=== PATIENT | male | born 1970 | race American Indian/Alaskan Native ===

== ENCOUNTER 2016-12-03 03:43 | Inpatient (IN) | payer MEDICAID ==
[2016-12-03] MEDS ORDERED: NACL 0.9% 1000 ML 2,000 ML ONE ×2 (03:52)
[2016-12-03] MEDS ORDERED: TYLENOL PR ONE ×4 (03:52→09:01)
[2016-12-03] MEDS ORDERED: NACL 0.9% 1000 ML 1,000 ML IV ONE ×2 (04:10→06:37)
[2016-12-03 04:54] LABS: Basophils % (Auto) 0.3 % (0.0-1.8); Hematocrit 39.4 % (35.5-45.6); Hemoglobin 12.2 gm/dl (11.8-15.2); Mean Corpuscular HGB Conc 31 % (32-34); Mean Corpuscular Hemoglobin 30 pg (28-32); Mean Corpuscular Volume 97 fl (84-94); Platelet Count 127 K/mm3 (140-440); Red Blood Count 4.06 M/mm3 (3.65-5.03); Red Cell Distribution Width 19.2 % (13.2-15.2); White Blood Count 10.9 K/mm3 (4.5-11.0)
[2016-12-03 05:04] LABS: INR 1.13 (0.87-1.13)
[2016-12-03 05:13] LABS: Alanine Aminotransferase 31 units/L (7-56); Albumin 2.1 g/dL (3.9-5); Albumin/Globulin Ratio 0.3 %; Alkaline Phosphatase 79 units/L (35-129); Bilirubin,Total 0.4 mg/dL (0.1-1.2); Blood Urea Nitrogen 37 mg/dL (9-20); Calcium 7.9 mg/dL (8.4-10.2); Carbon Dioxide 25 mmol/L (22-30); Glucose 152 mg/dL (75-100); Total Protein 8.2 g/dL (6.3-8.2)
[2016-12-03 05:14] LABS: Chloride 116.5 mmol/L (98-107); Potassium 3.9 mmol/L (3.6-5.0); Sodium 153 mmol/L (137-145)
[2016-12-03 05:21] LABS: Anion Gap 15 mmol/L
[2016-12-03] MEDS ORDERED: TORADOL IV ONE (05:39)
[2016-12-03 05:45] LABS: ISTAT Base Excess 2; ISTAT HCO3 25.6; ISTAT PCO2 34.3 (35-45); ISTAT PH 7.481 (7.35-7.45); ISTAT PO2 145 (80-105); ISTAT SO2 99; ISTAT TCO2 27
[2016-12-03] MEDS ORDERED: ASPIRIN PR ONE (06:31)
--- NOTE | 2016-12-03 06:31 | Emergency Department Report ---
HPI - General Chief Complaint: Fever Time Seen by Provider: 12/03/16 06:13 - HPI HPI: The patient is a 46-year-old male who presents [facility] with a history of tracheostomy placement, suprapubic catheter placement, recurrent UTIs, CVA, diabetes, decubitus ulcers, who presents for evaluation of fever. Per nursing staff the patient was found to be febrile with a high-grade temperature for the past one day, and with moderate to severe sputum drainage. The patient has also experienced decreased urine output, constant, severe for the past one day. ED Past Medical Hx - Past Medical History Hx Hypertension: Yes Hx CVA: Yes Hx Congestive Heart Failure: Yes Hx Diabetes: Yes Hx Deep Vein Thrombosis: (Unk) Hx Renal Disease: Yes Hx Seizures: Yes Hx Asthma: No Hx COPD: No Hx Dementia: Yes Additional medical history: Resp failure, dysphagia, uti, scrotal cellulitis - Surgical History Hx Pacemaker: No Hx Internal Defibrillator: No Additional Surgical History: G-tube, - Social History Smoking Status: Unknown if ever smoked - Medications Home Medications: Home Medications Medication Instructions Recorded Confirmed Last Taken Type amLODIPine [Norvasc] 5 mg FEEDTUBE QDAY tablet 08/14/16 12/03/16 08/17/16 Rx Acetaminophen [Tylenol] 650 mg FEEDTUBE Q4H PRN 12/03/16 12/03/16 Unknown History Ascorbic Acid [Vitamin C] 500 mg PO DAILY 12/03/16 12/03/16 Unknown History Famotidine [Pepcid] 20 mg FEEDTUBE BID 12/03/16 12/03/16 Unknown History Glycopyrrolate [Robinul] 1 mg FEEDTUBE TID PRN 12/03/16 12/03/16 Unknown History Insulin Regular, Human [HumuLIN R] See Protocol IV QWEEK 12/03/16 12/03/16 Unknown History Ipratropium/Albuterol Sulfate 1 ampul IH Q6HR 12/03/16 12/03/16 Unknown History [Duoneb 0.5 mg-3 mg/3 ml Soln] Morphine Sulfate [Morphine Sulfate 30 mg PO Q12HR PRN 12/03/16 12/03/16 Unknown History ER] Multivit with Min #53/FA/K/Q10 1 each PO DAILY 12/03/16 12/03/16 Unknown History [Dekas Plus Softgel] Protein Supplement [Promod] 30 ml FEEDTUBE TID 12/03/16 12/03/16 Unknown History Scopolamine [Transderm-Scop] 1.5 mg TD Q3D 12/03/16 12/03/16 Unknown History ED Review of Systems ROS: Stated complaint: AMS/TACHYCARDIA Other details as noted in HPI Comment: Unobtainable due to pts medical conditions (nonverbal) Physical Exam - Physical Exam Vital Signs: Vital Signs 12/03/16 12/03/16 12/03/16 04:03 04:04 04:27 Temperature 104.3 F H Pulse Rate 145 H 144 H Respiratory 27 H 38 H Rate Blood Pressure 102/63 O2 Sat by Pulse 91 91 Oximetry O2 Sat by Pulse Oximetry [ Assessment] 12/03/16 12/03/16 12/03/16 04:31 04:44 05:01 Temperature Pulse Rate 140 H 147 H Respiratory 45 H 38 H Rate Blood Pressure 102/63 113/69 O2 Sat by Pulse 94 94 Oximetry O2 Sat by Pulse 96 Oximetry [ Assessment] 12/03/16 05:08 Temperature Pulse Rate 144 H Respiratory Rate Blood Pressure O2 Sat by Pulse 99 Oximetry O2 Sat by Pulse Oximetry [ Assessment] Physical Exam: General: well-nourished, well-developed, no acute distress Head: Normocephalic, atraumatic Eyes: normal sclera ENT: Mucous membranes are pale and dry, tracheostomy present Neck: No neck stiffness, no cervical adenopathy Respiratory: Breath sounds equal bilaterally, no wheezing, rales, or rhonchi Cardio: S1 and S2 present, no murmurs, rubs, gallops, capillary refill is delayed Abdomen: Normoactive bowel sounds, soft abdomen, no rigidity, no guarding or rebound tenderness : suprapubic catheter present, foul-smelling urine present to diaper Musc: No pitting edema Skin: multiple decubitus ulcers with surrounding erythema and warmth present to the sacrum, and extremities Neuro: no facial drooping, normal speech Psych: Normal affect ED Course Vital Signs 12/03/16 12/03/16 12/03/16 04:03 04:04 04:27 Temperature 104.3 F H Pulse Rate 145 H 144 H Respiratory 27 H 38 H Rate Blood Pressure 102/63 O2 Sat by Pulse 91 91 Oximetry O2 Sat by Pulse Oximetry [ Assessment] 12/03/16 12/03/16 12/03/16 04:31 04:44 05:01 Temperature Pulse Rate 140 H 147 H Respiratory 45 H 38 H Rate Blood Pressure 102/63 113/69 O2 Sat by Pulse 94 94 Oximetry O2 Sat by Pulse 96 Oximetry [ Assessment] 12/03/16 05:08 Temperature Pulse Rate 144 H Respiratory Rate Blood Pressure O2 Sat by Pulse 99 Oximetry O2 Sat by Pulse Oximetry [ Assessment] ED Medical Decision Making - Lab Data Result diagrams: 12/03/16 04:32 12/03/16 04:32 - Medical Decision Making The patient was seen and examined by myself. The patient is placed on a color television console monitor and continuous pulse ox. On initial evaluation, the patient was found to be in no distress. Evaluation orders were placed. The patient was found to be febrile and he was given rectal Tylenol. The patient is given 1 L normal saline fluid bolus for treatment of dehydration. Exam findings are concerning for urinary tract infection versus decubitus ulcer cellulitis. The patient is administered Zosyn. Lab was also grossly unrevealing. Chest x-ray is negative for obvious pneumonia. The on-call hospitalist service was contacted. They agreed to admit the patient for further treatment and close monitoring. The ED admit order was placed. The patient was admitted in guarded condition. Critical care attestation.: If time is entered above; I have spent that time in minutes in the direct care of this critically ill patient, excluding procedure time. ED Disposition Clinical Impression: Dehydration, Lactic acidosis, Decubitus ulcer, stage 1 with infection Fever Qualifiers: Fever type: unspecified Qualified Code(s): R50.9 - Fever, unspecified Sepsis Qualifiers: Sepsis type: sepsis due to unspecified organism Qualified Code(s): A41.9 - Sepsis, unspecified organism Disposition: OP ADMITTED IP TO THIS HOSP Is pt being admited?: Yes Does the pt Need Aspirin: Yes Condition: Serious Referrals: PRIMARY CARE, [Primary Care Provider] - 3-5 Days Time of Disposition: 06:30
[2016-12-03] MEDS ORDERED: ZOSYN/NS 3.375GM/50ML 50 ML IV SCH (07:00)
--- NOTE | 2016-12-03 07:29 | XRay Report ---
AP chest History: Sepsis Findings: Compared to 08/18/16. Limited exam due to the patient's right arm overlying the lower chest. The patient was reported to be in a contracted position. Heart size and pulmonary vascularity are within normal limits. Subtle right lung airspace opacities have resolved since the previous exam. The lungs are grossly clear. No consolidation, pleural effusion or pneumothorax is appreciated. Tracheostomy remains in good position. Impression: Limited but grossly negative AP chest.
--- NOTE | 2016-12-03 09:09 | History and Physical Report ---
History of Present Illness Date of examination: 12/03/16 Date of admission: 12/03/2016 Chief complaint: Fever History of present illness: Patient is 46 -year-old with history of dementia, seizure disorder, stroke, hypertension. He is a [facility] at a [facility]. He was sent in because of fever. Patient is aphasic and cannot provide any history. In emergency departments he had a temperature of 104. BMP showed hypernatremia. He was diagnosed with sepsis. He was hypotensive and hypoxic. Was put on ventilator, multiple IV fluid bolus. He will be admitted to intensive care unit. Past History Past Medical History: hypertension, seizures, stroke, other (dementia) Past Surgical History: Other (PEG, tracheostomy) Social history: smoking (no smoking), alcohol abuse (no alcohol), full code, other (since [facility] facility, no smoking or alcohol) Family history: no significant family history Medications and Allergies Allergies Allergy/AdvReac Type Severity Reaction Status Date / Time vancomycin Allergy Unknown Verified 12/03/16 04:25 Home Medications Medication Instructions Recorded Confirmed Last Taken Type amLODIPine [Norvasc] 5 mg FEEDTUBE QDAY tablet 08/14/16 12/03/16 08/17/16 Rx Acetaminophen [Tylenol] 650 mg FEEDTUBE Q4H PRN 12/03/16 12/03/16 Unknown History Ascorbic Acid [Vitamin C] 500 mg PO DAILY 12/03/16 12/03/16 Unknown History Famotidine [Pepcid] 20 mg FEEDTUBE BID 12/03/16 12/03/16 Unknown History Glycopyrrolate [Robinul] 1 mg FEEDTUBE TID PRN 12/03/16 12/03/16 Unknown History Insulin Regular, Human [HumuLIN R] See Protocol IV QWEEK 12/03/16 12/03/16 Unknown History Ipratropium/Albuterol Sulfate 1 ampul IH Q6HR 12/03/16 12/03/16 Unknown History [Duoneb 0.5 mg-3 mg/3 ml Soln] Morphine Sulfate [Morphine Sulfate 30 mg PO Q12HR PRN 12/03/16 12/03/16 Unknown History ER] Multivit with Min #53/FA/K/Q10 1 each PO DAILY 12/03/16 12/03/16 Unknown History [Dekas Plus Softgel] Protein Supplement [Promod] 30 ml FEEDTUBE TID 12/03/16 12/03/16 Unknown History Scopolamine [Transderm-Scop] 1.5 mg TD Q3D 12/03/16 12/03/16 Unknown History Active Meds: Active Medications Piperacillin Sod/Tazobactam Sod (Zosyn/Ns 3.375gm/50ml) 50 mls @ 100 mls/hr IV Q6HR PAM Last Admin: 12/03/16 09:00 Dose: 100 mls/hr Review of Systems ROS unobtainable: due to endotracheal tube Exam - Constitutional Vitals: Temp Pulse Resp BP Pulse Ox 102.8 F H 118 H 19 95/66 100 12/03/16 08:55 12/03/16 08:30 12/03/16 08:30 12/03/16 08:30 12/03/16 08:30 General appearance: Present: no acute distress - EENT Eyes: Present: PERRL ENT: other (tracheostomy connected to ventilator) - Respiratory Respiratory effort: normal Respiratory: bilateral: CTA, negative: diminished, rales, rhonchi, wheezing - Cardiovascular Rhythm: regular Heart Sounds: Present: S1 & S2 (S1 and S2 regular,tachcardia, no murmurs rubs or gallops) - Extremities Extremities: abnormal (contracted, leg ulcer) - Abdominal General gastrointestinal: Present: soft, non-tender, non-distended, normal bowel sounds, other (PEG tube, subprapubic catheter) - Neurologic Neurologic: other (Lethargic, on ventilator,aphasic) Results - Labs CBC & Chem 7: 12/03/16 04:32 12/03/16 04:32 Labs: Abnormal lab results 12/03/16 12/03/16 12/03/16 Range/Units 04:32 04:32 04:32 MCV 97 H (84-94) fl MCHC 31 L (32-34) % RDW 19.2 H (13.2-15.2) % Plt Count 127 L (140-440) K/mm3 Lymph % (Auto) 12.2 L (13.4-35.0) % [place] % (Auto) 7.6 H (0.0-7.3) % Seg Neutrophils % 79.9 H (40.0-70.0) % Seg Neutrophils # 8.7 H (1.8-7.7) K/mm3 POC ABG pH (7.35-7.45) POC ABG pCO2 (35-45) POC ABG pO2 (80-105) Sodium 153 H (137-145) mmol/L Chloride 116.5 H (98-107) mmol/L BUN 37 H (9-20) mg/dL Glucose 152 H (75-100) mg/dL Lactic Acid 2.3 H* (0.7-2.0) mmol/L Calcium 7.9 L (8.4-10.2) mg/dL Albumin 2.1 L (3.9-5) g/dL 12/03/16 Range/Units 05:37 MCV (84-94) fl MCHC (32-34) % RDW (13.2-15.2) % Plt Count (140-440) K/mm3 Lymph % (Auto) (13.4-35.0) % [place] % (Auto) (0.0-7.3) % Seg Neutrophils % (40.0-70.0) % Seg Neutrophils # (1.8-7.7) K/mm3 POC ABG pH 7.481 H (7.35-7.45) POC ABG pCO2 34.3 L (35-45) POC ABG pO2 145 H (80-105) Sodium (137-145) mmol/L Chloride (98-107) mmol/L BUN (9-20) mg/dL Glucose (75-100) mg/dL Lactic Acid (0.7-2.0) mmol/L Calcium (8.4-10.2) mg/dL Albumin (3.9-5) g/dL Assessment and Plan Sepsis. Admit to intensive care unit using sepsis protocol with 3 antibiotics. Zosyn, Levaquin and Zyvox(he is allergic to vancomycin). Urine and blood cultures ordered. Consulted ID physician. Acute respiratory failure with hypoxia. He had a tracheostomy and this has been connected to ventilator. Consult Dr. Duggan, Pulmonology/Skills Instructor to help with management. Hypotension due to sepsis. BP low normal in the 90s. We'll continue to give bolus normal saline and if BP remains low, may start Levophed to keep MAP greater than 65. total 4 Liters bolus ordered. Dehydration. iv fluid bolus. Total 4 liters ordered Patient has suprapubic catheter. No urine in bag. will consult Urology. Fever due to sepsis likely due to UTI. Hypernatremia. Iv fluids History of seizure disorder. Details unclear. Give Keppra twice a day DVT prophylaxis with SCDs only. No anticoagulation because of thrombocytopenia Full CODE STATUS
[2016-12-03] MEDS ORDERED: ZOFRAN IV PRN (09:15)
[2016-12-03] MEDS ORDERED: PANCREAZE DR 10,500 UNIT FEEDTUBE PRN ×2 (09:15→16:47)
[2016-12-03] MEDS ORDERED: SODIUM BICARBONATE FEEDTUBE PRN ×2 (09:15→16:47)
[2016-12-03] MEDS ORDERED: DULCOLAX PR PRN (09:15)
[2016-12-03] MEDS ORDERED: SIMPLE SYRUP FEEDTUBE PRN ×4 (09:15→16:47)
[2016-12-03] MEDS ORDERED: ALUM-MAG HYDROX-SIMETH 200-200-20MG/5ML PO PRN (09:15)
[2016-12-03] MEDS ORDERED: MILK OF MAGNESIA PO PRN (09:15)
[2016-12-03] MEDS ORDERED: TYLENOL FEEDTUBE PRN (09:25)
[2016-12-03] MEDS ORDERED: ROBINUL FEEDTUBE PRN (09:25)
[2016-12-03] MEDS ORDERED: NACL 0.9% 1000 ML 2,000 ML IV ONE (09:36)
--- NOTE | 2016-12-03 09:57 | Admit Criteria Form ---
Admission Criteria Documentation: SEVERE SEPSIS Clinical Indications for Admission to Inpatient Care (Place 'X' for any and all applicable criteria): Hospital admission is needed for appropriate care of the patient because of ANY ONE of the following: [X]I. Hemodynamic instability indicated by ANY ONE of the following(1)(2)(3)( 4)(5): [X]a. Vital sign abnormality not readily corrected by appropriate treatment within 12 to 24 hours indicated by ANY ONE of the following: [X]i) Tachycardia that persists despite appropriate treatment []ii) Hypotension that persists despite appropriate treatment []iii) Orthostatic vital sign changes that persist despite appropriate treatment [X]b. Vital sign abnormality that is severe indicated by ANY ONE of the following: [X]i. Inadequate perfusion indicated by ANY ONE of the following: [X]1) Lactic acidosis (greater than 2 mmol/L) []2) New abnormal capillary refill (greater than 3 seconds) []3) Reduced urine output []4) New altered mental status []5) Myocardial Ischemia []ii. Mean arterial pressure [A] less than 60 mm Hg []iii. Mean arterial pressure[A] less than 70 mm Hg after 30 minutes of appropriate treatment (eg, fluid resuscitation) []iv. Sustained heart rate greater than 120 beats per minute in adult []v. IV inotropic or vasopressor medication required to maintain adequate blood pressure or perfusion [X]II. Systemic or infectious condition causing severe symptoms or findings not responsive to emergency or observation care treatment (as appropriate) indicated by ANY ONE of the following: []a. Cardiac arrhythmias of immediate concern(1)(2)(3) []b. Severe endocrine disorder (eg, thyrotoxicosis, adrenal insufficiency)(4)(5) []c. Seizures (eg, new or recurrent)(6) []d. New-onset end organ failure or dysfunction as indicated by ANY ONE of the following: []i. Acute unexplained hypoxemia (eg, not from lung infection or chronic disease)(7)(8)(9) []ii. Acute renal failure as indicated by new onset of ANY ONE of the following(10)(11)(12)(13)(14): []1) 3-fold rise in serum creatinine from baseline []2) Serum creatinine greater than 4 mg/dL (354 micromoles/L) with acute rise greater than 0.5 mg/dL (44.2 micromoles/L) []3) Reduction of more than 75% in estimated glomerular filtration rate from baseline. []4) Estimated glomerular filtration rate less than 35 mL/min/1.73m2 ( 0.59 mL/sec/1.73m2) in child younger than 18 years. []5) Cessation of urine output indicated by ALL of the following: []A. Adequate volume status []B. Inadequate urine output as indicated by ANY ONE of the following: []a. Urine output less than 0.3 mL/kg/hr for 24 hours []b. Anuria (urine output less than 0.1 mL/kg/hr) for 12 hours []iii. Acute mental status changes(15) []iv. Acute hepatic failure (eg, plasma bilirubin greater than 4 mg/ dL (68 micromoles/L), new INR greater than 2.0)(16)(17) []e. Unmanageable nausea and vomiting(18) []f. New-onset or uncontrolled central diabetes insipidus(19)(20) []g. Clinically significant dehydration(18)(21) []h. Hypoglycemia(22) [X]i. Acidosis (pH less than 7.35) or alkalosis (pH greater than 7.45)( 22)(23) []j. Toxic drug level that indicates need for specific monitoring or treatment(24)(25) []k. Severe electrolyte abnormalities indicated by ALL of the following( 1)(2)(3): []i. Electrolytes and associated findings are not as expected for patient baseline or acceptable treatment effects. []ii. Severe abnormalities indicated by ANY ONE of the following: []1) Sodium less than 130 mEq/L (mmol/L) (new) []2) Sodium less than 135 mEq/L (mmol/L) with ANY ONE of the following: []A. Uncorrectable (to near normal or chronic baseline) after trial of outpatient and emergency treatment []B. Altered mental status []C. Seizures []D. Severe medical etiology requiring inpatient management (eg , heart failure, hypovolemia) []3) Sodium greater than 155 mEq/L (mmol/L) []4) Sodium greater than 150 mEq/L (mmol/L) with ANY ONE of the following: []A. Uncorrectable (to near normal or chronic baseline) with outpatient and emergency treatment []B. Altered mental status []C. Seizures []D. Severe medical etiology (eg, hypovolemia, diabetes insipidus) []5) Potassium less than 2.5 mEq/L (mmol/L) despite outpatient and emergency treatment []6) Potassium less than 3 mEq/L (mmol/L) with ANY ONE of the following : []A. Weakness []B. Cardiac abnormality (eg, arrhythmia, conduction disturbance ) []C. Cardiac ischemia []D. Ileus []E. Ongoing medical cause requiring inpatient management (eg, acute renal wasting or SIADH) []F. Other severe symptoms []7) Potassium greater than 6.5 mEq/L (mmol/L) []8) Potassium greater than 5 mEq/L (mmol/L) with ANY ONE of the following: []A. Uncorrectable (to near normal or chronic baseline) with outpatient and emergency treatment []B. Severe ECG findings[A] []C. Acute worsening of renal failure (creatinine greater than 2.5 mg/dL (221 micromoles/L) or significant elevation for age and size) []D. Severe weakness []E. Severe medical etiology (eg, hemolysis, infection, drug overdose) []9) Calcium less than 7 mg/dL (1.75 mmol/L) despite outpatient and emergency treatment(5) []10) Calcium less than 8 mg/dL (2 mmol/L) with significant symptoms or findings (eg, altered mental status, muscle spasms, seizures, breathing difficulty, cardiac abnormality (eg, arrhythmia or conduction disturbance))(5) []11) Calcium greater than 14 mg/dL (3.5 mmol/L)(5) []12) Calcium greater than 12 mg/dL (3 mmol/L) with ANY ONE of the following(5): []A. Uncorrectable (to near normal or chronic baseline) with outpatient and emergency treatment []B. Significant dehydration or hypovolemia as indicated by ALL of the following(3)(6)(7): []a. Not resolved with initial treatments []b. Clinically significant dehydration as indicated by ANY ONE of the following: [](1) Vomiting refractory to outpatient treatment (ie, precluding oral rehydration) [](2) Inability to drink [](3) Hypernatremia or other electrolyte abnormality unable to be corrected with outpatient and emergency treatment [](4) Failure to remain hydrated with outpatient therapy [](5) Reduced urine output [](6) Hypotension [](7) Serious cause for dehydration requiring acute hospitalization ( eg, bowel obstruction, increased intracranial pressure, infectious cause) [](8) Child with ANY ONE of the following(8): [](i) Severe abdominal tenderness [](ii) Adequate care not available at home [](iii) Severe dehydration (greater than 9% loss of body weight) []C. Significant symptoms or findings (eg, altered mental status , cardiac abnormality (eg, arrhythmia, conduction disturbance), malignant etiology requiring inpatient treatment) []13) Phosphorus less than 1 mg/dL (0.32 mmol/L) []14) Phosphorus less than 1.5 mg/dL (0.48 mmol/L) with ANY ONE of the following: []A. Patient unresponsive to outpatient and emergency treatment []B. Significant symptoms or findings (eg, weakness, altered mental status, breathing difficulty, seizures, rhabdomyolysis) []15) Phosphorus greater than 10 mg/dL (3.2 mmol/L) []16) Phosphorus greater than 4.5 mg/dL (1.45 mmol/L) (new) with ANY ONE of the following: []A. Severe medical etiology (eg, crush injury, acute renal failure) []B. Associated hypocalcemia with significant findings (eg, neurologic symptoms, altered mental status, muscle spasms, seizures, breathing difficulty, cardiac abnormality (eg, arrhythmia, conduction disturbance)) []16) Magnesium less than 1 mg/dL (0.41 mmol/L) []17) Magnesium less than 1.5 mg/dL (0.62 mmol/L) with ANY ONE of the following: []A. Patient unresponsive to outpatient and emergency treatment []B. Associated hypocalcemia with significant findings (eg, altered mental status, muscle spasms, seizures, breathing difficulty, cardiac abnormality (eg, arrhythmia, conduction disturbance)) []C. Associated hypokalemia (potassium less than 3 mEq/L (mmol/L )) with risk of arrhythmia []18) Magnesium greater than 4 mEq/L (2 mmol/L) []19) Magnesium greater than 2.5 mEq/L (1.25 mmol/L) with significant symptoms or findings (eg, weakness, altered mental status, cardiac abnormality (eg, arrhythmia, conduction disturbance), breathing difficulty, severe medical etiology (eg, renal failure, hypovolemia)) []20) Uric acid greater than 20 mg/dL (1190 micromoles/L)(9) []21) Uric acid greater than 8 mg/dL (476 micromoles/L) with significant symptoms or findings of tumor lysis syndrome (eg, creatinine greater than 1.5 times upper limit of normal, cardiac abnormality (eg , arrhythmia, conduction disturbance), seizure)(9) [X]III. High fever or other high-risk infection situation as indicated by ANY ONE of the following(26)(27)(28): [X]a. Outpatient and observation care antimicrobial treatment unavailable, not effective, or not appropriate []b. Documented bacteremia []c. Temperature greater than 104.9 degrees F (40.5 degrees C) (oral) []d. Temperature greater than 103.1 degrees F (39.5 degrees C) (oral) or less than 96.8 degrees F (36 degrees C) (rectal) that does not respond to emergency treatment and observation care []IV. High-risk febrile neutropenia[A] as indicated by ANY ONE of the following(29)(30)(31)(32): []a. Profound neutropenia[B] anticipated to extend for more than 7 days []b. Hemodynamic instability []c. Hypoxemia []d. Tachypnea []e. Altered mental status []f. New-onset abdominal pain []g. New-onset vomiting or diarrhea []h. Oral or gastrointestinal mucositis that interferes with swallowing or causes severe diarrhea []i. Focal infection (eg, cellulitis, pneumonia, central line or catheter infection, perirectal abscess) []j. Renal insufficiency (eg, GFR of less than 30 mL/min/1.73m2 (0.5 mL/sec /1.73m2)). []k. Severe liver dysfunction (transaminase levels greater than 5 times normal) []l. Platelet count less than 50,000/mm3 (50 x109/L)(33) []m. Leukemia or lymphoma induction therapy []n. Leukemia not in complete remission or with evidence of disease progression []o. Bone marrow transplant patient []p. Alemtuzumab being used for therapy []q. [employer] Supportive Care in Cancer (MASCC) Risk Index score of less than 21[C](33)(35). []V. Isolation required (eg, tuberculosis that requires isolation, Ebola infection)[D](36)(37)(38)(39)(40) []. Gangrene that requires treatment beyond emergency or observation level care(41)(42) []VII. Antitoxin administration and ongoing observation required (eg, tetanus, botulism)(43)(44) []. Suspected infection with rapid progression or severe symptoms as indicated by ANY ONE of the following(45): []a. Streptococcal or staphylococcal toxic shock(46) []b. Diphtheria(47) []c. Hantavirus(48) []d. Severe acute respiratory syndrome(8)(49) []e. Anthrax(50) []f. Ebola[D](36)(37)(38) []g. Necrotizing soft tissue infection(41)(42) []h. Plague(50) []i. Other suspected infection that requires care beyond emergency or observation level care []VII. Severe adverse drug or systemic toxin reaction as indicated by ANY ONE of the following(24): []a. Serotonin syndrome(51)(52) []b. Neuroleptic malignant syndrome(51)(52) []c. Cholinergic syndrome with severe symptoms (eg, bronchorrhea, weakness , mental status changes, seizures)(53) []d. Anticholinergic syndrome []e. Sympathetic syndrome with severe symptoms (eg, seizures, mental status changes, cardiac dysrhythmias) []f. Other severe adverse drug or systemic toxin reaction that remains after emergency or observation level care (as appropriate) []VIII. Allergic reaction with severe symptoms (not responsive to emergency or observation care treatment as appropriate), including ANY ONE of the following(54): []a. Airway edema (pharyngeal, epiglottic, or laryngeal edema) []b. Stridor []c. Respiratory failure []d. Bronchospasm []e. Hypotension []IX. Environmental emergency (not responsive to emergency or observation care treatment as appropriate) as indicated by ANY ONE of the following(55)(56): []a. Hyperthermia []b. Heat stroke []c. Heat exhaustion []d. Hypothermia (temperature less than 95 degrees F (35 degrees C) rectal) (57) []e. Electrocution(58) []X. Complications of transplanted organ (ie, not covered elsewhere)[E] indicated by ANY ONE of the following(59): []a. Acute graft rejection (or graft vs. host disease)[F] requiring inpatient management (eg, intravenous immunosuppression)(60)(61)(62)( 63) []b. Acute failure of transplanted organ necessitating inpatient care (eg, cannot be managed in other setting) []c. Infection requiring inpatient management (eg, Hemodynamic instability, need for intravenous antimicrobial treatment)(64)(65) []d. Other complication of transplanted organ requiring inpatient management []XI. Systemic or Infectious Condition condition, symptom, or finding for which emergency and observation care have failed or are not considered appropriate. See General Criteria: Observation Care, General Admission Criteria or Pediatric General Admission Criteria guideline as appropriate. (Contents from SEVERE SEPSIS and SYSTEMIC OR INFECTIOUS CONDITION clinical indications for admission to inpatient care have been integrated in this form) The original [facility] content created by [facility] has been revised. The portions of the content which have been revised are identified through the use of italic text or in bold and [facility] has neither reviewed nor approved the modified material. All other unmodified content is copyright [facility]. Please see references footnoted in the original [facility] edition 2016 Admission Criteria Met: Yes
[2016-12-03] MEDS ORDERED: LEVAQUIN 750MG/150ML 150 ML IV SCH (10:00)
[2016-12-03 10:40] LABS: Magnesium 2.4 mg/dL (1.7-2.3); Phosphorous 3.2 mg/dL (2.5-4.5)
--- NOTE | 2016-12-03 12:40 | Consultation ---
History of Present Illness Consult date: 12/03/16 Requesting physician: ARABELLA EVERETT Reason for consult: other (Acute Respiratory Failure; Sepsis) History of present illness: PULMONARY/CCM CONSULT (Full dictation # [id number]) Please see dictated notes for full details Medications and Allergies Allergies Allergy/AdvReac Type Severity Reaction Status Date / Time vancomycin Allergy Unknown Verified 12/03/16 04:25 Home Medications Medication Instructions Recorded Confirmed Last Taken Type amLODIPine [Norvasc] 5 mg FEEDTUBE QDAY tablet 08/14/16 12/03/16 08/17/16 Rx Acetaminophen [Tylenol] 650 mg FEEDTUBE Q4H PRN 12/03/16 12/03/16 Unknown History Ascorbic Acid [Vitamin C] 500 mg PO DAILY 12/03/16 12/03/16 Unknown History Famotidine [Pepcid] 20 mg FEEDTUBE BID 12/03/16 12/03/16 Unknown History Glycopyrrolate [Robinul] 1 mg FEEDTUBE TID PRN 12/03/16 12/03/16 Unknown History Insulin Regular, Human [HumuLIN R] See Protocol IV QWEEK 12/03/16 12/03/16 Unknown History Ipratropium/Albuterol Sulfate 1 ampul IH Q6HR 12/03/16 12/03/16 Unknown History [Duoneb 0.5 mg-3 mg/3 ml Soln] Morphine Sulfate [Morphine Sulfate 30 mg PO Q12HR PRN 12/03/16 12/03/16 Unknown History ER] Multivit with Min #53/FA/K/Q10 1 each PO DAILY 12/03/16 12/03/16 Unknown History [Dekas Plus Softgel] Protein Supplement [Promod] 30 ml FEEDTUBE TID 12/03/16 12/03/16 Unknown History Scopolamine [Transderm-Scop] 1.5 mg TD Q3D 12/03/16 12/03/16 Unknown History Active Meds: Active Medications Acetaminophen (Tylenol) 650 mg FEEDTUBE Q4H PRN PRN Reason: Pain Al Hydrox/Mg Hydrox/Simethicone (Alum-Mag Hydrox-Simeth [id number]/5ml) 30 ml PO Q4H PRN PRN Reason: Indigestion Albuterol/Ipratropium (Duoneb 0.5 Mg-3 Mg/3 Ml Soln) 1 ampul IH Q6HR PAM Lipase/Protease/Amylase (Pancreaze Dr 10,500 Unit) 1 each FEEDTUBE PRN PRN PRN Reason: For Clogged Feeding Tube Ascorbic Acid (Vitamin C) 500 mg FEEDTUBE QDAY PAM Bisacodyl (Dulcolax) 10 mg [place] QDAY PRN PRN Reason: constipation unrelieved by MOM Glycopyrrolate (Robinul) 1 mg FEEDTUBE TID PRN PRN Reason: excess secretions Levofloxacin/Dextrose (Levaquin 750mg/150ml) 150 mls @ 100 mls/hr IV Q24HR PAM PRN Reason: Protocol Last Admin: 12/03/16 10:12 Dose: 100 mls/hr Linezolid (Zyvox 600mg/300ml) 300 mls @ 300 mls/hr IV Q12HR [facility] PRN Reason: Protocol Piperacillin Sod/Tazobactam Sod (Zosyn/Ns 4.5gm/100ml) 100 mls @ 100 mls/30 min IV Q6HR PAM PRN Reason: Protocol Magnesium Hydroxide (Milk Of Magnesia) 30 ml PO Q4H PRN PRN Reason: Constipation Morphine Sulfate (Morphine) 30 mg PO Q12H PRN PRN Reason: Pain Multivitamins (Centrum Liq) 5 ml PO QDAY [facility] Ondansetron HCl (Zofran) 4 mg IV Q6H PRN PRN Reason: nausea or vomiting Scopolamine (Transderm-Scop) 1 each TD Q3D [facility] Simple Syrup (Simple Syrup) 15 ml FEEDTUBE PRN PRN PRN Reason: Hypoglycemia Simple Syrup (Simple Syrup) 30 ml FEEDTUBE PRN PRN PRN Reason: Hypoglycemia Sodium Bicarbonate (Sodium Bicarbonate) 325 mg FEEDTUBE PRN PRN PRN Reason: For Clogged Feeding Tube Physical Examination Vital signs: Vital Signs Resp Pulse Ox 27 H 91 12/03/16 04:03 12/03/16 04:03 Results - Laboratory Findings CBC and BMP: 12/03/16 04:32 12/03/16 04:32 ABG POC ABG pH 7.481 (7.35-7.45) H 12/03/16 05:37 POC ABG pCO2 34.3 (35-45) L 12/03/16 05:37 POC ABG pO2 145 (80-105) H 12/03/16 05:37 POC ABG HCO3 25.6 12/03/16 05:37 POC ABG Total CO2 27 12/03/16 05:37 POC ABG O2 Sat 99 12/03/16 05:37 PT/INR, D-dimer PT 14.4 Sec. (12.2-14.9) 12/03/16 04:32 INR 1.13 (0.87-1.13) 12/03/16 04:32
[2016-12-03] MEDS ORDERED: WATER FOR IRRIG STERILE ONE (13:51)
--- NOTE | 2016-12-03 13:57 | Consultation ---
History of Present Illness - Reason for Consult Consult date: 12/03/16 septic shock - History of Present Illness Mr Olivares is a 46-year-old AA male halfway resident with multiple medical problems to include chronic respiratory failure with indwelling tracheostomy, recurrent complicated UTIs with indwelling suprapubic Guevara, hx of CVA with multiple contractures, DM, CKD, HTN, dementia, and seizure disorder. He is admitted to on 12/03 with fever, and relative hypotension. The patient is unable to supply any history. He has been seen multiple times in the past by my group with complicated UTIs and bacteremia ( last seen 08/2016 ). The patient is noted now with a temperature of 104.3 and blood pressure 94/60. CBC includes white count 10,900 with 80% segs. H&H is 12.2 and 39.4 respectively. Platelet counts 127,000. BUN/creatinine is 37 and 1.0. Lactate levels 1.9. Chest x-ray is clear. Influenza a and B antigen is negative. Blood cultures are pending. The patient has been started on linezolid, Zosyn and Levaquin. His chart notes a vancomycin allergy (? Reaction) Past History Past Medical History: hypertension, seizures, stroke, other (dementia) Past Surgical History: Other (PEG, tracheostomy) Social history: smoking (no smoking), alcohol abuse (no alcohol), full code, other (since halfway facility, no smoking or alcohol) Family history: no significant family history Medications and Allergies Allergies Allergy/AdvReac Type Severity Reaction Status Date / Time vancomycin Allergy Unknown Verified 12/03/16 04:25 Home Medications Medication Instructions Recorded Confirmed Last Taken Type amLODIPine [Norvasc] 5 mg FEEDTUBE QDAY tablet 08/14/16 12/03/16 08/17/16 Rx Acetaminophen [Tylenol] 650 mg FEEDTUBE Q4H PRN 12/03/16 12/03/16 Unknown History Ascorbic Acid [Vitamin C] 500 mg PO DAILY 12/03/16 12/03/16 Unknown History Famotidine [Pepcid] 20 mg FEEDTUBE BID 12/03/16 12/03/16 Unknown History Glycopyrrolate [Robinul] 1 mg FEEDTUBE TID PRN 12/03/16 12/03/16 Unknown History Insulin Regular, Human [HumuLIN R] See Protocol IV QWEEK 12/03/16 12/03/16 Unknown History Ipratropium/Albuterol Sulfate 1 ampul IH Q6HR 12/03/16 12/03/16 Unknown History [Duoneb 0.5 mg-3 mg/3 ml Soln] Morphine Sulfate [Morphine Sulfate 30 mg PO Q12HR PRN 12/03/16 12/03/16 Unknown History ER] Multivit with Min #53/FA/K/Q10 1 each PO DAILY 12/03/16 12/03/16 Unknown History [Dekas Plus Softgel] Protein Supplement [Promod] 30 ml FEEDTUBE TID 12/03/16 12/03/16 Unknown History Scopolamine [Transderm-Scop] 1.5 mg TD Q3D 12/03/16 12/03/16 Unknown History Active Meds: Active Medications Acetaminophen (Tylenol) 650 mg FEEDTUBE Q4H PRN PRN Reason: Pain Al Hydrox/Mg Hydrox/Simethicone (Alum-Mag Hydrox-Simeth [phone]/5ml) 30 ml PO Q4H PRN PRN Reason: Indigestion Albuterol/Ipratropium (Duoneb 0.5 Mg-3 Mg/3 Ml Soln) 1 ampul IH Q6HR PAM Lipase/Protease/Amylase (Pancrejmain Dr 10,500 Unit) 1 each FEEDTUBE PRN PRN PRN Reason: For Clogged Feeding Tube Ascorbic Acid (Vitamin C) 500 mg FEEDTUBE QDAY PAM Bisacodyl (Dulcolax) 10 mg UT QDAY PRN PRN Reason: constipation unrelieved by MOM Famotidine (Pepcid) 20 mg PO BID PAM Glycopyrrolate (Robinul) 1 mg FEEDTUBE TID PRN PRN Reason: excess secretions Levofloxacin/Dextrose (Levaquin 750mg/150ml) 150 mls @ 100 mls/hr IV Q24HR PAM PRN Reason: Protocol Last Admin: 12/03/16 10:12 Dose: 100 mls/hr Linezolid (Zyvox 600mg/300ml) 300 mls @ 300 mls/hr IV Q12HR PAM PRN Reason: Protocol Piperacillin Sod/Tazobactam Sod (Zosyn/Ns 4.5gm/100ml) 100 mls @ 100 mls/30 min IV Q6HR PAM PRN Reason: Protocol Lactated Ringer's (Lactated Ringers) 1,000 mls @ 100 mls/hr IV DIRECT PAM Levetiracetam 500 mg/ Dextrose 105 mls @ 400 mls/hr IV Q12H PAM Magnesium Hydroxide (Milk Of Magnesia) 30 ml PO Q4H PRN PRN Reason: Constipation Morphine Sulfate (Morphine) 30 mg PO Q12H PRN PRN Reason: Pain Multivitamins (Centrum Liq) 5 ml PO QDAY PAM Ondansetron HCl (Zofran) 4 mg IV Q6H PRN PRN Reason: nausea or vomiting Scopolamine (Transderm-Scop) 1 each TD Q3D PAM Simple Syrup (Simple Syrup) 15 ml FEEDTUBE PRN PRN PRN Reason: Hypoglycemia Simple Syrup (Simple Syrup) 30 ml FEEDTUBE PRN PRN PRN Reason: Hypoglycemia Sodium Bicarbonate (Sodium Bicarbonate) 325 mg FEEDTUBE PRN PRN PRN Reason: For Clogged Feeding Tube Review of Systems ROS unobtainable: due to mental status Physical Examination - Physical Exam Narrative exam: Chronically ill-appearing. Multiple contractures. HEENT: Pupils are equal reactive to light and accommodation. Conjunctiva clear. Oropharynx is not well seen. Mucous membranes appear moist. Trach site without redness. NECK: Supple. No enlargement of the thyroid gland. No significant cervical lymphadenopathy. No jugular venous distention at 30. LUNGS: Rhonchi bilaterally. HEART: Tachycardic. S1 and S2 are normal. There are no murmurs, gallops, clicks or rubs heard. ABDOMEN: Soft and nontender. Liver and spleen are not palpably enlarged or tender. No palpable masses. PEG site clean. Bowel sounds positive. Suprapubic catheter site without redness. EXTREMITIES: No rash, peripheral lymphadenopathy, clubbing or edema. Superficial skin ulceration over left leg. Back not seen. SKIN: No other rash NEUROLOGIC: Multiple contractures. Eyes open. Does not follow commands. - Constitutional Vitals: Vital Signs Temp Pulse Resp BP Pulse Ox 102 F H 106 H 18 91/60 100 12/03/16 10:40 12/03/16 11:30 12/03/16 11:00 12/03/16 11:00 12/03/16 11:30 Temperature -Last 24 Hours Temperature 102 F Results - Labs CBC & Chem 7: 12/03/16 04:32 12/03/16 04:32 Assessment and Plan Assessment: Mr Olivares is a 46-year-old AA male halfway resident with multiple medical problems to include chronic respiratory failure with indwelling tracheostomy, recurrent complicated UTIs with indwelling suprapubic Guevara, hx of CVA with multiple contractures, DM, CKD, HTN, dementia, and seizure disorder. He is admitted to on 12/03 with fever, and relative hypotension. Antibiotics: Levaquin 750 mg IV daily (12/03 -> Zosyn 4.5 g IV every 6 hours ( 12/03- > Linezolid 600 mg IV every 12 hours ( 12/03 - > Conclusions: 1. R/O septic shock -? Secondary to cough. UTI -? Secondary to skin site wound -? Aspiration -? Other occult source - R/O adrenal insufficiency 2. Recurrent UTI - Indwelling suprapubic catheter - Recent history - 08/2016 with Escherichia coli and pseudomonas aeruginosa ( Zosyn sensitive) 3. Chronic/ acute respiratory failure 4. Thrombocytopenia - R/O secondary to sepsis 5. Hx CVA - Multiple contractures 6. Electrolyte disorder - hypernatremia, hyperchloremia -R/O dehydration 7. Vancomycin allergy 8. Multiple medical problems -DM, CKD, seizure disorder, dementia, NH resident with frequent hospitalizations Recommendations: - Await culture data - Continue present therapy to include Zosyn and linezolid. Suspect though that patient's primary pathogen would involve gram-negative rods and we will be able to stop linezolid once further culture data is known - Levaquin is stopped. - Will give empiric Diflucan pending further culture findings - Consider empiric suprapubic catheter change - Follow lactate level. - Cortisol level ordered. Suggest IV hydrocortisone 100 mg IV every 8 hours if not already started - Continue local skin care. - Prognosis is guarded. Thank you for this consult. We will follow the patient closely with you.
[2016-12-03] MEDS ORDERED: HEPARIN SUB-Q SCH (14:00)
[2016-12-03] MEDS ORDERED: NON-FORMULARY (Protein Supplement [Promod] 30 ML) FEEDTUBE SCH (14:00)
--- NOTE | 2016-12-03 14:07 | Progress Note ---
Assessment and Plan urine clear spt changed pt critical condition supportive care Subjective Date of service: 12/03/16 Principal diagnosis: leaking around suprapubic site Objective - Constitutional Vitals: Vital Signs - 12hr 12/03/16 12/03/16 12/03/16 09:30 09:59 10:00 Temperature Pulse Rate 108 H 105 H 106 H Respiratory 18 18 19 Rate Blood Pressure 96/59 88/58 93/63 O2 Sat by Pulse Oximetry 12/03/16 12/03/16 12/03/16 10:01 10:15 10:30 Temperature Pulse Rate 105 H 107 H 109 H Respiratory 18 19 18 Rate Blood Pressure 93/63 97/65 98/65 O2 Sat by Pulse 100 Oximetry 12/03/16 12/03/16 12/03/16 10:35 10:40 11:00 Temperature 102 F H Pulse Rate 108 H 104 H Respiratory 18 18 Rate Blood Pressure 98/65 91/60 O2 Sat by Pulse 100 100 Oximetry 12/03/16 12/03/16 11:30 13:55 Temperature Pulse Rate 106 H 88 Respiratory Rate Blood Pressure 92/59 O2 Sat by Pulse 100 100 Oximetry General appearance: Present: severe distress - Respiratory Respiratory effort: labored Extremities: no ischemia - Labs CBC & Chem 7: 12/03/16 04:32 12/03/16 04:32
[2016-12-03] MEDS: ZOSYN/NS 4.5GM/100ML 100 ML IV SCH (14:44)
[2016-12-03] MEDS: LACTATED RINGERS 1,000 ML IV SCH (14:52)
[2016-12-03] MEDS: VITAMIN C FEEDTUBE SCH (14:56)
[2016-12-03] MEDS ORDERED: WATER FOR IRRIG STERILE IR ONE (15:00)
[2016-12-03] MEDS: KEPPRA 500 MG in D5W 100 ML IV SCH (15:45)
--- NOTE | 2016-12-03 16:06 | XRay Report ---
PORTABLE CHEST: INDICATION: Left arm PICC placement. COMPARISON: 4:42 AM earlier today. FINDINGS: Portable, frontal chest radiograph, 2:35 PM, 12/03/2016 again limited due to patient rotation to the right, though demonstrates a new left upper extremity PICC tip along the distal SVC, approximately 2.5 cm above the cavoatrial junction. Stable cardiomediastinal silhouette, tracheostomy tube, fairly clear lungs, EKG leads and few bony degenerative changes. CONCLUSION: Interval uncomplicated left upper extremity PICC placement, as described. Thank you for the opportunity to participate in this patient's care.
[2016-12-03] MEDS: DIFLUCAN 100 ML IV SCH (16:08)
[2016-12-03] MEDS: ZYVOX 600 MG/300 ML IV SCH ×2 (16:08→21:41)
[2016-12-03] MEDS: PEPCID PO SCH ×2 (16:30→21:41)
[2016-12-03] MEDS: DUONEB 0.5 MG-3 MG/3 ML SOLN IH SCH ×3 (16:55→19:00)
[2016-12-03 21:11] LABS: Anion Gap 13 mmol/L; BUN/Creatinine Ratio 43.33; Blood Urea Nitrogen 39 mg/dL (9-20); Calcium 7.7 mg/dL (8.4-10.2); Carbon Dioxide 24 mmol/L (22-30); Chloride 117.9 mmol/L (98-107); Glucose 93 mg/dL (75-100); Potassium 4.3 mmol/L (3.6-5.0); Sodium 151 mmol/L (137-145)
[2016-12-04] MEDS: ZOSYN/NS 4.5GM/100ML 100 ML IV SCH ×4 (01:00→18:05)
[2016-12-04] MEDS: KEPPRA 500 MG in D5W 100 ML IV SCH ×2 (02:30→15:00)
[2016-12-04] MEDS: DUONEB 0.5 MG-3 MG/3 ML SOLN IH SCH ×4 (02:30→21:32)
[2016-12-04] MEDS: LACTATED RINGERS 1,000 ML IV SCH (02:45)
--- NOTE | 2016-12-04 04:18 | Consultation ---
CONSULTING PHYSICIAN: Wilman Lara MD. REASON FOR CONSULTATION: Acute respiratory failure, severe sepsis. CHIEF COMPLAINT AND HISTORY OF PRESENT ILLNESS: The patient is a 46-year-old -Iranian male with past medical history significant for diagnosis of a prior cerebrovascular accident and encephalopathy, as a result of that [facility] resident, chronic respiratory failure with a tracheostomy in place, came into the Emergency Room after being [facility] the [facility] to be febrile with a high grade temperature that was not reported the exact amount, increasing tracheal secretions. He also was experiencing decreased urine output over the preceding 1-2 days. He was brought into the Emergency Room. In the Emergency Room, he was evaluated amongst other things, required mechanical ventilatory support, and has required volume resuscitation for hypotension. We are asked to assist with his management. When I stopped by to see him, he was on mechanical ventilator on the assist control mode, tidal volumes 450, PEEP of 5, rate of 18 and 35% FiO2. Oxygen sats were around 98%. He was unable to give me a history. I do not have any history of vomiting or overt aspiration. The patient was requiring more IV fluids secondary to a systolic blood pressure of about 80 mmHg, however, with a MAP of 66 at that time. This really is as much of the history of presentation as I have. PAST MEDICAL HISTORY: Hypertension, cerebrovascular accident, congestive heart failure, diabetes, history of chronic kidney disease, history of seizures, history of dementia, history of dysphagia, and prior history of scrotal cellulitis. PAST SURGICAL HISTORY: Status post tracheostomy, status post percutaneous endoscopic gastrostomy tube placement. MEDICATIONS: He was on at the time I stopped by to see him, according to the medication administration record included the following: Tylenol 650 mg via feeding tube q. 4 hours p.r.n. pain. DuoNeb treatments nebulized q. 6 hours. Vitamin C 500 mg p.o. daily. All p.o. meds via the feeding tube. P.r.n. Dulcolax, Pepcid 20 mg p.o. b.i.d., Robinul 1 mg p.o. t.i.d., Levaquin 750 mg IV daily, Zyvox 600 mg IV q. 12 hours. Morphine 30 mg p.o. q. 12 hours p.r.n. pain, Centrum multivitamin 5 mL p.o. daily, p.r.n. Zofran 4 mg IV q. 6 hours p.r.n., Zosyn 4.5 grams IV q. 6 hours, Scopolamine patch to skin q. 72 hours, and p.r.n. sodium bicarbonate for clogged feeding tube. ALLERGIES: Vancomycin, nature of this allergy is unknown. DIET: Thin gentleman, acute weight loss or gain history is unknown. FAMILY AND SOCIAL HISTORY: skilled nursing resident. No current alcohol, tobacco, or illicit drug use or abuse. Remote history is unknown. REVIEW OF SYSTEMS: Unobtainable secondary to the patient's medical and mental condition. Since he has been here, no gross hematochezia or melena, no gross hematuria, no hematemesis, no bloody tracheal secretions, no witnessed seizures. PHYSICAL EXAMINATION: VITAL SIGNS: At presentation in the Emergency Room, he had a temperature of 104.3 degrees Fahrenheit, pulse of 145, respiratory rate of 38, blood pressure 102/63, oxygen sats were 91%, inspired oxygen concentration was not recorded. HEENT: Pupils are equal, round, about 2 mm. Extraocular muscle movements could not be assessed. Tracheostomy tube is in place in the midline of the neck. No significant bleeding around the stoma. Grossly, no palpable lymph nodes in the supraclavicular or submandibular lymph node chains. LUNGS: Auscultation of both lung hatfield reveal bilateral rales, no wheezing. HEART: Heart sounds 1 and 2 are heard, regular rate and rhythm at the time of my evaluation. ABDOMEN: Soft, bowel sounds positive, flat, does not appear tender. EXTREMITIES: Without overt digital clubbing, cyanosis, or edema. NEUROLOGIC: He has contractures to both upper and lower extremities. He is encephalopathic really. LABORATORY DATA: From my review, white cell count 10,900, hemoglobin 12.2, hematocrit 39.4, platelets 127. INR 1.13. Arterial blood gas showed a pH of 7.48, pCO2 of 34, pO2 of 145, on 50% FiO2. It is unclear what settings those were done. Serum sodium 153, potassium 3.9, chloride 117, bicarbonate 25, BUN 37, creatinine 1.0, glucose 152. Lactic acid was within normal limits. Phosphorus and mag essentially within normal limits. Liver function tests essentially within normal limits except for an albumin of 2.1. Radiographic studies have been reviewed. Blood cultures are all pending as well as urine cultures. The radiograph I have reviewed, I have also reviewed the radiologist's interpretation and grossly negative I do agree. No overt focal infiltrates or consolidation. Tracheostomy tube is in good place. I cannot evaluate the left lower lobe region well secondary to the patient's hand which is in place there, and contracted, no gross pneumothorax, no gross bony fracture. ASSESSMENT AND PLAN: We have a middle-aged gentleman in with sepsis, severe sepsis really, requiring significant volume resuscitation, has not really responded to it. From a respiratory standpoint, we will keep him on mechanical ventilatory support; however, I will start weaning him on the pressure support mode as soon as now. His breathing is relatively nonlabored. Hopefully, we can quickly get him off the ventilator. Bronchodilators will be continued as scheduled. Aspiration precautions and other ventilator bundles will be instituted and routine trach care by the respiratory therapist will also be instituted. From a cardiovascular standpoint, the numbers do suggest an element of intravascular volume depletion and I should say his oxygenation is rather decent. We will continue possible volume resuscitation. In light of the electrolytes, I will change to lactated Ringer's and continue to trend his electrolytes as well as the lactic acid level. I will titrate the vasopressors if started to keep mean arterial pressures greater than or equal to around 60-65 mmHg. No evidence of an acute coronary syndrome otherwise. From a GI and nutritional standpoint, enteral nutrition will be the feeding modality of choice. Aspiration precautions will be maintained. He is appropriately on GI prophylaxis. From a renal standpoint, no major electrolyte abnormalities at this point except for the hypernatremia and hyperkalemia, again we will be changing the IV fluids, for now we will focus on isotonic fluids and switch after blood pressure stabilizes to a hypotonic solution. I will increase free water flushes in the meantime for the hypernatremia. Inputs and outputs will be monitored. Electrolytes will be corrected as necessary. From a PORTFOLIO ADMINISTRATOR standpoint, the exam based on the history is grossly nonfocal, no acute indication for neuro imaging by which I mean no new focal deficits. We will follow him clinically. From a general and hospital healthcare maintenance standpoint, he is on GI prophylaxis. He will be placed on DVT prophylaxis. Flu and pneumonia vaccination will be per protocol. Now from an infectious disease standpoint, he is on broad spectrum antibiotic therapy, Levaquin, Zyvox. It is unclear, I am not really impressed by the leukocytosis. I will get a CRP level, but also the lactic acid level is not that impressive. I suspect we can deescalate his antibiotic therapy. I will get Infectious Disease physicians involved in particular in light of the Zyvox therapy. He has been pancultured and anti-infectives will ultimately be deescalated based on results of clinical and microbiologic data. From a general and hospital healthcare maintenance standpoint, as mentioned above, he is going to be on GI and DVT prophylaxis. Thank you very much for the consult Dr. Lara. We will follow along and make further recommendations as picture progresses/becomes clearer. At this point, I have spent about 35-40 minutes of critical care time without overlap, excluding any procedural time that may be necessary. He is critically ill on life-sustaining interventions including mechanical ventilatory support at risk for further deterioration including . JOB# [id number] RUSSELL/PATRICIA
[2016-12-04 05:56] LABS: ISTAT Base Excess -3; ISTAT HCO3 21.8; ISTAT PCO2 36.1 (35-45); ISTAT PO2 105 (80-105); ISTAT SO2 98; ISTAT TCO2 23
[2016-12-04 06:21] LABS: Basophils % (Auto) 0.1 % (0.0-1.8); Mean Corpuscular HGB Conc 31 % (32-34); Mean Corpuscular Hemoglobin 30 pg (28-32); Mean Corpuscular Volume 96 fl (84-94); Red Blood Count 2.99 M/mm3 (3.65-5.03); Red Cell Distribution Width 18.3 % (13.2-15.2); White Blood Count 9.6 K/mm3 (4.5-11.0)
[2016-12-04 06:24] LABS: Hematocrit 28.6 % (35.5-45.6); Hemoglobin 8.9 gm/dl (11.8-15.2); Platelet Count 97 K/mm3 (140-440)
[2016-12-04 06:40] LABS: Alanine Aminotransferase 21 units/L (7-56); Albumin 1.9 g/dL (3.9-5); Albumin/Globulin Ratio 0.4 %; Alkaline Phosphatase 65 units/L (35-129); Anion Gap 15 mmol/L; BUN/Creatinine Ratio 51.42; Bilirubin,Total 0.3 mg/dL (0.1-1.2); Blood Urea Nitrogen 36 mg/dL (9-20); Calcium 8.1 mg/dL (8.4-10.2); Carbon Dioxide 22 mmol/L (22-30); Chloride 115.8 mmol/L (98-107); Glucose 118 mg/dL (75-100); Potassium 4.1 mmol/L (3.6-5.0); Sodium 149 mmol/L (137-145); Total Protein 7.1 g/dL (6.3-8.2)
--- NOTE | 2016-12-04 09:20 | Progress Note ---
Assessment and Plan Assessment: Mr Olivares is a 46-year-old AA male [facility] resident with multiple medical problems to include chronic respiratory failure with indwelling tracheostomy, recurrent complicated UTIs with indwelling suprapubic Guevara, hx of CVA with multiple contractures, DM, CKD, HTN, dementia, and seizure disorder. He is admitted to on 12/03 with fever, and relative hypotension. Antibiotics: Diflucan 200 mg IV daily ( 12/03- > Zosyn 4.5 g IV every 6 hours ( 12/03- > Linezolid 600 mg IV every 12 hours ( 12/03 - > s/p: Levaquin 750 mg IV daily ( 12/03) Conclusions: 1. R/O septic shock -? Secondary to UTI -? Secondary to skin site wound -? Aspiration -? Other occult source - R/O adrenal insufficiency 2. Recurrent UTI - Indwelling suprapubic catheter - Recent history - 08/2016 with Escherichia coli and pseudomonas aeruginosa ( Zosyn sensitive) UTI 3. Chronic/ acute respiratory failure 4. Thrombocytopenia - R/O secondary to sepsis; R/O drug side effect ( Zosyn, linezolid) 5. Hx CVA - Multiple contractures 6. Electrolyte disorder - hypernatremia, hyperchloremia -R/O dehydration 7. Vancomycin allergy 8. Multiple medical problems -DM, CKD, seizure disorder, dementia, NH resident with frequent hospitalizations Recommendations: - Await culture data - Continue present therapy to include Zosyn and linezolid. Suspect though that patient's primary pathogen would involve gram-negative rods and we will be able to stop linezolid once further culture data is known - Will continue empiric Diflucan pending further culture findings - Follow lactate level. - Cortisol level ordered. Continue IV hydrocortisone 100 mg IV every 8 hours. - Continue local skin care. - Prognosis is guarded. Subjective Date of service: 12/04/16 Principal diagnosis: leaking around suprapubic site Interval history: No events overnight. Now with low-grade fever. Suprapubic catheter changed . Objective - Exam Narrative Exam: Chronically ill-appearing. Multiple contractures. No distress. HEENT: Pupils are equal reactive to light and accommodation. Conjunctiva clear. Oropharynx is not well seen. Mucous membranes appear moist. Trach site without redness. NECK: Supple. No enlargement of the thyroid gland. No significant cervical lymphadenopathy. No jugular venous distention at 30. LUNGS: Rhonchi bilaterally. HEART: Tachycardic. S1 and S2 are normal. There are no murmurs, gallops, clicks or rubs heard. ABDOMEN: Soft and nontender. Liver and spleen are not palpably enlarged or tender. No palpable masses. PEG site clean. Bowel sounds positive. Suprapubic catheter site without redness. EXTREMITIES: No rash, peripheral lymphadenopathy, clubbing or edema. Superficial skin ulceration over left leg. Back not seen. SKIN: No other rash NEUROLOGIC: Multiple contractures. Awakes easily. Does not follow commands. - Constitutional Vitals: Vital Signs Temp Pulse Resp BP Pulse Ox 98.5 F 60 18 133/92 100 12/04/16 07:52 12/04/16 08:47 12/04/16 08:45 12/04/16 08:47 12/04/16 08:53 Temperature -Last 24 Hours Temperature 98.5 F Temperature 100.6 F Temperature 100.3 F Temperature 99.7 F Temperature 99 F Temperature 102 F - Labs CBC & Chem 7: 12/04/16 05:55 12/04/16 05:55 Labs: Abnormal lab results 12/03/16 12/04/16 12/04/16 Range/Units 19:48 00:09 05:55 RBC 2.99 L (3.65-5.03) M/mm3 Hgb 8.9 L D (11.8-15.2) gm/dl Hct 28.6 L D (35.5-45.6) % MCV 96 H (84-94) fl MCHC 31 L (32-34) % RDW 18.3 H (13.2-15.2) % Plt Count 97 L (140-440) K/mm3 Lymph % (Auto) 8.5 L (13.4-35.0) % Lymph # 0.8 L (1.2-5.4) K/mm3 Seg Neutrophils % 89.7 H (40.0-70.0) % Seg Neutrophils # 8.6 H (1.8-7.7) K/mm3 Sodium 151 H (137-145) mmol/L Chloride 117.9 H (98-107) mmol/L BUN 39 H (9-20) mg/dL Creatinine (0.8-1.5) mg/dL Glucose (75-100) mg/dL POC Glucose 110 H (70-105) Calcium 7.7 L (8.4-10.2) mg/dL Albumin (3.9-5) g/dL 12/04/16 12/04/16 Range/Units 05:55 06:00 RBC (3.65-5.03) M/mm3 Hgb (11.8-15.2) gm/dl Hct (35.5-45.6) % MCV (84-94) fl MCHC (32-34) % RDW (13.2-15.2) % Plt Count (140-440) K/mm3 Lymph % (Auto) (13.4-35.0) % Lymph # (1.2-5.4) K/mm3 Seg Neutrophils % (40.0-70.0) % Seg Neutrophils # (1.8-7.7) K/mm3 Sodium 149 H (137-145) mmol/L Chloride 115.8 H (98-107) mmol/L BUN 36 H (9-20) mg/dL Creatinine 0.7 L (0.8-1.5) mg/dL Glucose 118 H (75-100) mg/dL POC Glucose 118 H (70-105) Calcium 8.1 L (8.4-10.2) mg/dL Albumin 1.9 L (3.9-5) g/dL
[2016-12-04 09:48] LABS: Bilirubin,Urine Negative (Negative); Ketones,Urine Negative (Negative)
[2016-12-04 09:51] LABS: Leukocyte Esterase,Urine Moderate (Negative)
[2016-12-04 09:53] LABS: Nitrite,Urine Negative (Negative)
[2016-12-04 09:54] LABS: PH,Urine 6.5 (5.0-7.0); Urobilinogen,Urine 0.2 mg/dL (<2.0)
[2016-12-04 10:04] LABS: Blood,Urine Trace (Negative)
[2016-12-04 10:05] LABS: Bacteria,Urine 1+ /HPF (Negative)
[2016-12-04] MEDS: Centrum Liq PO SCH (10:36)
[2016-12-04] MEDS: PEPCID PO SCH ×2 (10:37→22:34)
[2016-12-04] MEDS: ZYVOX 600 MG/300 ML IV SCH ×2 (10:41→22:33)
[2016-12-04] MEDS: DIFLUCAN 100 ML IV SCH (10:41)
--- NOTE | 2016-12-04 12:35 | Progress Note ---
Assessment and Plan - Patient Problems (1) Sepsis Current Visit: Yes Status: Acute Qualifiers: Sepsis type: sepsis due to unspecified organism Qualified Code(s): A41.9 - Sepsis, unspecified organism Plan to address problem: - suspect aspiration pneumonia - continue empiric AB's per ID recs - gentle rehydration re: IVVD and azotemia - improving clinically (2) CVA, old, aphasia Current Visit: No Status: Chronic Plan to address problem: - a little more responsive today - follow clinically (3) Acute respiratory failure requiring reintubation Current Visit: Yes Status: Acute Plan to address problem: - continue bronchodilators and pulmonary toilet - continue routine trach care per RT - PSV trials as tolerated - continue aspiration precautions / VAP bundles - improving (4) Malfunction of Guevara catheter Current Visit: Yes Status: Acute Plan to address problem: - seen by urology and suprapubic catheter swapped out (5) Discharge planning issues Current Visit: Yes Status: Acute Plan to address problem: - will see how he progresses but may need LTAC evaluation down the road - if does well may transfer back to [place] ..remains critically ill on life sustaining interventions including MVS and at high risk for further deterioration including ....33' CCT Subjective Date of service: 12/04/16 Principal diagnosis: Acute Hypoxemic Resp Failure Interval history: seen and examined at bedside; 24hour events reviewed; nursing and respiratory care staff consulted; no adverse overnight events reported to me; remains on MVS; AMS is persistent but at baseline reportedly responds appropriately; no emesis or overt aspiration Objective Vital Signs - 12hr 12/04/16 12/04/16 12/04/16 01:00 01:31 02:00 Temperature Pulse Rate 73 75 72 Pulse Rate [ From Monitor] Pulse Rate [ 61 Throughout] Respiratory 18 19 18 Rate Respiratory 17 Rate [ Throughout] Blood Pressure 116/84 116/84 120/84 O2 Sat by Pulse 99 Oximetry O2 Sat by Pulse Oximetry [ Assessment] 12/04/16 12/04/16 12/04/16 02:31 02:45 03:00 Temperature Pulse Rate 69 71 Pulse Rate [ From Monitor] Pulse Rate [ 65 Throughout] Respiratory 18 18 Rate Respiratory 19 Rate [ Throughout] Blood Pressure 116/84 128/91 O2 Sat by Pulse 100 100 Oximetry O2 Sat by Pulse Oximetry [ Assessment] 12/04/16 12/04/16 12/04/16 03:31 04:00 04:10 Temperature 100.6 F H Pulse Rate 68 68 Pulse Rate [ From Monitor] Pulse Rate [ Throughout] Respiratory 17 18 Rate Respiratory Rate [ Throughout] Blood Pressure 128/91 125/90 O2 Sat by Pulse 99 99 Oximetry O2 Sat by Pulse Oximetry [ Assessment] 12/04/16 12/04/16 12/04/16 04:31 05:00 05:31 Temperature Pulse Rate 62 72 70 Pulse Rate [ From Monitor] Pulse Rate [ Throughout] Respiratory 18 17 18 Rate Respiratory Rate [ Throughout] Blood Pressure 125/90 116/84 116/84 O2 Sat by Pulse 100 99 100 Oximetry O2 Sat by Pulse Oximetry [ Assessment] 12/04/16 12/04/16 12/04/16 06:00 06:31 07:52 Temperature 98.5 F Pulse Rate 68 60 Pulse Rate [ From Monitor] Pulse Rate [ Throughout] Respiratory 18 18 Rate Respiratory Rate [ Throughout] Blood Pressure 127/94 127/94 O2 Sat by Pulse 100 99 Oximetry O2 Sat by Pulse Oximetry [ Assessment] 12/04/16 12/04/16 12/04/16 08:00 08:45 08:47 Temperature Pulse Rate 60 Pulse Rate [ 69 From Monitor] Pulse Rate [ 64 Throughout] Respiratory Rate Respiratory 18 Rate [ Throughout] Blood Pressure 133/92 O2 Sat by Pulse 100 Oximetry O2 Sat by Pulse Oximetry [ Assessment] 12/04/16 12/04/16 12/04/16 08:53 09:00 11:43 Temperature Pulse Rate Pulse Rate [ From Monitor] Pulse Rate [ 76 Throughout] Respiratory Rate Respiratory 18 Rate [ Throughout] Blood Pressure 148/105 O2 Sat by Pulse 100 Oximetry O2 Sat by Pulse 100 Oximetry [ Assessment] 12/04/16 12:00 Temperature 98.3 F Pulse Rate Pulse Rate [ From Monitor] Pulse Rate [ Throughout] Respiratory Rate Respiratory Rate [ Throughout] Blood Pressure O2 Sat by Pulse Oximetry O2 Sat by Pulse Oximetry [ Assessment] Constitutional: no acute distress Eyes: non-icteric ENT: oropharynx moist Neck: supple, no lymphadenopathy Effort: mildly labored Ascultation: Bilateral: rhonchi Cardiovascular: regular rate and rhythm Gastrointestinal: normoactive bowel sounds, soft, non-tender, non-distended Integumentary: normal Extremities: no cyanosis, no edema, pulses normal, other (contractures) Neurologic: unable to assess Psychiatric: other (unable to assess) CBC and BMP: 12/05/16 06:15 12/05/16 06:15 ABG, PT/INR, D-dimer: ABG POC ABG pH 7.390 (7.35-7.45) 12/04/16 04:44 POC ABG pCO2 36.1 (35-45) 12/04/16 04:44 POC ABG pO2 105 (80-105) 12/04/16 04:44 POC ABG HCO3 21.8 12/04/16 04:44 POC ABG Total CO2 23 12/04/16 04:44 POC ABG O2 Sat 98 12/04/16 04:44 PT/INR, D-dimer PT 14.4 Sec. (12.2-14.9) 12/03/16 04:32 INR 1.13 (0.87-1.13) 12/03/16 04:32 Abnormal lab findings: Abnormal Labs 12/03/16 12/04/16 12/04/16 19:48 00:09 05:55 RBC 2.99 L Hgb 8.9 L D Hct 28.6 L D MCV 96 H MCHC 31 L RDW 18.3 H Plt Count 97 L Lymph % (Auto) 8.5 L Lymph # 0.8 L Seg Neutrophils % 89.7 H Seg Neutrophils # 8.6 H Sodium 151 H Chloride 117.9 H BUN 39 H Creatinine Glucose POC Glucose 110 H Calcium 7.7 L Albumin 12/04/16 12/04/16 12/04/16 05:55 06:00 11:36 RBC Hgb Hct MCV MCHC RDW Plt Count Lymph % (Auto) Lymph # Seg Neutrophils % Seg Neutrophils # Sodium 149 H Chloride 115.8 H BUN 36 H Creatinine 0.7 L Glucose 118 H POC Glucose 118 H 130 H Calcium 8.1 L Albumin 1.9 L Chest x-ray: image reviewed
[2016-12-04] MEDS: VITAMIN C FEEDTUBE SCH (14:29)
--- NOTE | 2016-12-04 16:41 | Progress Note ---
Assessment and Plan Assessment and plan: Sepsis likely due to urinary tract infection. * Continue to monitor at intensive care unit using sepsis protocol with 3 antibiotics. * Zosyn, diflucan and Zyvox(he is allergic to vancomycin). * Follow Urine and blood cultures, * ID physician on board. Acute on chronic respiratory failure with hypoxia. * He had a tracheostomy on place and this has been connected to ventilator. * Dr. Duggan, Pulmonology/Applications Support Engineer following to help with management. Hypotension due to sepsis. * BP low normal in the 90s. * cont IV fluid, will add levophed as needed Dehydration. * s/p aggresive ID fluid hydration Neurogenic bladder with suprapubic catheter. * new bag has been placed by urology Hypernatremia. * likley due to dehydration, continue Iv fluids Recurrent UTI with Indwelling suprapubic catheter * Recent history - 08/2016 with Escherichia coli and pseudomonas aeruginosa ( Zosyn sensitive) UTI * cont broad spectrum antibiotics for now History of seizure disorder. Give Keppra IV twice a day DVT prophylaxis with SCDs only. No anticoagulation because of thrombocytopenia Full CODE STATUS Microbiology 12/03/16 04:32 Peripheral/Venous Blood Culture - Preliminary 12/03/16 04:32 Peripheral/Venous Blood Culture - Preliminary NO GROWTH AFTER 48 HOURS 12/03/16 04:25 Tracheal Aspirate Sputum Culture - Preliminary 12/03/16 09:20 Nasopharyngeal Swab Influenza Types A,B Antigen (RAI) - Final The high probability of a clinically significant, sudden or life threatening deterioration of the system(s) required my full and direct attention, intervention and personal management. The aggregate critical care time was [31] minutes. This time is in addition to time spent performing reported procedures but includes the following: [x] Data Review and interpretation [x] Patient assessment and monitoring of vital signs [x] Documentation [x] Medication orders and management History Interval history: Patient is 46 -year-old with history of dementia, seizure disorder, stroke, hypertension who is a resident at a intermediate facility was sent in to our ER because of fever. Patient seen and examined today. Medical records and medication list reviewed. No acute event overnight noted by the RN. Hospitalist Physical - Physical exam Narrative exam: GENERAL: -[place] male lying on bed appeared to be in no discomfort in unresponsive to any verbal command. HEENT: Normocephalic. Atraumatic. No conjunctival congestion or icterus. Patient has moist mucous membranes. NECK: Supple. Trachea midline. CHEST/LUNGS: Clear to auscultated bilaterally, breathing nonlabored. No wheezes crackles or rhonchi. HEART/CARDIOVASCULAR: Regular in rate and rhythm. S1 and S2 positive. ABDOMEN: Abdomen is soft, nontender. Patient has normal bowel sounds. PEG tube on place SKIN: There is no rash. Warm and dry. NEURO: Does not Follow command. Contracted extremities, paraplegic MUSCULOSKELETAL: No joint effusion or tenderness. EXTRIMITY: No edema, no cyanosis or clubbing. PSYCH: Unable to assess. - Constitutional Vitals: Temp Pulse Resp BP Pulse Ox 98.0 F 69 22 148/105 100 12/04/16 16:00 12/04/16 15:15 12/04/16 15:15 12/04/16 11:43 12/04/16 15:24 General appearance: Present: severe distress Results - Labs CBC & Chem 7: 12/05/16 06:15 12/05/16 06:15 Labs: Laboratory Last Values WBC 9.6 K/mm3 (4.5-11.0) 12/04/16 05:55 RBC 2.99 M/mm3 (3.65-5.03) L 12/04/16 05:55 Hgb 8.9 gm/dl (11.8-15.2) L D 12/04/16 05:55 Hct 28.6 % (35.5-45.6) L D 12/04/16 05:55 MCV 96 fl (84-94) H 12/04/16 05:55 MCH 30 pg (28-32) 12/04/16 05:55 MCHC 31 % (32-34) L 12/04/16 05:55 RDW 18.3 % (13.2-15.2) H 12/04/16 05:55 Plt Count 97 K/mm3 (140-440) L 12/04/16 05:55 Lymph % (Auto) 8.5 % (13.4-35.0) L 12/04/16 05:55 [place] % (Auto) 1.7 % (0.0-7.3) 12/04/16 05:55 Eos % (Auto) 0.0 % (0.0-4.3) 12/04/16 05:55 Baso % (Auto) 0.1 % (0.0-1.8) 12/04/16 05:55 Lymph # 0.8 K/mm3 (1.2-5.4) L 12/04/16 05:55 [place] # 0.2 K/mm3 (0.0-0.8) 12/04/16 05:55 Eos # 0.0 K/mm3 (0.0-0.4) 12/04/16 05:55 Baso # 0.0 K/mm3 (0.0-0.1) 12/04/16 05:55 Seg Neutrophils % 89.7 % (40.0-70.0) H 12/04/16 05:55 Seg Neutrophils # 8.6 K/mm3 (1.8-7.7) H 12/04/16 05:55 PT 14.4 Sec. (12.2-14.9) 12/03/16 04:32 INR 1.13 (0.87-1.13) 12/03/16 04:32 POC ABG pH 7.390 (7.35-7.45) 12/04/16 04:44 POC ABG pCO2 36.1 (35-45) 12/04/16 04:44 POC ABG pO2 105 (80-105) 12/04/16 04:44 POC ABG HCO3 21.8 12/04/16 04:44 POC ABG Total CO2 23 12/04/16 04:44 POC ABG O2 Sat 98 12/04/16 04:44 POC ABG Base Excess -3 12/04/16 04:44 VBG pH 7.405 (7.320-7.420) 12/03/16 04:32 FiO2 30 % 12/04/16 04:44 Sodium 149 mmol/L (137-145) H 12/04/16 05:55 Potassium 4.1 mmol/L (3.6-5.0) 12/04/16 05:55 Chloride 115.8 mmol/L (98-107) H 12/04/16 05:55 Carbon Dioxide 22 mmol/L (22-30) 12/04/16 05:55 Anion Gap 15 mmol/L 12/04/16 05:55 BUN 36 mg/dL (9-20) H 12/04/16 05:55 Creatinine 0.7 mg/dL (0.8-1.5) L 12/04/16 05:55 Estimated GFR > 60 ml/min 12/04/16 05:55 BUN/Creatinine Ratio 51.42 % 12/04/16 05:55 Glucose 118 mg/dL (75-100) H 12/04/16 05:55 POC Glucose 130 (70-105) H 12/04/16 11:36 Lactic Acid 1.9 mmol/L (0.7-2.0) 12/04/16 05:55 Calcium 8.1 mg/dL (8.4-10.2) L 12/04/16 05:55 Phosphorus 3.2 mg/dL (2.5-4.5) 12/03/16 04:32 Magnesium 2.4 mg/dL (1.7-2.3) H 12/03/16 04:32 Total Bilirubin 0.3 mg/dL (0.1-1.2) 12/04/16 05:55 AST 18 units/L (5-40) 12/04/16 05:55 ALT 21 units/L (7-56) 12/04/16 05:55 Alkaline Phosphatase 65 units/L (35-129) 12/04/16 05:55 C-Reactive Protein 17.50 mg/dL (0.00-1.30) H 12/03/16 04:32 Total Protein 7.1 g/dL (6.3-8.2) 12/04/16 05:55 Albumin 1.9 g/dL (3.9-5) L 12/04/16 05:55 Albumin/Globulin Ratio 0.4 % 12/04/16 05:55 Urine Color Straw (Yellow) 12/04/16 08:15 Urine Turbidity Clear (Clear) 12/04/16 08:15 Urine pH 6.5 (5.0-7.0) 12/04/16 08:15 Ur Specific [place] 1.015 (1.003-1.030) 12/04/16 08:15 Urine Protein 30 mg/dl mg/dL (Negative) 12/04/16 08:15 Urine Glucose (UA) Negative mg/dL (Negative) 12/04/16 08:15 Urine Ketones Negative mg/dL (Negative) 12/04/16 08:15 Urine Blood Trace (Negative) 12/04/16 08:15 Urine Nitrite Negative (Negative) 12/04/16 08:15 Urine Bilirubin Negative (Negative) 12/04/16 08:15 Urine Urobilinogen 0.2 mg/dL (<2.0) 12/04/16 08:15 Ur Leukocyte Esterase Moderate (Negative) 12/04/16 08:15 Urine WBC (Auto) 5.0 /HPF (0.0-6.0) 12/04/16 08:15 Urine RBC (Auto) 4.0 /HPF (0.0-6.0) 12/04/16 08:15 Urine Bacteria (Auto) 1+ /HPF (Negative) 12/04/16 08:15
[2016-12-05] MEDS: ZOSYN/NS 4.5GM/100ML 100 ML IV SCH ×2 (00:02→05:24)
[2016-12-05] MEDS: DUONEB 0.5 MG-3 MG/3 ML SOLN IH SCH ×4 (02:52→21:19)
[2016-12-05] MEDS: KEPPRA 500 MG in D5W 100 ML IV SCH ×2 (03:25→15:27)
[2016-12-05] MEDS: MORPHINE PO PRN ×2 (05:29→17:20)
[2016-12-05 06:43] LABS: Basophils % (Auto) 0.1 % (0.0-1.8); Hematocrit 29.6 % (35.5-45.6); Hemoglobin 9.4 gm/dl (11.8-15.2); Mean Corpuscular HGB Conc 32 % (32-34); Mean Corpuscular Hemoglobin 30 pg (28-32); Red Cell Distribution Width 17.4 % (13.2-15.2); White Blood Count 9.8 K/mm3 (4.5-11.0)
[2016-12-05 06:45] LABS: Platelet Count 97 K/mm3 (140-440)
[2016-12-05 06:46] LABS: Mean Corpuscular Volume 94 fl (84-94)
[2016-12-05 07:00] LABS: Anion Gap 16 mmol/L; Blood Urea Nitrogen 24 mg/dL (9-20); Calcium 7.7 mg/dL (8.4-10.2); Carbon Dioxide 25 mmol/L (22-30); Chloride 109.3 mmol/L (98-107); Glucose 114 mg/dL (75-100); Sodium 147 mmol/L (137-145)
[2016-12-05 07:03] LABS: Potassium 2.8 mmol/L (3.6-5.0)
[2016-12-05] MEDS ORDERED: POTASSIUM CHLORIDE FEEDTUBE ONE (08:00)
[2016-12-05] MEDS: KCL 20MEQ/100ML 100 ML IV SCH ×2 (09:14→11:00)
[2016-12-05] MEDS: LACTATED RINGERS 1,000 ML IV SCH (09:15)
--- NOTE | 2016-12-05 09:15 | Progress Note ---
Assessment and Plan Assessment and plan: Sepsis likely due to urinary tract infection. * Continue to monitor at intensive care unit using sepsis protocol with 3 antibiotics. * Zosyn, diflucan and Zyvox(he is allergic to vancomycin). * Follow Urine and blood cultures, * ID physician on board. Acute on chronic respiratory failure with hypoxia. * He had a tracheostomy on place and this has been connected to ventilator. * Dr. Duggan, Pulmonology/Funeral Service Practitioner/Embalmer following to help with management. Severe hypokalemia * Continue to monitor and replace accordingly Hypotension due to sepsis. * BP low normal in the 90s. * cont IV fluid, will add levophed as needed Dehydration. * s/p aggresive ID fluid hydration Neurogenic bladder with suprapubic catheter. * new bag has been placed by urology Hypernatremia. * likley due to dehydration, continue Iv fluids Recurrent UTI with Indwelling suprapubic catheter * Recent history - 08/2016 with Escherichia coli and pseudomonas aeruginosa ( Zosyn sensitive) UTI * cont broad spectrum antibiotics for now History of seizure disorder. Give Keppra IV twice a day DVT prophylaxis with SCDs only. No anticoagulation because of thrombocytopenia Full CODE STATUS Microbiology 12/03/16 04:32 Peripheral/Venous Blood Culture - Preliminary 12/03/16 04:32 Peripheral/Venous Blood Culture - Preliminary NO GROWTH AFTER 48 HOURS 12/03/16 04:25 Tracheal Aspirate Sputum Culture - Preliminary 12/03/16 09:20 Nasopharyngeal Swab Influenza Types A,B Antigen (RAI) - Final The high probability of a clinically significant, sudden or life threatening deterioration of the system(s) required my full and direct attention, intervention and personal management. The aggregate critical care time was [31] minutes. This time is in addition to time spent performing reported procedures but includes the following: [x] Data Review and interpretation [x] Patient assessment and monitoring of vital signs [x] Documentation [x] Medication orders and management History Interval history: Patient is 46 -year-old with history of dementia, seizure disorder, stroke, hypertension who is a resident at [facility] was sent in to our ER because of fever. Patient seen and examined today. Medical records and medication list reviewed. No acute event overnight noted by the RN. Serum potassium 2.8 today. Hospitalist Physical - Physical exam Narrative exam: GENERAL: -[place] male lying on bed appeared to be in no discomfort in unresponsive to any verbal command. HEENT: Normocephalic. Atraumatic. No conjunctival congestion or icterus. Patient has moist mucous membranes. NECK: Supple. Trachea midline. CHEST/LUNGS: Clear to auscultated bilaterally, breathing nonlabored. No wheezes crackles or rhonchi. HEART/CARDIOVASCULAR: Regular in rate and rhythm. S1 and S2 positive. ABDOMEN: Abdomen is soft, nontender. Patient has normal bowel sounds. PEG tube on place SKIN: There is no rash. Warm and dry. NEURO: Does not Follow command. Contracted extremities, paraplegic MUSCULOSKELETAL: No joint effusion or tenderness. EXTRIMITY: No edema, no cyanosis or clubbing. PSYCH: Unable to assess. - Constitutional Vitals: Temp Pulse Resp BP Pulse Ox 97.4 F L 49 L 27 H 143/94 100 12/05/16 08:00 12/05/16 09:00 12/05/16 09:00 12/05/16 09:00 12/05/16 09:00 General appearance: Present: severe distress Results - Labs CBC & Chem 7: 12/05/16 06:15 12/05/16 06:15 Labs: Laboratory Last Values WBC 9.8 K/mm3 (4.5-11.0) 12/05/16 06:15 RBC 3.20 M/mm3 (3.65-5.03) L 12/05/16 06:15 Hgb 9.4 gm/dl (11.8-15.2) L 12/05/16 06:15 Hct 29.6 % (35.5-45.6) L 12/05/16 06:15 MCV 94 fl (84-94) 12/05/16 06:15 MCH 30 pg (28-32) 12/05/16 06:15 MCHC 32 % (32-34) 12/05/16 06:15 RDW 17.4 % (13.2-15.2) H 12/05/16 06:15 Plt Count 97 K/mm3 (140-440) L 12/05/16 06:15 Lymph % (Auto) 7.8 % (13.4-35.0) L 12/05/16 06:15 [place] % (Auto) 3.1 % (0.0-7.3) 12/05/16 06:15 Eos % (Auto) 0.0 % (0.0-4.3) 12/05/16 06:15 Baso % (Auto) 0.1 % (0.0-1.8) 12/05/16 06:15 Lymph # 0.8 K/mm3 (1.2-5.4) L 12/05/16 06:15 [place] # 0.3 K/mm3 (0.0-0.8) 12/05/16 06:15 Eos # 0.0 K/mm3 (0.0-0.4) 12/05/16 06:15 Baso # 0.0 K/mm3 (0.0-0.1) 12/05/16 06:15 Seg Neutrophils % 89.0 % (40.0-70.0) H 12/05/16 06:15 Seg Neutrophils # 8.7 K/mm3 (1.8-7.7) H 12/05/16 06:15 PT 14.4 Sec. (12.2-14.9) 12/03/16 04:32 INR 1.13 (0.87-1.13) 12/03/16 04:32 POC ABG pH 7.390 (7.35-7.45) 12/04/16 04:44 POC ABG pCO2 36.1 (35-45) 12/04/16 04:44 POC ABG pO2 105 (80-105) 12/04/16 04:44 POC ABG HCO3 21.8 12/04/16 04:44 POC ABG Total CO2 23 12/04/16 04:44 POC ABG O2 Sat 98 12/04/16 04:44 POC ABG Base Excess -3 12/04/16 04:44 VBG pH 7.405 (7.320-7.420) 12/03/16 04:32 FiO2 30 % 12/04/16 04:44 Sodium 147 mmol/L (137-145) H 12/05/16 06:15 Potassium 2.8 mmol/L (3.6-5.0) L* D 12/05/16 06:15 Chloride 109.3 mmol/L (98-107) H 12/05/16 06:15 Carbon Dioxide 25 mmol/L (22-30) 12/05/16 06:15 Anion Gap 16 mmol/L 12/05/16 06:15 BUN 24 mg/dL (9-20) H 12/05/16 06:15 Creatinine 0.5 mg/dL (0.8-1.5) L 12/05/16 06:15 Estimated GFR > 60 ml/min 12/05/16 06:15 BUN/Creatinine Ratio 48.00 % 12/05/16 06:15 Glucose 114 mg/dL (75-100) H 12/05/16 06:15 POC Glucose 112 (70-105) H 12/05/16 06:06 Lactic Acid 1.9 mmol/L (0.7-2.0) 12/04/16 05:55 Calcium 7.7 mg/dL (8.4-10.2) L 12/05/16 06:15 Phosphorus 3.2 mg/dL (2.5-4.5) 12/03/16 04:32 Magnesium 2.4 mg/dL (1.7-2.3) H 12/03/16 04:32 Total Bilirubin 0.3 mg/dL (0.1-1.2) 12/04/16 05:55 AST 18 units/L (5-40) 12/04/16 05:55 ALT 21 units/L (7-56) 12/04/16 05:55 Alkaline Phosphatase 65 units/L (35-129) 12/04/16 05:55 C-Reactive Protein 17.50 mg/dL (0.00-1.30) H 12/03/16 04:32 Total Protein 7.1 g/dL (6.3-8.2) 12/04/16 05:55 Albumin 1.9 g/dL (3.9-5) L 12/04/16 05:55 Albumin/Globulin Ratio 0.4 % 12/04/16 05:55 Urine Color Straw (Yellow) 12/04/16 08:15 Urine Turbidity Clear (Clear) 12/04/16 08:15 Urine pH 6.5 (5.0-7.0) 12/04/16 08:15 Ur Specific [place] 1.015 (1.003-1.030) 12/04/16 08:15 Urine Protein 30 mg/dl mg/dL (Negative) 12/04/16 08:15 Urine Glucose (UA) Negative mg/dL (Negative) 12/04/16 08:15 Urine Ketones Negative mg/dL (Negative) 12/04/16 08:15 Urine Blood Trace (Negative) 12/04/16 08:15 Urine Nitrite Negative (Negative) 12/04/16 08:15 Urine Bilirubin Negative (Negative) 12/04/16 08:15 Urine Urobilinogen 0.2 mg/dL (<2.0) 12/04/16 08:15 Ur Leukocyte Esterase Moderate (Negative) 12/04/16 08:15 Urine WBC (Auto) 5.0 /HPF (0.0-6.0) 12/04/16 08:15 Urine RBC (Auto) 4.0 /HPF (0.0-6.0) 12/04/16 08:15 Urine Bacteria (Auto) 1+ /HPF (Negative) 12/04/16 08:15
[2016-12-05 09:52] LABS: ISTAT Base Excess 4; ISTAT HCO3 27.6; ISTAT PCO2 37.9 (35-45); ISTAT PO2 130 (80-105); ISTAT SO2 99; ISTAT TCO2 29
--- NOTE | 2016-12-05 10:03 | Progress Note ---
Assessment and Plan Current antibiotics: Fluconazole 200 mg IV q24h 12/03 --> Zosyn 4.5 g IV q6h 12/03 --> Linezolid 600 mg IV q12h 12/03 --> Previous antibiotics: Levaquin 750 mg q24h (12/03) ASSESSMENT: Shemar Olivares is a 46-year-old male [facility] resident with multiple medical problems including chronic respiratory failure with chronic tracheostomy, recurrent complicated UTIs with indwelling suprapubic Guevara, hx of CVA with multiple contractures, DM, CKD, HTN, dementia, and seizure disorder who was admitted to [facility] on 12/03 with fever and relative hypotension. Current antibiotics: Fluconazole 200 mg IV q24h 12/03 --> Zosyn 4.5 g IV q6h 12/03 --> Linezolid 600 mg IV q12h 12/03 --> Previous antibiotics: Levaquin 750 mg q24h (12/03) Problem list: 1. Fever -Etiology uncelar -Blood cultures NGTD -Urinalysis not suggestive of urinary tract infection -CXR without significant infiltrates -Rule out noninfectious etiology(ies) ? seizure, etc. -He has had similar previous admissions in the past 2. Recurrent UTI - Indwelling suprapubic catheter - Recent history with Escherichia coli and pseudomonas aeruginosa ( Zosyn sensitive) UTI -Admitting urinalysis without significant pyuria 3. Respiratory failure -Acute on chronic -Chronic tracheostomy 4. Thrombocytopenia -R/O secondary to sepsis -R/O drug side effect (Zosyn, linezolid) -Somewhat lower today 5. Status post CVA - Multiple contractures 6. Electrolyte disorder -Hypernatremia, hyperchloremia -Secondary to dehydration -Resolved 7. Vancomycin allergy 8. Type 2 DM 9. Seizure disorder 10. Dementia PLAN: 1. With cultures negative and no signs of urinary tract infection or pneumonia Will stop antibiotics at this point and follow 2. Reculture as clinically indicated 3. Cortisol level pending. Continue IV hydrocortisone 100 mg IV every 8 hours for now. 4. Continue local skin care. 5. Continued supportive measures Ricardo Lehman MD [facility] Office: [phone] Subjective Date of service: 12/05/16 Principal diagnosis: Acute Hypoxemic Resp Failure Interval history: No overnight events reported by the nursing staff. Patient is alert and responds to verbal stimuli. Objective - Exam Narrative Exam: Off of pressors GENERAL: Well-developed, chronically ill-appearing male who is alert and will shake his head appropriately to questions. He is in no distress. HEENT: Pupils are equal reactive to light and accommodation. Conjunctiva clear. Oropharynx normal with no visible thrush. Mucous membranes appear moist. Marked by temporalis muscle wasting NECK: Supple. No enlargement of the thyroid gland. No significant cervical lymphadenopathy. No jugular venous distention at 30. Trach site without redness. LUNGS: I lateral scattered rhonchi. HEART: RR, tachycardic. S1 and S2 are normal. There are no gallops, clicks or rubs heard. II/ GERMÁN heard best over the LLSB. No diastolic murmur heard ABDOMEN: Soft and nontender. Liver and spleen are not palpably enlarged or tender. No palpable masses. Gastostomy tube site clean. Bowel sounds positive. Suprapubic catheter site without redness. EXTREMITIES: No rash, peripheral lymphadenopathy, clubbing or edema. Superficial skin ulceration over left leg without signs of infection. Multiple contractures SKIN: No rash NEUROLOGIC: Contracted. Alert and looks to voice and will follow some commands. - Constitutional Vitals: Vital Signs Temp Pulse Resp BP Pulse Ox 97.4 F L 49 L 27 H 143/94 100 12/05/16 08:00 12/05/16 09:00 12/05/16 09:00 12/05/16 09:00 12/05/16 09:00 Temperature -Last 24 Hours Temperature 97.4 F Temperature 97.3 F Temperature 97.1 F Temperature 97.9 F Temperature 98.0 F Temperature 98.3 F - Labs CBC & Chem 7: 12/05/16 06:15 12/05/16 06:15 Labs: Abnormal lab results Laboratory Tests 12/04/16 08:15 Urine WBC (Auto) 5.0 Urine RBC (Auto) 4.0 Microbiology 12/03/16 04:32 Peripheral/Venous Blood Culture - Preliminary 12/03/16 04:32 Peripheral/Venous Blood Culture - Preliminary NO GROWTH AFTER 48 HOURS 12/03/16 04:25 Tracheal Aspirate Sputum Culture - pending Gram stain: > 25 WBC/lpf, few gram-positive cocci in pairs and chains, moderate gram-negative rods, moderate gram-positive rods 12/03/16 09:20 Nasopharyngeal Swab Influenza Types A,B Antigen (RAI) - Negative Imagin/11: CXR: No acute infiltrates
[2016-12-05] MEDS: Centrum Liq PO SCH ×2 (11:00→12:42)
[2016-12-05] MEDS ORDERED: MAGNESIUM SULFATE 4GM/100ML 100 ML IV ONE (12:00)
[2016-12-05] MEDS: VITAMIN C FEEDTUBE SCH (12:41)
[2016-12-05] MEDS: PEPCID PO SCH ×2 (12:44→21:33)
--- NOTE | 2016-12-05 15:26 | Progress Note ---
Assessment and Plan - Patient Problems (1) Sepsis Current Visit: Yes Status: Acute Qualifiers: Sepsis type: sepsis due to unspecified organism Qualified Code(s): A41.9 - Sepsis, unspecified organism (2) CVA, old, aphasia Current Visit: No Status: Chronic (3) Acute respiratory failure requiring reintubation Current Visit: Yes Status: Acute (4) Malfunction of Guevara catheter Current Visit: Yes Status: Acute (5) Discharge planning issues Current Visit: Yes Status: Acute Subjective Date of service: 12/05/16 Principal diagnosis: Acute Hypoxemic Resp Failure Interval history: seen and examined at bedside; 24hour events reviewed; nursing and respiratory care staff consulted; no adverse overnight events reported to me; Objective Vital Signs - 12hr 12/05/16 12/05/16 12/05/16 03:30 04:00 04:04 Temperature 97.3 F L Pulse Rate 56 L 64 Pulse Rate [ From Monitor] Pulse Rate [ Throughout] Respiratory 16 17 Rate Respiratory Rate [ Throughout] Blood Pressure 125/89 124/94 O2 Sat by Pulse 100 100 Oximetry O2 Sat by Pulse Oximetry [ Assessment] 12/05/16 12/05/16 12/05/16 04:30 05:00 05:16 Temperature Pulse Rate 57 L 44 L 56 L Pulse Rate [ From Monitor] Pulse Rate [ Throughout] Respiratory 18 18 21 Rate Respiratory Rate [ Throughout] Blood Pressure 132/86 137/89 137/89 O2 Sat by Pulse 100 100 100 Oximetry O2 Sat by Pulse Oximetry [ Assessment] 12/05/16 12/05/16 12/05/16 05:30 05:51 05:59 Temperature Pulse Rate 47 L 49 L 46 L Pulse Rate [ From Monitor] Pulse Rate [ Throughout] Respiratory 23 22 15 Rate Respiratory Rate [ Throughout] Blood Pressure 144/95 144/95 143/97 O2 Sat by Pulse 100 100 100 Oximetry O2 Sat by Pulse Oximetry [ Assessment] 12/05/16 12/05/16 12/05/16 06:00 06:01 06:30 Temperature Pulse Rate 46 L 48 L 51 L Pulse Rate [ From Monitor] Pulse Rate [ Throughout] Respiratory 11 L 14 26 H Rate Respiratory Rate [ Throughout] Blood Pressure 143/97 143/97 140/94 O2 Sat by Pulse 100 100 100 Oximetry O2 Sat by Pulse Oximetry [ Assessment] 12/05/16 12/05/16 12/05/16 07:00 07:30 08:00 Temperature 97.4 F L Pulse Rate 49 L 62 56 L Pulse Rate [ 58 L From Monitor] Pulse Rate [ Throughout] Respiratory 25 H 30 H 29 H Rate Respiratory Rate [ Throughout] Blood Pressure 145/96 137/97 134/92 O2 Sat by Pulse 100 99 100 Oximetry O2 Sat by Pulse Oximetry [ Assessment] 12/05/16 12/05/16 12/05/16 08:30 08:45 08:52 Temperature Pulse Rate 44 L 50 L 53 L Pulse Rate [ From Monitor] Pulse Rate [ Throughout] Respiratory 24 31 H 33 H Rate Respiratory Rate [ Throughout] Blood Pressure 128/87 128/87 128/87 O2 Sat by Pulse 100 100 100 Oximetry O2 Sat by Pulse 100 Oximetry [ Assessment] 12/05/16 12/05/16 12/05/16 08:57 09:00 09:01 Temperature Pulse Rate 51 L 49 L 47 L Pulse Rate [ From Monitor] Pulse Rate [ 51 L Throughout] Respiratory 28 H 27 H 27 H Rate Respiratory 31 H Rate [ Throughout] Blood Pressure 128/87 143/94 143/94 O2 Sat by Pulse 100 100 100 Oximetry O2 Sat by Pulse Oximetry [ Assessment] 12/05/16 12/05/16 12/05/16 09:30 10:00 10:30 Temperature Pulse Rate 58 L 76 50 L Pulse Rate [ From Monitor] Pulse Rate [ Throughout] Respiratory 28 H 30 H 28 H Rate Respiratory Rate [ Throughout] Blood Pressure 133/92 132/96 129/89 O2 Sat by Pulse 100 100 100 Oximetry O2 Sat by Pulse Oximetry [ Assessment] 12/05/16 12/05/16 12/05/16 10:37 10:39 11:00 Temperature Pulse Rate 56 L 65 64 Pulse Rate [ From Monitor] Pulse Rate [ Throughout] Respiratory 27 H 25 H 27 H Rate Respiratory Rate [ Throughout] Blood Pressure 129/89 129/89 134/97 O2 Sat by Pulse 100 100 100 Oximetry O2 Sat by Pulse Oximetry [ Assessment] 12/05/16 12/05/16 12/05/16 11:30 11:59 12:00 Temperature Pulse Rate 73 52 L 52 L Pulse Rate [ From Monitor] Pulse Rate [ Throughout] Respiratory 28 H 27 H 27 H Rate Respiratory Rate [ Throughout] Blood Pressure 137/99 137/99 131/91 O2 Sat by Pulse 100 100 100 Oximetry O2 Sat by Pulse Oximetry [ Assessment] 12/05/16 12/05/16 12/05/16 12:14 12:28 12:30 Temperature Pulse Rate 53 L 52 L 53 L Pulse Rate [ From Monitor] Pulse Rate [ Throughout] Respiratory 27 H 22 24 Rate Respiratory Rate [ Throughout] Blood Pressure 131/91 131/91 139/94 O2 Sat by Pulse 100 100 100 Oximetry O2 Sat by Pulse Oximetry [ Assessment] 12/05/16 12/05/16 12/05/16 12:31 12:34 13:00 Temperature Pulse Rate 51 L 49 L 54 L Pulse Rate [ From Monitor] Pulse Rate [ Throughout] Respiratory 22 22 30 H Rate Respiratory Rate [ Throughout] Blood Pressure 139/94 139/94 149/99 O2 Sat by Pulse 100 100 100 Oximetry O2 Sat by Pulse Oximetry [ Assessment] 12/05/16 12/05/16 12/05/16 13:30 14:00 14:19 Temperature Pulse Rate 63 77 Pulse Rate [ From Monitor] Pulse Rate [ 50 L Throughout] Respiratory 35 H 17 Rate Respiratory 31 H Rate [ Throughout] Blood Pressure 139/94 124/87 O2 Sat by Pulse 100 100 Oximetry O2 Sat by Pulse Oximetry [ Assessment] 12/05/16 12/05/16 14:30 14:34 Temperature Pulse Rate 81 Pulse Rate [ From Monitor] Pulse Rate [ 59 L Throughout] Respiratory 26 H Rate Respiratory 26 H Rate [ Throughout] Blood Pressure 139/85 O2 Sat by Pulse 100 Oximetry O2 Sat by Pulse Oximetry [ Assessment] Constitutional: no acute distress Eyes: non-icteric ENT: oropharynx moist Neck: supple, no lymphadenopathy Effort: mildly labored Ascultation: Bilateral: rhonchi Cardiovascular: regular rate and rhythm Gastrointestinal: normoactive bowel sounds, soft, non-tender, non-distended Integumentary: normal Extremities: no cyanosis, no edema, pulses normal, other (contractures) Neurologic: unable to assess Psychiatric: other (unable to assess) CBC and BMP: 12/05/16 06:15 12/05/16 06:15 ABG, PT/INR, D-dimer: ABG POC ABG pH 7.470 (7.35-7.45) H 12/05/16 09:40 POC ABG pCO2 37.9 (35-45) 12/05/16 09:40 POC ABG pO2 130 (80-105) H 12/05/16 09:40 POC ABG HCO3 27.6 12/05/16 09:40 POC ABG Total CO2 29 12/05/16 09:40 POC ABG O2 Sat 99 12/05/16 09:40 PT/INR, D-dimer PT 14.4 Sec. (12.2-14.9) 12/03/16 04:32 INR 1.13 (0.87-1.13) 12/03/16 04:32 Abnormal lab findings: Abnormal Labs 12/03/16 12/04/16 12/04/16 19:48 00:09 05:55 RBC 2.99 L Hgb 8.9 L D Hct 28.6 L D MCV 96 H MCHC 31 L RDW 18.3 H Plt Count 97 L Lymph % (Auto) 8.5 L Lymph # 0.8 L Seg Neutrophils % 89.7 H Seg Neutrophils # 8.6 H POC ABG pH POC ABG pO2 Sodium 151 H Potassium Chloride 117.9 H BUN 39 H Creatinine Glucose POC Glucose 110 H Calcium 7.7 L Magnesium Albumin 12/04/16 12/04/16 12/04/16 05:55 06:00 11:36 RBC Hgb Hct MCV MCHC RDW Plt Count Lymph % (Auto) Lymph # Seg Neutrophils % Seg Neutrophils # POC ABG pH POC ABG pO2 Sodium 149 H Potassium Chloride 115.8 H BUN 36 H Creatinine 0.7 L Glucose 118 H POC Glucose 118 H 130 H Calcium 8.1 L Magnesium Albumin 1.9 L 12/04/16 12/05/16 12/05/16 17:48 00:06 06:06 RBC Hgb Hct MCV MCHC RDW Plt Count Lymph % (Auto) Lymph # Seg Neutrophils % Seg Neutrophils # POC ABG pH POC ABG pO2 Sodium Potassium Chloride BUN Creatinine Glucose POC Glucose 110 H 143 H 112 H Calcium Magnesium Albumin 12/05/16 12/05/16 12/05/16 06:15 06:15 08:53 RBC 3.20 L Hgb 9.4 L Hct 29.6 L MCV MCHC RDW 17.4 H Plt Count 97 L Lymph % (Auto) 7.8 L Lymph # 0.8 L Seg Neutrophils % 89.0 H Seg Neutrophils # 8.7 H POC ABG pH POC ABG pO2 Sodium 147 H Potassium 2.8 L* D Chloride 109.3 H BUN 24 H Creatinine 0.5 L Glucose 114 H POC Glucose Calcium 7.7 L Magnesium 1.6 L Albumin 12/05/16 09:40 RBC Hgb Hct MCV MCHC RDW Plt Count Lymph % (Auto) Lymph # Seg Neutrophils % Seg Neutrophils # POC ABG pH 7.470 H POC ABG pO2 130 H Sodium Potassium Chloride BUN Creatinine Glucose POC Glucose Calcium Magnesium Albumin
[2016-12-05] MEDS: ROBINUL FEEDTUBE SCH ×2 (15:33→20:20)
[2016-12-05] MEDS: ZYVOX 600 MG/300 ML IV SCH (18:40)
[2016-12-05] MEDS: KEPPRA PO SCH (21:34)
[2016-12-06] MEDS: DUONEB 0.5 MG-3 MG/3 ML SOLN IH SCH ×4 (01:58→20:58)
[2016-12-06 05:30] LABS: ISTAT Base Excess 9; ISTAT HCO3 32.3; ISTAT PCO2 44.4 (35-45); ISTAT PO2 175 (80-105); ISTAT SO2 100; ISTAT TCO2 34
[2016-12-06 08:11] LABS: Alanine Aminotransferase 24 units/L (7-56); Albumin 2.1 g/dL (3.9-5); Albumin/Globulin Ratio 0.4 %; Alkaline Phosphatase 81 units/L (35-129); Anion Gap 12 mmol/L; Bilirubin,Total 0.3 mg/dL (0.1-1.2); Blood Urea Nitrogen 24 mg/dL (9-20); Calcium 7.8 mg/dL (8.4-10.2); Carbon Dioxide 31 mmol/L (22-30); Chloride 104.3 mmol/L (98-107); Glucose 120 mg/dL (75-100); Sodium 144 mmol/L (137-145); Total Protein 6.9 g/dL (6.3-8.2)
[2016-12-06] MEDS: TRANSDERM-SCOP TD SCH ×2 (10:02→10:03)
[2016-12-06] MEDS: PEPCID PO SCH ×2 (10:03→22:09)
[2016-12-06] MEDS: VITAMIN C FEEDTUBE SCH (10:03)
[2016-12-06] MEDS: ROBINUL FEEDTUBE SCH ×3 (10:03→20:00)
[2016-12-06] MEDS: Centrum Liq PO SCH (10:03)
[2016-12-06] MEDS: KEPPRA PO SCH ×2 (10:03→22:09)
[2016-12-06] MEDS: KCL 10MEQ/100ML 100 ML IV SCH ×3 (10:09→12:41)
--- NOTE | 2016-12-06 11:48 | Progress Note ---
Assessment and Plan Shemar Olivares is a 46-year-old , [place] with multiple medical problems including chronic respiratory failure with chronic tracheostomy, recurrent complicated UTIs with indwelling suprapubic Guevara, hx of CVA with multiple contractures, DM, CKD, HTN, dementia, and seizure disorder who was admitted to [facility] with fever and hypotension. Patient placed on mechanical ventilation and successfully weaned to T tube. Patient is presently on T tube with FIO2 28% and O2 satuaration 100%. Patient has multiple contractures, bedridden.No acute respiratory distress at this time. Patient can go to telemetry, closer to the nursing station from pulmonary point of view. I spent approximately 45 minutes in examing and review the chart,xrays, labs, talking to the nursing staff and work out plan of treatment. - Patient Problems (1) Acute respiratory failure requiring reintubation Current Visit: Yes Status: Acute Plan to address problem: Successfully weaned from the ventilator. Patient presently on T tube FIO2 28% and O2 satuaration 1oo%. Albuterol/atrovent aerosol treatments q 6 hours. SCDs. Continue famotadine. (2) Sepsis Current Visit: Yes Status: Acute Qualifiers: Sepsis type: sepsis due to unspecified organism Qualified Code(s): A41.9 - Sepsis, unspecified organism Plan to address problem: Management as per infectious diseases. (3) Decubitus ulcer, stage 1 with infection Current Visit: Yes Status: Acute Plan to address problem: Recommend to consult wound care. (4) Malfunction of Guevara catheter Current Visit: Yes Status: Acute Plan to address problem: Urology consulted. Subjective Date of service: 12/06/16 Principal diagnosis: Acute Hypoxemic Resp Failure Interval history: Shemar Olivares is a 46-year-old , [place] resident of jail with multiple medical problems including chronic respiratory failure with chronic tracheostomy, recurrent complicated UTIs with indwelling suprapubic Guevara, hx of CVA with multiple contractures, DM, CKD, HTN, dementia, and seizure disorder who was admitted to [facility] with fever and hypotension. Patient placed on mechanical ventilation and successfully weaned to T tube. Patient is presently on T tube with FIO2 28% and O2 satuaration 100%. Patient has multiple contractures, bedridden.No acute respiratory distress at this time. Objective Vital Signs - 12hr 12/06/16 12/06/16 12/06/16 00:00 00:05 00:30 Temperature Pulse Rate 44 L 44 L 41 L Pulse Rate [ From Monitor] Pulse Rate [ Throughout] Respiratory 20 19 20 Rate Respiratory Rate [ Throughout] Blood Pressure 137/94 137/94 141/88 O2 Sat by Pulse 100 100 100 Oximetry O2 Sat by Pulse Oximetry [ Assessment] 12/06/16 12/06/16 12/06/16 01:01 01:31 01:58 Temperature Pulse Rate 40 L 39 L Pulse Rate [ From Monitor] Pulse Rate [ 41 L Throughout] Respiratory 19 19 Rate Respiratory 14 Rate [ Throughout] Blood Pressure 122/79 120/85 O2 Sat by Pulse 100 100 Oximetry O2 Sat by Pulse Oximetry [ Assessment] 12/06/16 12/06/16 12/06/16 02:01 02:07 02:19 Temperature Pulse Rate 41 L Pulse Rate [ From Monitor] Pulse Rate [ 41 L Throughout] Respiratory 18 Rate Respiratory 15 Rate [ Throughout] Blood Pressure 136/85 O2 Sat by Pulse 100 Oximetry O2 Sat by Pulse 100 Oximetry [ Assessment] 12/06/16 12/06/16 12/06/16 02:30 03:00 03:19 Temperature Pulse Rate 55 L 47 L 49 L Pulse Rate [ From Monitor] Pulse Rate [ Throughout] Respiratory 21 19 17 Rate Respiratory Rate [ Throughout] Blood Pressure 126/85 123/80 123/80 O2 Sat by Pulse 100 100 100 Oximetry O2 Sat by Pulse Oximetry [ Assessment] 12/06/16 12/06/16 12/06/16 03:30 04:00 04:30 Temperature 97.8 F Pulse Rate 51 L 46 L 43 L Pulse Rate [ From Monitor] Pulse Rate [ Throughout] Respiratory 15 15 17 Rate Respiratory Rate [ Throughout] Blood Pressure 115/82 115/79 132/87 O2 Sat by Pulse 100 100 100 Oximetry O2 Sat by Pulse Oximetry [ Assessment] 12/06/16 12/06/16 12/06/16 05:01 05:30 05:57 Temperature Pulse Rate 89 44 L 80 Pulse Rate [ From Monitor] Pulse Rate [ Throughout] Respiratory 12 20 25 H Rate Respiratory Rate [ Throughout] Blood Pressure 132/87 128/85 128/85 O2 Sat by Pulse 100 100 100 Oximetry O2 Sat by Pulse Oximetry [ Assessment] 12/06/16 12/06/16 12/06/16 06:01 06:21 06:30 Temperature Pulse Rate 90 56 L 45 L Pulse Rate [ From Monitor] Pulse Rate [ Throughout] Respiratory 28 H 14 17 Rate Respiratory Rate [ Throughout] Blood Pressure 137/84 137/84 124/86 O2 Sat by Pulse 100 100 100 Oximetry O2 Sat by Pulse Oximetry [ Assessment] 12/06/16 12/06/16 12/06/16 06:43 07:00 07:11 Temperature Pulse Rate 43 L 60 41 L Pulse Rate [ From Monitor] Pulse Rate [ Throughout] Respiratory 18 24 21 Rate Respiratory Rate [ Throughout] Blood Pressure 124/86 131/90 131/90 O2 Sat by Pulse 100 100 100 Oximetry O2 Sat by Pulse Oximetry [ Assessment] 12/06/16 12/06/16 12/06/16 07:15 07:30 08:00 Temperature 97.5 F L Pulse Rate 41 L 46 L Pulse Rate [ 47 L From Monitor] Pulse Rate [ Throughout] Respiratory 17 19 Rate Respiratory Rate [ Throughout] Blood Pressure 130/86 133/88 O2 Sat by Pulse 100 100 Oximetry O2 Sat by Pulse Oximetry [ Assessment] 12/06/16 12/06/16 12/06/16 08:09 08:10 08:15 Temperature Pulse Rate 43 L Pulse Rate [ From Monitor] Pulse Rate [ 45 L Throughout] Respiratory 17 Rate Respiratory 19 Rate [ Throughout] Blood Pressure 133/88 O2 Sat by Pulse 100 Oximetry O2 Sat by Pulse 100 Oximetry [ Assessment] 12/06/16 12/06/16 12/06/16 08:30 08:31 09:00 Temperature Pulse Rate 57 L 51 L Pulse Rate [ From Monitor] Pulse Rate [ 49 L Throughout] Respiratory 23 21 Rate Respiratory 21 Rate [ Throughout] Blood Pressure 129/88 124/88 O2 Sat by Pulse 100 100 Oximetry O2 Sat by Pulse Oximetry [ Assessment] 12/06/16 12/06/16 12/06/16 09:27 09:30 10:00 Temperature Pulse Rate 43 L 45 L 45 L Pulse Rate [ From Monitor] Pulse Rate [ Throughout] Respiratory 18 20 16 Rate Respiratory Rate [ Throughout] Blood Pressure 124/88 121/82 133/86 O2 Sat by Pulse 100 100 100 Oximetry O2 Sat by Pulse Oximetry [ Assessment] 12/06/16 12/06/16 12/06/16 10:30 11:00 11:30 Temperature Pulse Rate 47 L 44 L 53 L Pulse Rate [ From Monitor] Pulse Rate [ Throughout] Respiratory 22 17 18 Rate Respiratory Rate [ Throughout] Blood Pressure 134/87 136/88 126/89 O2 Sat by Pulse 100 100 100 Oximetry O2 Sat by Pulse Oximetry [ Assessment] Constitutional: no acute distress Eyes: non-icteric ENT: oropharynx moist Neck: supple, no lymphadenopathy Effort: mildly labored Ascultation: Bilateral: rhonchi Cardiovascular: regular rate and rhythm Gastrointestinal: normoactive bowel sounds, soft, non-tender, non-distended Integumentary: normal Extremities: no cyanosis, no edema, pulses normal, other (contractures) Neurologic: unable to assess Psychiatric: other (unable to assess) CBC and BMP: 12/05/16 06:15 12/06/16 07:10 ABG, PT/INR, D-dimer: ABG POC ABG pH 7.470 (7.35-7.45) H 12/06/16 04:39 POC ABG pCO2 44.4 (35-45) 12/06/16 04:39 POC ABG pO2 175 (80-105) H 12/06/16 04:39 POC ABG HCO3 32.3 12/06/16 04:39 POC ABG Total CO2 34 12/06/16 04:39 POC ABG O2 Sat 100 12/06/16 04:39 PT/INR, D-dimer PT 14.4 Sec. (12.2-14.9) 12/03/16 04:32 INR 1.13 (0.87-1.13) 12/03/16 04:32 Abnormal lab findings: Abnormal Labs 12/03/16 12/04/16 12/04/16 19:48 00:09 05:55 RBC 2.99 L Hgb 8.9 L D Hct 28.6 L D MCV 96 H MCHC 31 L RDW 18.3 H Plt Count 97 L Lymph % (Auto) 8.5 L Lymph # 0.8 L Seg Neutrophils % 89.7 H Seg Neutrophils # 8.6 H POC ABG pH POC ABG pO2 Sodium 151 H Potassium Chloride 117.9 H Carbon Dioxide BUN 39 H Creatinine Glucose POC Glucose 110 H Calcium 7.7 L Magnesium Albumin 12/04/16 12/04/16 12/04/16 05:55 06:00 11:36 RBC Hgb Hct MCV MCHC RDW Plt Count Lymph % (Auto) Lymph # Seg Neutrophils % Seg Neutrophils # POC ABG pH POC ABG pO2 Sodium 149 H Potassium Chloride 115.8 H Carbon Dioxide BUN 36 H Creatinine 0.7 L Glucose 118 H POC Glucose 118 H 130 H Calcium 8.1 L Magnesium Albumin 1.9 L 12/04/16 12/05/16 12/05/16 17:48 00:06 06:06 RBC Hgb Hct MCV MCHC RDW Plt Count Lymph % (Auto) Lymph # Seg Neutrophils % Seg Neutrophils # POC ABG pH POC ABG pO2 Sodium Potassium Chloride Carbon Dioxide BUN Creatinine Glucose POC Glucose 110 H 143 H 112 H Calcium Magnesium Albumin 12/05/16 12/05/16 12/05/16 06:15 06:15 08:53 RBC 3.20 L Hgb 9.4 L Hct 29.6 L MCV MCHC RDW 17.4 H Plt Count 97 L Lymph % (Auto) 7.8 L Lymph # 0.8 L Seg Neutrophils % 89.0 H Seg Neutrophils # 8.7 H POC ABG pH POC ABG pO2 Sodium 147 H Potassium 2.8 L* D Chloride 109.3 H Carbon Dioxide BUN 24 H Creatinine 0.5 L Glucose 114 H POC Glucose Calcium 7.7 L Magnesium 1.6 L Albumin 12/05/16 12/05/16 12/05/16 09:40 12:40 17:19 RBC Hgb Hct MCV MCHC RDW Plt Count Lymph % (Auto) Lymph # Seg Neutrophils % Seg Neutrophils # POC ABG pH 7.470 H POC ABG pO2 130 H Sodium Potassium Chloride Carbon Dioxide BUN Creatinine Glucose POC Glucose 156 H 127 H Calcium Magnesium Albumin 12/05/16 12/06/16 12/06/16 23:58 04:39 05:53 RBC Hgb Hct MCV MCHC RDW Plt Count Lymph % (Auto) Lymph # Seg Neutrophils % Seg Neutrophils # POC ABG pH 7.470 H POC ABG pO2 175 H Sodium Potassium Chloride Carbon Dioxide BUN Creatinine Glucose POC Glucose 118 H 120 H Calcium Magnesium Albumin 12/06/16 07:10 RBC Hgb Hct MCV MCHC RDW Plt Count Lymph % (Auto) Lymph # Seg Neutrophils % Seg Neutrophils # POC ABG pH POC ABG pO2 Sodium Potassium 3.0 L Chloride Carbon Dioxide 31 H BUN 24 H Creatinine 0.4 L Glucose 120 H POC Glucose Calcium 7.8 L Magnesium Albumin 2.1 L Chest x-ray: report reviewed (Tracheostomy tube in place, rotated. Lungs are clear.), image reviewed
--- NOTE | 2016-12-06 13:37 | Progress Note ---
Assessment and Plan Current antibiotics: none Previous antibiotics: Levaquin 750 mg q24h (12/03) Fluconazole 200 mg IV q24h 12/03 -->12/05 Zosyn 4.5 g IV q6h 12/03 -->12/05 Linezolid 600 mg IV q12h 12/03 -->12/05 ASSESSMENT: Shemar Olivares is a 46-year-old [facility] [place] with multiple medical problems including chronic respiratory failure with chronic tracheostomy, recurrent complicated UTIs with indwelling suprapubic Guevara, hx of CVA with multiple contractures, DM, CKD, HTN, dementia, and seizure disorder who was admitted to [facility] on 12/03 with fever and relative hypotension. Problem list: 1. Fever -Etiology uncelar -Blood cultures NGTD -Urinalysis not suggestive of urinary tract infection -CXR without significant infiltrates -Rule out noninfectious etiology(ies) ? seizure, etc. -He has had similar previous admissions in the past -currently afebrile 2. Recurrent UTI - Indwelling suprapubic catheter - Recent history -08/2016 with Escherichia coli and pseudomonas aeruginosa ( Zosyn sensitive) UTI -Admitting urinalysis without significant pyuria 3. Respiratory failure -Acute on chronic -Chronic tracheostomy --patient previously had colonized organisms 4. Thrombocytopenia -R/O secondary to sepsis -R/O drug side effect (Zosyn, linezolid) -97 on 12/05 5. Status post CVA - Multiple contractures 6. Electrolyte disorder -Hypernatremia, hyperchloremia -Secondary to dehydration -Resolved 7. Vancomycin allergy PLAN: 1. monitor off antibiotics for now 2. if fever will obtain urine, blood cultures 3. continue current wound care Subjective Date of service: 12/06/16 Principal diagnosis: Acute Hypoxemic Resp Failure Interval history: Patient seen in bed, he is alert, looks around. Objective - Constitutional Vitals: Selected Entries 08/24/16 08/24/16 12/06/16 14:10 17:00 12:00 Temperature 98.4 F 97.9 F Pulse Rate Pulse Rate [ 108 H Anterior Bilateral Throughout] Pulse Rate [ 86 Left Radial] Respiratory 20 Rate Respiratory 20 Rate [Anterior Bilateral Throughout] O2 Sat by Pulse Oximetry Blood Pressure Blood Pressure 131/91 [Left Arm] Blood Pressure Mean Blood Pressure 104 Mean [Left Arm] 01/14/17 12:30 Temperature Pulse Rate 41 L Pulse Rate [ Anterior Bilateral Throughout] Pulse Rate [ Left Radial] Respiratory 17 Rate Respiratory Rate [Anterior Bilateral Throughout] O2 Sat by Pulse 100 Oximetry Blood Pressure 137/86 Blood Pressure [Left Arm] Blood Pressure 103 Mean Blood Pressure Mean [Left Arm] General appearance: Present: no acute distress, cachectic - EENT Eyes: EOM intact, no scleral icterus, no conjunctival injection ENT: poor dentition, other (tracheostomy, attached to a trach collar) - Neck Neck: rigidity, other (fixed to the right), no enlarged thyroid, no masses or JVD - Respiratory Respiratory: bilateral: rales (transmitted breath sounds) - Breasts Breasts: deferred - Cardiovascular Rhythm: regular Heart Sounds: Present: S1 & S2 Extremities: normal temperature, abnormal (contracted) - Gastrointestinal General gastrointestinal: Present: soft, other (peg tube in place) - Genitourinary Male genitourinary: deferred (supra-pubic catheter) - Labs CBC & Chem 7: 12/05/16 06:15 12/06/16 07:10 Labs: Microbiology 08/18/16 17:44 Urine,Guevara Port Urine Culture - Final Escherichia Coli Pseudomonas Aeruginosa 08/18/16 17:34 Peripheral/Venous Blood Culture - Final Escherichia Coli 12/03/16 09:20 Nasopharyngeal Swab Influenza Types A,B Antigen (RAI) - Final 08/18/16 17:34 Peripheral/Venous Blood Culture - Preliminary Escherichia Coli 12/04/16 08:15 Urine,Suprapubic Urine Culture - Preliminary 12/03/16 04:32 Peripheral/Venous Blood Culture - Preliminary NO GROWTH AFTER 72 HOURS Laboratory Tests 12/03/16 12/05/16 12/06/16 04:32 06:15 07:10 WBC 9.8 Plt Count 97 L INR 1.13 Creatinine 0.4 L Estimated GFR > 60 Glucose 120 H
[2016-12-06] MEDS: MORPHINE PO PRN (14:26)
[2016-12-07] MEDS: DUONEB 0.5 MG-3 MG/3 ML SOLN IH SCH ×4 (01:17→20:52)
[2016-12-07] MEDS: ROBINUL FEEDTUBE SCH ×3 (08:33→22:57)
[2016-12-07] MEDS: PEPCID PO SCH ×2 (09:03→22:57)
[2016-12-07] MEDS: Centrum Liq PO SCH (09:03)
[2016-12-07] MEDS: KEPPRA PO SCH ×2 (09:03→22:57)
--- NOTE | 2016-12-07 11:01 | Progress Note ---
Assessment and Plan Assessment and plan: Suspected Sepsis * off abx from today * Urine cx did not reveal any infectious source, cxr clear * ID physician on board. monitor off abx Acute on chronic respiratory failure with hypoxia. * He had a tracheostomy on place and this has been connected to ventilator. * Pulmonology/Senior Business Process Analyst following to help with management. Severe hypokalemia * Continue to monitor and replace accordingly * level improved today Hypotension * initially thought to be due to sepsis * BP improved with id fluid * likely due to dehydration Dehydration. * s/p aggresive ID fluid hydration Neurogenic bladder with suprapubic catheter. * new bag has been placed by urology Hypernatremia. * likley due to dehydration, continue Iv fluids h/o Recurrent UTI with Indwelling suprapubic catheter * Recent history - 08/2016 with Escherichia coli and pseudomonas aeruginosa ( Zosyn sensitive) UTI * monitor off antibiotics for now History of seizure disorder. Give Keppra IV twice a day History of CVA, start on aspirin, statin DVT prophylaxis with SCDs only. No anticoagulation because of thrombocytopenia Full CODE STATUS, transfer to tele today Microbiology 12/03/16 04:32 Peripheral/Venous Blood Culture - Preliminary NO GROWTH AFTER 4 DAYS 12/03/16 04:25 Tracheal Aspirate Sputum Culture - Preliminary Gram Negative Giancarlo 12/04/16 08:15 Urine,Suprapubic Urine Culture - Preliminary 12/03/16 04:32 Peripheral/Venous Blood Culture - Preliminary 12/03/16 09:20 Nasopharyngeal Swab Influenza Types A,B Antigen (RAI) - Final History Interval history: Patient is 46 -year-old with history of dementia, seizure disorder, stroke, hypertension who is a resident at a [facility] facility was sent in to our ER because of fever. Patient seen and examined today. Medical records and medication list reviewed. No acute event overnight noted by the RN. Serum potassium 3.0 today. Hospitalist Physical - Physical exam Narrative exam: GENERAL: -[place]onegasque male lying on bed appeared to be in no discomfort in unresponsive to any verbal command. HEENT: Normocephalic. Atraumatic. No conjunctival congestion or icterus. Patient has moist mucous membranes. NECK: Supple. Trachea midline. trach tube on place CHEST/LUNGS: Clear to auscultated bilaterally, breathing nonlabored. No wheezes crackles or rhonchi. HEART/CARDIOVASCULAR: Regular in rate and rhythm. S1 and S2 positive. ABDOMEN: Abdomen is soft, nontender. Patient has normal bowel sounds. PEG tube on place SKIN: There is no rash. Warm and dry. NEURO: Does not Follow command. Contracted extremities, paraplegic MUSCULOSKELETAL: No joint effusion or tenderness. EXTRIMITY: No edema, no cyanosis or clubbing. PSYCH: Unable to assess. - Constitutional Vitals: Temp Pulse Resp BP Pulse Ox 97.7 F 44 L 18 127/90 99 12/07/16 07:44 12/07/16 09:18 12/07/16 09:18 12/07/16 09:00 12/07/16 09:18 General appearance: Present: no acute distress, cachectic Results - Labs CBC & Chem 7: 12/05/16 06:15 12/06/16 07:10 Labs: Laboratory Last Values WBC 9.8 K/mm3 (4.5-11.0) 12/05/16 06:15 RBC 3.20 M/mm3 (3.65-5.03) L 12/05/16 06:15 Hgb 9.4 gm/dl (11.8-15.2) L 12/05/16 06:15 Hct 29.6 % (35.5-45.6) L 12/05/16 06:15 MCV 94 fl (84-94) 12/05/16 06:15 MCH 30 pg (28-32) 12/05/16 06:15 MCHC 32 % (32-34) 12/05/16 06:15 RDW 17.4 % (13.2-15.2) H 12/05/16 06:15 Plt Count 97 K/mm3 (140-440) L 12/05/16 06:15 Lymph % (Auto) 7.8 % (13.4-35.0) L 12/05/16 06:15 [place] % (Auto) 3.1 % (0.0-7.3) 12/05/16 06:15 Eos % (Auto) 0.0 % (0.0-4.3) 12/05/16 06:15 Baso % (Auto) 0.1 % (0.0-1.8) 12/05/16 06:15 Lymph # 0.8 K/mm3 (1.2-5.4) L 12/05/16 06:15 [place] # 0.3 K/mm3 (0.0-0.8) 12/05/16 06:15 Eos # 0.0 K/mm3 (0.0-0.4) 12/05/16 06:15 Baso # 0.0 K/mm3 (0.0-0.1) 12/05/16 06:15 Seg Neutrophils % 89.0 % (40.0-70.0) H 12/05/16 06:15 Seg Neutrophils # 8.7 K/mm3 (1.8-7.7) H 12/05/16 06:15 PT 14.4 Sec. (12.2-14.9) 12/03/16 04:32 INR 1.13 (0.87-1.13) 12/03/16 04:32 POC ABG pH 7.470 (7.35-7.45) H 12/06/16 04:39 POC ABG pCO2 44.4 (35-45) 12/06/16 04:39 POC ABG pO2 175 (80-105) H 12/06/16 04:39 POC ABG HCO3 32.3 12/06/16 04:39 POC ABG Total CO2 34 12/06/16 04:39 POC ABG O2 Sat 100 12/06/16 04:39 POC ABG Base Excess 9 12/06/16 04:39 VBG pH 7.405 (7.320-7.420) 12/03/16 04:32 FiO2 28 % 12/06/16 04:39 Sodium 144 mmol/L (137-145) 12/06/16 07:10 Potassium 3.0 mmol/L (3.6-5.0) L 12/06/16 07:10 Chloride 104.3 mmol/L (98-107) 12/06/16 07:10 Carbon Dioxide 31 mmol/L (22-30) H 12/06/16 07:10 Anion Gap 12 mmol/L 12/06/16 07:10 BUN 24 mg/dL (9-20) H 12/06/16 07:10 Creatinine 0.4 mg/dL (0.8-1.5) L 12/06/16 07:10 Estimated GFR > 60 ml/min 12/06/16 07:10 BUN/Creatinine Ratio 60.00 % 12/06/16 07:10 Glucose 120 mg/dL (75-100) H 12/06/16 07:10 POC Glucose 117 (70-105) H 12/06/16 22:20 Lactic Acid 1.9 mmol/L (0.7-2.0) 12/04/16 05:55 Calcium 7.8 mg/dL (8.4-10.2) L 12/06/16 07:10 Phosphorus 3.2 mg/dL (2.5-4.5) 12/03/16 04:32 Magnesium 2.1 mg/dL (1.7-2.3) 12/06/16 07:10 Total Bilirubin 0.3 mg/dL (0.1-1.2) 12/06/16 07:10 AST 18 units/L (5-40) 12/06/16 07:10 ALT 24 units/L (7-56) 12/06/16 07:10 Alkaline Phosphatase 81 units/L (35-129) 12/06/16 07:10 C-Reactive Protein 17.50 mg/dL (0.00-1.30) H 12/03/16 04:32 Total Protein 6.9 g/dL (6.3-8.2) 12/06/16 07:10 Albumin 2.1 g/dL (3.9-5) L 12/06/16 07:10 Albumin/Globulin Ratio 0.4 % 12/06/16 07:10 Urine Color Straw (Yellow) 12/04/16 08:15 Urine Turbidity Clear (Clear) 12/04/16 08:15 Urine pH 6.5 (5.0-7.0) 12/04/16 08:15 Ur Specific [place] 1.015 (1.003-1.030) 12/04/16 08:15 Urine Protein 30 mg/dl mg/dL (Negative) 12/04/16 08:15 Urine Glucose (UA) Negative mg/dL (Negative) 12/04/16 08:15 Urine Ketones Negative mg/dL (Negative) 12/04/16 08:15 Urine Blood Trace (Negative) 12/04/16 08:15 Urine Nitrite Negative (Negative) 12/04/16 08:15 Urine Bilirubin Negative (Negative) 12/04/16 08:15 Urine Urobilinogen 0.2 mg/dL (<2.0) 12/04/16 08:15 Ur Leukocyte Esterase Moderate (Negative) 12/04/16 08:15 Urine WBC (Auto) 5.0 /HPF (0.0-6.0) 12/04/16 08:15 Urine RBC (Auto) 4.0 /HPF (0.0-6.0) 12/04/16 08:15 Urine Bacteria (Auto) 1+ /HPF (Negative) 12/04/16 08:15
[2016-12-07 11:13] LABS: Hematocrit 29.2 % (35.5-45.6); Hemoglobin 9.6 gm/dl (11.8-15.2); Mean Corpuscular HGB Conc 33 % (32-34); Mean Corpuscular Hemoglobin 30 pg (28-32); Mean Corpuscular Volume 92 fl (84-94); Platelet Count 109 K/mm3 (140-440); Red Blood Count 3.19 M/mm3 (3.65-5.03); Red Cell Distribution Width 17.3 % (13.2-15.2); White Blood Count 8.3 K/mm3 (4.5-11.0)
[2016-12-07 11:33] LABS: Anion Gap 11 mmol/L; Blood Urea Nitrogen 24 mg/dL (9-20); Calcium 7.8 mg/dL (8.4-10.2); Carbon Dioxide 33 mmol/L (22-30); Chloride 102.1 mmol/L (98-107); Glucose 96 mg/dL (75-100); Potassium 3.5 mmol/L (3.6-5.0); Sodium 143 mmol/L (137-145)
--- NOTE | 2016-12-07 11:33 | Progress Note ---
Assessment and Plan Assessment and plan: Suspected Sepsis * off abx , did not spiked fever * Urine cx did not reveal any infectious source, cxr clear * ID physician on board. cont to monitor off abx Acute on chronic respiratory failure with hypoxia. * He had a tracheostomy on place and this has been connected to ventilator. * Pulmonology/Delivery Coordinator following to help with management. Severe hypokalemia * Continue to monitor and replace accordingly * BMP level pending Hypotension * initially thought to be due to sepsis * BP improved with id fluid * likely due to dehydration Dehydration. * s/p aggresive ID fluid hydration Neurogenic bladder with suprapubic catheter. * new bag has been placed by urology Hypernatremia. * likley due to dehydration, continue Iv fluids h/o Recurrent UTI with Indwelling suprapubic catheter * Recent history - 08/2016 with Escherichia coli and pseudomonas aeruginosa ( Zosyn sensitive) UTI * monitor off antibiotics for now History of seizure disorder. Give Keppra IV twice a day History of CVA, start on aspirin, statin DVT prophylaxis with SCDs only. No anticoagulation because of thrombocytopenia Full CODE STATUS, transfer to [facility] when bed available Disposition: To [facility] facility, if remains stable by tomorrow Microbiology 12/03/16 04:32 Peripheral/Venous Blood Culture - Preliminary NO GROWTH AFTER 4 DAYS 12/03/16 04:25 Tracheal Aspirate Sputum Culture - Preliminary Gram Negative Giancarlo 12/04/16 08:15 Urine,Suprapubic Urine Culture - Preliminary 12/03/16 04:32 Peripheral/Venous Blood Culture - Preliminary 12/03/16 09:20 Nasopharyngeal Swab Influenza Types A,B Antigen (RAI) - Final History Interval history: Patient is 46 -year-old with history of dementia, seizure disorder, stroke, hypertension who is a [facility] at a [facility] facility was sent in to our ER because of fever. Patient seen and examined today. Medical records and medication list reviewed. No acute event overnight noted by the RN. BMP pending. Hospitalist Physical - Physical exam Narrative exam: GENERAL: -[place] male lying on bed appeared to be in no discomfort in unresponsive to any verbal command. HEENT: Normocephalic. Atraumatic. No conjunctival congestion or icterus. Patient has moist mucous membranes. NECK: Supple. Trachea midline. trach tube on place CHEST/LUNGS: Clear to auscultated bilaterally, breathing nonlabored. No wheezes crackles or rhonchi. HEART/CARDIOVASCULAR: Regular in rate and rhythm. S1 and S2 positive. ABDOMEN: Abdomen is soft, nontender. Patient has normal bowel sounds. PEG tube on place SKIN: There is no rash. Warm and dry. NEURO: Does not Follow command. Contracted extremities, paraplegic MUSCULOSKELETAL: No joint effusion or tenderness. EXTRIMITY: No edema, no cyanosis or clubbing. PSYCH: Unable to assess. - Constitutional Vitals: Temp Pulse Resp BP Pulse Ox 97.7 F 44 L 18 127/90 99 12/07/16 07:44 12/07/16 09:18 12/07/16 09:18 12/07/16 09:00 12/07/16 09:18 General appearance: Present: no acute distress, cachectic Results - Labs CBC & Chem 7: 12/07/16 11:01 12/06/16 07:10 Labs: Laboratory Last Values WBC 8.3 K/mm3 (4.5-11.0) 12/07/16 11:01 RBC 3.19 M/mm3 (3.65-5.03) L 12/07/16 11:01 Hgb 9.6 gm/dl (11.8-15.2) L 12/07/16 11:01 Hct 29.2 % (35.5-45.6) L 12/07/16 11:01 MCV 92 fl (84-94) 12/07/16 11:01 MCH 30 pg (28-32) 12/07/16 11:01 MCHC 33 % (32-34) 12/07/16 11:01 RDW 17.3 % (13.2-15.2) H 12/07/16 11:01 Plt Count 109 K/mm3 (140-440) L 12/07/16 11:01 Lymph % (Auto) 7.8 % (13.4-35.0) L 12/05/16 06:15 [place] % (Auto) 3.1 % (0.0-7.3) 12/05/16 06:15 Eos % (Auto) 0.0 % (0.0-4.3) 12/05/16 06:15 Baso % (Auto) 0.1 % (0.0-1.8) 12/05/16 06:15 Lymph # 0.8 K/mm3 (1.2-5.4) L 12/05/16 06:15 [place] # 0.3 K/mm3 (0.0-0.8) 12/05/16 06:15 Eos # 0.0 K/mm3 (0.0-0.4) 12/05/16 06:15 Baso # 0.0 K/mm3 (0.0-0.1) 12/05/16 06:15 Seg Neutrophils % 89.0 % (40.0-70.0) H 12/05/16 06:15 Seg Neutrophils # 8.7 K/mm3 (1.8-7.7) H 12/05/16 06:15 PT 14.4 Sec. (12.2-14.9) 12/03/16 04:32 INR 1.13 (0.87-1.13) 12/03/16 04:32 POC ABG pH 7.470 (7.35-7.45) H 12/06/16 04:39 POC ABG pCO2 44.4 (35-45) 12/06/16 04:39 POC ABG pO2 175 (80-105) H 12/06/16 04:39 POC ABG HCO3 32.3 12/06/16 04:39 POC ABG Total CO2 34 12/06/16 04:39 POC ABG O2 Sat 100 12/06/16 04:39 POC ABG Base Excess 9 12/06/16 04:39 VBG pH 7.405 (7.320-7.420) 12/03/16 04:32 FiO2 28 % 12/06/16 04:39 Sodium 144 mmol/L (137-145) 12/06/16 07:10 Potassium 3.0 mmol/L (3.6-5.0) L 12/06/16 07:10 Chloride 104.3 mmol/L (98-107) 12/06/16 07:10 Carbon Dioxide 31 mmol/L (22-30) H 12/06/16 07:10 Anion Gap 12 mmol/L 12/06/16 07:10 BUN 24 mg/dL (9-20) H 12/06/16 07:10 Creatinine 0.4 mg/dL (0.8-1.5) L 12/06/16 07:10 Estimated GFR > 60 ml/min 12/06/16 07:10 BUN/Creatinine Ratio 60.00 % 12/06/16 07:10 Glucose 120 mg/dL (75-100) H 12/06/16 07:10 POC Glucose 117 (70-105) H 12/06/16 22:20 Lactic Acid 1.9 mmol/L (0.7-2.0) 12/04/16 05:55 Calcium 7.8 mg/dL (8.4-10.2) L 12/06/16 07:10 Phosphorus 3.2 mg/dL (2.5-4.5) 12/03/16 04:32 Magnesium 2.1 mg/dL (1.7-2.3) 12/06/16 07:10 Total Bilirubin 0.3 mg/dL (0.1-1.2) 12/06/16 07:10 AST 18 units/L (5-40) 12/06/16 07:10 ALT 24 units/L (7-56) 12/06/16 07:10 Alkaline Phosphatase 81 units/L (35-129) 12/06/16 07:10 C-Reactive Protein 17.50 mg/dL (0.00-1.30) H 12/03/16 04:32 Total Protein 6.9 g/dL (6.3-8.2) 12/06/16 07:10 Albumin 2.1 g/dL (3.9-5) L 12/06/16 07:10 Albumin/Globulin Ratio 0.4 % 12/06/16 07:10 Urine Color Straw (Yellow) 12/04/16 08:15 Urine Turbidity Clear (Clear) 12/04/16 08:15 Urine pH 6.5 (5.0-7.0) 12/04/16 08:15 Ur Specific [place] 1.015 (1.003-1.030) 12/04/16 08:15 Urine Protein 30 mg/dl mg/dL (Negative) 12/04/16 08:15 Urine Glucose (UA) Negative mg/dL (Negative) 12/04/16 08:15 Urine Ketones Negative mg/dL (Negative) 12/04/16 08:15 Urine Blood Trace (Negative) 12/04/16 08:15 Urine Nitrite Negative (Negative) 12/04/16 08:15 Urine Bilirubin Negative (Negative) 12/04/16 08:15 Urine Urobilinogen 0.2 mg/dL (<2.0) 12/04/16 08:15 Ur Leukocyte Esterase Moderate (Negative) 12/04/16 08:15 Urine WBC (Auto) 5.0 /HPF (0.0-6.0) 12/04/16 08:15 Urine RBC (Auto) 4.0 /HPF (0.0-6.0) 12/04/16 08:15 Urine Bacteria (Auto) 1+ /HPF (Negative) 12/04/16 08:15
[2016-12-07 12:24] LABS: Basophils % (Manual) 0 % (0.0-1.8); Blastocytes % (Manual) 0 %; Eosinophils % (Manual) 0 % (0.0-4.3)
[2016-12-07 12:25] LABS: Anisocytosis 1+; Large Platelets Few; Platelet Estimate Appears Decreased
[2016-12-07 12:26] LABS: Diff Status Complete; Poikilocytosis Few; Schistocytes Few
[2016-12-07] MEDS ORDERED: PROVENTIL IH PRN (13:44)
[2016-12-07] MEDS: BABY ASPIRIN PO SCH (15:05)
[2016-12-07] MEDS: VITAMIN C FEEDTUBE SCH (15:05)
--- NOTE | 2016-12-07 16:10 | Progress Note ---
Assessment and Plan Shemar Olivares is a 46-year-old , American[place] resident of long term with multiple medical problems including chronic respiratory failure with chronic tracheostomy, recurrent complicated UTIs with indwelling suprapubic Guevara, hx of CVA with multiple contractures, DM, CKD, HTN, dementia, and seizure disorder who was admitted to [facility] with fever and hypotension. Patient placed on mechanical ventilation and successfully weaned to T tube. Patient is presently on T tube with FIO2 28% and O2 satuaration 100%. Patient has multiple contractures, bedridden.No acute respiratory distress at this time. Patient can go to telemetry, closer to the nursing station from pulmonary point of view. I spent approximately 35 minutes in examing and review the chart, labs, talking to the nursing staff and respiratory therapist and work out plan of treatment. - Patient Problems (1) Acute respiratory failure requiring reintubation Current Visit: Yes Status: Acute Plan to address problem: Successfully weaned from the ventilator. Patient presently on T tube FIO2 28% and O2 satuaration 1oo%. Albuterol/atrovent aerosol treatments q 6 hours. SCDs. Continue famotadine. (2) Sepsis Current Visit: Yes Status: Acute Qualifiers: Sepsis type: sepsis due to unspecified organism Qualified Code(s): A41.9 - Sepsis, unspecified organism Plan to address problem: Management as per infectious diseases. (3) Decubitus ulcer, stage 1 with infection Current Visit: Yes Status: Acute Plan to address problem: Recommend to consult wound care. (4) Malfunction of Guevara catheter Current Visit: Yes Status: Acute Plan to address problem: Urology consulted. Subjective Date of service: 12/07/16 Principal diagnosis: Acute Hypoxemic Resp Failure Interval history: Shemar Olivares is a 46-year-old , Americanmale resident of long term with multiple medical problems including chronic respiratory failure with chronic tracheostomy, recurrent complicated UTIs with indwelling suprapubic Guevara, hx of CVA with multiple contractures, DM, CKD, HTN, dementia, and seizure disorder who was admitted to [facility] with fever and hypotension. Patient placed on mechanical ventilation and successfully weaned to T tube. Patient is presently on T tube with FIO2 28% and O2 satuaration 100%. Patient has multiple contractures, bedridden.No acute respiratory distress at this time. Objective Vital Signs - 12hr 12/07/16 12/07/16 12/07/16 04:23 04:30 04:59 Temperature Pulse Rate 44 L 44 L 40 L Pulse Rate [ From Monitor] Pulse Rate [ Throughout] Respiratory 16 18 14 Rate Respiratory Rate [ Generalized] Respiratory Rate [ Throughout] Blood Pressure 129/84 130/88 130/88 O2 Sat by Pulse 100 100 100 Oximetry O2 Sat by Pulse Oximetry [ Assessment] 12/07/16 12/07/16 12/07/16 05:00 05:30 05:43 Temperature Pulse Rate 63 44 L 42 L Pulse Rate [ From Monitor] Pulse Rate [ Throughout] Respiratory 17 17 17 Rate Respiratory Rate [ Generalized] Respiratory Rate [ Throughout] Blood Pressure 131/99 136/85 136/85 O2 Sat by Pulse 100 100 100 Oximetry O2 Sat by Pulse Oximetry [ Assessment] 12/07/16 12/07/16 12/07/16 05:49 06:00 06:05 Temperature Pulse Rate 47 L 47 L 42 L Pulse Rate [ From Monitor] Pulse Rate [ Throughout] Respiratory 16 16 13 Rate Respiratory Rate [ Generalized] Respiratory Rate [ Throughout] Blood Pressure 136/85 130/85 130/85 O2 Sat by Pulse 100 100 100 Oximetry O2 Sat by Pulse Oximetry [ Assessment] 12/07/16 12/07/16 12/07/16 06:30 07:00 07:21 Temperature Pulse Rate 54 L 57 L 42 L Pulse Rate [ From Monitor] Pulse Rate [ Throughout] Respiratory 16 15 15 Rate Respiratory Rate [ Generalized] Respiratory Rate [ Throughout] Blood Pressure 132/94 129/93 129/93 O2 Sat by Pulse 100 100 100 Oximetry O2 Sat by Pulse Oximetry [ Assessment] 12/07/16 12/07/16 12/07/16 07:30 07:44 08:00 Temperature 97.7 F Pulse Rate 54 L 47 L Pulse Rate [ From Monitor] Pulse Rate [ Throughout] Respiratory 16 20 Rate Respiratory Rate [ Generalized] Respiratory Rate [ Throughout] Blood Pressure 124/91 123/81 O2 Sat by Pulse 100 100 Oximetry O2 Sat by Pulse Oximetry [ Assessment] 12/07/16 12/07/16 12/07/16 08:17 08:30 08:35 Temperature Pulse Rate 52 L 55 L 43 L Pulse Rate [ From Monitor] Pulse Rate [ Throughout] Respiratory 20 20 16 Rate Respiratory Rate [ Generalized] Respiratory Rate [ Throughout] Blood Pressure 123/81 126/88 126/88 O2 Sat by Pulse 100 100 100 Oximetry O2 Sat by Pulse Oximetry [ Assessment] 12/07/16 12/07/16 12/07/16 08:59 09:00 09:01 Temperature Pulse Rate 44 L 54 L Pulse Rate [ From Monitor] Pulse Rate [ Throughout] Respiratory 19 22 Rate Respiratory Rate [ Generalized] Respiratory Rate [ Throughout] Blood Pressure 126/88 127/90 O2 Sat by Pulse 100 100 100 Oximetry O2 Sat by Pulse Oximetry [ Assessment] 12/07/16 12/07/16 12/07/16 09:03 09:15 09:16 Temperature Pulse Rate 52 L Pulse Rate [ From Monitor] Pulse Rate [ 55 L 60 Throughout] Respiratory 23 Rate Respiratory Rate [ Generalized] Respiratory 22 16 Rate [ Throughout] Blood Pressure 127/90 O2 Sat by Pulse 100 Oximetry O2 Sat by Pulse Oximetry [ Assessment] 12/07/16 12/07/16 12/07/16 09:17 09:18 09:30 Temperature Pulse Rate 55 L Pulse Rate [ 44 L From Monitor] Pulse Rate [ Throughout] Respiratory 18 23 Rate Respiratory Rate [ Generalized] Respiratory Rate [ Throughout] Blood Pressure 129/90 O2 Sat by Pulse 99 100 Oximetry O2 Sat by Pulse 100 Oximetry [ Assessment] 12/07/16 12/07/16 12/07/16 10:00 10:30 11:00 Temperature Pulse Rate 62 60 61 Pulse Rate [ From Monitor] Pulse Rate [ Throughout] Respiratory 19 17 25 H Rate Respiratory 20 Rate [ Generalized] Respiratory Rate [ Throughout] Blood Pressure 132/84 142/98 150/102 O2 Sat by Pulse 100 100 100 Oximetry O2 Sat by Pulse Oximetry [ Assessment] 12/07/16 12/07/16 12/07/16 11:30 12:00 12:30 Temperature 97.4 F L Pulse Rate 50 L 58 L 64 Pulse Rate [ From Monitor] Pulse Rate [ Throughout] Respiratory 21 22 23 Rate Respiratory Rate [ Generalized] Respiratory Rate [ Throughout] Blood Pressure 138/96 144/102 149/106 O2 Sat by Pulse 100 100 100 Oximetry O2 Sat by Pulse Oximetry [ Assessment] 12/07/16 12/07/16 12/07/16 13:00 13:09 13:30 Temperature Pulse Rate 59 L 45 L 57 L Pulse Rate [ From Monitor] Pulse Rate [ Throughout] Respiratory 24 21 20 Rate Respiratory Rate [ Generalized] Respiratory Rate [ Throughout] Blood Pressure 144/106 144/106 146/101 O2 Sat by Pulse 100 100 100 Oximetry O2 Sat by Pulse Oximetry [ Assessment] 12/07/16 12/07/16 12/07/16 13:37 13:43 13:46 Temperature Pulse Rate Pulse Rate [ From Monitor] Pulse Rate [ 61 62 Throughout] Respiratory Rate Respiratory Rate [ Generalized] Respiratory 21 22 Rate [ Throughout] Blood Pressure O2 Sat by Pulse 100 Oximetry O2 Sat by Pulse Oximetry [ Assessment] 12/07/16 12/07/16 14:00 14:30 Temperature Pulse Rate 58 L 60 Pulse Rate [ 50 L From Monitor] Pulse Rate [ Throughout] Respiratory 28 H 21 Rate Respiratory Rate [ Generalized] Respiratory Rate [ Throughout] Blood Pressure 147/102 144/102 O2 Sat by Pulse 100 100 Oximetry O2 Sat by Pulse Oximetry [ Assessment] Constitutional: no acute distress Eyes: non-icteric ENT: oropharynx moist Neck: supple, no lymphadenopathy Effort: mildly labored Ascultation: Bilateral: rhonchi Cardiovascular: regular rate and rhythm Gastrointestinal: normoactive bowel sounds, soft, non-tender, non-distended Integumentary: normal Extremities: no cyanosis, no edema, pulses normal, other (contractures) Neurologic: unable to assess Psychiatric: other (unable to assess) CBC and BMP: 12/07/16 11:01 12/07/16 11:01 ABG, PT/INR, D-dimer: ABG POC ABG pH 7.470 (7.35-7.45) H 12/06/16 04:39 POC ABG pCO2 44.4 (35-45) 12/06/16 04:39 POC ABG pO2 175 (80-105) H 12/06/16 04:39 POC ABG HCO3 32.3 12/06/16 04:39 POC ABG Total CO2 34 12/06/16 04:39 POC ABG O2 Sat 100 12/06/16 04:39 PT/INR, D-dimer PT 14.4 Sec. (12.2-14.9) 12/03/16 04:32 INR 1.13 (0.87-1.13) 12/03/16 04:32 Abnormal lab findings: Abnormal Labs 12/03/16 12/04/16 12/04/16 19:48 00:09 05:55 RBC 2.99 L Hgb 8.9 L D Hct 28.6 L D MCV 96 H MCHC 31 L RDW 18.3 H Plt Count 97 L Lymph % (Auto) 8.5 L Lymph # 0.8 L Seg Neutrophils % 89.7 H Seg Neuts % (Manual) Lymphocytes % (Manual) Seg Neutrophils # 8.6 H Lymphocytes # (Manual) POC ABG pH POC ABG pO2 Sodium 151 H Potassium Chloride 117.9 H Carbon Dioxide BUN 39 H Creatinine Glucose POC Glucose 110 H Calcium 7.7 L Magnesium Albumin 12/04/16 12/04/16 12/04/16 05:55 06:00 11:36 RBC Hgb Hct MCV MCHC RDW Plt Count Lymph % (Auto) Lymph # Seg Neutrophils % Seg Neuts % (Manual) Lymphocytes % (Manual) Seg Neutrophils # Lymphocytes # (Manual) POC ABG pH POC ABG pO2 Sodium 149 H Potassium Chloride 115.8 H Carbon Dioxide BUN 36 H Creatinine 0.7 L Glucose 118 H POC Glucose 118 H 130 H Calcium 8.1 L Magnesium Albumin 1.9 L 12/04/16 12/05/16 12/05/16 17:48 00:06 06:06 RBC Hgb Hct MCV MCHC RDW Plt Count Lymph % (Auto) Lymph # Seg Neutrophils % Seg Neuts % (Manual) Lymphocytes % (Manual) Seg Neutrophils # Lymphocytes # (Manual) POC ABG pH POC ABG pO2 Sodium Potassium Chloride Carbon Dioxide BUN Creatinine Glucose POC Glucose 110 H 143 H 112 H Calcium Magnesium Albumin 12/05/16 12/05/16 12/05/16 06:15 06:15 08:53 RBC 3.20 L Hgb 9.4 L Hct 29.6 L MCV MCHC RDW 17.4 H Plt Count 97 L Lymph % (Auto) 7.8 L Lymph # 0.8 L Seg Neutrophils % 89.0 H Seg Neuts % (Manual) Lymphocytes % (Manual) Seg Neutrophils # 8.7 H Lymphocytes # (Manual) POC ABG pH POC ABG pO2 Sodium 147 H Potassium 2.8 L* D Chloride 109.3 H Carbon Dioxide BUN 24 H Creatinine 0.5 L Glucose 114 H POC Glucose Calcium 7.7 L Magnesium 1.6 L Albumin 12/05/16 12/05/16 12/05/16 09:40 12:40 17:19 RBC Hgb Hct MCV MCHC RDW Plt Count Lymph % (Auto) Lymph # Seg Neutrophils % Seg Neuts % (Manual) Lymphocytes % (Manual) Seg Neutrophils # Lymphocytes # (Manual) POC ABG pH 7.470 H POC ABG pO2 130 H Sodium Potassium Chloride Carbon Dioxide BUN Creatinine Glucose POC Glucose 156 H 127 H Calcium Magnesium Albumin 12/05/16 12/06/16 12/06/16 23:58 04:39 05:53 RBC Hgb Hct MCV MCHC RDW Plt Count Lymph % (Auto) Lymph # Seg Neutrophils % Seg Neuts % (Manual) Lymphocytes % (Manual) Seg Neutrophils # Lymphocytes # (Manual) POC ABG pH 7.470 H POC ABG pO2 175 H Sodium Potassium Chloride Carbon Dioxide BUN Creatinine Glucose POC Glucose 118 H 120 H Calcium Magnesium Albumin 12/06/16 12/06/16 12/06/16 07:10 11:59 22:20 RBC Hgb Hct MCV MCHC RDW Plt Count Lymph % (Auto) Lymph # Seg Neutrophils % Seg Neuts % (Manual) Lymphocytes % (Manual) Seg Neutrophils # Lymphocytes # (Manual) POC ABG pH POC ABG pO2 Sodium Potassium 3.0 L Chloride Carbon Dioxide 31 H BUN 24 H Creatinine 0.4 L Glucose 120 H POC Glucose 183 H 117 H Calcium 7.8 L Magnesium Albumin 2.1 L 12/07/16 12/07/16 11:01 11:01 RBC 3.19 L Hgb 9.6 L Hct 29.2 L MCV MCHC RDW 17.3 H Plt Count 109 L Lymph % (Auto) Lymph # Seg Neutrophils % Seg Neuts % (Manual) 89.0 H Lymphocytes % (Manual) 7.0 L Seg Neutrophils # Lymphocytes # (Manual) 0.6 L POC ABG pH POC ABG pO2 Sodium Potassium 3.5 L Chloride Carbon Dioxide 33 H BUN 24 H Creatinine 0.4 L Glucose POC Glucose Calcium 7.8 L Magnesium Albumin
[2016-12-08] MEDS: DUONEB 0.5 MG-3 MG/3 ML SOLN IH SCH ×4 (01:52→20:48)
[2016-12-08] MEDS: ROBINUL FEEDTUBE SCH ×3 (09:13→21:44)
[2016-12-08] MEDS: BABY ASPIRIN PO SCH (11:13)
[2016-12-08] MEDS: KEPPRA PO SCH ×2 (11:14→21:45)
[2016-12-08] MEDS: PEPCID PO SCH ×2 (11:14→21:45)
[2016-12-08] MEDS: Centrum Liq PO SCH ×2 (11:14→15:55)
[2016-12-08] MEDS: VITAMIN C FEEDTUBE SCH ×2 (11:15→15:55)
--- NOTE | 2016-12-08 13:00 | Progress Note ---
Assessment and Plan Current antibiotics: none Previous antibiotics: Levaquin 750 mg q24h (12/03) Fluconazole 200 mg IV q24h 12/03 -->12/05 Zosyn 4.5 g IV q6h 12/03 -->12/05 Linezolid 600 mg IV q12h 12/03 -->12/05 ASSESSMENT: Shemar Olivares is a 46-year-old male halfway resident with multiple medical problems including chronic respiratory failure with chronic tracheostomy, recurrent complicated UTIs with indwelling suprapubic Guevara, hx of CVA with multiple contractures, DM, CKD, HTN, dementia, and seizure disorder who was admitted to [facility] on 12/03 with fever and relative hypotension. Problem list: 1. Fever -Etiology uncelar -Blood cultures NGTD -Urinalysis not suggestive of urinary tract infection -CXR without significant infiltrates -Rule out noninfectious etiology(ies) ? seizure, etc. -He has had similar previous admissions in the past -currently afebrile 2. Recurrent UTI - Indwelling suprapubic catheter - Recent history -08/2016 with Escherichia coli and pseudomonas aeruginosa ( Zosyn sensitive) UTI -Admitting urinalysis without significant pyuria 3. Respiratory failure -Acute on chronic -Chronic tracheostomy --patient previously had colonized organisms 4. Thrombocytopenia -R/O secondary to sepsis -R/O drug side effect (Zosyn, linezolid, both stopped on 12/05 -97 on 12/05, improving 5. Status post CVA - Multiple contractures 6. Electrolyte disorder -Hypernatremia, hyperchloremia -Secondary to dehydration -Resolved 7. Vancomycin allergy 8. bloodstream infection, 11/26 bottles on 12/03/16 with MRSA, I do not consider MRSA or Staph aureus contominant regardless of the grade of infection. This could very well be a contaminant especially with the second being negative. However this I can't be certain of an MRSA, staph in general is an infection that can cause significant mortality -patient has vancomycin allergy -will avoid linezolid in view of its side affect profile PLAN: 1. will start daptomycin 6 mg/kg iv Q24H to complete 2 weeks. 2. if fever will obtain urine, blood cultures 3. continue current wound care 4. will do CPK while on daptomycin 5. hold atorvastatin while on daptomycin Subjective Date of service: 12/08/16 Principal diagnosis: Acute Hypoxemic Resp Failure Interval history: patient seen in bed, he opens his eyes and look around but does not follow directions Objective - Constitutional Vitals: Selected Entries 12/08/16 12/08/16 12/08/16 06:00 08:01 09:18 Temperature 97.9 F 97.3 F L Pulse Rate [ 54 L Throughout] Respiratory 18 Rate [ Throughout] O2 Sat by Pulse Oximetry [ Assessment] Blood Pressure 154/87 [Left Arm] Blood Pressure 109 Mean [Left Arm] 12/08/16 12:21 Temperature Pulse Rate [ Throughout] Respiratory Rate [ Throughout] O2 Sat by Pulse 99 Oximetry [ Assessment] Blood Pressure [Left Arm] Blood Pressure Mean [Left Arm] General appearance: Present: no acute distress, cachectic - EENT Eyes: no scleral icterus, no conjunctival injection Ears: bilateral: normal - Neck Neck: supple, normal ROM, other (tracheostomy), no enlarged thyroid, no masses or JVD - Respiratory Respiratory effort: normal Respiratory: bilateral: CTA (anteriorly) - Breasts Breasts: deferred - Cardiovascular Rhythm: regular Heart Sounds: Present: S1 & S2 Extremities: no ischemia, normal temperature, abnormal (contracted) - Gastrointestinal General gastrointestinal: Present: soft, other (PEG in place) - Genitourinary Male genitourinary: deferred - Integumentary Integumentary: clear, warm, dry, no jaundice, no rash - Neurologic Neurologic: other (bed ridden, does not move extremities to command) - Labs CBC & Chem 7: 12/07/16 11:01 12/07/16 11:01 Labs: Microbiology 12/04/16 08:15 Urine,Suprapubic Urine Culture - Final 12/03/16 04:32 Peripheral/Venous Blood Culture - Final NO GROWTH AFTER 5 DAYS 12/03/16 04:32 Peripheral/Venous Blood Culture - Final Methicillin Resist S. Aureus 12/03/16 04:25 Tracheal Aspirate Sputum Culture - Final Proteus Mirabilis Laboratory Tests 12/07/16 12/07/16 11:01 11:01 WBC 8.3 Plt Count 109 L BUN 24 H Creatinine 0.4 L
[2016-12-08] MEDS ORDERED: CUBICIN IV SCH (14:00)
[2016-12-08] MEDS ORDERED: NACL 0.9% IV SCH (14:00)
--- NOTE | 2016-12-08 14:46 | Progress Note ---
Assessment and Plan Shemar Olivares is a 46-year-old , American[place] resident of care home with multiple medical problems including chronic respiratory failure with chronic tracheostomy, recurrent complicated UTIs with indwelling suprapubic Guevara, hx of CVA with multiple contractures, DM, CKD, HTN, dementia, and seizure disorder who was admitted to [facility] with fever and hypotension. Patient placed on mechanical ventilation and successfully weaned to T tube. Patient is presently on T tube with FIO2 28% and O2 satuaration 100%. Patient has multiple contractures, bedridden.No acute respiratory distress at this time. 12/08/16 Patient transfered to the telemetry. Patient resting on T tube, FIO2 28% and O2 satuaration 100%.No acute respiratory distress. - Patient Problems (1) Acute respiratory failure requiring reintubation Current Visit: Yes Status: Acute Plan to address problem: Successfully weaned from the ventilator. Patient presently on T tube FIO2 28% and O2 satuaration 1oo%. Albuterol/atrovent aerosol treatments q 6 hours. SCDs. Continue famotadine. (2) Sepsis Current Visit: Yes Status: Acute Qualifiers: Sepsis type: sepsis due to unspecified organism Qualified Code(s): A41.9 - Sepsis, unspecified organism Plan to address problem: Management as per infectious diseases. (3) Decubitus ulcer, stage 1 with infection Current Visit: Yes Status: Acute Plan to address problem: Recommend to consult wound care. (4) Malfunction of Guevara catheter Current Visit: Yes Status: Acute Plan to address problem: Urology consulted. Subjective Date of service: 12/08/16 Principal diagnosis: Acute Hypoxemic Resp Failure Interval history: Shemar Olivares is a 46-year-old , American[place] resident of care home with multiple medical problems including chronic respiratory failure with chronic tracheostomy, recurrent complicated UTIs with indwelling suprapubic Guevara, hx of CVA with multiple contractures, DM, CKD, HTN, dementia, and seizure disorder who was admitted to [facility] with fever and hypotension. Patient placed on mechanical ventilation and successfully weaned to T tube. Patient is presently on T tube with FIO2 28% and O2 satuaration 100%. Patient has multiple contractures, bedridden.No acute respiratory distress at this time. 12/08/16 Patient transfered to the telemetry. Patient resting on T tube, FIO2 28% and O2 satuaration 100%.No acute respiratory distress. Objective Vital Signs - 12hr 12/08/16 12/08/16 12/08/16 06:00 08:01 09:03 Temperature 97.9 F 97.3 F L Pulse Rate [ 59 L Left Radial] Pulse Rate [ 60 Left] Pulse Rate [ 48 L Throughout] Respiratory 18 18 Rate Respiratory 16 Rate [ Throughout] Blood Pressure 111/70 Blood Pressure 154/87 [Left Arm] O2 Sat by Pulse 96 99 Oximetry O2 Sat by Pulse Oximetry [ Assessment] 12/08/16 12/08/16 12/08/16 09:06 09:18 12:21 Temperature Pulse Rate [ Left Radial] Pulse Rate [ Left] Pulse Rate [ 54 L Throughout] Respiratory Rate Respiratory 18 Rate [ Throughout] Blood Pressure Blood Pressure [Left Arm] O2 Sat by Pulse 97 Oximetry O2 Sat by Pulse 99 Oximetry [ Assessment] 12/08/16 12/08/16 12/08/16 13:13 14:20 14:34 Temperature 97.6 F Pulse Rate [ 52 L Left Radial] Pulse Rate [ Left] Pulse Rate [ 49 L 54 L Throughout] Respiratory 20 Rate Respiratory 18 18 Rate [ Throughout] Blood Pressure Blood Pressure 162/94 [Left Arm] O2 Sat by Pulse 100 Oximetry O2 Sat by Pulse Oximetry [ Assessment] Constitutional: no acute distress, other (Awake, not follow commands. Not oriented.) Eyes: non-icteric ENT: oropharynx moist Neck: supple, no lymphadenopathy Effort: mildly labored Ascultation: Bilateral: rhonchi Cardiovascular: regular rate and rhythm Gastrointestinal: normoactive bowel sounds, soft, non-tender, non-distended Integumentary: normal Extremities: no cyanosis, no edema, pulses normal, other (contractures) Neurologic: unable to assess Psychiatric: other (unable to assess) CBC and BMP: 12/07/16 11:01 12/07/16 11:01 ABG, PT/INR, D-dimer: ABG POC ABG pH 7.470 (7.35-7.45) H 12/06/16 04:39 POC ABG pCO2 44.4 (35-45) 12/06/16 04:39 POC ABG pO2 175 (80-105) H 12/06/16 04:39 POC ABG HCO3 32.3 12/06/16 04:39 POC ABG Total CO2 34 12/06/16 04:39 POC ABG O2 Sat 100 12/06/16 04:39 PT/INR, D-dimer PT 14.4 Sec. (12.2-14.9) 12/03/16 04:32 INR 1.13 (0.87-1.13) 12/03/16 04:32 Abnormal lab findings: Abnormal Labs 12/03/16 12/04/16 12/04/16 19:48 00:09 05:55 RBC 2.99 L Hgb 8.9 L D Hct 28.6 L D MCV 96 H MCHC 31 L RDW 18.3 H Plt Count 97 L Lymph % (Auto) 8.5 L Lymph # 0.8 L Seg Neutrophils % 89.7 H Seg Neuts % (Manual) Lymphocytes % (Manual) Seg Neutrophils # 8.6 H Lymphocytes # (Manual) POC ABG pH POC ABG pO2 Sodium 151 H Potassium Chloride 117.9 H Carbon Dioxide BUN 39 H Creatinine Glucose POC Glucose 110 H Calcium 7.7 L Magnesium Albumin 12/04/16 12/04/16 12/04/16 05:55 06:00 11:36 RBC Hgb Hct MCV MCHC RDW Plt Count Lymph % (Auto) Lymph # Seg Neutrophils % Seg Neuts % (Manual) Lymphocytes % (Manual) Seg Neutrophils # Lymphocytes # (Manual) POC ABG pH POC ABG pO2 Sodium 149 H Potassium Chloride 115.8 H Carbon Dioxide BUN 36 H Creatinine 0.7 L Glucose 118 H POC Glucose 118 H 130 H Calcium 8.1 L Magnesium Albumin 1.9 L 12/04/16 12/05/16 12/05/16 17:48 00:06 06:06 RBC Hgb Hct MCV MCHC RDW Plt Count Lymph % (Auto) Lymph # Seg Neutrophils % Seg Neuts % (Manual) Lymphocytes % (Manual) Seg Neutrophils # Lymphocytes # (Manual) POC ABG pH POC ABG pO2 Sodium Potassium Chloride Carbon Dioxide BUN Creatinine Glucose POC Glucose 110 H 143 H 112 H Calcium Magnesium Albumin 12/05/16 12/05/16 12/05/16 06:15 06:15 08:53 RBC 3.20 L Hgb 9.4 L Hct 29.6 L MCV MCHC RDW 17.4 H Plt Count 97 L Lymph % (Auto) 7.8 L Lymph # 0.8 L Seg Neutrophils % 89.0 H Seg Neuts % (Manual) Lymphocytes % (Manual) Seg Neutrophils # 8.7 H Lymphocytes # (Manual) POC ABG pH POC ABG pO2 Sodium 147 H Potassium 2.8 L* D Chloride 109.3 H Carbon Dioxide BUN 24 H Creatinine 0.5 L Glucose 114 H POC Glucose Calcium 7.7 L Magnesium 1.6 L Albumin 12/05/16 12/05/16 12/05/16 09:40 12:40 17:19 RBC Hgb Hct MCV MCHC RDW Plt Count Lymph % (Auto) Lymph # Seg Neutrophils % Seg Neuts % (Manual) Lymphocytes % (Manual) Seg Neutrophils # Lymphocytes # (Manual) POC ABG pH 7.470 H POC ABG pO2 130 H Sodium Potassium Chloride Carbon Dioxide BUN Creatinine Glucose POC Glucose 156 H 127 H Calcium Magnesium Albumin 12/05/16 12/06/16 12/06/16 23:58 04:39 05:53 RBC Hgb Hct MCV MCHC RDW Plt Count Lymph % (Auto) Lymph # Seg Neutrophils % Seg Neuts % (Manual) Lymphocytes % (Manual) Seg Neutrophils # Lymphocytes # (Manual) POC ABG pH 7.470 H POC ABG pO2 175 H Sodium Potassium Chloride Carbon Dioxide BUN Creatinine Glucose POC Glucose 118 H 120 H Calcium Magnesium Albumin 12/06/16 12/06/16 12/06/16 07:10 11:59 22:20 RBC Hgb Hct MCV MCHC RDW Plt Count Lymph % (Auto) Lymph # Seg Neutrophils % Seg Neuts % (Manual) Lymphocytes % (Manual) Seg Neutrophils # Lymphocytes # (Manual) POC ABG pH POC ABG pO2 Sodium Potassium 3.0 L Chloride Carbon Dioxide 31 H BUN 24 H Creatinine 0.4 L Glucose 120 H POC Glucose 183 H 117 H Calcium 7.8 L Magnesium Albumin 2.1 L 12/07/16 12/07/16 12/07/16 11:01 11:01 18:13 RBC 3.19 L Hgb 9.6 L Hct 29.2 L MCV MCHC RDW 17.3 H Plt Count 109 L Lymph % (Auto) Lymph # Seg Neutrophils % Seg Neuts % (Manual) 89.0 H Lymphocytes % (Manual) 7.0 L Seg Neutrophils # Lymphocytes # (Manual) 0.6 L POC ABG pH POC ABG pO2 Sodium Potassium 3.5 L Chloride Carbon Dioxide 33 H BUN 24 H Creatinine 0.4 L Glucose POC Glucose 129 H Calcium 7.8 L Magnesium Albumin 12/08/16 12/08/16 12/08/16 00:10 06:44 12:58 RBC Hgb Hct MCV MCHC RDW Plt Count Lymph % (Auto) Lymph # Seg Neutrophils % Seg Neuts % (Manual) Lymphocytes % (Manual) Seg Neutrophils # Lymphocytes # (Manual) POC ABG pH POC ABG pO2 Sodium Potassium Chloride Carbon Dioxide BUN Creatinine Glucose POC Glucose 122 H 151 H 115 H Calcium Magnesium Albumin
[2016-12-08] MEDS: NACL 0.9% IV SCH (15:55)
[2016-12-08] MEDS: CUBICIN IV SCH (15:55)
--- NOTE | 2016-12-08 18:54 | Progress Note ---
Assessment and Plan Assessment and plan: Sepsis likely due to MRSA bacteremia * Was off abx , as initial blood culture was negative * Urine cx did not reveal any infectious source, cxr clear * ID physician on board. * Placed back on daptomycin today as 1 out of 4 blood culture grew MRSA * We'll need IV daptomycin for 2 weeks Acute on chronic respiratory failure with hypoxia. * He had a tracheostomy on place and this has been connected to ventilator. * Pulmonology/Crew Team Member following to help with management. Severe hypokalemia * Continue to monitor and replace accordingly * BMP level pending Hypotension * initially thought to be due to sepsis * BP improved with id fluid * likely due to dehydration Dehydration. * s/p aggresive ID fluid hydration Neurogenic bladder with suprapubic catheter. * new bag has been placed by urology Hypernatremia. * likley due to dehydration, continue Iv fluids h/o Recurrent UTI with Indwelling suprapubic catheter * Recent history - 08/2016 with Escherichia coli and pseudomonas aeruginosa ( Zosyn sensitive) UTI * monitor off antibiotics for now History of seizure disorder. Give Keppra IV twice a day History of CVA, start on aspirin, statin DVT prophylaxis with SCDs only. No anticoagulation because of thrombocytopenia Full CODE STATUS, transfer to [facility] when bed available Disposition: To residential facility, if remains stable by tomorrow Microbiology 12/03/16 04:32 Peripheral/Venous Blood Culture - Final Methicillin Resist S. Aureus 12/03/16 04:32 Peripheral/Venous Blood Culture - Final NO GROWTH AFTER 5 DAYS 12/03/16 04:25 Tracheal Aspirate Sputum Culture - Final Proteus Mirabilis 12/04/16 08:15 Urine,Suprapubic Urine Culture - Final 12/03/16 09:20 Nasopharyngeal Swab Influenza Types A,B Antigen (RAI) - Final History Interval history: Patient is 46 -year-old with history of dementia, seizure disorder, stroke, hypertension who is a resident at a residential facility was sent in to our ER because of fever. Patient seen and examined today. Medical records and medication list reviewed. No acute event overnight noted by the RN. Hospitalist Physical - Physical exam Narrative exam: GENERAL: -[place] male lying on bed appeared to be in no discomfort in unresponsive to any verbal command. HEENT: Normocephalic. Atraumatic. No conjunctival congestion or icterus. Patient has moist mucous membranes. NECK: Supple. Trachea midline. trach tube on place CHEST/LUNGS: Clear to auscultated bilaterally, breathing nonlabored. No wheezes crackles or rhonchi. HEART/CARDIOVASCULAR: Regular in rate and rhythm. S1 and S2 positive. ABDOMEN: Abdomen is soft, nontender. Patient has normal bowel sounds. PEG tube on place SKIN: There is no rash. Warm and dry. NEURO: Does not Follow command. Contracted extremities, paraplegic MUSCULOSKELETAL: No joint effusion or tenderness. EXTRIMITY: No edema, no cyanosis or clubbing. PSYCH: Unable to assess. - Constitutional Vitals: Temp Pulse Resp BP Pulse Ox 97.4 F L 47 L 20 182/107 100 12/08/16 15:55 12/08/16 15:55 12/08/16 15:55 12/08/16 15:55 12/08/16 15:55 General appearance: Present: no acute distress, cachectic Results - Labs CBC & Chem 7: 12/07/16 11:01 12/07/16 11:01 Labs: Laboratory Last Values WBC 8.3 K/mm3 (4.5-11.0) 12/07/16 11:01 RBC 3.19 M/mm3 (3.65-5.03) L 12/07/16 11:01 Hgb 9.6 gm/dl (11.8-15.2) L 12/07/16 11:01 Hct 29.2 % (35.5-45.6) L 12/07/16 11:01 MCV 92 fl (84-94) 12/07/16 11:01 MCH 30 pg (28-32) 12/07/16 11:01 MCHC 33 % (32-34) 12/07/16 11:01 RDW 17.3 % (13.2-15.2) H 12/07/16 11:01 Plt Count 109 K/mm3 (140-440) L 12/07/16 11:01 Lymph % (Auto) 7.8 % (13.4-35.0) L 12/05/16 06:15 [place] % (Auto) 3.1 % (0.0-7.3) 12/05/16 06:15 Eos % (Auto) 0.0 % (0.0-4.3) 12/05/16 06:15 Baso % (Auto) 0.1 % (0.0-1.8) 12/05/16 06:15 Lymph # 0.8 K/mm3 (1.2-5.4) L 12/05/16 06:15 [place] # 0.3 K/mm3 (0.0-0.8) 12/05/16 06:15 Eos # 0.0 K/mm3 (0.0-0.4) 12/05/16 06:15 Baso # 0.0 K/mm3 (0.0-0.1) 12/05/16 06:15 Add Manual Diff Complete 12/07/16 11:01 Total Counted 100 12/07/16 11:01 Seg Neutrophils % 89.0 % (40.0-70.0) H 12/05/16 06:15 Seg Neuts % (Manual) 89.0 % (40.0-70.0) H 12/07/16 11:01 Band Neutrophils % 0 % 12/07/16 11:01 Lymphocytes % (Manual) 7.0 % (13.4-35.0) L 12/07/16 11:01 Reactive Lymphs % (Man) 0 % 12/07/16 11:01 Monocytes % (Manual) 4.0 % (0.0-7.3) 12/07/16 11:01 Eosinophils % (Manual) 0 % (0.0-4.3) 12/07/16 11:01 Basophils % (Manual) 0 % (0.0-1.8) 12/07/16 11:01 Metamyelocytes % 0 % 12/07/16 11:01 Myelocytes % 0 % 12/07/16 11:01 Promyelocytes % 0 % 12/07/16 11:01 Blast Cells % 0 % 12/07/16 11:01 Nucleated RBC % Not Reportable 12/07/16 11:01 Seg Neutrophils # 8.7 K/mm3 (1.8-7.7) H 12/05/16 06:15 Seg Neutrophils # Man 7.4 K/mm3 (1.8-7.7) 12/07/16 11:01 Band Neutrophils # 0.0 K/mm3 12/07/16 11:01 Lymphocytes # (Manual) 0.6 K/mm3 (1.2-5.4) L 12/07/16 11:01 Abs React Lymphs (Man) 0.0 K/mm3 12/07/16 11:01 Monocytes # (Manual) 0.3 K/mm3 (0.0-0.8) 12/07/16 11:01 Eosinophils # (Manual) 0.0 K/mm3 (0.0-0.4) 12/07/16 11:01 Basophils # (Manual) 0.0 K/mm3 (0.0-0.1) 12/07/16 11:01 Metamyelocytes # 0.0 K/mm3 12/07/16 11:01 Myelocytes # 0.0 K/mm3 12/07/16 11:01 Promyelocytes # 0.0 K/mm3 12/07/16 11:01 Blast Cells # 0.0 K/mm3 12/07/16 11:01 WBC Morphology Not Reportable 12/07/16 11:01 Hypersegmented Neuts Not Reportable 12/07/16 11:01 Hyposegmented Neuts Not Reportable 12/07/16 11:01 Hypogranular Neuts Not Reportable 12/07/16 11:01 Smudge Cells Not Reportable 12/07/16 11:01 Toxic Granulation Not Reportable 12/07/16 11:01 Toxic Vacuolation Not Reportable 12/07/16 11:01 Dohle Bodies Not Reportable 12/07/16 11:01 Pelger-Huet Anomaly Not Reportable 12/07/16 11:01 Kinjal Rods Not Reportable 12/07/16 11:01 Platelet Estimate Appears decreased 12/07/16 11:01 Clumped Platelets Not Reportable 12/07/16 11:01 Plt Clumps, EDTA Not Reportable 12/07/16 11:01 Large Platelets Few 12/07/16 11:01 Giant Platelets Not Reportable 12/07/16 11:01 Platelet Satelliting Not Reportable 12/07/16 11:01 Plt Morphology Comment Not Reportable 12/07/16 11:01 RBC Morphology Not Reportable 12/07/16 11:01 Dimorphic RBCs Not Reportable 12/07/16 11:01 Polychromasia Not Reportable 12/07/16 11:01 Hypochromasia Not Reportable 12/07/16 11:01 Poikilocytosis Few 12/07/16 11:01 Anisocytosis 1+ 12/07/16 11:01 Microcytosis Not Reportable 12/07/16 11:01 Macrocytosis Not Reportable 12/07/16 11:01 Spherocytes Not Reportable 12/07/16 11:01 Pappenheimer Bodies Not Reportable 12/07/16 11:01 Sickle Cells Not Reportable 12/07/16 11:01 Target Cells Not Reportable 12/07/16 11:01 Tear Drop Cells Not Reportable 12/07/16 11:01 Ovalocytes Not Reportable 12/07/16 11:01 Helmet Cells Not Reportable 12/07/16 11:01 [place] Bodies Not Reportable 12/07/16 11:01 Heth Rings Not Reportable 12/07/16 11:01 Birdie Cells Not Reportable 12/07/16 11:01 Bite Cells Not Reportable 12/07/16 11:01 Crenated Cell Not Reportable 12/07/16 11:01 Elliptocytes Not Reportable 12/07/16 11:01 Acanthocytes (Spur) Not Reportable 12/07/16 11:01 Rouleaux Not Reportable 12/07/16 11:01 Hemoglobin C Crystals Not Reportable 12/07/16 11:01 Schistocytes Few 12/07/16 11:01 Malaria parasites Not Reportable 12/07/16 11:01 Shai Bodies Not Reportable 12/07/16 11:01 Hem Pathologist Commnt No 12/07/16 11:01 PT 14.4 Sec. (12.2-14.9) 12/03/16 04:32 INR 1.13 (0.87-1.13) 12/03/16 04:32 POC ABG pH 7.470 (7.35-7.45) H 12/06/16 04:39 POC ABG pCO2 44.4 (35-45) 12/06/16 04:39 POC ABG pO2 175 (80-105) H 12/06/16 04:39 POC ABG HCO3 32.3 12/06/16 04:39 POC ABG Total CO2 34 12/06/16 04:39 POC ABG O2 Sat 100 12/06/16 04:39 POC ABG Base Excess 9 12/06/16 04:39 VBG pH 7.405 (7.320-7.420) 12/03/16 04:32 FiO2 28 % 12/06/16 04:39 Sodium 143 mmol/L (137-145) 12/07/16 11:01 Potassium 3.5 mmol/L (3.6-5.0) L 12/07/16 11:01 Chloride 102.1 mmol/L (98-107) 12/07/16 11:01 Carbon Dioxide 33 mmol/L (22-30) H 12/07/16 11:01 Anion Gap 11 mmol/L 12/07/16 11:01 BUN 24 mg/dL (9-20) H 12/07/16 11:01 Creatinine 0.4 mg/dL (0.8-1.5) L 12/07/16 11:01 Estimated GFR > 60 ml/min 12/07/16 11:01 BUN/Creatinine Ratio 60.00 % 12/07/16 11:01 Glucose 96 mg/dL (75-100) 12/07/16 11:01 POC Glucose 126 (70-105) H 12/08/16 17:58 Lactic Acid 1.9 mmol/L (0.7-2.0) 12/04/16 05:55 Calcium 7.8 mg/dL (8.4-10.2) L 12/07/16 11:01 Phosphorus 3.2 mg/dL (2.5-4.5) 12/03/16 04:32 Magnesium 2.1 mg/dL (1.7-2.3) 12/06/16 07:10 Total Bilirubin 0.3 mg/dL (0.1-1.2) 12/06/16 07:10 AST 18 units/L (5-40) 12/06/16 07:10 ALT 24 units/L (7-56) 12/06/16 07:10 Alkaline Phosphatase 81 units/L (35-129) 12/06/16 07:10 C-Reactive Protein 17.50 mg/dL (0.00-1.30) H 12/03/16 04:32 Total Protein 6.9 g/dL (6.3-8.2) 12/06/16 07:10 Albumin 2.1 g/dL (3.9-5) L 12/06/16 07:10 Albumin/Globulin Ratio 0.4 % 12/06/16 07:10 Total Cortisol 123.2 mcg/dL () 12/05/16 08:53 Urine Color Straw (Yellow) 12/04/16 08:15 Urine Turbidity Clear (Clear) 12/04/16 08:15 Urine pH 6.5 (5.0-7.0) 12/04/16 08:15 Ur Specific [place] 1.015 (1.003-1.030) 12/04/16 08:15 Urine Protein 30 mg/dl mg/dL (Negative) 12/04/16 08:15 Urine Glucose (UA) Negative mg/dL (Negative) 12/04/16 08:15 Urine Ketones Negative mg/dL (Negative) 12/04/16 08:15 Urine Blood Trace (Negative) 12/04/16 08:15 Urine Nitrite Negative (Negative) 12/04/16 08:15 Urine Bilirubin Negative (Negative) 12/04/16 08:15 Urine Urobilinogen 0.2 mg/dL (<2.0) 12/04/16 08:15 Ur Leukocyte Esterase Moderate (Negative) 12/04/16 08:15 Urine WBC (Auto) 5.0 /HPF (0.0-6.0) 12/04/16 08:15 Urine RBC (Auto) 4.0 /HPF (0.0-6.0) 12/04/16 08:15 Urine Bacteria (Auto) 1+ /HPF (Negative) 12/04/16 08:15
[2016-12-09] MEDS: DUONEB 0.5 MG-3 MG/3 ML SOLN IH SCH ×4 (01:51→21:34)
[2016-12-09] MEDS: Centrum Liq PO SCH (13:10)
[2016-12-09] MEDS: VITAMIN C FEEDTUBE SCH (13:10)
[2016-12-09] MEDS: KEPPRA PO SCH ×2 (13:10→21:10)
[2016-12-09] MEDS: ROBINUL FEEDTUBE SCH ×3 (13:11→21:11)
[2016-12-09] MEDS: PEPCID PO SCH ×2 (13:11→21:11)
[2016-12-09] MEDS: BABY ASPIRIN PO SCH (13:11)
[2016-12-09] MEDS: TRANSDERM-SCOP TD SCH (13:12)
--- NOTE | 2016-12-09 17:04 | Progress Note ---
Assessment and Plan Current antibiotics: Daptomycin 6mg/kg IV daily ( 12/08 - > Previous antibiotics: Levaquin 750 mg q24h (12/03) Fluconazole 200 mg IV q24h 12/03 -->12/05 Zosyn 4.5 g IV q6h 12/03 -->12/05 Linezolid 600 mg IV q12h 12/03 -->12/05 ASSESSMENT: Shemar Olivares is a 46-year-old male [facility] resident with multiple medical problems including chronic respiratory failure with chronic tracheostomy, recurrent complicated UTIs with indwelling suprapubic Guevara, hx of CVA with multiple contractures, DM, CKD, HTN, dementia, and seizure disorder who was admitted to [facility] on 12/03 with fever and relative hypotension. Problem list: 1. Fever -Etiology uncelar -Blood cultures NGTD -Urinalysis not suggestive of urinary tract infection -CXR without significant infiltrates -Rule out noninfectious etiology(ies) ? seizure, etc. -He has had similar previous admissions in the past -currently afebrile 2. Recurrent UTI - Indwelling suprapubic catheter - Recent history -08/2016 with Escherichia coli and pseudomonas aeruginosa ( Zosyn sensitive) UTI -Admitting urinalysis without significant pyuria 3. Respiratory failure -Acute on chronic -Chronic tracheostomy --patient previously had colonized organisms 4. Thrombocytopenia -R/O secondary to sepsis -R/O drug side effect (Zosyn, linezolid, both stopped on 12/05 -97 on 12/05, improving 5. Status post CVA - Multiple contractures 6. Electrolyte disorder -Hypernatremia, hyperchloremia -Secondary to dehydration -Resolved 7. Vancomycin allergy 8. bloodstream infection, 11/26 bottles on 12/03/16 with MRSA, I do not consider MRSA or Staph aureus contominant regardless of the grade of infection. This could very well be a contaminant especially with the second being negative. However this I can't be certain of an MRSA, staph in general is an infection that can cause significant mortality -patient has vancomycin allergy -will avoid linezolid in view of its side affect profile -repeat blood c/s to document clearance ordered. PLAN: 1. Continue daptomycin 6 mg/kg iv Q24H to complete 2 weeks. 2. Repeat blood c/s to document clearance ordered. 3. continue current wound care 4. Follow CPK while on daptomycin 5. hold atorvastatin while on daptomycin Subjective Date of service: 12/09/16 Principal diagnosis: Acute Hypoxemic Resp Failure Interval history: Opens eyes to voice. Little apparent clinical change. Objective - Exam Narrative Exam: Chronically ill-appearing. Multiple contractures. No distress. HEENT: Pupils are equal reactive to light and accommodation. Conjunctiva clear. Oropharynx is not well seen. Mucous membranes appear moist. Trach site without redness. NECK: Supple. No enlargement of the thyroid gland. No significant cervical lymphadenopathy. No jugular venous distention at 30. LUNGS: Transmitted tracheal breath sounds. HEART: Tachycardic. S1 and S2 are normal. There are no murmurs, gallops, clicks or rubs heard. ABDOMEN: Soft and nontender. Liver and spleen are not palpably enlarged or tender. No palpable masses. PEG site clean. Bowel sounds positive. Suprapubic catheter site without redness. EXTREMITIES: No rash, peripheral lymphadenopathy, clubbing or edema. Superficial skin ulceration over left leg. Back not seen. SKIN: No other rash NEUROLOGIC: Multiple contractures. Awakes easily. Does not follow commands. - Constitutional Vitals: Vital Signs Temp Pulse Resp BP Pulse Ox 98.0 F 55 L 20 170/90 98 12/09/16 10:43 12/09/16 13:59 12/09/16 13:59 12/09/16 10:43 12/09/16 12:00 Temperature -Last 24 Hours Temperature 98.0 F Temperature 97.3 F Temperature 97.7 F Temperature 97.6 F - Labs CBC & Chem 7: 12/07/16 11:01 12/07/16 11:01 Labs: Abnormal lab results 12/08/16 12/09/16 Range/Units 17:58 11:40 POC Glucose 126 H 130 H (70-105)
--- NOTE | 2016-12-09 18:06 | Progress Note ---
Assessment and Plan Shemar Olivares is a 46-year-old , [place] with multiple medical problems including chronic respiratory failure with chronic tracheostomy, recurrent complicated UTIs with indwelling suprapubic Guevara, hx of CVA with multiple contractures, DM, CKD, HTN, dementia, and seizure disorder who was admitted to [facility] with fever and hypotension. Patient placed on mechanical ventilation and successfully weaned to T tube. Patient is presently on T tube with FIO2 28% and O2 satuaration 100%. Patient has multiple contractures, bedridden.No acute respiratory distress at this time. 12/08/16 Patient transfered to the telemetry. Patient resting on T tube, FIO2 28% and O2 satuaration 100%.No acute respiratory distress. 12/09/16 Patient resting on T tube, FIO2 28%. No acute respiratory distress. O2 satuaration 97%. Patient afebrile. Chest xray results pending. - Patient Problems (1) Acute respiratory failure requiring reintubation Current Visit: Yes Status: Acute Plan to address problem: Successfully weaned from the ventilator. Patient presently on T tube FIO2 28% and O2 satuaration 1oo%. Albuterol/atrovent aerosol treatments q 6 hours. SCDs. Continue famotadine. (2) Sepsis Current Visit: Yes Status: Acute Qualifiers: Sepsis type: sepsis due to unspecified organism Qualified Code(s): A41.9 - Sepsis, unspecified organism Plan to address problem: Management as per infectious diseases. (3) Decubitus ulcer, stage 1 with infection Current Visit: Yes Status: Acute Plan to address problem: Recommend to consult wound care. (4) Malfunction of Guevara catheter Current Visit: Yes Status: Acute Plan to address problem: Urology consulted. Subjective Date of service: 12/09/16 Principal diagnosis: Acute Hypoxemic Resp Failure Interval history: Shemar Olivares is a 46-year-old , [place] with multiple medical problems including chronic respiratory failure with chronic tracheostomy, recurrent complicated UTIs with indwelling suprapubic Guevara, hx of CVA with multiple contractures, DM, CKD, HTN, dementia, and seizure disorder who was admitted to [facility] with fever and hypotension. Patient placed on mechanical ventilation and successfully weaned to T tube. Patient is presently on T tube with FIO2 28% and O2 satuaration 100%. Patient has multiple contractures, bedridden.No acute respiratory distress at this time. 12/08/16 Patient transfered to the telemetry. Patient resting on T tube, FIO2 28% and O2 satuaration 100%.No acute respiratory distress. 12/09/16 Patient resting on T tube, FIO2 28%. No acute respiratory distress. O2 satuaration 97%. Patient afebrile. Chest xray results pending. Objective Vital Signs - 12hr 12/09/16 12/09/16 12/09/16 08:14 08:23 10:43 Temperature 98.0 F Pulse Rate [ From Monitor] Pulse Rate [ 51 L Left Radial] Pulse Rate [ 60 59 L Throughout] Respiratory 20 Rate Respiratory 20 20 Rate [ Throughout] Blood Pressure 170/90 [Left Arm] O2 Sat by Pulse 95 98 Oximetry 12/09/16 12/09/16 12/09/16 12:00 13:51 13:59 Temperature Pulse Rate [ 58 L From Monitor] Pulse Rate [ Left Radial] Pulse Rate [ 56 L 55 L Throughout] Respiratory 20 Rate Respiratory 20 20 Rate [ Throughout] Blood Pressure [Left Arm] O2 Sat by Pulse 98 Oximetry 12/09/16 17:20 Temperature 98.1 F Pulse Rate [ From Monitor] Pulse Rate [ 67 Left Radial] Pulse Rate [ Throughout] Respiratory 20 Rate Respiratory Rate [ Throughout] Blood Pressure 162/94 [Left Arm] O2 Sat by Pulse 97 Oximetry Constitutional: no acute distress, other (Awake, not follow commands. Not oriented.) Eyes: non-icteric ENT: oropharynx moist Neck: supple, no lymphadenopathy Effort: mildly labored Ascultation: Bilateral: rhonchi Cardiovascular: regular rate and rhythm Gastrointestinal: normoactive bowel sounds, soft, non-tender, non-distended Integumentary: normal Extremities: no cyanosis, no edema, pulses normal, other (contractures) Neurologic: unable to assess Psychiatric: other (unable to assess) CBC and BMP: 12/07/16 11:01 12/07/16 11:01 ABG, PT/INR, D-dimer: ABG POC ABG pH 7.470 (7.35-7.45) H 12/06/16 04:39 POC ABG pCO2 44.4 (35-45) 12/06/16 04:39 POC ABG pO2 175 (80-105) H 12/06/16 04:39 POC ABG HCO3 32.3 12/06/16 04:39 POC ABG Total CO2 34 12/06/16 04:39 POC ABG O2 Sat 100 12/06/16 04:39 PT/INR, D-dimer PT 14.4 Sec. (12.2-14.9) 12/03/16 04:32 INR 1.13 (0.87-1.13) 12/03/16 04:32 Abnormal lab findings: Abnormal Labs 12/03/16 12/04/16 12/04/16 19:48 00:09 05:55 RBC 2.99 L Hgb 8.9 L D Hct 28.6 L D MCV 96 H MCHC 31 L RDW 18.3 H Plt Count 97 L Lymph % (Auto) 8.5 L Lymph # 0.8 L Seg Neutrophils % 89.7 H Seg Neuts % (Manual) Lymphocytes % (Manual) Seg Neutrophils # 8.6 H Lymphocytes # (Manual) POC ABG pH POC ABG pO2 Sodium 151 H Potassium Chloride 117.9 H Carbon Dioxide BUN 39 H Creatinine Glucose POC Glucose 110 H Calcium 7.7 L Magnesium Albumin 12/04/16 12/04/16 12/04/16 05:55 06:00 11:36 RBC Hgb Hct MCV MCHC RDW Plt Count Lymph % (Auto) Lymph # Seg Neutrophils % Seg Neuts % (Manual) Lymphocytes % (Manual) Seg Neutrophils # Lymphocytes # (Manual) POC ABG pH POC ABG pO2 Sodium 149 H Potassium Chloride 115.8 H Carbon Dioxide BUN 36 H Creatinine 0.7 L Glucose 118 H POC Glucose 118 H 130 H Calcium 8.1 L Magnesium Albumin 1.9 L 12/04/16 12/05/16 12/05/16 17:48 00:06 06:06 RBC Hgb Hct MCV MCHC RDW Plt Count Lymph % (Auto) Lymph # Seg Neutrophils % Seg Neuts % (Manual) Lymphocytes % (Manual) Seg Neutrophils # Lymphocytes # (Manual) POC ABG pH POC ABG pO2 Sodium Potassium Chloride Carbon Dioxide BUN Creatinine Glucose POC Glucose 110 H 143 H 112 H Calcium Magnesium Albumin 12/05/16 12/05/16 12/05/16 06:15 06:15 08:53 RBC 3.20 L Hgb 9.4 L Hct 29.6 L MCV MCHC RDW 17.4 H Plt Count 97 L Lymph % (Auto) 7.8 L Lymph # 0.8 L Seg Neutrophils % 89.0 H Seg Neuts % (Manual) Lymphocytes % (Manual) Seg Neutrophils # 8.7 H Lymphocytes # (Manual) POC ABG pH POC ABG pO2 Sodium 147 H Potassium 2.8 L* D Chloride 109.3 H Carbon Dioxide BUN 24 H Creatinine 0.5 L Glucose 114 H POC Glucose Calcium 7.7 L Magnesium 1.6 L Albumin 12/05/16 12/05/16 12/05/16 09:40 12:40 17:19 RBC Hgb Hct MCV MCHC RDW Plt Count Lymph % (Auto) Lymph # Seg Neutrophils % Seg Neuts % (Manual) Lymphocytes % (Manual) Seg Neutrophils # Lymphocytes # (Manual) POC ABG pH 7.470 H POC ABG pO2 130 H Sodium Potassium Chloride Carbon Dioxide BUN Creatinine Glucose POC Glucose 156 H 127 H Calcium Magnesium Albumin 12/05/16 12/06/16 12/06/16 23:58 04:39 05:53 RBC Hgb Hct MCV MCHC RDW Plt Count Lymph % (Auto) Lymph # Seg Neutrophils % Seg Neuts % (Manual) Lymphocytes % (Manual) Seg Neutrophils # Lymphocytes # (Manual) POC ABG pH 7.470 H POC ABG pO2 175 H Sodium Potassium Chloride Carbon Dioxide BUN Creatinine Glucose POC Glucose 118 H 120 H Calcium Magnesium Albumin 12/06/16 12/06/16 12/06/16 07:10 11:59 22:20 RBC Hgb Hct MCV MCHC RDW Plt Count Lymph % (Auto) Lymph # Seg Neutrophils % Seg Neuts % (Manual) Lymphocytes % (Manual) Seg Neutrophils # Lymphocytes # (Manual) POC ABG pH POC ABG pO2 Sodium Potassium 3.0 L Chloride Carbon Dioxide 31 H BUN 24 H Creatinine 0.4 L Glucose 120 H POC Glucose 183 H 117 H Calcium 7.8 L Magnesium Albumin 2.1 L 12/07/16 12/07/16 12/07/16 11:01 11:01 18:13 RBC 3.19 L Hgb 9.6 L Hct 29.2 L MCV MCHC RDW 17.3 H Plt Count 109 L Lymph % (Auto) Lymph # Seg Neutrophils % Seg Neuts % (Manual) 89.0 H Lymphocytes % (Manual) 7.0 L Seg Neutrophils # Lymphocytes # (Manual) 0.6 L POC ABG pH POC ABG pO2 Sodium Potassium 3.5 L Chloride Carbon Dioxide 33 H BUN 24 H Creatinine 0.4 L Glucose POC Glucose 129 H Calcium 7.8 L Magnesium Albumin 12/08/16 12/08/16 12/08/16 00:10 06:44 12:58 RBC Hgb Hct MCV MCHC RDW Plt Count Lymph % (Auto) Lymph # Seg Neutrophils % Seg Neuts % (Manual) Lymphocytes % (Manual) Seg Neutrophils # Lymphocytes # (Manual) POC ABG pH POC ABG pO2 Sodium Potassium Chloride Carbon Dioxide BUN Creatinine Glucose POC Glucose 122 H 151 H 115 H Calcium Magnesium Albumin 12/08/16 12/09/16 17:58 11:40 RBC Hgb Hct MCV MCHC RDW Plt Count Lymph % (Auto) Lymph # Seg Neutrophils % Seg Neuts % (Manual) Lymphocytes % (Manual) Seg Neutrophils # Lymphocytes # (Manual) POC ABG pH POC ABG pO2 Sodium Potassium Chloride Carbon Dioxide BUN Creatinine Glucose POC Glucose 126 H 130 H Calcium Magnesium Albumin
--- NOTE | 2016-12-09 19:12 | Progress Note ---
Hospitalist Physical - Constitutional Vitals: Temp Pulse Resp BP Pulse Ox 98.1 F 67 20 162/94 97 12/09/16 17:20 12/09/16 17:20 12/09/16 17:20 12/09/16 17:20 12/09/16 17:20 General appearance: Present: no acute distress, cachectic Results - Labs CBC & Chem 7: 12/07/16 11:01 12/07/16 11:01 Labs: Laboratory Last Values WBC 8.3 K/mm3 (4.5-11.0) 12/07/16 11:01 RBC 3.19 M/mm3 (3.65-5.03) L 12/07/16 11:01 Hgb 9.6 gm/dl (11.8-15.2) L 12/07/16 11:01 Hct 29.2 % (35.5-45.6) L 12/07/16 11:01 MCV 92 fl (84-94) 12/07/16 11:01 MCH 30 pg (28-32) 12/07/16 11:01 MCHC 33 % (32-34) 12/07/16 11:01 RDW 17.3 % (13.2-15.2) H 12/07/16 11:01 Plt Count 109 K/mm3 (140-440) L 12/07/16 11:01 Lymph % (Auto) 7.8 % (13.4-35.0) L 12/05/16 06:15 Sunflower % (Auto) 3.1 % (0.0-7.3) 12/05/16 06:15 Eos % (Auto) 0.0 % (0.0-4.3) 12/05/16 06:15 Baso % (Auto) 0.1 % (0.0-1.8) 12/05/16 06:15 Lymph # 0.8 K/mm3 (1.2-5.4) L 12/05/16 06:15 Sunflower # 0.3 K/mm3 (0.0-0.8) 12/05/16 06:15 Eos # 0.0 K/mm3 (0.0-0.4) 12/05/16 06:15 Baso # 0.0 K/mm3 (0.0-0.1) 12/05/16 06:15 Add Manual Diff Complete 01/15/17 11:01 Total Counted 100 12/07/16 11:01 Seg Neutrophils % 89.0 % (40.0-70.0) H 12/05/16 06:15 Seg Neuts % (Manual) 89.0 % (40.0-70.0) H 12/07/16 11:01 Band Neutrophils % 0 % 12/07/16 11:01 Lymphocytes % (Manual) 7.0 % (13.4-35.0) L 12/07/16 11:01 Reactive Lymphs % (Man) 0 % 12/07/16 11:01 Monocytes % (Manual) 4.0 % (0.0-7.3) 12/07/16 11:01 Eosinophils % (Manual) 0 % (0.0-4.3) 12/07/16 11:01 Basophils % (Manual) 0 % (0.0-1.8) 12/07/16 11:01 Metamyelocytes % 0 % 12/07/16 11:01 Myelocytes % 0 % 12/07/16 11:01 Promyelocytes % 0 % 12/07/16 11:01 Blast Cells % 0 % 12/07/16 11:01 Nucleated RBC % Not Reportable 12/07/16 11:01 Seg Neutrophils # 8.7 K/mm3 (1.8-7.7) H 12/05/16 06:15 Seg Neutrophils # Man 7.4 K/mm3 (1.8-7.7) 12/07/16 11:01 Band Neutrophils # 0.0 K/mm3 12/07/16 11:01 Lymphocytes # (Manual) 0.6 K/mm3 (1.2-5.4) L 12/07/16 11:01 Abs React Lymphs (Man) 0.0 K/mm3 12/07/16 11:01 Monocytes # (Manual) 0.3 K/mm3 (0.0-0.8) 12/07/16 11:01 Eosinophils # (Manual) 0.0 K/mm3 (0.0-0.4) 12/07/16 11:01 Basophils # (Manual) 0.0 K/mm3 (0.0-0.1) 12/07/16 11:01 Metamyelocytes # 0.0 K/mm3 12/07/16 11:01 Myelocytes # 0.0 K/mm3 12/07/16 11:01 Promyelocytes # 0.0 K/mm3 12/07/16 11:01 Blast Cells # 0.0 K/mm3 12/07/16 11:01 WBC Morphology Not Reportable 12/07/16 11:01 Hypersegmented Neuts Not Reportable 12/07/16 11:01 Hyposegmented Neuts Not Reportable 12/07/16 11:01 Hypogranular Neuts Not Reportable 12/07/16 11:01 Smudge Cells Not Reportable 12/07/16 11:01 Toxic Granulation Not Reportable 12/07/16 11:01 Toxic Vacuolation Not Reportable 12/07/16 11:01 Dohle Bodies Not Reportable 12/07/16 11:01 Pelger-Huet Anomaly Not Reportable 12/07/16 11:01 Kinjal Rods Not Reportable 12/07/16 11:01 Platelet Estimate Appears decreased 12/07/16 11:01 Clumped Platelets Not Reportable 12/07/16 11:01 Plt Clumps, EDTA Not Reportable 12/07/16 11:01 Large Platelets Few 12/07/16 11:01 Giant Platelets Not Reportable 12/07/16 11:01 Platelet Satelliting Not Reportable 12/07/16 11:01 Plt Morphology Comment Not Reportable 12/07/16 11:01 RBC Morphology Not Reportable 12/07/16 11:01 Dimorphic RBCs Not Reportable 12/07/16 11:01 Polychromasia Not Reportable 12/07/16 11:01 Hypochromasia Not Reportable 12/07/16 11:01 Poikilocytosis Few 12/07/16 11:01 Anisocytosis 1+ 12/07/16 11:01 Microcytosis Not Reportable 12/07/16 11:01 Macrocytosis Not Reportable 12/07/16 11:01 Spherocytes Not Reportable 12/07/16 11:01 Pappenheimer Bodies Not Reportable 12/07/16 11:01 Sickle Cells Not Reportable 12/07/16 11:01 Target Cells Not Reportable 12/07/16 11:01 Tear Drop Cells Not Reportable 12/07/16 11:01 Ovalocytes Not Reportable 12/07/16 11:01 Helmet Cells Not Reportable 12/07/16 11:01 Reyes-Cleona Bodies Not Reportable 12/07/16 11:01 [place] Rings Not Reportable 12/07/16 11:01 Birdie Cells Not Reportable 12/07/16 11:01 Bite Cells Not Reportable 12/07/16 11:01 Crenated Cell Not Reportable 12/07/16 11:01 Elliptocytes Not Reportable 12/07/16 11:01 Acanthocytes (Spur) Not Reportable 12/07/16 11:01 Rouleaux Not Reportable 12/07/16 11:01 Hemoglobin C Crystals Not Reportable 12/07/16 11:01 Schistocytes Few 12/07/16 11:01 Malaria parasites Not Reportable 12/07/16 11:01 Shai Bodies Not Reportable 12/07/16 11:01 Hem Pathologist Commnt No 12/07/16 11:01 PT 14.4 Sec. (12.2-14.9) 12/03/16 04:32 INR 1.13 (0.87-1.13) 12/03/16 04:32 POC ABG pH 7.470 (7.35-7.45) H 12/06/16 04:39 POC ABG pCO2 44.4 (35-45) 12/06/16 04:39 POC ABG pO2 175 (80-105) H 12/06/16 04:39 POC ABG HCO3 32.3 12/06/16 04:39 POC ABG Total CO2 34 12/06/16 04:39 POC ABG O2 Sat 100 12/06/16 04:39 POC ABG Base Excess 9 12/06/16 04:39 VBG pH 7.405 (7.320-7.420) 12/03/16 04:32 FiO2 28 % 12/06/16 04:39 Sodium 143 mmol/L (137-145) 12/07/16 11:01 Potassium 3.5 mmol/L (3.6-5.0) L 12/07/16 11:01 Chloride 102.1 mmol/L (98-107) 12/07/16 11:01 Carbon Dioxide 33 mmol/L (22-30) H 12/07/16 11:01 Anion Gap 11 mmol/L 12/07/16 11:01 BUN 24 mg/dL (9-20) H 12/07/16 11:01 Creatinine 0.4 mg/dL (0.8-1.5) L 12/07/16 11:01 Estimated GFR > 60 ml/min 12/07/16 11:01 BUN/Creatinine Ratio 60.00 % 12/07/16 11:01 Glucose 96 mg/dL (75-100) 12/07/16 11:01 POC Glucose 130 (70-105) H 12/09/16 11:40 Lactic Acid 1.9 mmol/L (0.7-2.0) 12/04/16 05:55 Calcium 7.8 mg/dL (8.4-10.2) L 12/07/16 11:01 Phosphorus 3.2 mg/dL (2.5-4.5) 12/03/16 04:32 Magnesium 2.1 mg/dL (1.7-2.3) 12/06/16 07:10 Total Bilirubin 0.3 mg/dL (0.1-1.2) 12/06/16 07:10 AST 18 units/L (5-40) 12/06/16 07:10 ALT 24 units/L (7-56) 12/06/16 07:10 Alkaline Phosphatase 81 units/L (35-129) 12/06/16 07:10 C-Reactive Protein 17.50 mg/dL (0.00-1.30) H 12/03/16 04:32 Total Protein 6.9 g/dL (6.3-8.2) 12/06/16 07:10 Albumin 2.1 g/dL (3.9-5) L 12/06/16 07:10 Albumin/Globulin Ratio 0.4 % 12/06/16 07:10 Total Cortisol 123.2 mcg/dL () 12/05/16 08:53 Urine Color Straw (Yellow) 12/04/16 08:15 Urine Turbidity Clear (Clear) 12/04/16 08:15 Urine pH 6.5 (5.0-7.0) 12/04/16 08:15 Ur Specific [place] 1.015 (1.003-1.030) 12/04/16 08:15 Urine Protein 30 mg/dl mg/dL (Negative) 12/04/16 08:15 Urine Glucose (UA) Negative mg/dL (Negative) 12/04/16 08:15 Urine Ketones Negative mg/dL (Negative) 12/04/16 08:15 Urine Blood Trace (Negative) 12/04/16 08:15 Urine Nitrite Negative (Negative) 12/04/16 08:15 Urine Bilirubin Negative (Negative) 12/04/16 08:15 Urine Urobilinogen 0.2 mg/dL (<2.0) 12/04/16 08:15 Ur Leukocyte Esterase Moderate (Negative) 12/04/16 08:15 Urine WBC (Auto) 5.0 /HPF (0.0-6.0) 12/04/16 08:15 Urine RBC (Auto) 4.0 /HPF (0.0-6.0) 12/04/16 08:15 Urine Bacteria (Auto) 1+ /HPF (Negative) 12/04/16 08:15
[2016-12-10] MEDS: DUONEB 0.5 MG-3 MG/3 ML SOLN IH SCH ×4 (01:26→21:52)
--- NOTE | 2016-12-10 09:28 | XRay Report ---
PORTABLE CHEST: INDICATION: Evaluate for sepsis. COMPARISON: 12/03/2016 FINDINGS: Portable, frontal chest radiographs, 2 images, limited due to patient's contracted state and rotated to the right, though again suggests stable, normal cardiomediastinal silhouette, tracheostomy tube and left upper extremity PICC tip near the cavoatrial junction. Minimal fluid or thickening along the right minor fissure again noted. Subtle hazy atelectasis/infiltrate at the right lung base not entirely excluded; clear remainder lungs without pleural effusions or CHF. EKG leads and some other extrinsic artifacts. Stable demineralized bones. CONCLUSION: Slight right basilar haziness; otherwise stable, limited exam, as described. Thank you for the opportunity to participate in this patient's care.
--- NOTE | 2016-12-10 09:31 | Discharge Summary ---
Providers - Providers Date of Admission: 12/03/16 09:15 Date of discharge: 12/10/16 Attending physician: SHONNA REID 12/03/16 09:28 Consult to Physician [CONS] Routine Consulting Provider: RITCHIE GANDARA Reason For Exam: Sepsis Place consult to:: Dr. Gandara Notified:: Y Was contact made?: Yes If yes, spoke with:: OFFICE MINNA Time called:: 09:35 12/03/16 09:31 Consult to Physician [CONS] Routine Consulting Provider: JANET SHI Reason For Exam: Leaking suprapubic catheter Place consult to:: Dr. Shi Notified:: Y Was contact made?: Yes If yes, spoke with:: OFFICE TIA Time called:: 09:40 12/03/16 19:36 Consult to Wound/ET Nurse [CONS] Routine Reason For Exam: wound eval Primary care physician: [employer] Hospitalization Condition: Serious Disposition: DC/TX SNF W [facility] CERT Time spent for discharge: 35 min Exam - Constitutional Vitals: Temp Pulse Resp BP Pulse Ox 97.8 F 45 L 22 166/96 93 12/10/16 07:00 12/10/16 07:00 12/10/16 07:00 12/10/16 07:00 12/10/16 07:00 Plan Activity: fall precautions Diet: low cholesterol, low salt Follow up with: PRIMARY CARE, [Primary Care Provider] - 3-5 Days Prescriptions: AtorvaSTATin [Lipitor] 10 mg PO QHS #30 tablet Aspirin [Aspirin BABY CHEW TAB] 81 mg PO QDAY #30 tab.chew DAPTOmycin [Cubicin] 400 mg IV Q24H #12 vial predniSONE [Deltasone] 20 mg PO QDAY #14 tab
[2016-12-10] MEDS: Centrum Liq PO SCH (10:21)
[2016-12-10] MEDS: PEPCID PO SCH ×2 (10:21→21:09)
[2016-12-10] MEDS: BABY ASPIRIN PO SCH (10:21)
[2016-12-10] MEDS: KEPPRA PO SCH ×2 (10:21→21:08)
[2016-12-10] MEDS: VITAMIN C FEEDTUBE SCH (10:22)
[2016-12-10] MEDS: ROBINUL FEEDTUBE SCH ×3 (10:25→21:09)
--- NOTE | 2016-12-10 20:00 | Progress Note ---
Assessment and Plan Shemar Olivares is a 46-year-old , American[place] resident of residential with multiple medical problems including chronic respiratory failure with chronic tracheostomy, recurrent complicated UTIs with indwelling suprapubic Guevara, hx of CVA with multiple contractures, DM, CKD, HTN, dementia, and seizure disorder who was admitted to [facility] with fever and hypotension. Patient placed on mechanical ventilation and successfully weaned to T tube. Patient is presently on T tube with FIO2 28% and O2 satuaration 100%. Patient has multiple contractures, bedridden.No acute respiratory distress at this time. 12/08/16 Patient transfered to the telemetry. Patient resting on T tube, FIO2 28% and O2 satuaration 100%.No acute respiratory distress. 12/09/16 Patient resting on T tube, FIO2 28%. No acute respiratory distress. O2 satuaration 97%. Patient afebrile. Chest xray results pending. 12/10/16 Patient resting on T Tube , Afebrile.No acute respiratory distress. O2 satuaration 97% on 28% FIO2. Chest xray reported right basilar haziness. - Patient Problems (1) Acute respiratory failure requiring reintubation Current Visit: Yes Status: Acute Plan to address problem: Successfully weaned from the ventilator. Patient presently on T tube FIO2 28% and O2 satuaration 97%. Albuterol/atrovent aerosol treatments q 6 hours. SCDs. Continue famotadine. (2) Sepsis Current Visit: Yes Status: Acute Qualifiers: Sepsis type: sepsis due to unspecified organism Qualified Code(s): A41.9 - Sepsis, unspecified organism Plan to address problem: Management as per infectious diseases. (3) Decubitus ulcer, stage 1 with infection Current Visit: Yes Status: Acute Plan to address problem: Recommend to consult wound care. (4) Malfunction of Guevara catheter Current Visit: Yes Status: Acute Plan to address problem: Urology consulted. Subjective Date of service: 12/10/16 Principal diagnosis: Acute Hypoxemic Resp Failure Interval history: Shemar Olivares is a 46-year-old , American[place] resident of residential with multiple medical problems including chronic respiratory failure with chronic tracheostomy, recurrent complicated UTIs with indwelling suprapubic Guevara, hx of CVA with multiple contractures, DM, CKD, HTN, dementia, and seizure disorder who was admitted to [facility] with fever and hypotension. Patient placed on mechanical ventilation and successfully weaned to T tube. Patient is presently on T tube with FIO2 28% and O2 satuaration 100%. Patient has multiple contractures, bedridden.No acute respiratory distress at this time. 12/08/16 Patient transfered to the telemetry. Patient resting on T tube, FIO2 28% and O2 satuaration 100%.No acute respiratory distress. 12/09/16 Patient resting on T tube, FIO2 28%. No acute respiratory distress. O2 satuaration 97%. Patient afebrile. Chest xray results pending. 12/10/16 Patient resting on T Tube , Afebrile.No acute respiratory distress. O2 satuaration 97% on 28% FIO2. Chest xray reported right basilar haziness. Objective Vital Signs - 12hr 12/10/16 12/10/16 12/10/16 08:00 11:00 11:07 Temperature 96.5 F L Pulse Rate 50 L Pulse Rate [ From Monitor] Pulse Rate [ 46 L Left Radial] Pulse Rate [ Throughout] Respiratory 22 Rate Respiratory 22 Rate [ Generalized] Respiratory Rate [ Throughout] Blood Pressure 164/78 [Left Arm] O2 Sat by Pulse 96 96 Oximetry O2 Sat by Pulse 96 Oximetry [ Assessment] 12/10/16 12/10/16 12/10/16 11:10 11:22 12:15 Temperature Pulse Rate Pulse Rate [ 50 L From Monitor] Pulse Rate [ Left Radial] Pulse Rate [ 97 H 98 H Throughout] Respiratory 22 Rate Respiratory Rate [ Generalized] Respiratory 20 20 Rate [ Throughout] Blood Pressure [Left Arm] O2 Sat by Pulse Oximetry O2 Sat by Pulse Oximetry [ Assessment] 12/10/16 12/10/16 12/10/16 15:00 16:34 16:45 Temperature 96.4 F L Pulse Rate Pulse Rate [ From Monitor] Pulse Rate [ 47 L Left Radial] Pulse Rate [ 98 H 94 H Throughout] Respiratory 20 Rate Respiratory Rate [ Generalized] Respiratory 18 18 Rate [ Throughout] Blood Pressure 163/76 [Left Arm] O2 Sat by Pulse 97 Oximetry O2 Sat by Pulse Oximetry [ Assessment] Constitutional: no acute distress, other (Awake, not follow commands. Not oriented.) Eyes: non-icteric ENT: oropharynx moist Neck: supple, no lymphadenopathy Effort: mildly labored Ascultation: Bilateral: rhonchi Cardiovascular: regular rate and rhythm Gastrointestinal: normoactive bowel sounds, soft, non-tender, non-distended Integumentary: normal Extremities: no cyanosis, no edema, pulses normal, other (contractures) Neurologic: unable to assess Psychiatric: other (unable to assess) CBC and BMP: 12/07/16 11:01 12/07/16 11:01 ABG, PT/INR, D-dimer: ABG POC ABG pH 7.470 (7.35-7.45) H 12/06/16 04:39 POC ABG pCO2 44.4 (35-45) 12/06/16 04:39 POC ABG pO2 175 (80-105) H 12/06/16 04:39 POC ABG HCO3 32.3 12/06/16 04:39 POC ABG Total CO2 34 12/06/16 04:39 POC ABG O2 Sat 100 12/06/16 04:39 PT/INR, D-dimer PT 14.4 Sec. (12.2-14.9) 12/03/16 04:32 INR 1.13 (0.87-1.13) 12/03/16 04:32 Abnormal lab findings: Abnormal Labs 12/03/16 12/04/16 12/04/16 19:48 00:09 05:55 RBC 2.99 L Hgb 8.9 L D Hct 28.6 L D MCV 96 H MCHC 31 L RDW 18.3 H Plt Count 97 L Lymph % (Auto) 8.5 L Lymph # 0.8 L Seg Neutrophils % 89.7 H Seg Neuts % (Manual) Lymphocytes % (Manual) Seg Neutrophils # 8.6 H Lymphocytes # (Manual) POC ABG pH POC ABG pO2 Sodium 151 H Potassium Chloride 117.9 H Carbon Dioxide BUN 39 H Creatinine Glucose POC Glucose 110 H Calcium 7.7 L Magnesium Total Creatine Kinase Albumin 12/04/16 12/04/16 12/04/16 05:55 06:00 11:36 RBC Hgb Hct MCV MCHC RDW Plt Count Lymph % (Auto) Lymph # Seg Neutrophils % Seg Neuts % (Manual) Lymphocytes % (Manual) Seg Neutrophils # Lymphocytes # (Manual) POC ABG pH POC ABG pO2 Sodium 149 H Potassium Chloride 115.8 H Carbon Dioxide BUN 36 H Creatinine 0.7 L Glucose 118 H POC Glucose 118 H 130 H Calcium 8.1 L Magnesium Total Creatine Kinase Albumin 1.9 L 12/04/16 12/05/16 12/05/16 17:48 00:06 06:06 RBC Hgb Hct MCV MCHC RDW Plt Count Lymph % (Auto) Lymph # Seg Neutrophils % Seg Neuts % (Manual) Lymphocytes % (Manual) Seg Neutrophils # Lymphocytes # (Manual) POC ABG pH POC ABG pO2 Sodium Potassium Chloride Carbon Dioxide BUN Creatinine Glucose POC Glucose 110 H 143 H 112 H Calcium Magnesium Total Creatine Kinase Albumin 12/05/16 12/05/16 12/05/16 06:15 06:15 08:53 RBC 3.20 L Hgb 9.4 L Hct 29.6 L MCV MCHC RDW 17.4 H Plt Count 97 L Lymph % (Auto) 7.8 L Lymph # 0.8 L Seg Neutrophils % 89.0 H Seg Neuts % (Manual) Lymphocytes % (Manual) Seg Neutrophils # 8.7 H Lymphocytes # (Manual) POC ABG pH POC ABG pO2 Sodium 147 H Potassium 2.8 L* D Chloride 109.3 H Carbon Dioxide BUN 24 H Creatinine 0.5 L Glucose 114 H POC Glucose Calcium 7.7 L Magnesium 1.6 L Total Creatine Kinase Albumin 12/05/16 12/05/16 12/05/16 09:40 12:40 17:19 RBC Hgb Hct MCV MCHC RDW Plt Count Lymph % (Auto) Lymph # Seg Neutrophils % Seg Neuts % (Manual) Lymphocytes % (Manual) Seg Neutrophils # Lymphocytes # (Manual) POC ABG pH 7.470 H POC ABG pO2 130 H Sodium Potassium Chloride Carbon Dioxide BUN Creatinine Glucose POC Glucose 156 H 127 H Calcium Magnesium Total Creatine Kinase Albumin 12/05/16 12/06/16 12/06/16 23:58 04:39 05:53 RBC Hgb Hct MCV MCHC RDW Plt Count Lymph % (Auto) Lymph # Seg Neutrophils % Seg Neuts % (Manual) Lymphocytes % (Manual) Seg Neutrophils # Lymphocytes # (Manual) POC ABG pH 7.470 H POC ABG pO2 175 H Sodium Potassium Chloride Carbon Dioxide BUN Creatinine Glucose POC Glucose 118 H 120 H Calcium Magnesium Total Creatine Kinase Albumin 12/06/16 12/06/16 12/06/16 07:10 11:59 22:20 RBC Hgb Hct MCV MCHC RDW Plt Count Lymph % (Auto) Lymph # Seg Neutrophils % Seg Neuts % (Manual) Lymphocytes % (Manual) Seg Neutrophils # Lymphocytes # (Manual) POC ABG pH POC ABG pO2 Sodium Potassium 3.0 L Chloride Carbon Dioxide 31 H BUN 24 H Creatinine 0.4 L Glucose 120 H POC Glucose 183 H 117 H Calcium 7.8 L Magnesium Total Creatine Kinase Albumin 2.1 L 12/07/16 12/07/16 12/07/16 11:01 11:01 18:13 RBC 3.19 L Hgb 9.6 L Hct 29.2 L MCV MCHC RDW 17.3 H Plt Count 109 L Lymph % (Auto) Lymph # Seg Neutrophils % Seg Neuts % (Manual) 89.0 H Lymphocytes % (Manual) 7.0 L Seg Neutrophils # Lymphocytes # (Manual) 0.6 L POC ABG pH POC ABG pO2 Sodium Potassium 3.5 L Chloride Carbon Dioxide 33 H BUN 24 H Creatinine 0.4 L Glucose POC Glucose 129 H Calcium 7.8 L Magnesium Total Creatine Kinase Albumin 12/08/16 12/08/16 12/08/16 00:10 06:44 12:58 RBC Hgb Hct MCV MCHC RDW Plt Count Lymph % (Auto) Lymph # Seg Neutrophils % Seg Neuts % (Manual) Lymphocytes % (Manual) Seg Neutrophils # Lymphocytes # (Manual) POC ABG pH POC ABG pO2 Sodium Potassium Chloride Carbon Dioxide BUN Creatinine Glucose POC Glucose 122 H 151 H 115 H Calcium Magnesium Total Creatine Kinase Albumin 12/08/16 12/09/16 12/09/16 17:58 11:40 17:20 RBC Hgb Hct MCV MCHC RDW Plt Count Lymph % (Auto) Lymph # Seg Neutrophils % Seg Neuts % (Manual) Lymphocytes % (Manual) Seg Neutrophils # Lymphocytes # (Manual) POC ABG pH POC ABG pO2 Sodium Potassium Chloride Carbon Dioxide BUN Creatinine Glucose POC Glucose 126 H 130 H 144 H Calcium Magnesium Total Creatine Kinase Albumin 12/09/16 12/10/16 23:44 01:30 RBC Hgb Hct MCV MCHC RDW Plt Count Lymph % (Auto) Lymph # Seg Neutrophils % Seg Neuts % (Manual) Lymphocytes % (Manual) Seg Neutrophils # Lymphocytes # (Manual) POC ABG pH POC ABG pO2 Sodium Potassium Chloride Carbon Dioxide BUN Creatinine Glucose POC Glucose 109 H Calcium Magnesium Total Creatine Kinase 25 L Albumin Chest x-ray: report reviewed (Right basilar haziness reported.), image reviewed
[2016-12-11] MEDS: DUONEB 0.5 MG-3 MG/3 ML SOLN IH SCH ×3 (03:00→13:53)
[2016-12-11] MEDS: NACL 0.9% IV SCH ×2 (07:34→07:36)
[2016-12-11] MEDS: CUBICIN IV SCH ×2 (07:34→07:36)
[2016-12-11] MEDS: ROBINUL FEEDTUBE SCH ×2 (07:35→13:41)
[2016-12-11] MEDS: PEPCID PO SCH (10:46)
[2016-12-11] MEDS: BABY ASPIRIN PO SCH (10:46)
[2016-12-11] MEDS: Centrum Liq PO SCH (10:46)
[2016-12-11] MEDS: KEPPRA PO SCH (10:46)
[2016-12-11] MEDS: VITAMIN C FEEDTUBE SCH (10:46)
--- NOTE | 2016-12-11 11:47 | Progress Note ---
Hospitalist Physical - Constitutional Vitals: Temp Pulse Resp BP Pulse Ox 98.2 F 49 L 16 169/88 99 12/11/16 08:00 12/11/16 08:55 12/11/16 08:55 12/11/16 08:00 12/11/16 09:02 General appearance: Present: no acute distress, cachectic Results - Labs CBC & Chem 7: 12/07/16 11:01 12/07/16 11:01 Labs: Laboratory Last Values WBC 8.3 K/mm3 (4.5-11.0) 12/07/16 11:01 RBC 3.19 M/mm3 (3.65-5.03) L 12/07/16 11:01 Hgb 9.6 gm/dl (11.8-15.2) L 12/07/16 11:01 Hct 29.2 % (35.5-45.6) L 12/07/16 11:01 MCV 92 fl (84-94) 12/07/16 11:01 MCH 30 pg (28-32) 12/07/16 11:01 MCHC 33 % (32-34) 12/07/16 11:01 RDW 17.3 % (13.2-15.2) H 12/07/16 11:01 Plt Count 109 K/mm3 (140-440) L 12/07/16 11:01 Lymph % (Auto) 7.8 % (13.4-35.0) L 12/05/16 06:15 [place] % (Auto) 3.1 % (0.0-7.3) 12/05/16 06:15 Eos % (Auto) 0.0 % (0.0-4.3) 12/05/16 06:15 Baso % (Auto) 0.1 % (0.0-1.8) 12/05/16 06:15 Lymph # 0.8 K/mm3 (1.2-5.4) L 12/05/16 06:15 [place] # 0.3 K/mm3 (0.0-0.8) 12/05/16 06:15 Eos # 0.0 K/mm3 (0.0-0.4) 12/05/16 06:15 Baso # 0.0 K/mm3 (0.0-0.1) 12/05/16 06:15 Add Manual Diff Complete 12/07/16 11:01 Total Counted 100 12/07/16 11:01 Seg Neutrophils % 89.0 % (40.0-70.0) H 12/05/16 06:15 Seg Neuts % (Manual) 89.0 % (40.0-70.0) H 12/07/16 11:01 Band Neutrophils % 0 % 12/07/16 11:01 Lymphocytes % (Manual) 7.0 % (13.4-35.0) L 12/07/16 11:01 Reactive Lymphs % (Man) 0 % 12/07/16 11:01 Monocytes % (Manual) 4.0 % (0.0-7.3) 12/07/16 11:01 Eosinophils % (Manual) 0 % (0.0-4.3) 12/07/16 11:01 Basophils % (Manual) 0 % (0.0-1.8) 12/07/16 11:01 Metamyelocytes % 0 % 12/07/16 11:01 Myelocytes % 0 % 12/07/16 11:01 Promyelocytes % 0 % 12/07/16 11:01 Blast Cells % 0 % 12/07/16 11:01 Nucleated RBC % Not Reportable 12/07/16 11:01 Seg Neutrophils # 8.7 K/mm3 (1.8-7.7) H 12/05/16 06:15 Seg Neutrophils # Man 7.4 K/mm3 (1.8-7.7) 12/07/16 11:01 Band Neutrophils # 0.0 K/mm3 12/07/16 11:01 Lymphocytes # (Manual) 0.6 K/mm3 (1.2-5.4) L 12/07/16 11:01 Abs React Lymphs (Man) 0.0 K/mm3 12/07/16 11:01 Monocytes # (Manual) 0.3 K/mm3 (0.0-0.8) 12/07/16 11:01 Eosinophils # (Manual) 0.0 K/mm3 (0.0-0.4) 12/07/16 11:01 Basophils # (Manual) 0.0 K/mm3 (0.0-0.1) 12/07/16 11:01 Metamyelocytes # 0.0 K/mm3 12/07/16 11:01 Myelocytes # 0.0 K/mm3 12/07/16 11:01 Promyelocytes # 0.0 K/mm3 12/07/16 11:01 Blast Cells # 0.0 K/mm3 12/07/16 11:01 WBC Morphology Not Reportable 12/07/16 11:01 Hypersegmented Neuts Not Reportable 12/07/16 11:01 Hyposegmented Neuts Not Reportable 12/07/16 11:01 Hypogranular Neuts Not Reportable 12/07/16 11:01 Smudge Cells Not Reportable 12/07/16 11:01 Toxic Granulation Not Reportable 12/07/16 11:01 Toxic Vacuolation Not Reportable 12/07/16 11:01 Dohle Bodies Not Reportable 12/07/16 11:01 Pelger-Huet Anomaly Not Reportable 12/07/16 11:01 Kinjal Rods Not Reportable 12/07/16 11:01 Platelet Estimate Appears decreased 12/07/16 11:01 Clumped Platelets Not Reportable 12/07/16 11:01 Plt Clumps, EDTA Not Reportable 12/07/16 11:01 Large Platelets Few 12/07/16 11:01 Giant Platelets Not Reportable 12/07/16 11:01 Platelet Satelliting Not Reportable 12/07/16 11:01 Plt Morphology Comment Not Reportable 12/07/16 11:01 RBC Morphology Not Reportable 12/07/16 11:01 Dimorphic RBCs Not Reportable 12/07/16 11:01 Polychromasia Not Reportable 12/07/16 11:01 Hypochromasia Not Reportable 12/07/16 11:01 Poikilocytosis Few 12/07/16 11:01 Anisocytosis 1+ 12/07/16 11:01 Microcytosis Not Reportable 12/07/16 11:01 Macrocytosis Not Reportable 12/07/16 11:01 Spherocytes Not Reportable 12/07/16 11:01 Pappenheimer Bodies Not Reportable 12/07/16 11:01 Sickle Cells Not Reportable 12/07/16 11:01 Target Cells Not Reportable 12/07/16 11:01 Tear Drop Cells Not Reportable 12/07/16 11:01 Ovalocytes Not Reportable 12/07/16 11:01 Helmet Cells Not Reportable 12/07/16 11:01 Reyes-Rivers[place] Bodies Not Reportable 12/07/16 11:01 [place] Rings Not Reportable 12/07/16 11:01 Birdie Cells Not Reportable 12/07/16 11:01 Bite Cells Not Reportable 12/07/16 11:01 Crenated Cell Not Reportable 12/07/16 11:01 Elliptocytes Not Reportable 12/07/16 11:01 Acanthocytes (Spur) Not Reportable 12/07/16 11:01 Rouleaux Not Reportable 12/07/16 11:01 Hemoglobin C Crystals Not Reportable 12/07/16 11:01 Schistocytes Few 12/07/16 11:01 Malaria parasites Not Reportable 12/07/16 11:01 Shai Bodies Not Reportable 12/07/16 11:01 Hem Pathologist Commnt No 12/07/16 11:01 PT 14.4 Sec. (12.2-14.9) 12/03/16 04:32 INR 1.13 (0.87-1.13) 12/03/16 04:32 POC ABG pH 7.470 (7.35-7.45) H 12/06/16 04:39 POC ABG pCO2 44.4 (35-45) 12/06/16 04:39 POC ABG pO2 175 (80-105) H 12/06/16 04:39 POC ABG HCO3 32.3 12/06/16 04:39 POC ABG Total CO2 34 12/06/16 04:39 POC ABG O2 Sat 100 12/06/16 04:39 POC ABG Base Excess 9 12/06/16 04:39 VBG pH 7.405 (7.320-7.420) 12/03/16 04:32 FiO2 28 % 12/06/16 04:39 Sodium 143 mmol/L (137-145) 12/07/16 11:01 Potassium 3.5 mmol/L (3.6-5.0) L 12/07/16 11:01 Chloride 102.1 mmol/L (98-107) 12/07/16 11:01 Carbon Dioxide 33 mmol/L (22-30) H 12/07/16 11:01 Anion Gap 11 mmol/L 12/07/16 11:01 BUN 24 mg/dL (9-20) H 12/07/16 11:01 Creatinine 0.4 mg/dL (0.8-1.5) L 12/07/16 11:01 Estimated GFR > 60 ml/min 12/07/16 11:01 BUN/Creatinine Ratio 60.00 % 12/07/16 11:01 Glucose 96 mg/dL (75-100) 12/07/16 11:01 POC Glucose 121 (70-105) H 12/11/16 06:14 Lactic Acid 1.9 mmol/L (0.7-2.0) 12/04/16 05:55 Calcium 7.8 mg/dL (8.4-10.2) L 12/07/16 11:01 Phosphorus 3.2 mg/dL (2.5-4.5) 12/03/16 04:32 Magnesium 2.1 mg/dL (1.7-2.3) 12/06/16 07:10 Total Bilirubin 0.3 mg/dL (0.1-1.2) 12/06/16 07:10 AST 18 units/L (5-40) 12/06/16 07:10 ALT 24 units/L (7-56) 12/06/16 07:10 Alkaline Phosphatase 81 units/L (35-129) 12/06/16 07:10 Total Creatine Kinase 25 units/L (55-170) L 12/10/16 01:30 C-Reactive Protein 17.50 mg/dL (0.00-1.30) H 12/03/16 04:32 Total Protein 6.9 g/dL (6.3-8.2) 12/06/16 07:10 Albumin 2.1 g/dL (3.9-5) L 12/06/16 07:10 Albumin/Globulin Ratio 0.4 % 12/06/16 07:10 Total Cortisol 123.2 mcg/dL () 12/05/16 08:53 Urine Color Straw (Yellow) 12/04/16 08:15 Urine Turbidity Clear (Clear) 12/04/16 08:15 Urine pH 6.5 (5.0-7.0) 12/04/16 08:15 Ur Specific [place] 1.015 (1.003-1.030) 12/04/16 08:15 Urine Protein 30 mg/dl mg/dL (Negative) 12/04/16 08:15 Urine Glucose (UA) Negative mg/dL (Negative) 12/04/16 08:15 Urine Ketones Negative mg/dL (Negative) 12/04/16 08:15 Urine Blood Trace (Negative) 12/04/16 08:15 Urine Nitrite Negative (Negative) 12/04/16 08:15 Urine Bilirubin Negative (Negative) 12/04/16 08:15 Urine Urobilinogen 0.2 mg/dL (<2.0) 12/04/16 08:15 Ur Leukocyte Esterase Moderate (Negative) 12/04/16 08:15 Urine WBC (Auto) 5.0 /HPF (0.0-6.0) 12/04/16 08:15 Urine RBC (Auto) 4.0 /HPF (0.0-6.0) 12/04/16 08:15 Urine Bacteria (Auto) 1+ /HPF (Negative) 12/04/16 08:15
[2016-12-11] MEDS ORDERED: APRESOLINE IV ONE (13:14)
[2016-12-11 14:01] VITALS: BP 145/82
--- NOTE | 2016-12-23 10:10 | Query- General ---
Dear Dr. Shaylee Duggan Date: December 23, 2016 [facility]: Mac Esteves Phone#: Exercise your independent professional judgment when responding to this query. Questions asked do not imply a particular answer is desired or expected. We greatly appreciate your clarification on this issue. Clinical Documentation States: 46 y/o AAM with history of chronic respiratory failure with chronic trach ED Report by Dr. Carmichael on 12/03 states : "presents from [facility] with a history of tracheostomy placement" H&P by Dr. Lara on 12/03 states - Past Surgical History : "Other (PEG, tracheostomy)" Assessment and Plan : "Acute respiratory failure with hypoxia. He had a tracheostomy and this has been connected to ventilator" Pulmonary Consult by Dr. Duggan on 12/03 states : "In the Emergency Room, he was evaluated amongst other things, required mechanical ventilatory support" Pulmonary PN by Dr. Duggan on 12/04 states : "(3) Acute respiratory failure requiring reintubation" Clinical Findings Show (include reference to source document): CXR (12/03 @ 0410) : "Tracheostomy remains in good position","Limited but grossly negative AP chest." CXR (12/03 @ 1346) : "Stable cardiomedistinal silhouette, tracheostomy tube, fairly clear lungs" CXR (12/09) : "tracheostomy tube and left upper extremity PICC tip near the cavoatrial junction","Slight right basilar haziness; otherwise stable, limited exam, as described." Oxygen Delivery Method 12/03 @ 0404 : "Room Air" 12/03 @ 0627 - 12/05 @ 1800: "Mechanical Ventilator" 12/05 @ 2157 - 12/11 @ 1408: "T-piece/T-tube" (intermittent episodes of Trach Collar - 12/06 @ 0800, 12/07 @ 2051, 12/10 @ 1107) Given the above clinical scenario can you please provide an appropriate diagnosis based on your knowledge of the patient: PHYSICIAN RESPONSE: Please clarify whether that patient was reintubated during this admission: [ ] Patient was reintubated (Please specify date : ) [ ] Patient was not reintubated [ ] Other (Please clarify : ) Present on Admission: [ ] Yes (Y) [ ] Clinically undeterminable (W) [ ]No(N) Please also document response in your Progress Notes and/or Discharge Summary and indicate if the condition was present on admission. MTDD
== END 2016-12-11 15:19 | DRG 871 ==
LOC: ED 03:43 → CC1 09:15 → 4A 12-07 19:57
PROVIDERS: ADMIT Internal Medicine; ATTEND Internal Medicine
PROC: 5A1945Z Respiratory Ventilation, 24-96 Consecutive Hours (ICD-10-PCS; principal; 2016-12-03)
PROC: 05HY33Z Insertion of Infusion Device into Upper Vein, Percutaneous Approach (ICD-10-PCS; 2016-12-03)
PROC: 4A033R1 Measurement of Arterial Saturation, Peripheral, Percutaneous Approach (ICD-10-PCS; 2016-12-03)
PROC: 4A033R1 Measurement of Arterial Saturation, Peripheral, Percutaneous Approach (ICD-10-PCS; 2016-12-04)
PROC: 4A033R1 Measurement of Arterial Saturation, Peripheral, Percutaneous Approach (ICD-10-PCS; 2016-12-06)
DX: A41.9 Sepsis, unspecified organism (principal); J96.21 Acute and chronic respiratory failure with hypoxia; N39.0 Urinary tract infection, site not specified; E87.0 Hyperosmolality and hypernatremia; I13.0 Hypertensive heart and chronic kidney disease with heart failure and stage 1 through stage 4 chronic kidney disease, or unspecified chronic kidney disease; R65.20 Severe sepsis without septic shock; T83.018A Breakdown (mechanical) of other urinary catheter, initial encounter; E87.6 Hypokalemia; E86.0 Dehydration; L89.91 Pressure ulcer of unspecified site, stage 1; F03.90 Unspecified dementia, unspecified severity, without behavioral disturbance, psychotic disturbance, mood disturbance, and anxiety; G40.909 Epilepsy, unspecified, not intractable, without status epilepticus; D69.6 Thrombocytopenia, unspecified; E87.8 Other disorders of electrolyte and fluid balance, not elsewhere classified; N18.9 Chronic kidney disease, unspecified; E11.22 Type 2 diabetes mellitus with diabetic chronic kidney disease; N31.9 Neuromuscular dysfunction of bladder, unspecified; Z93.0 Tracheostomy status; Z79.899 Other long term (current) drug therapy; Z88.1 Allergy status to other antibiotic agents; I69.320 Aphasia following cerebral infarction; Z93.1 Gastrostomy status
CPT/HCPCS: 36415; 36600; 71010; 80048; 80053; 81001; 82140; 82533; 82550; 82803; 82805; 82962; 83735; 84100; 85007; 85025; 85610; 86140; 86403; 87040; 87070; 87076; 87086; 87186; 87205; 87400; 93005; 93010; 94002; 94003; 94640; 94760; 96361; 96365; 96375; A9270-GY; J0360; J0878; J1450; J1720; J1885; J1953; J1956; J2020; J2543; J3475; J3480; J7030; J7120

== ENCOUNTER 2017-04-10 21:45 | Inpatient (IN) | payer MEDICAID ==
[2017-04-10] MEDS ORDERED: NACL 0.9% 500 ML 500 ML IV ONE (21:59)
[2017-04-10 23:07] LABS: Basophils % (Auto) 0.2 % (0.0-1.8); Eosinophils % (Auto) 0.2 % (0.0-4.3); Mean Corpuscular HGB Conc 30 % (32-34); Mean Corpuscular Volume 85 fl (84-94); Platelet Count 607 K/mm3 (140-440); Red Blood Count 3.35 M/mm3 (3.65-5.03); White Blood Count 12.4 K/mm3 (4.5-11.0)
[2017-04-10 23:14] LABS: Bacteria,Urine 4+ /HPF (Negative); Bilirubin,Urine NEG (Negative); Blood,Urine NEG (Negative); Ketones,Urine NEG (Negative); Leukocyte Esterase,Urine LG (Negative); Mucus,Urine 2+ /HPF; Nitrite,Urine NEG (Negative); Urobilinogen,Urine < 2.0 mg/dL (<2.0)
[2017-04-10 23:15] LABS: Protein,Urine >500 mg/dL (Negative)
[2017-04-10 23:17] LABS: INR 1.37 (0.87-1.13)
[2017-04-10 23:19] LABS: Alanine Aminotransferase 22 units/L (7-56); Albumin/Globulin Ratio 0.3 %; Alkaline Phosphatase 105 units/L (35-129); Anion Gap 17 mmol/L; BUN/Creatinine Ratio 44.54; Blood Urea Nitrogen 49 mg/dL (9-20); Calcium 8.3 mg/dL (8.4-10.2); Carbon Dioxide 28 mmol/L (22-30); Chloride 110.1 mmol/L (98-107); Glucose 115 mg/dL (75-100); Potassium 3.9 mmol/L (3.6-5.0); Sodium 151 mmol/L (137-145); Total Protein 9.2 g/dL (6.3-8.2)
[2017-04-10 23:20] LABS: Hematocrit 28.5 % (35.5-45.6); Hemoglobin 8.5 gm/dl (11.8-15.2)
[2017-04-10 23:21] LABS: Mean Corpuscular Hemoglobin 25 pg (28-32); Red Cell Distribution Width 20.6 % (13.2-15.2)
[2017-04-11] MEDS ORDERED: TYLENOL FEEDTUBE ONE (00:12)
[2017-04-11] MEDS ORDERED: NACL 0.9% 1000 ML 1,000 ML IV ONE (00:12)
[2017-04-11] MEDS ORDERED: ZOSYN/NS 4.5GM/100ML 4.5 GM/100 ML VIAL IV ONE (00:12)
[2017-04-11] MEDS ORDERED: CLEOCIN 900 MG/50 mL 900 MG/50 ML BAG IV ONE (00:13)
--- NOTE | 2017-04-11 01:18 | Emergency Department Report ---
ED Fever HPI - General Chief Complaint: Fever Stated Complaint: FEVER Time Seen by Provider: 04/11/17 00:00 Source: patient Exam Limitations: no limitations - History of Present Illness Initial Comments: 46-year-old male presents from a detention with fever today. Fever reported 104 and patient was given Tylenol at 2200 prior to arrival. Past medical history includes COPD, CVA with residual deficits and contractures, quadriplegia , diabetes, hypertension, and seizures. Patient has a tracheostomy tube, PEG tube, and Guevara upon arrival. Patient also has multiple chronic ulcers. He is nonverbal and unable to provide any history of present illness. Previous medical record reviewed. Patient was admitted here almost on a monthly basis for fevers. Last menstrual was February 21 until February 27 in which he was admitted for MRSA septicemia, Canduria, severe anemia requiring blood transfusion and other incidental medical issues. No further history of present illness available at this time. ED Review of Systems ROS: Stated complaint: FEVER Other details as noted in HPI Comment: Unobtainable due to pts medical conditions ED Past Medical Hx - Past Medical History Hx Hypertension: Yes Hx CVA: Yes Hx Heart Attack/AMI: No Hx Congestive Heart Failure: No Hx Diabetes: Yes Hx Deep Vein Thrombosis: (?) Hx Pulmonary Embolism: No Hx Liver Disease: No Hx Renal Disease: Yes Hx Sickle Cell Disease: No Hx Arthritis: No Hx Seizures: Yes Hx Kidney Stones: No Hx Asthma: No Hx COPD: Yes Hx Tuberculosis: No Hx Dementia: Yes Additional medical history: Resp failure, dysphagia, uti, scrotal cellulitis, quadriplegic - Surgical History Hx Coronary Stent: No Hx Open Heart Surgery: No Hx Pacemaker: No Hx Internal Defibrillator: No Hx Cholecystectomy: No Hx Appendectomy: No Hx Breast Surgery: No Additional Surgical History: G-tube, - Social History Smoking Status: Unknown if ever smoked Substance Use Type: None - Medications Home Medications: Home Medications Medication Instructions Recorded Confirmed Last Taken Type amLODIPine [Norvasc] 5 mg FEEDTUBE QDAY tablet 08/14/16 02/21/17 08/17/16 Rx Acetaminophen [Acetaminophen TAB] 650 mg FEEDTUBE Q4H PRN 12/03/16 02/21/17 Unknown History Ascorbic Acid [Vitamin C] 500 mg PO DAILY 12/03/16 02/21/17 Unknown History Famotidine [Pepcid] 20 mg FEEDTUBE BID 12/03/16 02/21/17 Unknown History Glycopyrrolate [Robinul] 1 mg FEEDTUBE TID PRN 12/03/16 02/21/17 Unknown History Ipratropium/Albuterol Sulfate 1 ampul IH Q6HR 12/03/16 02/21/17 Unknown History [Duoneb 0.5 mg-3 mg/3 ml Soln] Multivit with Min #53/FA/K/Q10 1 each PO DAILY 12/03/16 02/21/17 Unknown History [Dekas Plus Softgel] Protein Supplement [Promod] 30 ml FEEDTUBE TID 12/03/16 02/21/17 Unknown History Scopolamine [Transderm-Scop] 1.5 mg TD Q3D 12/03/16 02/21/17 Unknown History Aspirin [Aspirin BABY CHEW TAB] 81 mg PO QDAY #30 tab.chew 12/10/16 02/21/17 Unknown Rx AtorvaSTATin [Lipitor] 10 mg PO QHS #30 tablet 12/10/16 02/21/17 Unknown Rx Clindamycin [Clindamycin CAP] 300 mg PO QID #40 capsule 02/27/17 Unknown Rx Fluconazole [Diflucan TAB] 100 mg PO QDAY #7 tablet 02/27/17 Unknown Rx Potassium Chloride 10 meq PO DAILY #7 capsule.er 02/27/17 Unknown Rx ED Physical Exam - General Limitations: Physical Limitation, Other - Other Other exam information: G Head exam: Atraumatic Eyes exam: Normal appearance ENT: Moist mucous membrane, normal oropharynx Neck exam: Tracheostomy Respiratory exam: Bilateral rhonchi Cardiovascular: Tachycardic regular rhythm Abdomen: Soft, nondistended, and nontender, positive headache Extremity: Contracted extremities without any spontaneous movement Back: Normal Inspection, full range of motion, no tenderness Neurologic: Over eyes to voice mildly lethargic, nonverbal Skin: Multiple ulcerations and decubiti including sacral, arms, and legs. Bleeding left leg skin ulcer. Pressure dressing placed ED Course Vital Signs 04/10/17 04/10/17 04/10/17 22:12 23:44 23:45 Temperature Pulse Rate 75 127 H 128 H Respiratory 24 43 H 45 H Rate Blood Pressure Blood Pressure 102/61 [Left] O2 Sat by Pulse 100 92 94 Oximetry 04/10/17 04/10/17 04/10/17 23:47 23:49 23:51 Temperature Pulse Rate 128 H 128 H 127 H Respiratory 48 H 47 H 46 H Rate Blood Pressure Blood Pressure [Left] O2 Sat by Pulse 96 95 95 Oximetry 04/10/17 04/10/17 04/10/17 23:53 23:54 23:55 Temperature Pulse Rate 129 H 128 H 126 H Respiratory 26 H 46 H 49 H Rate Blood Pressure 101/63 101/63 101/63 Blood Pressure [Left] O2 Sat by Pulse 70 L 79 L 72 L Oximetry 04/10/17 04/11/17 04/11/17 23:57 00:06 01:07 Temperature 103.7 F H Pulse Rate 127 H 127 H Respiratory 47 H 28 H 28 H Rate Blood Pressure 101/63 Blood Pressure 101/59 [Left] O2 Sat by Pulse 76 L 95 Oximetry - Reevaluation(s) Reevaluation #1: 04/11/17 01:19 Patient's urine is positive or infection. Urine was collected from Guevara ports. ED Medical Decision Making - Lab Data Result diagrams: 04/10/17 22:17 04/10/17 22:17 Lab Results 04/10/17 04/10/17 04/10/17 Range/Units 22:17 22:17 22:17 WBC 12.4 H (4.5-11.0) K/mm3 RBC 3.35 L (3.65-5.03) M/mm3 Hgb 8.5 L (11.8-15.2) gm/dl Hct 28.5 L (35.5-45.6) % MCV 85 (84-94) fl MCH 25 L (28-32) pg MCHC 30 L (32-34) % RDW 20.6 H (13.2-15.2) % Plt Count 607 H (140-440) K/mm3 Lymph % (Auto) 10.7 L (13.4-35.0) % [place] % (Auto) 6.2 (0.0-7.3) % Eos % (Auto) 0.2 (0.0-4.3) % Baso % (Auto) 0.2 (0.0-1.8) % Lymph # 1.3 (1.2-5.4) K/mm3 [place] # 0.8 (0.0-0.8) K/mm3 Eos # 0.0 (0.0-0.4) K/mm3 Baso # 0.0 (0.0-0.1) K/mm3 Seg Neutrophils % 82.7 H (40.0-70.0) % Seg Neutrophils # 10.3 H (1.8-7.7) K/mm3 PT 16.8 H (12.2-14.9) Sec. INR 1.37 H (0.87-1.13) VBG pH (7.320-7.420) Sodium 151 H (137-145) mmol/L Potassium 3.9 (3.6-5.0) mmol/L Chloride 110.1 H (98-107) mmol/L Carbon Dioxide 28 (22-30) mmol/L Anion Gap 17 mmol/L BUN 49 H (9-20) mg/dL Creatinine 1.1 (0.8-1.5) mg/dL Estimated GFR > 60 ml/min BUN/Creatinine Ratio 44.54 % Glucose 115 H (75-100) mg/dL Lactic Acid (0.7-2.0) mmol/L Calcium 8.3 L (8.4-10.2) mg/dL Total Bilirubin 0.20 (0.1-1.2) mg/dL AST 34 (5-40) units/L ALT 22 (7-56) units/L Alkaline Phosphatase 105 (35-129) units/L Total Protein 9.2 H (6.3-8.2) g/dL Albumin 2.0 L (3.9-5) g/dL Albumin/Globulin Ratio 0.3 % Urine Color (Yellow) Urine Turbidity (Clear) Urine pH (5.0-7.0) Ur Specific [place] (1.003-1.030) Urine Protein (Negative) mg/dL Urine Glucose (UA) (Negative) mg/dL Urine Ketones (Negative) mg/dL Urine Blood (Negative) Urine Nitrite (Negative) Urine Bilirubin (Negative) Urine Urobilinogen (<2.0) mg/dL Ur Leukocyte Esterase (Negative) Urine WBC (Auto) (0.0-6.0) /HPF Urine RBC (Auto) (0.0-6.0) /HPF U Epithel Cells (Auto) (0-13.0) /HPF Urine Bacteria (Auto) (Negative) /HPF Triple Phos Crystals Urine Mucus /HPF 04/10/17 04/10/17 04/10/17 Range/Units 22:17 22:17 22:20 WBC (4.5-11.0) K/mm3 RBC (3.65-5.03) M/mm3 Hgb (11.8-15.2) gm/dl Hct (35.5-45.6) % MCV (84-94) fl MCH (28-32) pg MCHC (32-34) % RDW (13.2-15.2) % Plt Count (140-440) K/mm3 Lymph % (Auto) (13.4-35.0) % [place] % (Auto) (0.0-7.3) % Eos % (Auto) (0.0-4.3) % Baso % (Auto) (0.0-1.8) % Lymph # (1.2-5.4) K/mm3 [place] # (0.0-0.8) K/mm3 Eos # (0.0-0.4) K/mm3 Baso # (0.0-0.1) K/mm3 Seg Neutrophils % (40.0-70.0) % Seg Neutrophils # (1.8-7.7) K/mm3 PT (12.2-14.9) Sec. INR (0.87-1.13) VBG pH 7.379 (7.320-7.420) Sodium (137-145) mmol/L Potassium (3.6-5.0) mmol/L Chloride (98-107) mmol/L Carbon Dioxide (22-30) mmol/L Anion Gap mmol/L BUN (9-20) mg/dL Creatinine (0.8-1.5) mg/dL Estimated GFR ml/min BUN/Creatinine Ratio % Glucose (75-100) mg/dL Lactic Acid 2.70 H* (0.7-2.0) mmol/L Calcium (8.4-10.2) mg/dL Total Bilirubin (0.1-1.2) mg/dL AST (5-40) units/L ALT (7-56) units/L Alkaline Phosphatase (35-129) units/L Total Protein (6.3-8.2) g/dL Albumin (3.9-5) g/dL Albumin/Globulin Ratio % Urine Color [place] (Yellow) Urine Turbidity Cloudy (Clear) Urine pH 8.0 H (5.0-7.0) Ur Specific [place] 1.025 (1.003-1.030) Urine Protein >500 (Negative) mg/dL Urine Glucose (UA) Neg (Negative) mg/dL Urine Ketones Neg (Negative) mg/dL Urine Blood Neg (Negative) Urine Nitrite Neg (Negative) Urine Bilirubin Neg (Negative) Urine Urobilinogen < 2.0 (<2.0) mg/dL Ur Leukocyte Esterase Lg (Negative) Urine WBC (Auto) 30.0 H (0.0-6.0) /HPF Urine RBC (Auto) 12.0 (0.0-6.0) /HPF U Epithel Cells (Auto) < 1.0 (0-13.0) /HPF Urine Bacteria (Auto) 4+ (Negative) /HPF Triple Phos Crystals 1+ Urine Mucus 2+ /HPF - EKG Data -: EKG Interpreted by Me (sinus tachy 131, LVH) - EKG Data When compared to previous EKG there are: no significant change (compared to ) - Radiology Data Radiology results: image reviewed (chest x-ray: Extremely rotated and difficulty interpreting right lung field) - Medical Decision Making Patient urine appears to be infected. This was elected from Guevara reports. Blood cultures pending. Difficult to interpret right lung field on chest x-ray given rotation. Patient will be covered with multiple antibiotics given recent MRSA septicemia. Zosyn, Levaquin, and clindamycin ordered. During previous admission patient was initially treated with Zyvox and then changed to clindamycin based on sensitivity. Patient's blood pressure is stable at this time. Normal saline bolus initiated - Differential Diagnosis sepsis, pneumonia, UTI, infected ulcer Critical Care Time: No Critical care attestation.: If time is entered above; I have spent that time in minutes in the direct care of this critically ill patient, excluding procedure time. ED Disposition Clinical Impression: Sepsis, Urinary tract infection, Anemia, Quadriplegia, Dehydration, Decubitus ulcers, Elevated lactic acid level, Tracheostomy dependent, Anoxic brain injury Disposition: OP ADMITTED IP TO THIS HOSP Is pt being admited?: Yes Condition: Stable Time of Disposition: 01:24 (Dr Crocker/hosp)
[2017-04-11] MEDS: LEVAQUIN 750MG/150ML 750 MG/150 ML BAG IV ONE ×2 (01:46→03:00)
[2017-04-11] MEDS: TYLENOL FEEDTUBE PRN (01:47)
[2017-04-11] MEDS ORDERED: ZOFRAN IV PRN (02:53)
[2017-04-11] MEDS ORDERED: TYLENOL PO PRN (02:53)
--- NOTE | 2017-04-11 02:56 | History and Physical Report ---
History of Present Illness Date of examination: 04/11/17 History of present illness: 46-year-old man with a history of strokes, quadriplegic, hypertension, diabetes , hyperlipidemia, seizure [facility]. Patient is unable to give a history, he is noncommunicative. He has a trach, PEG and a suprapubic cath. PAST SURGICAL HISTORY:None SOCIAL HISTORY: [facility] resident FAMILY HISTORY: Unknown Medications and Allergies Allergies Allergy/AdvReac Type Severity Reaction Status Date / Time vancomycin Allergy Unknown Verified 02/21/17 09:16 Home Medications Medication Instructions Recorded Confirmed Last Taken Type Aspirin [Aspirin BABY CHEW TAB] 81 mg PO QDAY #30 tab.chew 12/10/16 04/11/17 Unknown Rx AtorvaSTATin [Lipitor] 10 mg PO QHS #30 tablet 12/10/16 04/11/17 Unknown Rx Fluconazole [Diflucan TAB] 100 mg PO QDAY #7 tablet 02/27/17 04/11/17 Unknown Rx Potassium Chloride 10 meq PO DAILY #7 capsule.er 02/27/17 04/11/17 Unknown Rx Acetaminophen [Acetaminophen TAB] 650 mg FEEDTUBE Q4H PRN #30 04/15/17 Unknown Rx Ascorbic Acid [Vitamin C] 500 mg PO DAILY #30 04/15/17 04/11/17 Unknown Rx Clindamycin [Clindamycin CAP] 300 mg FEEDTUBE Q8H #7 day 04/15/17 Unknown Rx Famotidine [Pepcid] 20 mg FEEDTUBE BID #60 04/15/17 04/11/17 Unknown Rx Glycopyrrolate [Robinul] 1 mg FEEDTUBE TID PRN #30 04/15/17 04/11/17 Unknown Rx Ipratropium/Albuterol Sulfate 1 ampul IH Q6HR #30 04/15/17 04/11/17 Unknown Rx [Duoneb 0.5 mg-3 mg/3 ml Soln] Linezolid [Zyvox] 600 mg PO Q12HR #14 tablet 04/15/17 Unknown Rx Multivit with Min #53/FA/K/Q10 1 each PO DAILY #30 04/15/17 04/11/17 Unknown Rx [Dekas Plus Softgel] Protein Supplement [Promod] 30 ml FEEDTUBE TID #30 04/15/17 04/11/17 Unknown Rx Scopolamine [Transderm-Scop] 1.5 mg TD Q3D #30 04/15/17 04/11/17 Unknown Rx amLODIPine [Norvasc] 5 mg FEEDTUBE QDAY #30 tablet 04/15/17 04/11/17 08/17/16 Rx Active Meds: Active Medications Acetaminophen (Tylenol) 325 mg FEEDTUBE Q6H PRN PRN Reason: Pain, Mild (1-3) Last Admin: 04/11/17 01:47 Dose: 325 mg Exam - Physical Exam Narrative exam: Gen. appearance: Patient lying in bed, no apparent distress HEENT: Normocephalic, atraumatic, pupils equally round and reactive to light, unable to do extraocular movement , and no sclericterus,. No JVD or thyromegaly or nodule,neck supple, no carotid bruit ,mucous membranes dry, no exudate or erythema Heart: S1, S2, regular rate and rhythm Lungs: Clear to auscultation bilaterally anteriorly, breathing comfortable Abdomen: Positive bowel sounds, soft, PEG tube, nondistended, no organomegaly Extremity: No edema, cyanosis, clubbing Skin: Multiple skin decubitus ,warm, dry Neuro: Noncommunicative, quadruplegic - Constitutional Vitals: Temp Pulse Resp BP Pulse Ox 103.7 F H 127 H 28 H 101/59 95 04/11/17 00:06 04/11/17 00:06 04/11/17 01:07 04/11/17 00:06 04/11/17 00:06 Results - Labs CBC & Chem 7: 04/15/17 05:22 04/15/17 05:22 Labs: Abnormal lab results 04/10/17 04/10/17 04/10/17 Range/Units 22:17 22:17 22:17 WBC 12.4 H (4.5-11.0) K/mm3 RBC 3.35 L (3.65-5.03) M/mm3 Hgb 8.5 L (11.8-15.2) gm/dl Hct 28.5 L (35.5-45.6) % MCH 25 L (28-32) pg MCHC 30 L (32-34) % RDW 20.6 H (13.2-15.2) % Plt Count 607 H (140-440) K/mm3 Lymph % (Auto) 10.7 L (13.4-35.0) % Seg Neutrophils % 82.7 H (40.0-70.0) % Seg Neutrophils # 10.3 H (1.8-7.7) K/mm3 PT 16.8 H (12.2-14.9) Sec. INR 1.37 H (0.87-1.13) Sodium 151 H (137-145) mmol/L Chloride 110.1 H (98-107) mmol/L BUN 49 H (9-20) mg/dL Glucose 115 H (75-100) mg/dL Lactic Acid (0.7-2.0) mmol/L Calcium 8.3 L (8.4-10.2) mg/dL Total Protein 9.2 H (6.3-8.2) g/dL Albumin 2.0 L (3.9-5) g/dL Urine pH (5.0-7.0) Urine WBC (Auto) (0.0-6.0) /HPF 04/10/17 04/10/17 Range/Units 22:17 22:20 WBC (4.5-11.0) K/mm3 RBC (3.65-5.03) M/mm3 Hgb (11.8-15.2) gm/dl Hct (35.5-45.6) % MCH (28-32) pg MCHC (32-34) % RDW (13.2-15.2) % Plt Count (140-440) K/mm3 Lymph % (Auto) (13.4-35.0) % Seg Neutrophils % (40.0-70.0) % Seg Neutrophils # (1.8-7.7) K/mm3 PT (12.2-14.9) Sec. INR (0.87-1.13) Sodium (137-145) mmol/L Chloride (98-107) mmol/L BUN (9-20) mg/dL Glucose (75-100) mg/dL Lactic Acid 2.70 H* (0.7-2.0) mmol/L Calcium (8.4-10.2) mg/dL Total Protein (6.3-8.2) g/dL Albumin (3.9-5) g/dL Urine pH 8.0 H (5.0-7.0) Urine WBC (Auto) 30.0 H (0.0-6.0) /HPF - Imaging and Cardiology EKG: image reviewed Chest x-ray: image reviewed Assessment and Plan Sepsis UTI Hypernatremia Dehydration Anemia Hypertension Diabetes Multiples decubitus Seizure History of MRSA Admit to medicine Start IV fluid, IV clindamycin, cultures were sensitive to clindamycin the last admission Start IV fluid, monitor sodium level Check fingersticks initiate insulin sliding scale Continue appropriate outpatient medications Consult wound care DVT prophylaxis with SCD
--- NOTE | 2017-04-11 03:35 | Admit Criteria Form ---
Admission Criteria Documentation: SEPSIS and OTHER FEBRILE ILLNESS, W/O FOCAL INFECTION Clinical Indications for Admission to Inpatient Care ( Place 'X' for any and all applicable criteria): Admission is indicated for ANY ONE of the following (1)(2)(3)(4): [ ] I. Bacteremia [ ]II. Suspected or identified specific infection requiring hospitalization (eg, meningitis, endocarditis) [ ]III. Hemodynamic instability [ ]IV. Altered mental status [ ]V. Failure or unavailability of outpatient antimicrobial treatment [ ]. Hypoxemia [ ]VII. Seizures [ ]VIII. High-risk febrile neutropenia [ ]IX. Need for parenteral antibiotic in patient who is likely to abuse vascular access device (eg, injection drug user) [A](7) [ ]X. Temperature greater than 104.9 degrees F (40.5 degrees C) (oral) [ X]XI. Inpatient admission required rather than observation care because of ANY ONE of the following: [ ]1) Specific infection identified that is too severe for outpatient treatment or observation care trial [ ]2) Metabolic disorder (eg, hypoglycemia, hyperglycemia, metabolic acidosis) that is severe or persistent [X ]3) Temperature greater than 103.1 degrees F (39.5 degrees C) ( oral) that is not responsive to observation care treatment [ ]4) IV fluid to replace significant ongoing (eg, for over 24 hours) losses (> 3 L/m2 per day) [ ]5) Supplemental oxygen or respiratory treatments for over 24 hours that is performable only in acute inpatient setting [ ]6) Parenteral nutrition regimen need that must be implemented on inpatient basis [ ]7) Strict or protective (eg, laminar flow) isolation [ ]8) Other condition, treatment or monitoring requiring inpatient admission Extended stay beyond goal length of stay may be needed for(1)(3) [ ]a) Sepsis or septic shock(22) [ ]b) Positive blood cultures [ ]c) Insufficient oral intake [ ]d) High-risk febrile neutropenia(29)(30) [ ]e) Continued fever and clinical instability [ ]f) Clinically active comorbid illness (e.g,heart failure, renal failure , diabetes) The original [email or web address] content created by Marie Berumen has been revised. The portions of the content which have been revised are identified through the use of italic text or in bold, and Marie Berumen has neither reviewed nor approved the modified material. All other unmodified content is copyright [facility]. Please see references footnoted in the original [facility] edition 2016
[2017-04-11] MEDS ORDERED: D50W (25GM) IV PRN (03:38)
[2017-04-11] MEDS ORDERED: SODIUM BICARBONATE 150 MEQ in D5W 1,000 ML IV SCH (04:00)
[2017-04-11] MEDS: CLEOCIN 600 MG/50 mL 600 MG/50 ML BAG IV SCH ×3 (06:01→22:13)
[2017-04-11] MEDS: NOVOLOG SUB-Q SCH ×4 (07:30→22:15)
--- NOTE | 2017-04-11 09:38 | XRay Report ---
AP CHEST :04/10/17 22:09 CLINICAL: Sepsis. COMPARISON:02/22/17 FINDINGS: The right apex and portions of the right upper lobe are obscured by the chin and the neck. The right upper lobe has become opacified since the last exam. Stable cardiomegaly with shift of the heart to the right. The left lung is normally expanded and clear. IMPRESSION: Interval development of right pneumonia versus atelectasis.
[2017-04-11] MEDS ORDERED: ZOSYN/NS 4.5GM/100ML 4.5 GM/100 ML VIAL IV SCH (10:00)
[2017-04-11] MEDS ORDERED: LOVENOX SUB-Q SCH (10:00)
[2017-04-11] MEDS ORDERED: SIMPLE SYRUP FEEDTUBE PRN ×2 (12:28)
[2017-04-11] MEDS ORDERED: PANCREAZE DR 10,500 UNIT FEEDTUBE PRN (12:28)
[2017-04-11] MEDS ORDERED: SODIUM BICARBONATE FEEDTUBE PRN (12:28)
[2017-04-11] MEDS ORDERED: NACL ONE (12:45)
--- NOTE | 2017-04-11 14:29 | Event Note ---
Date: 04/11/17 patient seen and examined, very lethargic, contracted, not able to get bowel sounds, very hypoactive. will change to NS at 125cc, since tube feeds have been started. will monitor H/H, repeat lactic acid. critically ill. cultures with no growth, discussed with nursing about urine cuture. patient with suprapubic catherter. can be contiaminated or complex UTI.
[2017-04-11] MEDS: NACL 0.9% 1000 ML 1,000 ML IV SCH (15:13)
[2017-04-11] MEDS ORDERED: MORPHINE IV ONE (15:47)
[2017-04-11] MEDS ORDERED: LOVENOX SUB-Q ONE (15:49)
--- NOTE | 2017-04-11 20:19 | Cat Scan Report ---
FINAL REPORT EXAM: CT ABDOMEN PELVIS WO/W CON HISTORY: Ischemic bowel TECHNIQUE: CT of the abdomen and pelvis with and without intravenous contrast PRIORS: None. FINDINGS: Visualized portion of the lung bases are unremarkable. Few tiny scattered low-density foci noted within the liver parenchyma too small to further characterize no radiodense foci are present within the lumen of the gallbladder. There is a PEG tube within the stomach which is decompressed. Kidneys demonstrate symmetric contrast enhancement. The adrenal glands are unremarkable IVC filter is present in the infrarenal IVC. No evidence for small bowel distention. No free air identified There is moderate colonic distention. There is large amount of fecal material within the cecum and ascending colon cecum is 5.6 centimeters in transverse diameter. There gaseous distention of the transverse colon which measures up to 6.3 centimeters in transverse diameter. No evidence for pneumatosis. There is a large amount of fecal material noted within the rectum There is a suprapubic urinary bladder catheter present. Bladder is nondistended. Small amount of air seen likely due to catheter placement Marked bony deformity of both hips noted IMPRESSION: Moderate colonic and distention likely reflecting constipation suprapubic catheter noted G-tube in the stomach which is decompressed IVC filter
[2017-04-12] MEDS: CLEOCIN 600 MG/50 mL 600 MG/50 ML BAG IV SCH ×3 (06:43→22:23)
[2017-04-12] MEDS: NACL 0.9% 1000 ML 1,000 ML IV SCH (06:44)
[2017-04-12] MEDS ORDERED: CEPHULAC PO PRN (07:38)
[2017-04-12] MEDS ORDERED: FLEET PR ONE (07:39)
--- NOTE | 2017-04-12 07:41 | Progress Note ---
Assessment and Plan Assessment and plan: 46-year-old man with a history of strokes, quadriplegic, hypertension, diabetes , hyperlipidemia, seizure [facility]. admitted with fever of 104. ast medical history includes COPD, CVA with residual deficits and contractures, quadriplegia, diabetes, hypertension, and seizures. Patient is unable to give a history, he is noncommunicative. He has a trach, PEG and a suprapubic cath and has multiple chronic ULCERS, prior admissions for MRSA septicemia, Canduria, severe anemia requiring blood transfusion and other incidental medical issues. During previous admission patient was initially treated with Zyvox and then changed to clindamycin based on sensitivity Assessment Severe Sepsis Acute cystitis Aspiration Pneumonitis Hypernatremia Dehydration S/P TRACH and oxygen dependent Anoxic Brain injury Anoxic encephalopathy Anemia Hypertension Hypokalemia SEVERE PROTEIN CALORIE MALNUTRITION Diabetes Multiple pressure ulcers, sacral and lower ext. unstageable. present on admission Seizure History of MRSA PLAN * Continue IV clindamycin, cultures were sensitive to clindamycin the last admission * Monitor fever curve, mild increase in leukocytosis, if continued will broaden abx. * Continue IV fluids-we'll change to D5 1/2 NS * hob>45 deg * Lactate improved * give suppository and start on PRN lactulose * Nutrition consult * Wound care * Cultures reviewed and negative at this time * Monitor Sodium level * Continue Insulin sliding scale AC/HS * Socal service consult to evaluate why patient has so much wound and care being received at current facility * PT/OT * q2 hr turns and air mattress * DVT prophylaxis with SCD y History Interval history: Patient seen and examined this morning. In no acute distress. No other adverse events reported by nursing staff. Hospitalist Physical - Physical exam Narrative exam: VITAL SIGNS: Reviewed. GENERAL: The patient appeared well nourished and normally developed. Vital signs as documented. HEAD: No signs of head trauma. MARKED CACHETIC. EYES: Pupils are equal. Extraocular motions intact. EARS: Hearing grossly intact. MOUTH: Oropharynx is normal. NECK: Trach CHEST: Chest with diminshed breath sounds bilaterally. No wheezes, rales, or rhonchi. CARDIAC: Regular rate and rhythm. S1 and S2, without murmurs, gallops, or rubs. VASCULAR: +2 pitting Edema. Peripheral pulses normal and equal in all extremities. ABDOMEN: Soft, Peg tube. tender but improving, not much facail grimice compared to yesterday. No sign of distention. No rebound or guarding, and no masses palpated. Bowel Sounds Hypoactive. MUSCULOSKELETAL: very contracted. Extremities without clubbing, cyanosis. +2 pitting edema at feet, likely dependend. NEUROLOGIC EXAM: Alert and oriented x 3. No focal sensory or strength deficits. Speech normal. Follows commands. PSYCHIATRIC: Mood normal. SKIN: Multiple ulcerations and decubitus including sacral, arms, and legs. dressing left leg skin ulcer. Pressure dressing in place - Constitutional Vitals: Temp Pulse Resp BP Pulse Ox 97.4 F L 108 H 24 98/54 100 04/12/17 00:00 04/12/17 00:00 04/12/17 00:00 04/12/17 00:00 04/12/17 01:00 Results - Labs CBC & Chem 7: 04/12/17 07:33 04/12/17 07:33 Labs: Laboratory Last Values WBC 12.4 K/mm3 (4.5-11.0) H 04/10/17 22:17 RBC 3.35 M/mm3 (3.65-5.03) L 04/10/17 22:17 Hgb 8.5 gm/dl (11.8-15.2) L 04/10/17 22:17 Hct 28.5 % (35.5-45.6) L 04/10/17 22:17 MCV 85 fl (84-94) 04/10/17 22:17 MCH 25 pg (28-32) L 04/10/17 22: MCHC 30 % (32-34) L 04/10/17 22:17 RDW 20.6 % (13.2-15.2) H 04/10/17 22:17 Plt Count 607 K/mm3 (140-440) H 04/10/17 22:17 Lymph % (Auto) 10.7 % (13.4-35.0) L 04/10/17 22: [place] % (Auto) 6.2 % (0.0-7.3) 04/10/17 22: Eos % (Auto) 0.2 % (0.0-4.3) 04/10/17: Baso % (Auto) 0.2 % (0.0-1.8) 04/10/17 22:17 Lymph # 1.3 K/mm3 (1.2-5.4) 04/10/17 22:17 [place] # 0.8 K/mm3 (0.0-0.8) 04/10/17 22:17 Eos # 0.0 K/mm3 (0.0-0.4) 04/10/17 22:17 Baso # 0.0 K/mm3 (0.0-0.1) 04/10/17 22:17 Seg Neutrophils % 82.7 % (40.0-70.0) H 04/10/17 22:17 Seg Neutrophils # 10.3 K/mm3 (1.8-7.7) H 04/10/17 22:17 PT 16.8 Sec. (12.2-14.9) H 04/10/17 22:17 INR 1.37 (0.87-1.13) H 04/10/17 22:17 VBG pH 7.379 (7.320-7.420) 04/10/17 22:17 Sodium 151 mmol/L (137-145) H 04/10/17 22:17 Potassium 3.9 mmol/L (3.6-5.0) 04/10/17 22:17 Chloride 110.1 mmol/L (98-107) H 04/10/17 22:17 Carbon Dioxide 28 mmol/L (22-30) 04/10/17 22:17 Anion Gap 17 mmol/L 04/10/17 22:17 BUN 49 mg/dL (9-20) H 04/10/17 22:17 Creatinine 1.1 mg/dL (0.8-1.5) 04/10/17 22:17 Estimated GFR > 60 ml/min 04/10/17 22:17 BUN/Creatinine Ratio 44.54 % 04/10/17 22:17 Glucose 115 mg/dL (75-100) H 04/10/17 22:17 POC Glucose 101 (70-105) 04/12/17 06:05 Lactic Acid 1.60 mmol/L (0.7-2.0) 04/11/17 15:10 Calcium 8.3 mg/dL (8.4-10.2) L 04/10/17 22:17 Total Bilirubin 0.20 mg/dL (0.1-1.2) 04/10/17 22:17 AST 34 units/L (5-40) 04/10/17 22:17 ALT 22 units/L (7-56) 04/10/17 22:17 Alkaline Phosphatase 105 units/L (35-129) 04/10/17 22:17 Total Protein 9.2 g/dL (6.3-8.2) H 04/10/17 22:17 Albumin 2.0 g/dL (3.9-5) L 04/10/17 22:17 Albumin/Globulin Ratio 0.3 % 04/10/17 22:17 Urine Color Rachel (Yellow) 04/10/17 22:20 Urine Turbidity Cloudy (Clear) 04/10/17 22:20 Urine pH 8.0 (5.0-7.0) H 04/10/17 22:20 Ur Specific [place] 1.025 (1.003-1.030) 04/10/17 22:20 Urine Protein >500 mg/dL (Negative) 04/10/17 22:20 Urine Glucose (UA) Neg mg/dL (Negative) 04/10/17 22:20 Urine Ketones Neg mg/dL (Negative) 04/10/17 22:20 Urine Blood Neg (Negative) 04/10/17 22:20 Urine Nitrite Neg (Negative) 04/10/17 22:20 Urine Bilirubin Neg (Negative) 04/10/17 22:20 Urine Urobilinogen < 2.0 mg/dL (<2.0) 04/10/17 22:20 Ur Leukocyte Esterase Lg (Negative) 04/10/17 22:20 Urine WBC (Auto) 30.0 /HPF (0.0-6.0) H 04/10/17 22:20 Urine RBC (Auto) 12.0 /HPF (0.0-6.0) 04/10/17 22:20 U Epithel Cells (Auto) < 1.0 /HPF (0-13.0) 04/10/17 22:20 Urine Bacteria (Auto) 4+ /HPF (Negative) 04/10/17 22:20 Triple Phos Crystals 1+ 04/10/17 22:20 Urine Mucus 2+ /HPF 04/10/17 22:20 - Imaging and Cardiology Chest x-ray: image reviewed (RIGHT SIDED PENUMONIA) CT scan - abdomen: image reviewed (constipation. no evidence of ischemia)
[2017-04-12] MEDS: NOVOLOG SUB-Q SCH ×2 (07:54→23:23)
[2017-04-12 08:35] LABS: Basophils % (Auto) 0.1 % (0.0-1.8); Hematocrit 23.9 % (35.5-45.6); Hemoglobin 7.3 gm/dl (11.8-15.2); Mean Corpuscular HGB Conc 30 % (32-34); Mean Corpuscular Volume 83 fl (84-94); Platelet Count 432 K/mm3 (140-440); Red Blood Count 2.87 M/mm3 (3.65-5.03); White Blood Count 13.1 K/mm3 (4.5-11.0)
[2017-04-12 08:51] LABS: Mean Corpuscular Hemoglobin 25 pg (28-32); Red Cell Distribution Width 20.8 % (13.2-15.2)
[2017-04-12 09:03] LABS: Anion Gap 14 mmol/L; Blood Urea Nitrogen 35 mg/dL (9-20); Calcium 7.8 mg/dL (8.4-10.2); Carbon Dioxide 28 mmol/L (22-30); Chloride 115.2 mmol/L (98-107); Glucose 94 mg/dL (75-100); Potassium 3.3 mmol/L (3.6-5.0); Sodium 154 mmol/L (137-145)
[2017-04-12] MEDS ORDERED: K-DUR PO NR (11:00)
[2017-04-13] MEDS: TYLENOL FEEDTUBE PRN (02:50)
[2017-04-13] MEDS: NACL 0.9% 1000 ML 1,000 ML IV SCH (04:13)
[2017-04-13] MEDS: CLEOCIN 600 MG/50 mL 600 MG/50 ML BAG IV SCH ×3 (06:05→21:34)
--- NOTE | 2017-04-13 07:07 | Progress Note ---
Assessment and Plan Assessment and plan: 46-year-old man with a history of strokes, quadriplegic, hypertension, diabetes , hyperlipidemia, seizure was sent from the [facility] for fever. admitted with fever of 104. ast medical history includes COPD, CVA with residual deficits and contractures, quadriplegia, diabetes, hypertension, and seizures. Patient is unable to give a history, he is noncommunicative. He has a trach, PEG and a suprapubic cath and has multiple chronic ULCERS, prior admissions for MRSA septicemia, Canduria, severe anemia requiring blood transfusion and other incidental medical issues. During previous admission patient was initially treated with Zyvox and then changed to clindamycin based on sensitivity Assessment Severe Sepsis Acute cystitis Aspiration Pneumonitis Hypernatremia Dehydration S/P TRACH and oxygen dependent Anoxic Brain injury Anoxic encephalopathy Anemia Hypertension Hypokalemia SEVERE PROTEIN CALORIE MALNUTRITION Diabetes Multiple pressure ulcers, sacral and lower ext. unstageable. present on admission Seizure History of MRSA PLAN * still with fever, will add doxycline. cultures remain negative. Continue IV clindamycin, cultures were sensitive to clindamycin the last admission * Obtain ID consult * Monitor fever curve, mild increase in leukocytosis, if continued will broaden abx. * Had bowel movement * Continue IV fluids * hob>45 deg * Lactate improved * give suppository and start on PRN lactulose * Nutrition consult * Wound care * Cultures reviewed and negative at this time * Monitor Sodium level * Continue Insulin sliding scale AC/HS * Social service consult to evaluate why patient has so much wound and care being received at current facility * PT/OT * q2 hr turns and air mattress * DVT prophylaxis with SCD y History Interval history: Patient seen and examined this morning. In no acute distress. Still febrile this morning. Notes of bowel movements. No other adverse events reported by nursing staff. Hospitalist Physical - Physical exam Narrative exam: VITAL SIGNS: Reviewed. GENERAL: The patient appeared well nourished and normally developed. Vital signs as documented. HEAD: No signs of head trauma. Currently cachectic EYES: Pupils are equal. Extraocular motions intact. EARS: Hearing grossly intact. MOUTH: Oropharynx is normal. NECK: Trach CHEST: Chest with diminshed breath sounds bilaterally. No wheezes, rales, or rhonchi. CARDIAC: Regular rate and rhythm. S1 and S2, without murmurs, gallops, or rubs. VASCULAR: +2 pitting Edema. Peripheral pulses normal and equal in all extremities. ABDOMEN: Soft, Peg tube. tender but improving, not much facial grimace compared to yesterday. No sign of distention. No rebound or guarding, and no masses palpated. Bowel Sounds Hypoactive. MUSCULOSKELETAL: very contracted. Extremities without clubbing, cyanosis. +2 pitting edema at feet, likely dependent. NEUROLOGIC EXAM: Awake but Lethargic,. The contracted multiple PSYCHIATRIC: Mood unable to assess. SKIN: Multiple ulcerations and decubitus including sacral, arms, and legs. dressing left leg skin ulcer. Pressure dressing in place - Constitutional Vitals: Temp Pulse Resp BP Pulse Ox 101.6 F H 111 H 24 100/55 100 04/13/17 00:45 04/13/17 00:45 04/13/17 00:45 04/13/17 00:45 04/13/17 03:25 Results - Labs CBC & Chem 7: 04/13/17 07:15 04/13/17 07:15 Labs: Laboratory Last Values WBC 13.1 K/mm3 (4.5-11.0) H 04/12/17 07:33 RBC 2.87 M/mm3 (3.65-5.03) L 04/12/17 07:33 Hgb 7.3 gm/dl (11.8-15.2) L 04/12/17 07:33 Hct 23.9 % (35.5-45.6) L 04/12/17 07:33 MCV 83 fl (84-94) L 04/12/17 07:33 MCH 25 pg (28-32) L 04/12/17 07:33 MCHC 30 % (32-34) L 04/12/17 07:33 RDW 20.8 % (13.2-15.2) H 04/12/17 07:33 Plt Count 432 K/mm3 (140-440) 04/12/17 07:33 Lymph % (Auto) 11.0 % (13.4-35.0) L 04/12/17 07:33 [place] % (Auto) 5.6 % (0.0-7.3) 04/12/17 07:33 Eos % (Auto) 0.0 % (0.0-4.3) 04/12/17 07:33 Baso % (Auto) 0.1 % (0.0-1.8) 04/12/17 07:33 Lymph # 1.4 K/mm3 (1.2-5.4) 04/12/17 07:33 [place] # 0.7 K/mm3 (0.0-0.8) 04/12/17 07:33 Eos # 0.0 K/mm3 (0.0-0.4) 04/12/17 07:33 Baso # 0.0 K/mm3 (0.0-0.1) 04/12/17 07:33 Seg Neutrophils % 83.3 % (40.0-70.0) H 04/12/17 07:33 Seg Neutrophils # 10.9 K/mm3 (1.8-7.7) H 04/12/17 07:33 PT 16.8 Sec. (12.2-14.9) H 04/10/17 22:17 INR 1.37 (0.87-1.13) H 04/10/17 22:17 VBG pH 7.379 (7.320-7.420) 04/10/17 22:17 Sodium 154 mmol/L (137-145) H 04/12/17 07:33 Potassium 3.3 mmol/L (3.6-5.0) L 04/12/17 07:33 Chloride 115.2 mmol/L (98-107) H 04/12/17 07:33 Carbon Dioxide 28 mmol/L (22-30) 04/12/17 07:33 Anion Gap 14 mmol/L 04/12/17 07:33 BUN 35 mg/dL (9-20) H 04/12/17 07:33 Creatinine 0.7 mg/dL (0.8-1.5) L 04/12/17 07:33 Estimated GFR > 60 ml/min 04/12/17 07:33 BUN/Creatinine Ratio 50.00 % 04/12/17 07:33 Glucose 94 mg/dL (75-100) 04/12/17 07:33 POC Glucose 122 (70-105) H 04/12/17 22:43 Lactic Acid 1.60 mmol/L (0.7-2.0) 04/11/17 15:10 Calcium 7.8 mg/dL (8.4-10.2) L 04/12/17 07:33 Total Bilirubin 0.20 mg/dL (0.1-1.2) 04/10/17 22:17 AST 34 units/L (5-40) 04/10/17 22:17 ALT 22 units/L (7-56) 04/10/17 22:17 Alkaline Phosphatase 105 units/L (35-129) 04/10/17 22:17 Total Protein 9.2 g/dL (6.3-8.2) H 04/10/17 22:17 Albumin 2.0 g/dL (3.9-5) L 04/10/17 22:17 Albumin/Globulin Ratio 0.3 % 04/10/17 22:17 Urine Color Rachel (Yellow) 04/10/17 22:20 Urine Turbidity Cloudy (Clear) 04/10/17 22:20 Urine pH 8.0 (5.0-7.0) H 04/10/17 22:20 Ur Specific [place] 1.025 (1.003-1.030) 04/10/17 22:20 Urine Protein >500 mg/dL (Negative) 04/10/17 22:20 Urine Glucose (UA) Neg mg/dL (Negative) 04/10/17 22:20 Urine Ketones Neg mg/dL (Negative) 04/10/17 22:20 Urine Blood Neg (Negative) 04/10/17 22:20 Urine Nitrite Neg (Negative) 04/10/17 22:20 Urine Bilirubin Neg (Negative) 04/10/17 22:20 Urine Urobilinogen < 2.0 mg/dL (<2.0) 04/10/17 22:20 Ur Leukocyte Esterase Lg (Negative) 04/10/17 22:20 Urine WBC (Auto) 30.0 /HPF (0.0-6.0) H 04/10/17 22:20 Urine RBC (Auto) 12.0 /HPF (0.0-6.0) 04/10/17 22:20 U Epithel Cells (Auto) < 1.0 /HPF (0-13.0) 04/10/17 22:20 Urine Bacteria (Auto) 4+ /HPF (Negative) 04/10/17 22:20 Triple Phos Crystals 1+ 04/10/17 22:20 Urine Mucus 2+ /HPF 04/10/17 22:20
[2017-04-13 08:03] LABS: Hematocrit 21.6 % (35.5-45.6); Hemoglobin 6.4 gm/dl (11.8-15.2); Mean Corpuscular HGB Conc 30 % (32-34); Mean Corpuscular Volume 84 fl (84-94); Platelet Count 412 K/mm3 (140-440); Red Blood Count 2.59 M/mm3 (3.65-5.03); White Blood Count 15.8 K/mm3 (4.5-11.0)
[2017-04-13 08:15] LABS: Mean Corpuscular Hemoglobin 25 pg (28-32); Red Cell Distribution Width 21.1 % (13.2-15.2)
[2017-04-13 09:11] LABS: Anion Gap 15 mmol/L; BUN/Creatinine Ratio 44.28; Blood Urea Nitrogen 31 mg/dL (9-20); Calcium 7.6 mg/dL (8.4-10.2); Carbon Dioxide 27 mmol/L (22-30); Chloride 116.6 mmol/L (98-107); Glucose 108 mg/dL (75-100); Sodium 156 mmol/L (137-145)
[2017-04-13 09:14] LABS: Potassium 2.7 mmol/L (3.6-5.0)
[2017-04-13] MEDS: NOVOLOG SUB-Q SCH ×4 (09:29→22:24)
[2017-04-13] MEDS ORDERED: POTASSIUM CHLORIDE FEEDTUBE ONE (11:00)
[2017-04-13] MEDS: DOXYCYCLINE HYCLATE 100 MG in NACL 0.9% 250ML 250 ML IV SCH ×2 (12:12→22:43)
[2017-04-13] MEDS: NS 0.45/KCL 20MEQ 20 MEQ/1,000 ML BAG IV SCH (13:27)
[2017-04-13] MEDS ORDERED: NACL 0.9% 500 ML 500 ML IV ONE (15:00)
[2017-04-14] MEDS: NS 0.45/KCL 20MEQ 20 MEQ/1,000 ML BAG IV SCH ×2 (05:01→23:29)
[2017-04-14] MEDS: CLEOCIN 600 MG/50 mL 600 MG/50 ML BAG IV SCH ×3 (06:36→23:29)
[2017-04-14 07:26] LABS: Mean Corpuscular HGB Conc 28 % (32-34); Mean Corpuscular Volume 87 fl (84-94); Platelet Count 331 K/mm3 (140-440); Red Blood Count 2.69 M/mm3 (3.65-5.03); White Blood Count 11.4 K/mm3 (4.5-11.0)
[2017-04-14 07:27] LABS: Hematocrit 23.5 % (35.5-45.6); Hemoglobin 6.7 gm/dl (11.8-15.2); Mean Corpuscular Hemoglobin 25 pg (28-32); Red Cell Distribution Width 20.8 % (13.2-15.2)
[2017-04-14 07:38] LABS: Anion Gap 20 mmol/L; Blood Urea Nitrogen 17 mg/dL (9-20); Calcium 6.5 mg/dL (8.4-10.2); Carbon Dioxide 22 mmol/L (22-30); Chloride 95.2 mmol/L (98-107)
[2017-04-14 08:06] LABS: Potassium TNR mmol/L (3.6-5.0); Sodium TNR mmol/L (137-145)
[2017-04-14 08:07] LABS: Glucose TNR mg/dL (75-100)
[2017-04-14 09:28] LABS: Anion Gap 15 mmol/L; Blood Urea Nitrogen 20 mg/dL (9-20); Calcium 7.7 mg/dL (8.4-10.2); Carbon Dioxide 27 mmol/L (22-30); Chloride 113.9 mmol/L (98-107); Glucose 99 mg/dL (75-100); Potassium 3.4 mmol/L (3.6-5.0); Sodium 152 mmol/L (137-145)
[2017-04-14] MEDS: NOVOLOG SUB-Q SCH ×4 (09:59→22:48)
[2017-04-14] MEDS: DOXYCYCLINE HYCLATE 100 MG in NACL 0.9% 250ML 250 ML IV SCH (10:16)
--- NOTE | 2017-04-14 13:06 | Progress Note ---
Assessment and Plan Assessment and plan: Patient is a 46-year-old man from [facility] with a plethora of severe debilitating comorbidities including COPD, CVA with quadriplegia, PEG, and tracheostomy in a semi-vegetative state, multiple chronic pressure ulcers causing sepsis, prior tracheobronchitis with pseudomonas from the ET tube, permanent pacemaker, Anemia with multiple blood transfusions, type 2 diabetes mellitus, hypertension, chronic suprapubic bladder catheter and seizure disorder who presented with fevers Sepsis: still with fevers, will add doxycline. cultures remain negative. Continue IV clindamycin, cultures were sensitive to clindamycin the last admission, await ID consult Acute cystitis, present on admission Aspiration Pneumonitis, right upper lobe: Clindamycin Hypernatremia: free water S/P TRACH and oxygen dependent Anoxic Brain injury with Anoxic encephalopathy Anemia requiring blood transfusion Hypertension Hypokalemia: Replace and monitor closely SEVERE PROTEIN CALORIE MALNUTRITION: Dietary swallowing Diabetes: Continue insulin Multiple pressure ulcers, sacral and lower ext. unstageable. present on admission: Wound care is following Seizure: Continue to monitor History of MRSA in contact isolation DVT prophylaxis: SCDs only due to worsening anemia New issue: Hemoglobin 6.7 we'll transfuse 1 unit of packed red blood cells History Interval history: Patient seen and examined. Follow up on fevers. Overnight uneventful. No cp, sob , n/v or severe headaches. Imaging, old records, testing, labs, nursing notes reviewed. Hospitalist Physical - Physical exam Narrative exam: GEN: Chronically debilitated ill-appearing man nonverbal, semi-vegetative HEENT: trach in place CVS: Regular tachycardic,MAL S1S2 LUNGS/CHEST: Equal CHEST EXPANSION B, adequate AIR ENTRY B ABD: SOFT, PEG TUBE IN PLACE NTND, GBS, NO REBOUND OR GUARDING EXT/SKIN: Contractures NEURO: CN 2-12 GROSSLY INTACT, doesn't follow commands PSY: Nonresponsive - Constitutional Vitals: Temp Pulse Resp BP Pulse Ox 99.4 F 96 H 16 108/58 97 04/14/17 08:00 04/14/17 08:00 04/14/17 08:00 04/14/17 08:00 04/14/17 11:10 Results - Labs CBC & Chem 7: 04/14/17 07:01 04/14/17 08:28 Labs: Laboratory Last Values WBC 11.4 K/mm3 (4.5-11.0) H 04/14/17 07:01 RBC 2.69 M/mm3 (3.65-5.03) L 04/14/17 07:01 Hgb 6.7 gm/dl (11.8-15.2) L 04/14/17 07:01 Hct 23.5 % (35.5-45.6) L 04/14/17 07:01 MCV 87 fl (84-94) D 04/14/17 07:01 MCH 25 pg (28-32) L 04/14/17 07:01 MCHC 28 % (32-34) L 04/14/17 07:01 RDW 20.8 % (13.2-15.2) H 04/14/17 07:01 Plt Count 331 K/mm3 (140-440) 04/14/17 07:01 Lymph % (Auto) 11.0 % (13.4-35.0) L 04/12/17 07:33 [place] % (Auto) 5.6 % (0.0-7.3) 04/12/17 07:33 Eos % (Auto) 0.0 % (0.0-4.3) 04/12/17 07:33 Baso % (Auto) 0.1 % (0.0-1.8) 04/12/17 07:33 Lymph # 1.4 K/mm3 (1.2-5.4) 04/12/17 07:33 [place] # 0.7 K/mm3 (0.0-0.8) 04/12/17 07:33 Eos # 0.0 K/mm3 (0.0-0.4) 04/12/17 07:33 Baso # 0.0 K/mm3 (0.0-0.1) 04/12/17 07:33 Seg Neutrophils % 83.3 % (40.0-70.0) H 04/12/17 07:33 Seg Neutrophils # 10.9 K/mm3 (1.8-7.7) H 04/12/17 07:33 PT 16.8 Sec. (12.2-14.9) H 04/10/17 22:17 INR 1.37 (0.87-1.13) H 04/10/17 22:17 VBG pH 7.379 (7.320-7.420) 04/10/17 22:17 Sodium 152 mmol/L (137-145) H 04/14/17 08:28 Potassium 3.4 mmol/L (3.6-5.0) L D 04/14/17 08:28 Chloride 113.9 mmol/L (98-107) H 04/14/17 08:28 Carbon Dioxide 27 mmol/L (22-30) 04/14/17 08:28 Anion Gap 15 mmol/L 04/14/17 08:28 BUN 20 mg/dL (9-20) 04/14/17 08:28 Creatinine 0.5 mg/dL (0.8-1.5) L 04/14/17 08:28 Estimated GFR > 60 ml/min 04/14/17 08:28 BUN/Creatinine Ratio 40.00 % 04/14/17 08:28 Glucose 99 mg/dL (75-100) 04/14/17 08:28 POC Glucose 106 (70-105) H 04/14/17 11:58 Lactic Acid 1.60 mmol/L (0.7-2.0) 04/11/17 15:10 Calcium 7.7 mg/dL (8.4-10.2) L D 04/14/17 08:28 Total Bilirubin 0.20 mg/dL (0.1-1.2) 04/10/17 22:17 AST 34 units/L (5-40) 04/10/17 22:17 ALT 22 units/L (7-56) 04/10/17 22:17 Alkaline Phosphatase 105 units/L (35-129) 04/10/17 22:17 Total Protein 9.2 g/dL (6.3-8.2) H 04/10/17 22:17 Albumin 2.0 g/dL (3.9-5) L 04/10/17 22:17 Albumin/Globulin Ratio 0.3 % 04/10/17 22:17 Urine Color Rachel (Yellow) 04/10/17 22:20 Urine Turbidity Cloudy (Clear) 04/10/17 22:20 Urine pH 8.0 (5.0-7.0) H 04/10/17 22:20 Ur Specific [place] 1.025 (1.003-1.030) 04/10/17 22:20 Urine Protein >500 mg/dL (Negative) 04/10/17 22:20 Urine Glucose (UA) Neg mg/dL (Negative) 04/10/17 22:20 Urine Ketones Neg mg/dL (Negative) 04/10/17 22:20 Urine Blood Neg (Negative) 04/10/17 22:20 Urine Nitrite Neg (Negative) 04/10/17 22:20 Urine Bilirubin Neg (Negative) 04/10/17 22:20 Urine Urobilinogen < 2.0 mg/dL (<2.0) 04/10/17 22:20 Ur Leukocyte Esterase Lg (Negative) 04/10/17 22:20 Urine WBC (Auto) 30.0 /HPF (0.0-6.0) H 04/10/17 22:20 Urine RBC (Auto) 12.0 /HPF (0.0-6.0) 04/10/17 22:20 U Epithel Cells (Auto) < 1.0 /HPF (0-13.0) 04/10/17 22:20 Urine Bacteria (Auto) 4+ /HPF (Negative) 04/10/17 22:20 Triple Phos Crystals 1+ 04/10/17 22:20 Urine Mucus 2+ /HPF 04/10/17 22:20 Blood Type O POSITIVE 04/13/17 13:38 Antibody Screen TNR 04/13/17 13:38 FLORA Antibody Screen Negative 04/13/17 13:38 Crossmatch See Detail 04/13/17 13:38
[2017-04-14] MEDS ORDERED: NACL 0.9% 500 ML 500 ML IV ONE (13:10)
--- NOTE | 2017-04-14 14:55 | Consultation ---
History of Present Illness - Reason for Consult Consult date: 04/14/17 Sepsis - History of Present Illness Mr. Bello is a 46-year-old man with multiple chronic medical problems, including quadriplegia requiring a PEG and suprapubic. History is obtained from the medical record, because the patient is unable to provide this history. He was brought in from the long term for evaluation of fever. Blood and urine cultures are without growth. Sputum culture showed the presence of normal respiratory juan. A chest radiograph showed a new, right-sided pneumonia. He has copious secretions per his tracheostomy. He is prescribed empiric Clindamycin and Doxycycline for possible aspiration pneumonia. ID is consulted for further treatment recommendations. Past History Past Medical History: diabetes, hypertension, hyperlipidemia, other ( quadriplegia; neurogenic bladder) Past Surgical History: Other (tracheostomy; PEG) Social history: other (long term resident) Family history: other (unobtainable) Medications and Allergies Allergies Allergy/AdvReac Type Severity Reaction Status Date / Time vancomycin Allergy Unknown Verified 02/21/17 09:16 Home Medications Medication Instructions Recorded Confirmed Last Taken Type amLODIPine [Norvasc] 5 mg FEEDTUBE QDAY tablet 08/14/16 04/11/17 08/17/16 Rx Acetaminophen [Acetaminophen TAB] 650 mg FEEDTUBE Q4H PRN 12/03/16 04/11/17 Unknown History Ascorbic Acid [Vitamin C] 500 mg PO DAILY 12/03/16 04/11/17 Unknown History Famotidine [Pepcid] 20 mg FEEDTUBE BID 12/03/16 04/11/17 Unknown History Glycopyrrolate [Robinul] 1 mg FEEDTUBE TID PRN 12/03/16 04/11/17 Unknown History Ipratropium/Albuterol Sulfate 1 ampul IH Q6HR 12/03/16 04/11/17 Unknown History [Duoneb 0.5 mg-3 mg/3 ml Soln] Multivit with Min #53/FA/K/Q10 1 each PO DAILY 12/03/16 04/11/17 Unknown History [Dekas Plus Softgel] Protein Supplement [Promod] 30 ml FEEDTUBE TID 12/03/16 04/11/17 Unknown History Scopolamine [Transderm-Scop] 1.5 mg TD Q3D 12/03/16 04/11/17 Unknown History Aspirin [Aspirin BABY CHEW TAB] 81 mg PO QDAY #30 tab.chew 12/10/16 04/11/17 Unknown Rx AtorvaSTATin [Lipitor] 10 mg PO QHS #30 tablet 12/10/16 04/11/17 Unknown Rx Clindamycin [Clindamycin CAP] 300 mg PO QID #40 capsule 02/27/17 04/11/17 Unknown Rx Fluconazole [Diflucan TAB] 100 mg PO QDAY #7 tablet 02/27/17 04/11/17 Unknown Rx Potassium Chloride 10 meq PO DAILY #7 capsule.er 02/27/17 04/11/17 Unknown Rx Active Meds: Active Medications Acetaminophen (Tylenol) 325 mg FEEDTUBE Q6H PRN PRN Reason: Pain, Mild (1-3) Last Admin: 04/13/17 02:50 Dose: 325 mg Acetaminophen (Tylenol) 650 mg PO Q4H PRN PRN Reason: Pain MILD(1-3)/Fever >100.5/YUAN Lipase/Protease/Amylase (Pancreaze Dr 10,500 Unit) 1 each FEEDTUBE PRN PRN PRN Reason: For Clogged Feeding Tube Dextrose (D50w (25gm)) 50 ml IV PRN PRN PRN Reason: Hypoglycemia Clindamycin HCl (Cleocin 600 Mg/50 Ml) 600 mg in 50 mls @ 100 mls/hr IV Q8HR PAM PRN Reason: Protocol Last Admin: 04/14/17 14:47 Dose: 100 mls/hr Doxycycline Hyclate 100 mg/ (Sodium Chloride) 250 mls @ 250 mls/hr IV Q12HR PAM PRN Reason: Protocol Last Admin: 04/14/17 10:16 Dose: 250 mls/hr Potassium Chloride/Sodium Chloride (Ns 0.45/Kcl 20meq) 20 meq in 1,000 mls @ 125 mls/hr IV DIRECT PAM Last Admin: 04/14/17 05:01 Dose: 125 mls/hr Insulin Aspart (Novolog) 0 units SUB-Q ACHS PAM PRN Reason: Protocol Last Admin: 04/14/17 12:14 Dose: Not Given Lactulose (Cephulac) 20 gm PO Q6H PRN PRN Reason: Constipation Last Admin: 04/12/17 11:16 Dose: 20 gm Ondansetron HCl (Zofran) 4 mg IV Q8H PRN PRN Reason: N/V unrelieved by Reglan Simple Syrup (Simple Syrup) 15 ml FEEDTUBE PRN PRN PRN Reason: Hypoglycemia Simple Syrup (Simple Syrup) 30 ml FEEDTUBE PRN PRN PRN Reason: Hypoglycemia Sodium Bicarbonate (Sodium Bicarbonate) 325 mg FEEDTUBE PRN PRN PRN Reason: For Clogged Feeding Tube Review of Systems ROS unobtainable: due to mental status Physical Examination - Physical Exam Narrative exam: chronically ill-appearing man, contractures noted - Constitutional Vitals: Vital Signs Temp Pulse Resp BP Pulse Ox 99.4 F 96 H 16 108/58 97 04/14/17 08:00 04/14/17 08:00 04/14/17 08:00 04/14/17 08:00 04/14/17 11:10 Temperature -Last 24 Hours Temperature 99.4 F Temperature 99.0 F Temperature 98.9 F Temperature 99.5 F Temperature 99.5 F Temperature 99.0 F Temperature 99.4 F Temperature 98.9 F Temperature 99.0 F General appearance: Present: cachectic - EENT Eyes: Absent: conjunctival injection - Neck Neck: Present: other (tracheostomy with copious, white secretions noted) - Respiratory Respiratory: bilateral: rhonchi - Cardiovascular Rhythm: regular Heart Sounds: Present: S1 & S2 - Extremities Extremities: No edema - Abdominal General gastrointestinal: Present: soft, normal bowel sounds, other (PEG; suprapubic catheter with yellow urine) - Integumentary Integumentary: Present: warm (multiple, variable staged pressure sores). Absent : rash - Neurologic Neurologic: no moves all extremities, other (quadriplegia with contractures) Results - Labs CBC & Chem 7: 04/14/17 07:01 04/14/17 08:28 Labs: Abnormal lab results 04/13/17 04/13/17 04/14/17 Range/Units 13:38 22:02 07:01 WBC 11.4 H (4.5-11.0) K/mm3 RBC 2.69 L (3.65-5.03) M/mm3 Hgb 6.7 L (11.8-15.2) gm/dl Hct 23.5 L (35.5-45.6) % MCH 25 L (28-32) pg MCHC 28 L (32-34) % RDW 20.8 H (13.2-15.2) % Sodium (137-145) mmol/L Potassium (3.6-5.0) mmol/L Chloride (98-107) mmol/L Creatinine (0.8-1.5) mg/dL POC Glucose 120 H (70-105) Calcium (8.4-10.2) mg/dL Crossmatch See Detail 04/14/17 04/14/17 04/14/17 Range/Units 07:01 07:33 08:28 WBC (4.5-11.0) K/mm3 RBC (3.65-5.03) M/mm3 Hgb (11.8-15.2) gm/dl Hct (35.5-45.6) % MCH (28-32) pg MCHC (32-34) % RDW (13.2-15.2) % Sodium 152 H (137-145) mmol/L Potassium 3.4 L D (3.6-5.0) mmol/L Chloride 95.2 L 113.9 H (98-107) mmol/L Creatinine 0.5 L 0.5 L (0.8-1.5) mg/dL POC Glucose 113 H (70-105) Calcium 6.5 L 7.7 L D (8.4-10.2) mg/dL Crossmatch 04/14/17 Range/Units 11:58 WBC (4.5-11.0) K/mm3 RBC (3.65-5.03) M/mm3 Hgb (11.8-15.2) gm/dl Hct (35.5-45.6) % MCH (28-32) pg MCHC (32-34) % RDW (13.2-15.2) % Sodium (137-145) mmol/L Potassium (3.6-5.0) mmol/L Chloride (98-107) mmol/L Creatinine (0.8-1.5) mg/dL POC Glucose 106 H (70-105) Calcium (8.4-10.2) mg/dL Crossmatch Microbiology 04/10/17 22:17 Peripheral/Venous Blood Culture - Preliminary NO GROWTH AFTER 72 HOURS 04/10/17 22:17 Peripheral/Venous Blood Culture - Preliminary NO GROWTH AFTER 72 HOURS 04/11/17 07:00 Urine,Catheterized - Straight Catheter Urine Culture - Final NO GROWTH AFTER 48 HOURS 04/10/17 23:01 Tracheal Aspirate Sputum Culture - Final - Imaging and Cardiology Chest x-ray: report reviewed (interval development of right pneumonia) Assessment and Plan - Patient Problems (1) Sepsis Current Visit: Yes Status: Acute Qualifiers: Sepsis type: sepsis due to unspecified organism Qualified Code(s): A41.9 - Sepsis, unspecified organism Plan to address problem: 1. Apparent pulmonary source with evidence of right-sided pneumonia. Aspiration vs. HCAP considered. 2. Sputum Gram stain shows varied Gram positive organisms. As such will add Vancomycin and continue Clindamycin for a possible anaerobic component. 3. Will discontinue Doxycycline. 4. Follow clinically.
[2017-04-14] MEDS: ZYVOX PO SCH (23:28)
[2017-04-15 06:00] LABS: Hematocrit 33.3 % (35.5-45.6); Hemoglobin 10.2 gm/dl (11.8-15.2); Mean Corpuscular HGB Conc 31 % (32-34); Mean Corpuscular Hemoglobin 26 pg (28-32); Mean Corpuscular Volume 86 fl (84-94); Platelet Count 355 K/mm3 (140-440); Red Blood Count 3.87 M/mm3 (3.65-5.03); Red Cell Distribution Width 19.8 % (13.2-15.2); White Blood Count 11.5 K/mm3 (4.5-11.0)
[2017-04-15] MEDS: CLEOCIN 600 MG/50 mL 600 MG/50 ML BAG IV SCH (06:14)
[2017-04-15 06:54] LABS: Anion Gap 16 mmol/L; Blood Urea Nitrogen 19 mg/dL (9-20); Calcium 7.6 mg/dL (8.4-10.2); Carbon Dioxide 26 mmol/L (22-30); Chloride 109.9 mmol/L (98-107); Glucose 95 mg/dL (75-100); Sodium 148 mmol/L (137-145)
[2017-04-15 06:56] LABS: Potassium 4.1 mmol/L (3.6-5.0)
[2017-04-15 09:20] VITALS: BP 120/83
--- NOTE | 2017-04-15 09:21 | Progress Note ---
Assessment and Plan - Patient Problems (1) Sepsis Current Visit: Yes Status: Acute Qualifiers: Sepsis type: sepsis due to unspecified organism Qualified Code(s): A41.9 - Sepsis, unspecified organism Plan to address problem: 1. Will repeat chest radiograph, also sputum culture to ensure that antibiotic coverage is adequate. 2. Continue Zyvox and Clindamycin to complete a course through April 21, 2017. 3. Clindamcyin can be changed to Clindamycin 300mg per tube q8h when patient is ready for discharge back to [place]. Subjective Date of service: 04/15/17 Principal diagnosis: Pneumonia Interval history: Remains afebrile. Decreased secretions per trach. Objective - Exam Narrative Exam: non-communicative man, slightly diaphoretic - Constitutional Vitals: Vital Signs Temp Pulse Resp BP Pulse Ox 98.7 F 82 20 103/68 98 04/14/17 21:30 04/14/17 21:30 04/14/17 22:00 04/14/17 21:30 04/15/17 04:52 Temperature -Last 24 Hours Temperature 98.7 F General appearance: Present: other (chronically ill, limb contractures) - Neck Neck: other (tracheostomy T-piece with a small amount of thick, white secretions ) - Respiratory Respiratory: bilateral: rhonchi (coarse throughout), negative: wheezing - Cardiovascular Rhythm: regular Heart Sounds: Present: S1 & S2 Extremities: No edema, abnormal Extremity abnormal: other ((+) contractures) - Gastrointestinal General gastrointestinal: Present: soft, non-distended, other ((+)PEG and (+) suprapubic catheter with no surrounding inflammation) - Integumentary Integumentary: no rash - Neurologic Neurologic: no moves all extremities - Labs CBC & Chem 7: 04/15/17 05:22 04/15/17 05:22 Labs: Abnormal lab results 04/13/17 04/14/17 04/14/17 Range/Units 13:38 08:28 11:58 WBC (4.5-11.0) K/mm3 Hgb (11.8-15.2) gm/dl Hct (35.5-45.6) % MCH (28-32) pg MCHC (32-34) % RDW (13.2-15.2) % Sodium 152 H (137-145) mmol/L Potassium 3.4 L D (3.6-5.0) mmol/L Chloride 113.9 H (98-107) mmol/L Creatinine 0.5 L (0.8-1.5) mg/dL POC Glucose 106 H (70-105) Calcium 7.7 L D (8.4-10.2) mg/dL Crossmatch See Detail 04/14/17 04/14/17 04/15/17 Range/Units 17:13 21:47 05:22 WBC 11.5 H (4.5-11.0) K/mm3 Hgb 10.2 L D (11.8-15.2) gm/dl Hct 33.3 L D (35.5-45.6) % MCH 26 L (28-32) pg MCHC 31 L (32-34) % RDW 19.8 H (13.2-15.2) % Sodium (137-145) mmol/L Potassium (3.6-5.0) mmol/L Chloride (98-107) mmol/L Creatinine (0.8-1.5) mg/dL POC Glucose 106 H 107 H (70-105) Calcium (8.4-10.2) mg/dL Crossmatch 04/15/17 Range/Units 05:22 WBC (4.5-11.0) K/mm3 Hgb (11.8-15.2) gm/dl Hct (35.5-45.6) % MCH (28-32) pg MCHC (32-34) % RDW (13.2-15.2) % Sodium 148 H (137-145) mmol/L Potassium (3.6-5.0) mmol/L Chloride 109.9 H (98-107) mmol/L Creatinine 0.4 L (0.8-1.5) mg/dL POC Glucose (70-105) Calcium 7.6 L (8.4-10.2) mg/dL Crossmatch Microbiology 04/10/17 22:17 Peripheral/Venous Blood Culture - Preliminary NO GROWTH AFTER 4 DAYS 04/10/17 22:17 Peripheral/Venous Blood Culture - Preliminary NO GROWTH AFTER 4 DAYS 04/11/17 07:00 Urine,Catheterized - Straight Catheter Urine Culture - Final NO GROWTH AFTER 48 HOURS 04/10/17 23:01 Tracheal Aspirate Sputum Culture - Final Active Medications Acetaminophen (Tylenol) 325 mg FEEDTUBE Q6H PRN PRN Reason: Pain, Mild (1-3) Last Admin: 04/13/17 02:50 Dose: 325 mg Acetaminophen (Tylenol) 650 mg PO Q4H PRN PRN Reason: Pain MILD(1-3)/Fever >100.5/YUAN Last Admin: 04/14/17 18:03 Dose: 650 mg Lipase/Protease/Amylase (Pancreaze Dr 10,500 Unit) 1 each FEEDTUBE PRN PRN PRN Reason: For Clogged Feeding Tube Dextrose (D50w (25gm)) 50 ml IV PRN PRN PRN Reason: Hypoglycemia Clindamycin HCl (Cleocin 600 Mg/50 Ml) 600 mg in 50 mls @ 100 mls/hr IV Q8HR PAM PRN Reason: Protocol Last Admin: 04/15/17 06:14 Dose: 100 mls/hr Potassium Chloride/Sodium Chloride (Ns 0.45/Kcl 20meq) 20 meq in 1,000 mls @ 125 mls/hr IV DIRECT PAM Last Admin: 04/14/17 23:29 Dose: 125 mls/hr Insulin Aspart (Novolog) 0 units SUB-Q ACHS PAM PRN Reason: Protocol Last Admin: 04/14/17 22:48 Dose: Not Given Lactulose (Cephulac) 20 gm PO Q6H PRN PRN Reason: Constipation Last Admin: 04/12/17 11:16 Dose: 20 gm Linezolid (Zyvox) 600 mg PO Q12HR PAM PRN Reason: Protocol Last Admin: 04/14/17 23:28 Dose: 600 mg Ondansetron HCl (Zofran) 4 mg IV Q8H PRN PRN Reason: N/V unrelieved by Reglan Simple Syrup (Simple Syrup) 15 ml FEEDTUBE PRN PRN PRN Reason: Hypoglycemia Simple Syrup (Simple Syrup) 30 ml FEEDTUBE PRN PRN PRN Reason: Hypoglycemia Sodium Bicarbonate (Sodium Bicarbonate) 325 mg FEEDTUBE PRN PRN PRN Reason: For Clogged Feeding Tube
[2017-04-15] MEDS: NOVOLOG SUB-Q SCH (10:17)
[2017-04-15] MEDS: ZYVOX PO SCH (10:17)
--- NOTE | 2017-04-15 11:27 | Discharge Summary ---
Providers - Providers Date of Admission: 04/11/17 02:53 Date of discharge: 04/15/17 Attending physician: LELE GARCIA 04/11/17 07:28 Occupational Therapy Evaluate and Treat [CONS] Routine Comment: Reason For Exam: debility Physical Therapy Evaluation and Treat [CONS] Routine Comment: Reason For Exam: debility 04/11/17 07:36 Consult to Dietitian/Nutrition [CONS] Routine Physician Instructions: Reason For Exam: pt admitted with peg, no TF ordered Reason for Consult: Write/Manage Tube Feeding 04/12/17 07:40 Consult to Wound/ET Nurse [CONS] Routine Reason For Exam: wound eval 04/13/17 12:46 Consult to Physician [CONS] Routine Consulting Provider: KIKI MEDELLIN Reason For Exam: sepsis Place consult to:: [email or web address] Notified:: Phone number called:: [phone] Time called:: 13:30 Primary care physician: [employer] Hospitalization Condition: Stable Hospital course: Patient is a 46-year-old man from [facility] sn[facility] with a plethora of severe debilitating comorbidities including COPD, CVA with quadriplegia, PEG, and tracheostomy in a semi-vegetative state (his baseline is that he will nod his head yes or no to questions), multiple chronic pressure ulcers causing sepsis, prior tracheobronchitis with pseudomonas from the ET tube, permanent pacemaker, Anemia with multiple blood transfusions, type 2 diabetes mellitus, hypertension, chronic suprapubic bladder catheter and seizure disorder who presented with fevers Sepsis: still with fevers, will add doxycline. cultures remain negative. Continue IV clindamycin, cultures were sensitive to clindamycin the last admission, await ID consult Acute cystitis, present on admission Aspiration Pneumonitis, right upper lobe: Clindamycin Hypernatremia: free water S/P TRACH and oxygen dependent Anoxic Brain injury with Anoxic encephalopathy Anemia requiring blood transfusion Hypertension Hypokalemia: Replace and monitor closely SEVERE PROTEIN CALORIE MALNUTRITION: Dietary swallowing Diabetes: Continue insulin Multiple pressure ulcers, sacral and lower ext. unstageable. 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 Medellin: "(1) Sepsis Current Visit: Yes Status: Acute Qualifiers: Sepsis type: sepsis due to unspecified organism Qualified Code(s): A41.9 - Sepsis, unspecified organism Plan to address problem: 1. Continue Zyvox and Clindamycin to complete a course through April 21, 2017. 2. Clindamcyin can be changed to Clindamycin 300mg per tube q8h when patient is ready for discharge back to [place]." Disposition: DC/[place] SNF W [facility] CERT Time spent for discharge: 39 minutes Core Measure Documentation - Palliative Care Palliative Care/ Comfort Measures: Not Applicable - Core Measures Any of the following diagnoses?: none - VTE Discharge Requirements Deep Vein Thrombosis/Pulmonary Embolism Present on Admission: No Has pt received <5 days of overlap therapy or INR<2.0: No Anticoagulant overlap therapy prescribed at discharge: No Contraindication No Overlap Therapy order at DC: Not Indicated Exam - Physical Exam Narrative exam: GEN: Chronically debilitated ill-appearing man nonverbal, semi-vegetative HEENT: trach in place CVS: Regular tachycardic,MAL S1S2 LUNGS/CHEST: Equal CHEST EXPANSION B, adequate AIR ENTRY B ABD: SOFT, PEG TUBE IN PLACE NTND, GBS, NO REBOUND OR GUARDING EXT/SKIN: Contractures NEURO: CN 2-12 GROSSLY INTACT, doesn't follow commands PSY: Nonresponsive - Constitutional Vitals: Temp Pulse Resp BP Pulse Ox 98.8 F 101 H 18 120/83 100 04/15/17 08:00 04/15/17 08:00 04/15/17 08:00 04/15/17 08:00 04/15/17 08:00 Plan Activity: up only with assistance, fall precautions, other (Foam mattress and turn [id number]; no strenous activites until cleared by PCP. ) Diet: other (PEG tube ) Follow up with: PRIMARY CARE, [Primary Care Provider] - 3-5 Days Prescriptions: Clindamycin [Clindamycin CAP] 300 mg FEEDTUBE Q8H #7 day Linezolid [Zyvox] 600 mg PO Q12HR #14 tablet
--- NOTE | 2017-04-15 15:21 | XRay Report ---
AP CHEST History: Followup pneumonia. Findings: Compared to 04/10/17. A limited AP chest with rotation is presented. The patient's right hand overlies the right lung. The right hemithorax is opacified. This appears to represent complete right lung atelectasis with mediastinal shift to the right. The left lung is hyper aerated and grossly clear. Recommend repeat examination with better positioning or CT. Impression: Limited exam. Probable complete right lung atelectasis. See above.
== END 2017-04-15 13:30 | DRG 871 ==
LOC: ED 21:45 → 3A 04-11 02:53
PROVIDERS: ADMIT Internal Medicine; ATTEND Internal Medicine
PROC: 30233N1 Transfusion of Nonautologous Red Blood Cells into Peripheral Vein, Percutaneous Approach (ICD-10-PCS; principal; 2017-04-14)
DX: A41.9 Sepsis, unspecified organism (principal); E43 Unspecified severe protein-calorie malnutrition; J69.0 Pneumonitis due to inhalation of food and vomit; G82.50 Quadriplegia, unspecified; J44.9 Chronic obstructive pulmonary disease, unspecified; E11.9 Type 2 diabetes mellitus without complications; I10 Essential (primary) hypertension; F03.90 Unspecified dementia, unspecified severity, without behavioral disturbance, psychotic disturbance, mood disturbance, and anxiety; D64.9 Anemia, unspecified; N30.00 Acute cystitis without hematuria; R65.20 Severe sepsis without septic shock; E87.0 Hyperosmolality and hypernatremia; G93.1 Anoxic brain damage, not elsewhere classified; E87.6 Hypokalemia; L89.150 Pressure ulcer of sacral region, unstageable; E78.5 Hyperlipidemia, unspecified; L89.890 Pressure ulcer of other site, unstageable; Z68.20 Body mass index [BMI] 20.0-20.9, adult; Z95.0 Presence of cardiac pacemaker; I69.365 Other paralytic syndrome following cerebral infarction, bilateral; Z93.0 Tracheostomy status; Z93.1 Gastrostomy status; Z79.82 Long term (current) use of aspirin; Z79.899 Other long term (current) drug therapy; Z88.1 Allergy status to other antibiotic agents
CPT/HCPCS: 36415; 71010; 74178; 80048; 80053; 81001; 82140; 82805; 82962; 85025; 85027; 85610; 86850; 86900; 86901; 86920; 87040; 87070; 87086; 87205; 93005; 93010; 94760; 96365; 96367; 96375; J1650; J1956; J2270; J2543; J7030; J7040; J7050; J7070; P9016; Q9967

== ENCOUNTER 2017-04-26 06:40 | Inpatient (IN) | payer MEDICAID ==
[2017-04-26] MEDS ORDERED: NACL 0.9% 500 ML 500 ML IV ONE (06:57)
[2017-04-26] MEDS ORDERED: TYLENOL PR STA (06:57)
[2017-04-26] MEDS ORDERED: TYLENOL PR ONE (07:02)
[2017-04-26] MEDS ORDERED: ZOSYN/NS 4.5GM/100ML 4.5 GM/100 ML VIAL IV ONE (07:24)
[2017-04-26] MEDS ORDERED: CLEOCIN 600 MG/50 mL 600 MG/50 ML BAG IV ONE (07:27)
[2017-04-26 07:38] LABS: Basophils % (Auto) 0.3 % (0.0-1.8); Eosinophils % (Auto) 0.2 % (0.0-4.3); Hemoglobin 9.2 gm/dl (11.8-15.2); Mean Corpuscular HGB Conc 31 % (32-34); Mean Corpuscular Hemoglobin 26 pg (28-32); Mean Corpuscular Volume 85 fl (84-94); Platelet Count 275 K/mm3 (140-440); Red Blood Count 3.52 M/mm3 (3.65-5.03); White Blood Count 10.8 K/mm3 (4.5-11.0)
[2017-04-26 07:40] LABS: Red Cell Distribution Width 21.3 % (13.2-15.2)
--- NOTE | 2017-04-26 07:40 | Emergency Department Report ---
ED Fever HPI - General Chief Complaint: Dyspnea/Respdistress Stated Complaint: SEPTIC Time Seen by Provider: 04/26/17 07:01 Source: patient, old records Exam Limitations: clinical condition, physical impairment - History of Present Illness Initial Comments: 46-year-old male with a past medical history of anoxic brain injury with anoxic encephalopathy, quadriplegia, multiple decubitus ulcers, suprapubic catheter, diabetes, hypertension, tracheostomy tube and multiple admissions for sepsis presents to the hospital from [facility] for possible sepsis. Patient presents febrile, tachycardic, and tachypnea. Patient is nonverbal and unable to provide any history of present illness patient's most recent admission here was negative to the . Patient was admitted for sepsis with negative cultures. Patient was treated with clindamycin since previous admission revealed clindamycin sensitive bacteremia/MRSA and patient also required blood transfusion for hemoglobin is 6.7. Patient was treated with Zyvox and clindamycin and clindamycin by mouth with continued upon discharge. ED Review of Systems ROS: Stated complaint: SEPTIC Other details as noted in HPI Comment: Unobtainable due to pts medical conditions ED Past Medical Hx - Past Medical History Hx Hypertension: Yes Hx CVA: Yes Hx Heart Attack/AMI: No Hx Congestive Heart Failure: No Hx Diabetes: Yes Hx Deep Vein Thrombosis: (?) Hx Pulmonary Embolism: No Hx Liver Disease: No Hx Renal Disease: Yes Hx Sickle Cell Disease: No Hx Arthritis: No Hx Seizures: Yes Hx Kidney Stones: No Hx Asthma: No Hx COPD: Yes Hx Tuberculosis: No Hx Dementia: Yes Additional medical history: Resp failure, dysphagia, uti, scrotal cellulitis, quadriplegic - Surgical History Hx Coronary Stent: No Hx Open Heart Surgery: No Hx Pacemaker: No Hx Internal Defibrillator: No Hx Cholecystectomy: No Hx Appendectomy: No Hx Breast Surgery: No Additional Surgical History: G-tube, - Social History Smoking Status: Unknown if ever smoked - Medications Home Medications: Home Medications Medication Instructions Recorded Confirmed Last Taken Type Aspirin [Aspirin BABY CHEW TAB] 81 mg PO QDAY #30 tab.chew 12/10/16 04/26/17 Unknown Rx AtorvaSTATin [Lipitor] 10 mg PO QHS #30 tablet 12/10/16 04/26/17 Unknown Rx Fluconazole [Diflucan TAB] 100 mg PO QDAY #7 tablet 02/27/17 04/26/17 Unknown Rx Potassium Chloride 10 meq PO DAILY #7 capsule.er 02/27/17 04/26/17 Unknown Rx Acetaminophen [Acetaminophen TAB] 650 mg FEEDTUBE Q4H PRN #30 04/15/17 Unknown Rx Ascorbic Acid [Vitamin C] 500 mg PO DAILY #30 04/15/17 04/26/17 Unknown Rx Clindamycin [Clindamycin CAP] 300 mg FEEDTUBE Q8H #7 day 04/15/17 04/26/17 Unknown Rx Famotidine [Pepcid] 20 mg FEEDTUBE BID #60 04/15/17 04/26/17 Unknown Rx Glycopyrrolate [Robinul] 1 mg FEEDTUBE TID PRN #30 04/15/17 04/26/17 Unknown Rx Ipratropium/Albuterol Sulfate 1 ampul IH Q6HR #30 04/15/17 04/26/17 Unknown Rx [Duoneb 0.5 mg-3 mg/3 ml Soln] Linezolid [Zyvox] 600 mg PO Q12HR #14 tablet 04/15/17 04/26/17 Unknown Rx Multivit with Min #53/FA/K/Q10 1 each PO DAILY #30 04/15/17 04/26/17 Unknown Rx [Dekas Plus Softgel] Protein Supplement [Promod] 30 ml FEEDTUBE TID #30 04/15/17 04/26/17 Unknown Rx Scopolamine [Transderm-Scop] 1.5 mg TD Q3D #30 04/15/17 04/26/17 Unknown Rx amLODIPine [Norvasc] 5 mg FEEDTUBE QDAY #30 tablet 04/15/17 04/26/17 08/17/16 Rx ED Physical Exam - General Limitations: Language Barrier, Altered Mental Status, Physical Limitation - Other Other exam information: General: Limited physical condition Head exam: Atraumatic, normocephalic Eyes exam: Normal appearance ENT: Moist mucous membrane Neck exam: Tracheostomy Respiratory exam: Bilateral rhonchi Cardiovascular: Tachycardic irregular rhythm Abdomen: Soft, nondistended, and nontender, + peg tube. Suprapubic catheter Extremity: Chronic limb contractions and quadriplegia Back: Normal Inspection Neurologic: Alert, quadriplegia with chronic contractures of extremities, nonverbal Skin: Multiple decubiti ED Course Vital Signs 04/26/17 04/26/17 04/26/17 06:53 08:37 08:38 Temperature 101.4 F H Pulse Rate 121 H Respiratory 31 H 37 H Rate Blood Pressure 126/66 O2 Sat by Pulse 99 100 Oximetry O2 Sat by Pulse 99 Oximetry [ Assessment] 04/26/17 08:41 Temperature Pulse Rate Respiratory Rate Blood Pressure O2 Sat by Pulse 99 Oximetry O2 Sat by Pulse Oximetry [ Assessment] - Reevaluation(s) Reevaluation #1: 04/26/17 08:02 Tylenol, normal saline, Zosyn and clindamycin ordered ED Medical Decision Making - Lab Data Result diagrams: 04/26/17 07:25 04/26/17 07:25 Lab Results 04/26/17 04/26/17 04/26/17 Range/Units 07:25 07:25 07:25 WBC 10.8 (4.5-11.0) K/mm3 RBC 3.52 L (3.65-5.03) M/mm3 Hgb 9.2 L (11.8-15.2) gm/dl Hct 30.0 L (35.5-45.6) % MCV 85 (84-94) fl MCH 26 L (28-32) pg MCHC 31 L (32-34) % RDW 21.3 H (13.2-15.2) % Plt Count 275 (140-440) K/mm3 Lymph % (Auto) 20.9 (13.4-35.0) % [place] % (Auto) 7.5 H (0.0-7.3) % Eos % (Auto) 0.2 (0.0-4.3) % Baso % (Auto) 0.3 (0.0-1.8) % Lymph # 2.3 (1.2-5.4) K/mm3 [place] # 0.8 (0.0-0.8) K/mm3 Eos # 0.0 (0.0-0.4) K/mm3 Baso # 0.0 (0.0-0.1) K/mm3 Seg Neutrophils % 71.1 H (40.0-70.0) % Seg Neutrophils # 7.6 (1.8-7.7) K/mm3 PT 15.7 H (12.2-14.9) Sec. INR 1.26 H (0.87-1.13) VBG pH (7.320-7.420) Sodium 143 (137-145) mmol/L Potassium 3.5 L (3.6-5.0) mmol/L Chloride 107.0 (98-107) mmol/L Carbon Dioxide 27 (22-30) mmol/L Anion Gap 13 mmol/L BUN 20 (9-20) mg/dL Creatinine 0.5 L (0.8-1.5) mg/dL Estimated GFR > 60 ml/min BUN/Creatinine Ratio 40.00 % Glucose 103 H (75-100) mg/dL Lactic Acid (0.7-2.0) mmol/L Calcium 7.9 L (8.4-10.2) mg/dL Total Bilirubin 0.30 (0.1-1.2) mg/dL AST 30 (5-40) units/L ALT 18 (7-56) units/L Alkaline Phosphatase 132 H (35-129) units/L Total Protein 8.5 H (6.3-8.2) g/dL Albumin 1.8 L (3.9-5) g/dL Albumin/Globulin Ratio 0.3 % 04/26/17/03/09 Range/Units 07:25 07:25 WBC (4.5-11.0) K/mm3 RBC (3.65-5.03) M/mm3 Hgb (11.8-15.2) gm/dl Hct (35.5-45.6) % MCV (84-94) fl MCH (28-32) pg MCHC (32-34) % RDW (13.2-15.2) % Plt Count (140-440) K/mm3 Lymph % (Auto) (13.4-35.0) % [place] % (Auto) (0.0-7.3) % Eos % (Auto) (0.0-4.3) % Baso % (Auto) (0.0-1.8) % Lymph # (1.2-5.4) K/mm3 [place] # (0.0-0.8) K/mm3 Eos # (0.0-0.4) K/mm3 Baso # (0.0-0.1) K/mm3 Seg Neutrophils % (40.0-70.0) % Seg Neutrophils # (1.8-7.7) K/mm3 PT (12.2-14.9) Sec. INR (0.87-1.13) VBG pH 7.431 H (7.320-7.420) Sodium (137-145) mmol/L Potassium (3.6-5.0) mmol/L Chloride (98-107) mmol/L Carbon Dioxide (22-30) mmol/L Anion Gap mmol/L BUN (9-20) mg/dL Creatinine (0.8-1.5) mg/dL Estimated GFR ml/min BUN/Creatinine Ratio % Glucose (75-100) mg/dL Lactic Acid 1.20 (0.7-2.0) mmol/L Calcium (8.4-10.2) mg/dL Total Bilirubin (0.1-1.2) mg/dL AST (5-40) units/L ALT (7-56) units/L Alkaline Phosphatase (35-129) units/L Total Protein (6.3-8.2) g/dL Albumin (3.9-5) g/dL Albumin/Globulin Ratio % - EKG Data -: EKG Interpreted by Me (sinsus tach 108, no stemi) - Radiology Data Radiology results: report reviewed (chest x-ray: Worsening airspace disease and volume loss of the right lung likely represents they should infiltrate and atelectasis. Right pleural effusion is not excluded) - Medical Decision Making Plan to admit patient to the hospital for sepsis. Patient received clindamycin and Zosyn in the ED. Chest x-ray suggests possibility of infiltrate. UA collection pending at disposition. Tylenol and IV fluids also initiated - Differential Diagnosis pneumonia, infected decubiti, UTI, sepsis Critical Care Time: No Critical care attestation.: If time is entered above; I have spent that time in minutes in the direct care of this critically ill patient, excluding procedure time. ED Disposition Clinical Impression: Tracheostomy dependent, Quadriplegia, Decubitus ulcers, Pneumonia, Sepsis syndrome, Anemia Disposition: OP ADMITTED IP TO THIS HOSP Is pt being admited?: Yes Condition: Stable Referrals: PRIMARY CARE, [Primary Care Provider] - 3-5 Days Time of Disposition: 08:13 (Hospitalist)
[2017-04-26 07:47] LABS: INR 1.26 (0.87-1.13)
[2017-04-26 07:58] LABS: Alanine Aminotransferase 18 units/L (7-56); Albumin 1.8 g/dL (3.9-5); Albumin/Globulin Ratio 0.3 %; Alkaline Phosphatase 132 units/L (35-129); Anion Gap 13 mmol/L; Blood Urea Nitrogen 20 mg/dL (9-20); Calcium 7.9 mg/dL (8.4-10.2); Carbon Dioxide 27 mmol/L (22-30); Glucose 103 mg/dL (75-100); Potassium 3.5 mmol/L (3.6-5.0); Sodium 143 mmol/L (137-145); Total Protein 8.5 g/dL (6.3-8.2)
--- NOTE | 2017-04-26 08:01 | XRay Report ---
FINAL REPORT EXAM: XR CHEST 1V AP HISTORY: possible Sepsis. patient could not respond to verbal command and body habitus did not give him the ability to move. right arm draw close to chest. tried to move arm but limited movement/ best images possible. images left and right and apex of lungs TECHNIQUE: Chest, AP PRIORS: 02/21/2017. FINDINGS: Radiograph is limited by prominent rotation of the patient. As compared to the prior study, there is further right hemithoracic volume loss. There is airspace disease within the right lung which likely represents combination of atelectasis and infiltrate. The left lung is clear. There is no pneumothorax. I cannot exclude a pleural effusion on the right side. There is a tracheostomy tube which appears acceptably position. IMPRESSION: Worsened airspace disease in volume loss of the right lung. Findings likely represent a combination of infiltrate and atelectasis. Right pleural effusion is not excluded.
[2017-04-26] MEDS ORDERED: TYLENOL ONE (08:20)
[2017-04-26] MEDS ORDERED: TYLENOL FEEDTUBE ONE (08:32)
[2017-04-26 09:03] LABS: Bacteria,Urine 2+ /HPF (Negative); Bilirubin,Urine NEG (Negative); Blood,Urine NEG (Negative); Ketones,Urine NEG (Negative); Leukocyte Esterase,Urine LG (Negative); Mucus,Urine 2+ /HPF; Nitrite,Urine NEG (Negative)
[2017-04-26] MEDS ORDERED: MILK OF MAGNESIA PO PRN (10:02)
[2017-04-26] MEDS ORDERED: MORPHINE IV PRN (10:02)
[2017-04-26] MEDS ORDERED: DULCOLAX PR PRN (10:02)
[2017-04-26] MEDS ORDERED: ZOFRAN IV PRN (10:02)
[2017-04-26] MEDS ORDERED: TYLENOL PO PRN (10:02)
[2017-04-26] MEDS ORDERED: D50W (25GM) IV PRN (10:02)
[2017-04-26] MEDS ORDERED: ROBINUL FEEDTUBE PRN (10:07)
[2017-04-26] MEDS ORDERED: TYLENOL FEEDTUBE PRN (10:07)
--- NOTE | 2017-04-26 10:15 | History and Physical Report ---
History of Present Illness Date of examination: 04/26/17 Date of admission: 04/26/17 Chief complaint: Fever History of present illness: 56-year-old -[place] male presented to the ER via EMS from [facility] with fever, respiratory failure. Pt's is non-verbal history obtained from chart and most recent hospital discharge 04/15/17. Pt has multiple and frequent hospital visits for sepsis and respiratory failure with hypoxia. Pt's PMHX of Anoxic brain injury with quadriplegia, aphasia, dysphagia, diabetes 2, hypertension, multiple pressure ulcers, pneumonia, chronic suprapubic catheter, PEG. Patient well known to myself multiple admissions for sepsis from UTI aspiration pneumonia. Decubitus wounds. Patient is so very acutely ill. Patient needs hospice services. Patient is been suffering for a long time. And has progressively gotten worse over the last 3 years. In which she is nonverbal multiple decubitus wounds chronic aspiration pneumonia chronic recurrent UTI. Chronically debilitated and quadriplegic. Unresponsive nonverbal such poor quality of life. Overall prognosis remains extremely poor. Past History Past Medical History: diabetes, hypertension, stroke (Anoxic Brain Injury) Past Surgical History: No surgical history, Other (Tracheostomy, PEG, Suprapubic Catheter) Social history: single, full code. denies: smoking, alcohol abuse Family history: other (unobtainable, Pt nonverbal) Medications and Allergies Allergies Allergy/AdvReac Type Severity Reaction Status Date / Time vancomycin Allergy Unknown Verified 02/21/17 09:16 Home Medications Medication Instructions Recorded Confirmed Last Taken Type Aspirin [Aspirin BABY CHEW TAB] 81 mg PO QDAY #30 tab.chew 12/10/16 04/26/17 Unknown Rx AtorvaSTATin [Lipitor] 10 mg PO QHS #30 tablet 12/10/16 04/26/17 Unknown Rx Fluconazole [Diflucan TAB] 100 mg PO QDAY #7 tablet 02/27/17 04/26/17 Unknown Rx Potassium Chloride 10 meq PO DAILY #7 capsule.er 02/27/17 04/26/17 Unknown Rx Acetaminophen [Acetaminophen TAB] 650 mg FEEDTUBE Q4H PRN #30 04/15/17 Unknown Rx Ascorbic Acid [Vitamin C] 500 mg PO DAILY #30 04/15/17 04/26/17 Unknown Rx Clindamycin [Clindamycin CAP] 300 mg FEEDTUBE Q8H #7 day 04/15/17 04/26/17 Unknown Rx Famotidine [Pepcid] 20 mg FEEDTUBE BID #60 04/15/17 04/26/17 Unknown Rx Glycopyrrolate [Robinul] 1 mg FEEDTUBE TID PRN #30 04/15/17 04/26/17 Unknown Rx Ipratropium/Albuterol Sulfate 1 ampul IH Q6HR #30 04/15/17 04/26/17 Unknown Rx [Duoneb 0.5 mg-3 mg/3 ml Soln] Linezolid [Zyvox] 600 mg PO Q12HR #14 tablet 04/15/17 04/26/17 Unknown Rx Multivit with Min #53/FA/K/Q10 1 each PO DAILY #30 04/15/17 04/26/17 Unknown Rx [Dekas Plus Softgel] Protein Supplement [Promod] 30 ml FEEDTUBE TID #30 04/15/17 04/26/17 Unknown Rx Scopolamine [Transderm-Scop] 1.5 mg TD Q3D #30 04/15/17 04/26/17 Unknown Rx amLODIPine [Norvasc] 5 mg FEEDTUBE QDAY #30 tablet 04/15/17 04/26/17 08/17/16 Rx Review of Systems ROS unobtainable: due to endotracheal tube, due to mental status Exam - Constitutional Vitals: Temp Pulse Resp BP Pulse Ox 101.4 F H 121 H 37 H 126/66 99 04/26/17 06:53 04/26/17 06:53 04/26/17 08:38 04/26/17 06:53 04/26/17 08:41 General appearance: Present: mild distress, other (Mal-nourished) - EENT Eyes: Present: PERRL ENT: poor dentition, edentulous - Neck Neck: Present: rigidity - Respiratory Respiratory effort: labored Respiratory: bilateral: CTA - Cardiovascular Rhythm: regular Heart Sounds: Present: S1 & S2. Absent: rub, click - Extremities Extremities: abnormal Extremity abnormal: edema (B/L pedal +4), ulceration, other (multiple decubitus wounds sacrum heels different stage of healing) Peripheral Pulses: within normal limits - Abdominal General gastrointestinal: Present: soft, non-tender, non-distended, normal bowel sounds, other (PEG tube area functional no evidence of infection.) - Integumentary Integumentary: Present: warm, dry, decreased turgor - Musculoskeletal Musculoskeletal: generalized weakness, other (B/L upper extremeties and B/L lower extremeties contractures) - Psychiatric Psychiatric: other (unobtainable ) - Neurologic Neurologic: focal deficits (B/L upper extremeties and B/L lower extremeties contractures) - Allied Health Allied health notes reviewed: nursing Results - Labs CBC & Chem 7: 04/26/17 07:25 04/26/17 07:25 Labs: Laboratory Last Values WBC 10.8 K/mm3 (4.5-11.0) 04/26/17 07:25 RBC 3.52 M/mm3 (3.65-5.03) L 04/26/17 07:25 Hgb 9.2 gm/dl (11.8-15.2) L 04/26/17 07:25 Hct 30.0 % (35.5-45.6) L 04/26/17 07:25 MCV 85 fl (84-94) 04/26/17 07:25 MCH 26 pg (28-32) L 04/26/17 07:25 MCHC 31 % (32-34) L 04/26/17 07:25 RDW 21.3 % (13.2-15.2) H 04/26/17 07:25 Plt Count 275 K/mm3 (140-440) 04/26/17 07:25 Lymph % (Auto) 20.9 % (13.4-35.0) 04/26/17 07:25 [place] % (Auto) 7.5 % (0.0-7.3) H 04/26/17 07:25 Eos % (Auto) 0.2 % (0.0-4.3) 04/26/17 07:25 Baso % (Auto) 0.3 % (0.0-1.8) 04/26/17 07:25 Lymph # 2.3 K/mm3 (1.2-5.4) 04/26/17 07:25 [place] # 0.8 K/mm3 (0.0-0.8) 04/26/17 07:25 Eos # 0.0 K/mm3 (0.0-0.4) 04/26/17 07:25 Baso # 0.0 K/mm3 (0.0-0.1) 04/26/17 07:25 Seg Neutrophils % 71.1 % (40.0-70.0) H 04/26/17 07:25 Seg Neutrophils # 7.6 K/mm3 (1.8-7.7) 04/26/17 07:25 PT 15.7 Sec. (12.2-14.9) H 04/26/17 07:25 INR 1.26 (0.87-1.13) H 04/26/17 07:25 VBG pH 7.431 (7.320-7.420) H 04/26/17 07:25 Sodium 143 mmol/L (137-145) 04/26/17 07:25 Potassium 3.5 mmol/L (3.6-5.0) L 04/26/17 07:25 Chloride 107.0 mmol/L (98-107) 04/26/17 07:25 Carbon Dioxide 27 mmol/L (22-30) 04/26/17 07:25 Anion Gap 13 mmol/L 04/26/17 07:25 BUN 20 mg/dL (9-20) 04/26/17 07:25 Creatinine 0.5 mg/dL (0.8-1.5) L 04/26/17 07:25 Estimated GFR > 60 ml/min 04/26/17 07:25 BUN/Creatinine Ratio 40.00 % 04/26/17 07:25 Glucose 103 mg/dL (75-100) H 04/26/17 07:25 Lactic Acid 1.20 mmol/L (0.7-2.0) 04/26/17 07:25 Calcium 7.9 mg/dL (8.4-10.2) L 04/26/17 07:25 Total Bilirubin 0.30 mg/dL (0.1-1.2) 04/26/17 07:25 AST 30 units/L (5-40) 04/26/17 07:25 ALT 18 units/L (7-56) 04/26/17 07:25 Alkaline Phosphatase 132 units/L (35-129) H 04/26/17 07:25 Total Protein 8.5 g/dL (6.3-8.2) H 04/26/17 07:25 Albumin 1.8 g/dL (3.9-5) L 04/26/17 07:25 Albumin/Globulin Ratio 0.3 % 04/26/17 07:25 Urine Color Yellow (Yellow) 04/26/17 Unknown Urine Turbidity Cloudy (Clear) 04/26/17 Unknown Urine pH 6.0 (5.0-7.0) 04/26/17 Unknown Ur Specific [place] 1.028 (1.003-1.030) 04/26/17 Unknown Urine Protein 100 mg/dl mg/dL (Negative) 04/26/17 Unknown Urine Glucose (UA) Neg mg/dL (Negative) 04/26/17 Unknown Urine Ketones Neg mg/dL (Negative) 04/26/17 Unknown Urine Blood Neg (Negative) 04/26/17 Unknown Urine Nitrite Neg (Negative) 04/26/17 Unknown Urine Bilirubin Neg (Negative) 04/26/17 Unknown Urine Urobilinogen 2.0 mg/dL (<2.0) 04/26/17 Unknown Ur Leukocyte Esterase Lg (Negative) 04/26/17 Unknown Urine WBC (Auto) 164.0 /HPF (0.0-6.0) H 04/26/17 Unknown Urine RBC (Auto) 22.0 /HPF (0.0-6.0) 04/26/17 Unknown U Epithel Cells (Auto) < 1.0 /HPF (0-13.0) 04/26/17 Unknown Urine Bacteria (Auto) 2+ /HPF (Negative) 04/26/17 Unknown Calcium Oxalate Crystal 1+ 04/26/17 Unknown Urine Mucus 2+ /HPF 04/26/17 Unknown Urine Yeast (Budding) 2+ /HPF 04/26/17 Unknown - Imaging and Cardiology Chest x-ray: image reviewed (Chest x-ray showed Right lung infiltrate and atelectasis. Possible Right pleural effusion) Assessment and Plan Assessment and plan: 56-year-old -[place] male presented to the ER via EMS from [facility] with fever, respiratory failure. Pt's is non- verbal history obtained from chart and most recent hospital discharge 04/15/17. Pt has multiple and frequent hospital visits for sepsis and respiratory failure with hypoxia. Pt's PMHX of Anoxic brain injury with quadriplegia, aphasia, dysphagia, diabetes 2, hypertension, multiple pressure ulcers, pneumonia, chronic suprapubic catheter, PEG. 1. Sepsis- Due to multifactoral of metabolic acidosis, UTI, pneumonia, and multiple ulcers- Blood cultures and lactic acid ordered, IV Antibiotics started , Chest x-ray obtained, resuscitation IVFs, 2. Respiratory failure with hypoxemia- ABGs, Oxygen supplement, Follow up Chest x-ray, IV Antibiotics 3. Aspiration pneumonia- Chest x-ray obtained in the ED, antibiotics ordered, oxygen supplement, aspiration precautions, 4. Dehydration - continue NS IV fluids hydration and will follow up on labs 5. Malnutrition- consult dietitian 6. Hypokalemia - replete potassium and will recheck levels 7. DM 2- monitor Accu-Cheks and insulin sliding scale ordered 8. Hypertension - home meds on hold due to sepsis 9. Multiple pressure ulcers- wound care consult 10. DVT prophylaxis -Lovenox ordered Advance Directives: Yes VTE prophylaxis?: Chemical Plan of care discussed with patient/family: Yes - Patient Problems (1) Decubitus ulcers Current Visit: Yes Status: Acute Qualifiers: Pressure ulcer location: P Pressure ulcer stage: stage 3 Laterality: L Plan to address problem: Alterable decubitus ulcer in different stages of healing. Has not been able to he'll secondary to shearing forces, soiled urine and feces., Malnutrition, bed ridden, recurrent infections and pneumonia. (2) Pneumonia Current Visit: Yes Status: Acute Qualifiers: Pneumonia type: P Aspiration pneumonia type: A Laterality: L Lung location: L Plan to address problem: She will recurrent aspiration pneumonia multifactorial. Mostly hospital associated pneumonia. Patient was just here the 24th. Recurrent episodes and hospitalizations for aspiration pneumonia and poly-resistant UTI. Patient did have a recent episode where he had staph that was sensitive to clindamycin. Patient is been on clindamycin since the last hospital stay and still returns with infection. Would not be to stop patient's aspiration. He has chronic oral secretions that has not been able to be control with scopolamine patch and Robinul. (3) Quadriplegia Current Visit: Yes Status: Acute Plan to address problem: Such poor quality of life [address] over to the other leg would chronic contractures quadriplegia has been that way for years now. (4) Sepsis syndrome Current Visit: Yes Status: Acute Plan to address problem: Current sepsis syndrome multifactorial as mentioned above. (5) Tracheostomy dependent Current Visit: Yes Status: Acute Plan to address problem: Rate dependent for chronic respiratory failure. Unable to wean patient. Poor quality of life. Recent culture for trach infection was negative. (6) Anemia Current Visit: Yes Status: Chronic Qualifiers: Anemia type: A Iron deficiency anemia type: I Vitamin B12 deficiency anemia type: V Folate deficiency anemia type: F Bone marrow failure anemia type: B Hemolytic anemia type: H Other causes of anemia: O Plan to address problem: Anemia of chronic disease multifactorial. (7) NANDA (acute kidney injury) Current Visit: No Status: Acute Plan to address problem: Acute on chronic kidney injury secondary to infection sepsis recurrent UTI. Indwelling Guevara catheter. (8) Acute UTI (urinary tract infection) Current Visit: No Status: Acute Plan to address problem: Current UTI indwelling Guevara catheter multiresistant infections. (9) Acute on chronic respiratory failure with hypoxemia Current Visit: No Status: Acute (10) Aspiration pneumonia Current Visit: No Status: Acute Qualifiers: Aspiration pneumonia type: due to regurgitated food Laterality: right Lung location: lower lobe of lung Qualified Code(s): J69.0 - Pneumonitis due to inhalation of food and vomit Plan to address problem: Aspiration pneumonia as mentioned previously in pneumonia. We'll cover with Zosyn and Levaquin. Patient is allergic to vancomycin. (11) MRSA (methicillin resistant Staphylococcus aureus) septicemia Current Visit: No Status: Acute (12) Anoxic brain injury Current Visit: No Status: Chronic Plan to address problem: Anoxic brain injury unable to maintain nutritional needs. Has PEG tube feedings. But aspirates. Would not be a to stop the aspiration from secretions and or PEG tube feedings. Patient will not tolerate a higher 2. (13) Seizure Current Visit: No Status: Chronic Qualifiers: Convulsion type: C Plan to address problem: Continue anti-composure medicines. (14) Type 2 diabetes mellitus Current Visit: No Status: Chronic Qualifiers: Diabetes mellitus complication status: without complication Diabetes mellitus complication detail: D Diabetic retinopathy severity: D Proliferative retinopathy type: P Diabetes mellitus macular edema: D Diabetes mellitus medical lab assistant insulin use: D Laterality: L Chronic kidney disease stage: C Plan to address problem: Will cover with sliding-scale insulin for now Accu-Cheks every 6 hours.
[2017-04-26] MEDS ORDERED: NACL 0.9% 1000 ML 1,000 ML IV SCH (11:00)
[2017-04-26] MEDS ORDERED: DUONEB 0.5 MG-3 MG/3 ML SOLN IH SCH (12:00)
[2017-04-26] MEDS: LOVENOX SUB-Q SCH (12:25)
[2017-04-26] MEDS: TRANSDERM-SCOP TD SCH (12:25)
[2017-04-26] MEDS: DUONEB 0.5 MG-3 MG/3 ML SOLN IH SCH ×2 (13:30→19:31)
[2017-04-26] MEDS: CLEOCIN FEEDTUBE SCH ×2 (13:55→20:05)
[2017-04-26] MEDS: ZOSYN/NS 4.5GM/100ML 4.5 GM/100 ML VIAL IV SCH ×2 (14:30→23:12)
[2017-04-26] MEDS ORDERED: PANCREAZE DR 10,500 UNIT FEEDTUBE PRN (18:29)
[2017-04-26] MEDS ORDERED: SODIUM BICARBONATE FEEDTUBE PRN (18:29)
[2017-04-26] MEDS ORDERED: SIMPLE SYRUP FEEDTUBE PRN ×2 (18:29)
[2017-04-26] MEDS: NOVOLOG SUB-Q SCH (23:00)
[2017-04-26] MEDS: PEPCID IV SCH (23:12)
[2017-04-26] MEDS: ZYVOX PO SCH (23:13)
[2017-04-26] MEDS: NACL 0.9% 1000 ML 1,000 ML IV SCH (23:37)
[2017-04-27] MEDS: DUONEB 0.5 MG-3 MG/3 ML SOLN IH SCH ×4 (02:09→20:36)
[2017-04-27] MEDS: ZOSYN/NS 4.5GM/100ML 4.5 GM/100 ML VIAL IV SCH ×4 (02:45→21:16)
[2017-04-27] MEDS: CLEOCIN FEEDTUBE SCH ×3 (04:05→20:54)
--- NOTE | 2017-04-27 09:31 | Admit Criteria Form ---
Admission Criteria Documentation: SEPSIS and OTHER FEBRILE ILLNESS, W/O FOCAL INFECTION Clinical Indications for Admission to Inpatient Care ( Place 'X' for any and all applicable criteria): Admission is indicated for ANY ONE of the following (1)(2)(3)(4): [ ] I. Bacteremia [ ]II. Suspected or identified specific infection requiring hospitalization (eg, meningitis, endocarditis) [ ]III. Hemodynamic instability [ ]IV. Altered mental status [ ]V. Failure or unavailability of outpatient antimicrobial treatment [ ]. Hypoxemia [ ]VII. Seizures [ ]VIII. High-risk febrile neutropenia [ ]IX. Need for parenteral antibiotic in patient who is likely to abuse vascular access device (eg, injection drug user) [A](7) [ ]X. Temperature greater than 104.9 degrees F (40.5 degrees C) (oral) [X]XI. Inpatient admission required rather than observation care because of ANY ONE of the following: [X]1) Specific infection identified that is too severe for outpatient treatment or observation care trial [ ]2) Metabolic disorder (eg, hypoglycemia, hyperglycemia, metabolic acidosis) that is severe or persistent [ ]3) Temperature greater than 103.1 degrees F (39.5 degrees C) ( oral) that is not responsive to observation care treatment [ ]4) IV fluid to replace significant ongoing (eg, for over 24 hours) losses (> 3 L/m2 per day) [ ]5) Supplemental oxygen or respiratory treatments for over 24 hours that is performable only in acute inpatient setting [ ]6) Parenteral nutrition regimen need that must be implemented on inpatient basis [ ]7) Strict or protective (eg, laminar flow) isolation [X]8) Other condition, treatment or monitoring requiring inpatient admission Extended stay beyond goal length of stay may be needed for(1)(3) [ ]a) Sepsis or septic shock(22) [ ]b) Positive blood cultures [ ]c) Insufficient oral intake [ ]d) High-risk febrile neutropenia(29)(30) [ ]e) Continued fever and clinical instability [ ]f) Clinically active comorbid illness (e.g,heart failure, renal failure , diabetes) The original [facility] content created by Marie Berumen has been revised. The portions of the content which have been revised are identified through the use of italic text or in bold, and [employer] has neither reviewed nor approved the modified material. All other unmodified content is copyright [facility]. Please see references footnoted in the original [facility] edition 2016 Admission Criteria Met: Yes
[2017-04-27] MEDS ORDERED: LOVENOX SUB-Q SCH (10:00)
[2017-04-27] MEDS ORDERED: SODIUM BICARBONATE FEEDTUBE PRN (10:52)
[2017-04-27] MEDS ORDERED: PANCREAZE DR 10,500 UNIT FEEDTUBE PRN (10:52)
[2017-04-27] MEDS ORDERED: SIMPLE SYRUP FEEDTUBE PRN ×2 (10:52)
[2017-04-27] MEDS: BABY ASPIRIN PO SCH (13:22)
[2017-04-27] MEDS: PEPCID IV SCH ×2 (13:24→21:18)
[2017-04-27] MEDS: ZYVOX PO SCH ×2 (13:24→21:21)
[2017-04-27] MEDS: LOVENOX SUB-Q SCH (13:25)
[2017-04-27] MEDS: DIFLUCAN PO SCH (13:25)
--- NOTE | 2017-04-27 18:11 | Progress Note ---
Assessment and Plan Assessment and plan: 56-year-old -Citizen Of The [place] male presented to the ER via EMS from [facility] with fever, respiratory failure. Pt's is non- verbal history obtained from chart and most recent hospital discharge 04/15/17. Pt has multiple and frequent hospital visits for sepsis and respiratory failure with hypoxia. Pt's PMHX of Anoxic brain injury with quadriplegia, aphasia, dysphagia, diabetes 2, hypertension, multiple pressure ulcers, pneumonia, chronic suprapubic catheter, PEG. 1. Sepsis- Due to multifactoral of metabolic acidosis, UTI, pneumonia, and multiple ulcers- Blood cultures and lactic acid ordered, IV Antibiotics started , Chest x-ray obtained, resuscitation IVFs, 2. Respiratory failure with hypoxemia- ABGs, Oxygen supplement, Follow up Chest x-ray, IV Antibiotics 3. Aspiration pneumonia- Chest x-ray obtained in the ED, antibiotics ordered, oxygen supplement, aspiration precautions, 4. Dehydration - continue NS IV fluids hydration and will follow up on labs 5. Malnutrition- consult dietitian 6. Hypokalemia - replete potassium and will recheck levels 7. DM 2- monitor Accu-Cheks and insulin sliding scale ordered 8. Hypertension - home meds on hold due to sepsis 9. Multiple pressure ulcers- wound care consult 10. DVT prophylaxis -Lovenox ordered - Patient Problems (1) Decubitus ulcers Current Visit: Yes Status: Acute Qualifiers: Pressure ulcer location: P Pressure ulcer stage: stage 3 Laterality: L Plan to address problem: Alterable decubitus ulcer in different stages of healing. Has not been able to he'll secondary to shearing forces, soiled urine and feces., Malnutrition, bed ridden, recurrent infections and pneumonia. (2) Pneumonia Current Visit: Yes Status: Acute Qualifiers: Pneumonia type: P Aspiration pneumonia type: A Laterality: L Lung location: L Plan to address problem: Patient appears to have aspiration pneumonia. Patient tried to aspirate, gram- negative rods. Patient's being treated currently empirically for gram-negative rods. We'll continue current antibiotic coverage follow culture data. Nebulizers oxygenation and oxygen (3) Quadriplegia Current Visit: Yes Status: Acute Plan to address problem: Such poor quality of life [address] over to the other leg would chronic contractures quadriplegia has been that way for years now. (4) Sepsis syndrome Current Visit: Yes Status: Acute Plan to address problem: Sepsis syndrome multifactorial UTI and aspiration pneumonia. Patient has recurrent aspiration. Recurrent UTIs. Appears to have gram-negative alison of ventricular aspirin now would treat for this. Titrate our antibiotics according to culture data. (5) Tracheostomy dependent Current Visit: Yes Status: Acute Plan to address problem: Rate dependent for chronic respiratory failure. Unable to wean patient. Poor quality of life. Recent culture for trach infection was negative. (6) Anemia Current Visit: Yes Status: Chronic Qualifiers: Anemia type: A Iron deficiency anemia type: I Vitamin B12 deficiency anemia type: V Folate deficiency anemia type: F Bone marrow failure anemia type: B Hemolytic anemia type: H Other causes of anemia: O Plan to address problem: Anemia of chronic disease multifactorial. (7) NANDA (acute kidney injury) Current Visit: No Status: Acute Plan to address problem: is acute on chronic kidney failure. We'll treat with RV volume hydration. Hold nephrotoxic agents. (8) Acute UTI (urinary tract infection) Current Visit: No Status: Acute Plan to address problem: Current UTI indwelling Guevara catheter multiresistant infections. (9) Acute on chronic respiratory failure with hypoxemia Current Visit: No Status: Acute (10) Aspiration pneumonia Current Visit: No Status: Acute Qualifiers: Aspiration pneumonia type: due to regurgitated food Laterality: right Lung location: lower lobe of lung Qualified Code(s): J69.0 - Pneumonitis due to inhalation of food and vomit Plan to address problem: Aspiration pneumonia as mentioned previously in pneumonia. We'll cover with Zosyn and Levaquin. Patient is allergic to vancomycin. (11) MRSA (methicillin resistant Staphylococcus aureus) septicemia Current Visit: No Status: Acute (12) Anoxic brain injury Current Visit: No Status: Chronic Plan to address problem: Patient has history of anoxic brain injury cannot make needs known. Mood has been stable. (13) Seizure Current Visit: No Status: Chronic Qualifiers: Convulsion type: C Plan to address problem: No active seizures at this particular time or continue AED medications. Does have higher risk of seizure. (14) Type 2 diabetes mellitus Current Visit: No Status: Chronic Qualifiers: Diabetes mellitus complication status: without complication Diabetes mellitus complication detail: D Diabetic retinopathy severity: D Proliferative retinopathy type: P Diabetes mellitus macular edema: D Diabetes mellitus [facility] insulin use: D Laterality: L Chronic kidney disease stage: C Plan to address problem: He should continues to have up control of his blood glucose now. Accu-Cheks 80- 114. History Interval history: Patient remains nonverbal will track with us. Patient will go to me. Actually look much more encephalopathic than he does now. In this state patient appears to be awake. Has been nonverbal chronically for long-term. Hospitalist Physical - Constitutional Vitals: Temp Pulse Resp BP Pulse Ox 99.1 F 92 H 20 124/80 100 04/27/17 16:00 04/27/17 16:00 04/27/17 16:00 04/27/17 16:00 04/27/17 17:05 General appearance: Present: no acute distress, other (Mal-nourished) - EENT Eyes: Present: PERRL, EOM intact, conjunctival injection ENT: hearing intact, clear oral mucosa, dentition normal, hearing decreased, poor dentition, ulcerations - Neck Neck: Present: supple, other (quadriplegic neck Fixed) - Respiratory Respiratory: bilateral: rales, rhonchi - Cardiovascular Rhythm: regular (tachycardic) Heart Sounds: Present: S1 & S2 - Extremities Extremities: no ischemia, pulses intact, No edema Extremity abnormal: other (abdomen normal range of motion decreased pulses decubitus ulcers different stages of healing) Peripheral Pulses: abnormal - Abdominal General gastrointestinal: soft, non-distended, other (PEG no evidence of infection.) - Psychiatric Psychiatric: other (chronically encephalopathic. Nonverbal. Unable to make needs known.) - Neurologic Neurologic: focal deficits, other (quadriplegia dense hemiparesis) Results - Labs CBC & Chem 7: 04/26/17 07:25 04/26/17 07:25 Labs: Laboratory Last Values WBC 10.8 K/mm3 (4.5-11.0) 04/26/17 07:25 RBC 3.52 M/mm3 (3.65-5.03) L 04/26/17 07:25 Hgb 9.2 gm/dl (11.8-15.2) L 04/26/17 07:25 Hct 30.0 % (35.5-45.6) L 04/26/17 07:25 MCV 85 fl (84-94) 04/26/17 07:25 MCH 26 pg (28-32) L 04/26/17 07:25 MCHC 31 % (32-34) L 04/26/17 07:25 RDW 21.3 % (13.2-15.2) H 04/26/17 07:25 Plt Count 275 K/mm3 (140-440) 04/26/17 07:25 Lymph % (Auto) 20.9 % (13.4-35.0) 04/26/17 07:25 [place] % (Auto) 7.5 % (0.0-7.3) H 04/26/17 07:25 Eos % (Auto) 0.2 % (0.0-4.3) 04/26/17 07:25 Baso % (Auto) 0.3 % (0.0-1.8) 04/26/17 07:25 Lymph # 2.3 K/mm3 (1.2-5.4) 04/26/17 07:25 [place] # 0.8 K/mm3 (0.0-0.8) 04/26/17 07:25 Eos # 0.0 K/mm3 (0.0-0.4) 04/26/17 07:25 Baso # 0.0 K/mm3 (0.0-0.1) 04/26/17 07:25 Seg Neutrophils % 71.1 % (40.0-70.0) H 04/26/17 07:25 Seg Neutrophils # 7.6 K/mm3 (1.8-7.7) 04/26/17 07:25 PT 15.7 Sec. (12.2-14.9) H 04/26/17 07:25 INR 1.26 (0.87-1.13) H 04/26/17 07:25 VBG pH 7.431 (7.320-7.420) H 04/26/17 07:25 Sodium 143 mmol/L (137-145) 04/26/17 07:25 Potassium 3.5 mmol/L (3.6-5.0) L 04/26/17 07:25 Chloride 107.0 mmol/L (98-107) 04/26/17 07:25 Carbon Dioxide 27 mmol/L (22-30) 04/26/17 07:25 Anion Gap 13 mmol/L 04/26/17 07:25 BUN 20 mg/dL (9-20) 04/26/17 07:25 Creatinine 0.5 mg/dL (0.8-1.5) L 04/26/17 07:25 Estimated GFR > 60 ml/min 04/26/17 07:25 BUN/Creatinine Ratio 40.00 % 04/26/17 07:25 Glucose 103 mg/dL (75-100) H 04/26/17 07:25 POC Glucose 93 (70-105) 04/27/17 15:41 Lactic Acid 1.30 mmol/L (0.7-2.0) 04/26/17 09:47 Calcium 7.9 mg/dL (8.4-10.2) L 04/26/17 07:25 Total Bilirubin 0.30 mg/dL (0.1-1.2) 04/26/17 07:25 AST 30 units/L (5-40) 04/26/17 07:25 ALT 18 units/L (7-56) 04/26/17 07:25 Alkaline Phosphatase 132 units/L (35-129) H 04/26/17 07:25 Total Protein 8.5 g/dL (6.3-8.2) H 04/26/17 07:25 Albumin 1.8 g/dL (3.9-5) L 04/26/17 07:25 Albumin/Globulin Ratio 0.3 % 04/26/17 07:25 Urine Color Yellow (Yellow) 04/26/17 Unknown Urine Turbidity Cloudy (Clear) 04/26/17 Unknown Urine pH 6.0 (5.0-7.0) 04/26/17 Unknown Ur Specific [place] 1.028 (1.003-1.030) 04/26/17 Unknown Urine Protein 100 mg/dl mg/dL (Negative) 04/26/17 Unknown Urine Glucose (UA) Neg mg/dL (Negative) 04/26/17 Unknown Urine Ketones Neg mg/dL (Negative) 04/26/17 Unknown Urine Blood Neg (Negative) 04/26/17 Unknown Urine Nitrite Neg (Negative) 04/26/17 Unknown Urine Bilirubin Neg (Negative) 04/26/17 Unknown Urine Urobilinogen 2.0 mg/dL (<2.0) 04/26/17 Unknown Ur Leukocyte Esterase Lg (Negative) 04/26/17 Unknown Urine WBC (Auto) 164.0 /HPF (0.0-6.0) H 04/26/17 Unknown Urine RBC (Auto) 22.0 /HPF (0.0-6.0) 04/26/17 Unknown U Epithel Cells (Auto) < 1.0 /HPF (0-13.0) 04/26/17 Unknown Urine Bacteria (Auto) 2+ /HPF (Negative) 04/26/17 Unknown Calcium Oxalate Crystal 1+ 04/26/17 Unknown Urine Mucus 2+ /HPF 04/26/17 Unknown Urine Yeast (Budding) 2+ /HPF 04/26/17 Unknown
[2017-04-27] MEDS: NACL 0.9% 1000 ML 1,000 ML IV SCH (21:21)
[2017-04-27] MEDS: NOVOLOG SUB-Q SCH (21:25)
[2017-04-28] MEDS: DUONEB 0.5 MG-3 MG/3 ML SOLN IH SCH ×4 (01:21→19:43)
[2017-04-28] MEDS: ZOSYN/NS 4.5GM/100ML 4.5 GM/100 ML VIAL IV SCH ×4 (03:00→21:59)
[2017-04-28] MEDS: CLEOCIN FEEDTUBE SCH ×3 (03:49→19:00)
--- NOTE | 2017-04-28 09:47 | Progress Note ---
Assessment and Plan Assessment and plan: Patient is 56-year-old -[place] male presented to the ER via EMS from [facility] with fever, respiratory failure. Pt is non-verbal history obtained from chart and most recent hospital discharge 04/15/17. Patient has multiple and frequent hospital visits for sepsis and respiratory failure with hypoxia. Pt's PMHX of Anoxic brain injury with quadriplegia, aphasia, dysphagia, diabetes mellitus type 22, hypertension, multiple pressure ulcers, pneumonia, chronic suprapubic catheter, PEG. Sepsis. Likely due to UTI, pneumonia, and multiple ulcers. Blood cultures ordered. Continue Zosyn and Clindamicin. Acute Respiratory failure with hypoxemia- ABGs, Oxygen supplement, Chest x-ray, IV Antibiotics Aspiration pneumonia- Chest x-ray obtained in the ED, antibiotics ordered- Zosyn and Clindamycin, oxygen supplement, aspiration precautions, Dehydration - continue NS IV fluids , rehydration . Recheck BMP in am. Malnutrition- consult dietitian Hypokalemia - replete potassium and will recheck levels in am DM 2- monitor Accu-Cheks and insulin sliding scale ordered Hypertension - home meds on hold due to sepsis. BP normal. Multiple pressure ulcers- wound care consult DVT prophylaxis -Lovenox ordered Code status: Full code status History Interval history: non verbal, fever subsided Hospitalist Physical - Physical exam Narrative exam: Gen: appearance : very ill looking, cachetic HEENT: atraumatic Neck :supple no JVD Lungs: clear to auscultation bilaterally, no crackles, or wheezes Heart:S1 and S2 regular no murmurs no gallop Abdomen soft, nontender, nondistended, normal bowel sounds Extremities: contractures, ulcers Neuro : Awake , - Constitutional Vitals: Temp Pulse Resp BP Pulse Ox 98.1 F 89 18 118/77 100 04/28/17 08:00 04/28/17 08:26 04/28/17 08:26 04/28/17 08:00 04/28/17 08:19 General appearance: Present: no acute distress, other (Mal-nourished) Results - Labs CBC & Chem 7: 04/26/17 07:25 04/26/17 07:25 Labs: Laboratory Last Values WBC 10.8 K/mm3 (4.5-11.0) 04/26/17 07:25 RBC 3.52 M/mm3 (3.65-5.03) L 04/26/17 07:25 Hgb 9.2 gm/dl (11.8-15.2) L 04/26/17 07:25 Hct 30.0 % (35.5-45.6) L 04/26/17 07:25 MCV 85 fl (84-94) 04/26/17 07:25 MCH 26 pg (28-32) L 04/26/17 07:25 MCHC 31 % (32-34) L 04/26/17 07:25 RDW 21.3 % (13.2-15.2) H 04/26/17 07:25 Plt Count 275 K/mm3 (140-440) 04/26/17 07:25 Lymph % (Auto) 20.9 % (13.4-35.0) 04/26/17 07:25 [place] % (Auto) 7.5 % (0.0-7.3) H 04/26/17 07:25 Eos % (Auto) 0.2 % (0.0-4.3) 04/26/17 07:25 Baso % (Auto) 0.3 % (0.0-1.8) 04/26/17 07:25 Lymph # 2.3 K/mm3 (1.2-5.4) 04/26/17 07:25 [place] # 0.8 K/mm3 (0.0-0.8) 04/26/17 07:25 Eos # 0.0 K/mm3 (0.0-0.4) 04/26/17 07:25 Baso # 0.0 K/mm3 (0.0-0.1) 04/26/17 07:25 Seg Neutrophils % 71.1 % (40.0-70.0) H 04/26/17 07:25 Seg Neutrophils # 7.6 K/mm3 (1.8-7.7) 04/26/17 07:25 PT 15.7 Sec. (12.2-14.9) H 04/26/17 07:25 INR 1.26 (0.87-1.13) H 04/26/17 07:25 VBG pH 7.431 (7.320-7.420) H 04/26/17 07:25 Sodium 143 mmol/L (137-145) 04/26/17 07:25 Potassium 3.5 mmol/L (3.6-5.0) L 04/26/17 07:25 Chloride 107.0 mmol/L (98-107) 04/26/17 07:25 Carbon Dioxide 27 mmol/L (22-30) 04/26/17 07:25 Anion Gap 13 mmol/L 04/26/17 07:25 BUN 20 mg/dL (9-20) 04/26/17 07:25 Creatinine 0.5 mg/dL (0.8-1.5) L 04/26/17 07:25 Estimated GFR > 60 ml/min 04/26/17 07:25 BUN/Creatinine Ratio 40.00 % 04/26/17 07:25 Glucose 103 mg/dL (75-100) H 04/26/17 07:25 POC Glucose 85 (70-105) 04/28/17 06:10 Lactic Acid 1.30 mmol/L (0.7-2.0) 04/26/17 09:47 Calcium 7.9 mg/dL (8.4-10.2) L 04/26/17 07:25 Total Bilirubin 0.30 mg/dL (0.1-1.2) 04/26/17 07:25 AST 30 units/L (5-40) 04/26/17 07:25 ALT 18 units/L (7-56) 04/26/17 07:25 Alkaline Phosphatase 132 units/L (35-129) H 04/26/17 07:25 Total Protein 8.5 g/dL (6.3-8.2) H 04/26/17 07:25 Albumin 1.8 g/dL (3.9-5) L 04/26/17 07:25 Albumin/Globulin Ratio 0.3 % 04/26/17 07:25 Urine Color Yellow (Yellow) 04/26/17 Unknown Urine Turbidity Cloudy (Clear) 04/26/17 Unknown Urine pH 6.0 (5.0-7.0) 04/26/17 Unknown Ur Specific [place] 1.028 (1.003-1.030) 04/26/17 Unknown Urine Protein 100 mg/dl mg/dL (Negative) 04/26/17 Unknown Urine Glucose (UA) Neg mg/dL (Negative) 04/26/17 Unknown Urine Ketones Neg mg/dL (Negative) 04/26/17 Unknown Urine Blood Neg (Negative) 04/26/17 Unknown Urine Nitrite Neg (Negative) 04/26/17 Unknown Urine Bilirubin Neg (Negative) 04/26/17 Unknown Urine Urobilinogen 2.0 mg/dL (<2.0) 04/26/17 Unknown Ur Leukocyte Esterase Lg (Negative) 04/26/17 Unknown Urine WBC (Auto) 164.0 /HPF (0.0-6.0) H 04/26/17 Unknown Urine RBC (Auto) 22.0 /HPF (0.0-6.0) 04/26/17 Unknown U Epithel Cells (Auto) < 1.0 /HPF (0-13.0) 04/26/17 Unknown Urine Bacteria (Auto) 2+ /HPF (Negative) 04/26/17 Unknown Calcium Oxalate Crystal 1+ 04/26/17 Unknown Urine Mucus 2+ /HPF 04/26/17 Unknown Urine Yeast (Budding) 2+ /HPF 04/26/17 Unknown
[2017-04-28] MEDS: BABY ASPIRIN PO SCH (10:00)
[2017-04-28] MEDS: PEPCID FEEDTUBE SCH ×2 (10:00→22:00)
[2017-04-28] MEDS: ZYVOX PO SCH ×2 (10:00→21:59)
[2017-04-28] MEDS: DIFLUCAN PO SCH (10:00)
[2017-04-28] MEDS: LOVENOX SUB-Q SCH (13:46)
[2017-04-28] MEDS: NACL 0.9% 1000 ML 1,000 ML IV SCH (21:10)
[2017-04-29] MEDS: NOVOLOG SUB-Q SCH (00:34)
[2017-04-29 01:09] LABS: Hematocrit 30.1 % (35.5-45.6); Hemoglobin 9.3 gm/dl (11.8-15.2); Mean Corpuscular HGB Conc 31 % (32-34); Mean Corpuscular Volume 83 fl (84-94); Platelet Count 164 K/mm3 (140-440); Red Blood Count 3.61 M/mm3 (3.65-5.03); White Blood Count 5.7 K/mm3 (4.5-11.0)
[2017-04-29 01:14] LABS: Mean Corpuscular Hemoglobin 26 pg (28-32)
[2017-04-29 01:18] LABS: Anion Gap 12 mmol/L; Blood Urea Nitrogen 11 mg/dL (9-20); Calcium 7.4 mg/dL (8.4-10.2); Carbon Dioxide 27 mmol/L (22-30); Chloride 101.1 mmol/L (98-107); Glucose 86 mg/dL (75-100); Sodium 137 mmol/L (137-145)
[2017-04-29 01:26] LABS: Potassium 2.8 mmol/L (3.6-5.0)
[2017-04-29] MEDS: DUONEB 0.5 MG-3 MG/3 ML SOLN IH SCH ×4 (01:50→19:37)
[2017-04-29] MEDS: ZOSYN/NS 4.5GM/100ML 4.5 GM/100 ML VIAL IV SCH ×4 (02:35→22:26)
[2017-04-29 02:49] LABS: Anisocytosis 1+; Basophils % (Manual) 0 % (0.0-1.8); Blastocytes % (Manual) 0 %; Hypochromasia 1+
[2017-04-29 02:50] LABS: Diff Status Complete; Platelet Estimate Consistent w Auto; Rouleaux Few
[2017-04-29] MEDS ORDERED: POTASSIUM CHLORIDE FEEDTUBE ONE (03:46)
[2017-04-29] MEDS: CLEOCIN FEEDTUBE SCH ×3 (03:47→18:35)
[2017-04-29] MEDS: BABY ASPIRIN PO SCH (09:20)
[2017-04-29] MEDS: ZYVOX PO SCH ×2 (09:20→22:26)
[2017-04-29] MEDS: POTASSIUM CHLORIDE FEEDTUBE SCH ×2 (09:21→15:56)
[2017-04-29] MEDS: DIFLUCAN PO SCH (09:21)
[2017-04-29] MEDS: PEPCID FEEDTUBE SCH ×2 (09:21→22:26)
--- NOTE | 2017-04-29 12:52 | Progress Note ---
Assessment and Plan Assessment and plan: Patient is 56-year-old -F[place]ish male presented to the ER via EMS from [facility] with fever, respiratory failure. Pt is non-verbal history obtained from chart and most recent hospital discharge 04/15/17. Patient has multiple and frequent hospital visits for sepsis and respiratory failure with hypoxia. Pt's PMHX of Anoxic brain injury with quadriplegia, aphasia, dysphagia, diabetes mellitus type 22, hypertension, multiple pressure ulcers, pneumonia, chronic suprapubic catheter, PEG. Sepsis. Likely due to UTI, pneumonia, and multiple ulcers. Blood cultures ordered-no growth to date.. Continue Zosyn and Clindamicin. Acute Respiratory failure with hypoxemia- ABGs, Oxygen supplement, Chest x-ray, IV Antibiotics Aspiration pneumonia- Chest x-ray obtained in the ED, antibiotics ordered- Zosyn and Clindamycin, oxygen supplement, aspiration precautions, Dehydration - continue NS IV fluids , rehydration . Recheck BMP in am. Malnutrition- consult dietitian Hypokalemia - Potassium 2.8 today. Replace potassium and will recheck levels in am Diabetes Mellitus Type 2- monitor Accu-Cheks and insulin sliding scale ordered Hypertension - home meds on hold due to sepsis. BP normal. Multiple pressure ulcers- wound care consult DVT prophylaxis -Lovenox ordered Code status: Full code status History Interval history: non verbal, fever subsided Hospitalist Physical - Physical exam Narrative exam: Gen: appearance : very ill looking, cachetic HEENT: atraumatic Neck :supple no JVD Lungs: clear to auscultation bilaterally, no crackles, or wheezes Heart:S1 and S2 regular, no murmurs, rubs no gallop Abdomen soft, nontender, nondistended, normal bowel sounds, PEG duane Extremities: contractures, ulcers Neuro : Awake , non verbal - Constitutional Vitals: Temp Pulse Resp BP Pulse Ox 98.4 F 94 H 20 131/81 96 04/29/17 08:00 04/29/17 09:38 04/29/17 09:38 04/29/17 08:00 04/29/17 09:38 General appearance: Present: no acute distress, other (Mal-nourished) Results - Labs CBC & Chem 7: 04/29/17 00:40 04/29/17 00:40 Labs: Laboratory Last Values WBC 5.7 K/mm3 (4.5-11.0) 04/29/17 00:40 RBC 3.61 M/mm3 (3.65-5.03) L 04/29/17 00:40 Hgb 9.3 gm/dl (11.8-15.2) L 04/29/17 00:40 Hct 30.1 % (35.5-45.6) L 04/29/17 00:40 MCV 83 fl (84-94) L 04/29/17 00:40 MCH 26 pg (28-32) L 04/29/17 00:40 MCHC 31 % (32-34) L 04/29/17 00:40 RDW 21.0 % (13.2-15.2) H 04/29/17 00:40 Plt Count 164 K/mm3 (140-440) 04/29/17 00:40 Lymph % (Auto) 20.9 % (13.4-35.0) 04/26/17 07:25 [place] % (Auto) 7.5 % (0.0-7.3) H 04/26/17 07:25 Eos % (Auto) 0.2 % (0.0-4.3) 04/26/17 07:25 Baso % (Auto) 0.3 % (0.0-1.8) 04/26/17 07:25 Lymph # 2.3 K/mm3 (1.2-5.4) 04/26/17 07:25 [place] # 0.8 K/mm3 (0.0-0.8) 04/26/17 07:25 Eos # 0.0 K/mm3 (0.0-0.4) 04/26/17 07:25 Baso # 0.0 K/mm3 (0.0-0.1) 04/26/17 07:25 Add Manual Diff Complete 04/29/17 00:40 Total Counted 100 04/29/17 00:40 Seg Neutrophils % 71.1 % (40.0-70.0) H 04/26/17 07:25 Seg Neuts % (Manual) 71.0 % (40.0-70.0) H 04/29/17 00:40 Band Neutrophils % 3.0 % 04/29/17 00:40 Lymphocytes % (Manual) 21.0 % (13.4-35.0) 04/29/17 00:40 Reactive Lymphs % (Man) 0 % 04/29/17 00:40 Monocytes % (Manual) 4.0 % (0.0-7.3) 04/29/17 00:40 Eosinophils % (Manual) 1.0 % (0.0-4.3) 04/29/17 00:40 Basophils % (Manual) 0 % (0.0-1.8) 04/29/17 00:40 Metamyelocytes % 0 % 04/29/17 00:40 Myelocytes % 0 % 04/29/17 00:40 Promyelocytes % 0 % 04/29/17 00:40 Blast Cells % 0 % 04/29/17 00:40 Nucleated RBC % Not Reportable 04/29/17 00:40 Seg Neutrophils # 7.6 K/mm3 (1.8-7.7) 04/26/17 07:25 Seg Neutrophils # Man 4.0 K/mm3 (1.8-7.7) 04/29/17 00:40 Band Neutrophils # 0.2 K/mm3 04/29/17 00:40 Lymphocytes # (Manual) 1.2 K/mm3 (1.2-5.4) 04/29/17 00:40 Abs React Lymphs (Man) 0.0 K/mm3 04/29/17 00:40 Monocytes # (Manual) 0.2 K/mm3 (0.0-0.8) 04/29/17 00:40 Eosinophils # (Manual) 0.1 K/mm3 (0.0-0.4) 04/29/17 00:40 Basophils # (Manual) 0.0 K/mm3 (0.0-0.1) 04/29/17 00:40 Metamyelocytes # 0.0 K/mm3 04/29/17 00:40 Myelocytes # 0.0 K/mm3 04/29/17 00:40 Promyelocytes # 0.0 K/mm3 04/29/17 00:40 Blast Cells # 0.0 K/mm3 04/29/17 00:40 WBC Morphology Not Reportable 04/29/17 00:40 Hypersegmented Neuts Not Reportable 04/29/17 00:40 Hyposegmented Neuts Not Reportable 04/29/17 00:40 Hypogranular Neuts Not Reportable 04/29/17 00:40 Smudge Cells Not Reportable 04/29/17 00:40 Toxic Granulation Not Reportable 04/29/17 00:40 Toxic Vacuolation Not Reportable 04/29/17 00:40 Dohle Bodies Not Reportable 04/29/17 00:40 Pelger-Huet Anomaly Not Reportable 04/29/17 00:40 Kinjal Rods Not Reportable 04/29/17 00:40 Platelet Estimate Consistent w auto 04/29/17 00:40 Clumped Platelets Not Reportable 04/29/17 00:40 Plt Clumps, EDTA Not Reportable 04/29/17 00:40 Large Platelets Not Reportable 04/29/17 00:40 Giant Platelets Not Reportable 04/29/17 00:40 Platelet Satelliting Not Reportable 04/29/17 00:40 Plt Morphology Comment Not Reportable 04/29/17 00:40 RBC Morphology Not Reportable 04/29/17 00:40 Dimorphic RBCs Not Reportable 04/29/17 00:40 Polychromasia Not Reportable 04/29/17 00:40 Hypochromasia 1+ 04/29/17 00:40 Poikilocytosis Not Reportable 04/29/17 00:40 Anisocytosis 1+ 04/29/17 00:40 Microcytosis Not Reportable 04/29/17 00:40 Macrocytosis Not Reportable 04/29/17 00:40 Spherocytes Not Reportable 04/29/17 00:40 Pappenheimer Bodies Not Reportable 04/29/17 00:40 Sickle Cells Not Reportable 04/29/17 00:40 Target Cells Not Reportable 04/29/17 00:40 Tear Drop Cells Not Reportable 04/29/17 00:40 Ovalocytes Not Reportable 04/29/17 00:40 Helmet Cells Not Reportable 04/29/17 00:40 [place] Bodies Not Reportable 04/29/17 00:40 [place] Rings Not Reportable 04/29/17 00:40 Bypro Cells Not Reportable 04/29/17 00:40 Bite Cells Not Reportable 04/29/17 00:40 Crenated Cell Not Reportable 04/29/17 00:40 Elliptocytes Not Reportable 04/29/17 00:40 Acanthocytes (Spur) Not Reportable 04/29/17 00:40 Rouleaux Few 04/29/17 00:40 Hemoglobin C Crystals Not Reportable 04/29/17 00:40 Schistocytes Not Reportable 04/29/17 00:40 Malaria parasites Not Reportable 04/29/17 00:40 Shai Bodies Not Reportable 04/29/17 00:40 Hem Pathologist Commnt No 04/29/17 00:40 PT 15.7 Sec. (12.2-14.9) H 04/26/17 07:25 INR 1.26 (0.87-1.13) H 04/26/17 07:25 VBG pH 7.431 (7.320-7.420) H 04/26/17 07:25 Sodium 137 mmol/L (137-145) 04/29/17 00:40 Potassium 2.8 mmol/L (3.6-5.0) L* 04/29/17 00:40 Chloride 101.1 mmol/L (98-107) 04/29/17 00:40 Carbon Dioxide 27 mmol/L (22-30) 04/29/17 00:40 Anion Gap 12 mmol/L 04/29/17 00:40 BUN 11 mg/dL (9-20) 04/29/17 00:40 Creatinine 0.4 mg/dL (0.8-1.5) L 04/29/17 00:40 Estimated GFR > 60 ml/min 04/29/17 00:40 BUN/Creatinine Ratio 27.50 % 04/29/17 00:40 Glucose 86 mg/dL (75-100) 04/29/17 00:40 POC Glucose 82 (70-105) 04/29/17 06:13 Lactic Acid 1.30 mmol/L (0.7-2.0) 04/26/17 09:47 Calcium 7.4 mg/dL (8.4-10.2) L 04/29/17 00:40 Total Bilirubin 0.30 mg/dL (0.1-1.2) 04/26/17 07:25 AST 30 units/L (5-40) 04/26/17 07:25 ALT 18 units/L (7-56) 04/26/17 07:25 Alkaline Phosphatase 132 units/L (35-129) H 04/26/17 07:25 Total Protein 8.5 g/dL (6.3-8.2) H 04/26/17 07:25 Albumin 1.8 g/dL (3.9-5) L 04/26/17 07:25 Albumin/Globulin Ratio 0.3 % 04/26/17 07:25 Urine Color Yellow (Yellow) 04/26/17 Unknown Urine Turbidity Cloudy (Clear) 04/26/17 Unknown Urine pH 6.0 (5.0-7.0) 04/26/17 Unknown Ur Specific [place] 1.028 (1.003-1.030) 04/26/17 Unknown Urine Protein 100 mg/dl mg/dL (Negative) 04/26/17 Unknown Urine Glucose (UA) Neg mg/dL (Negative) 04/26/17 Unknown Urine Ketones Neg mg/dL (Negative) 04/26/17 Unknown Urine Blood Neg (Negative) 04/26/17 Unknown Urine Nitrite Neg (Negative) 04/26/17 Unknown Urine Bilirubin Neg (Negative) 04/26/17 Unknown Urine Urobilinogen 2.0 mg/dL (<2.0) 04/26/17 Unknown Ur Leukocyte Esterase Lg (Negative) 04/26/17 Unknown Urine WBC (Auto) 164.0 /HPF (0.0-6.0) H 04/26/17 Unknown Urine RBC (Auto) 22.0 /HPF (0.0-6.0) 04/26/17 Unknown U Epithel Cells (Auto) < 1.0 /HPF (0-13.0) 04/26/17 Unknown Urine Bacteria (Auto) 2+ /HPF (Negative) 04/26/17 Unknown Calcium Oxalate Crystal 1+ 04/26/17 Unknown Urine Mucus 2+ /HPF 04/26/17 Unknown Urine Yeast (Budding) 2+ /HPF 04/26/17 Unknown
[2017-04-29] MEDS: LOVENOX SUB-Q SCH (13:11)
[2017-04-29] MEDS: TRANSDERM-SCOP TD SCH (13:11)
[2017-04-30] MEDS: NOVOLOG SUB-Q SCH
[2017-04-30] MEDS: DUONEB 0.5 MG-3 MG/3 ML SOLN IH SCH ×3 (02:00→13:47)
[2017-04-30] MEDS: ZOSYN/NS 4.5GM/100ML 4.5 GM/100 ML VIAL IV SCH ×2 (03:02→08:25)
[2017-04-30] MEDS: CLEOCIN FEEDTUBE SCH (03:02)
[2017-04-30] MEDS: NACL 0.9% 1000 ML 1,000 ML IV SCH (03:03)
[2017-04-30 07:43] LABS: Anion Gap 12 mmol/L; BUN/Creatinine Ratio 26.66; Blood Urea Nitrogen 8 mg/dL (9-20); Calcium 7.1 mg/dL (8.4-10.2); Carbon Dioxide 25 mmol/L (22-30); Chloride 103.6 mmol/L (98-107); Glucose 80 mg/dL (75-100); Potassium 3.4 mmol/L (3.6-5.0); Sodium 137 mmol/L (137-145)
[2017-04-30 10:18] VITALS: BP 129/87
--- NOTE | 2017-04-30 10:37 | Discharge Summary ---
Providers - Providers Date of Admission: 04/26/17 10:03 Date of discharge: 04/30/17 Attending physician: ARABELLA EVEERTT 04/27/17 07:54 Consult to Wound/ET Nurse [CONS] Routine Reason For Exam: mulitiple wounds Primary care physician: SAW SETTER Hospitalization Condition: Fair Disposition: DC-01 TO HOME OR SELFCARE - Discharge Diagnoses (1) Decubitus ulcers Status: Acute Qualifiers: Pressure ulcer location: P Pressure ulcer stage: stage 3 Laterality: L (2) Pneumonia Status: Acute Qualifiers: Pneumonia type: P Aspiration pneumonia type: A Laterality: L Lung location: L (3) Sepsis syndrome Status: Acute Exam - Constitutional Vitals: Temp Pulse Resp BP Pulse Ox 99 F 93 H 20 129/87 100 04/30/17 08:20 04/30/17 09:00 04/30/17 09:00 04/30/17 08:20 04/30/17 09:07 Plan Activity: advance as tolerated Diet: other (Tube feed diet) Additional Instructions: 1.Follow up with Physician at [facility] in 3-5 days Follow up with: PRIMARY CAREMD [Primary Care Provider] - 3-5 Days Prescriptions: Clindamycin [Clindamycin CAP] 300 mg FEEDTUBE Q8H 3 Days Fluconazole [Diflucan TAB] 100 mg FEEDTUBE QDAY #3 tablet
[2017-04-30] MEDS: DIFLUCAN PO SCH (11:21)
[2017-04-30] MEDS: PEPCID FEEDTUBE SCH (11:21)
[2017-04-30] MEDS: BABY ASPIRIN PO SCH (11:21)
[2017-04-30] MEDS: ZYVOX PO SCH (11:21)
[2017-04-30] MEDS: LOVENOX SUB-Q SCH (11:33)
== END 2017-04-30 15:35 | DRG 871 ==
LOC: ED 06:40 → 3A 10:03
PROVIDERS: ADMIT Internal Medicine; ATTEND Internal Medicine
DX: A41.02 Sepsis due to Methicillin resistant Staphylococcus aureus (principal); J69.0 Pneumonitis due to inhalation of food and vomit; J96.21 Acute and chronic respiratory failure with hypoxia; G82.50 Quadriplegia, unspecified; L89.93 Pressure ulcer of unspecified site, stage 3; N39.0 Urinary tract infection, site not specified; N17.9 Acute kidney failure, unspecified; E11.9 Type 2 diabetes mellitus without complications; G93.1 Anoxic brain damage, not elsewhere classified; E46 Unspecified protein-calorie malnutrition; D64.9 Anemia, unspecified; E87.6 Hypokalemia; E86.0 Dehydration; J44.9 Chronic obstructive pulmonary disease, unspecified; I12.9 Hypertensive chronic kidney disease with stage 1 through stage 4 chronic kidney disease, or unspecified chronic kidney disease; Z93.0 Tracheostomy status; Z88.8 Allergy status to other drugs, medicaments and biological substances; Z86.73 Personal history of transient ischemic attack (TIA), and cerebral infarction without residual deficits; Z68.1 Body mass index [BMI] 19.9 or less, adult; N18.9 Chronic kidney disease, unspecified
CPT/HCPCS: 36415; 71010; 80048; 80053; 81001; 82140; 82805; 82962; 85007; 85025; 85610; 87040; 87070; 87076; 87086; 87186; 87205; 93005; 93010; 94640; 94644; 94760; 96365; 96375; 99285; J1650; J2543; J7030; J7040

== ENCOUNTER 2017-05-31 14:25 | Inpatient (IN) | payer MEDICAID ==
[2017-05-31] MEDS ORDERED: CLEOCIN 900 MG/50 mL 900 MG/50 ML BAG IV ONE (14:58)
[2017-05-31] MEDS ORDERED: ZOSYN/NS 4.5GM/100ML 4.5 GM/100 ML VIAL IV ONE (14:58)
[2017-05-31 15:35] LABS: Basophils % (Auto) 0.2 % (0.0-1.8); Eosinophils % (Auto) 0.9 % (0.0-4.3); Hematocrit 26.1 % (35.5-45.6); Hemoglobin 7.8 gm/dl (11.8-15.2); Mean Corpuscular HGB Conc 30 % (32-34); Mean Corpuscular Volume 87 fl (84-94); Platelet Count 337 K/mm3 (140-440); White Blood Count 10.2 K/mm3 (4.5-11.0)
[2017-05-31 15:39] LABS: Mean Corpuscular Hemoglobin 26 pg (28-32); Red Cell Distribution Width 21.1 % (13.2-15.2)
[2017-05-31] MEDS ORDERED: TYLENOL FEEDTUBE ONE (15:45)
[2017-05-31 15:53] LABS: Anion Gap 14 mmol/L; Blood Urea Nitrogen 24 mg/dL (9-20); Calcium 7.8 mg/dL (8.4-10.2); Carbon Dioxide 28 mmol/L (22-30); Chloride 109.4 mmol/L (98-107); Glucose 97 mg/dL (75-100); Potassium 4.2 mmol/L (3.6-5.0); Sodium 147 mmol/L (137-145)
[2017-05-31] MEDS ORDERED: NACL 0.9% 1000 ML 1,000 ML IV ONE (16:03)
--- NOTE | 2017-05-31 16:08 | XRay Report ---
FINAL REPORT PROCEDURE: XR CHEST 1V AP TECHNIQUE: Chest radiograph anteroposterior view. CPT 50517 HISTORY: fever COMPARISON: 04/26/2017 FINDINGS: There is atypical patient positioning. Heart: Normal. Mediastinum/Vessels: Normal contour. Lungs/Pleural space: No confluent airspace infiltrate is seen. There are mild increased bilateral reticular markings which may be related to interstitial disease process. No effusion or pneumothorax is seen. Bony thorax: No acute osseous abnormality. Life support devices: Tracheostomy tube is again visualized. IMPRESSION: No confluent airspace infiltrate. Mild increased bilateral reticular markings suggest interstitial disease process.
--- NOTE | 2017-05-31 16:19 | Emergency Department Report ---
ED Fever HPI - General Chief Complaint: Fever Stated Complaint: FEVER Time Seen by Provider: 05/31/17 14:49 Source: patient Exam Limitations: no limitations - History of Present Illness Initial Comments: 46-year-old male with multiple medical problems including but not limited to quadriplegia, anoxic brain injury, tracheostomy dependency, PEG tube placement, diabetes, superpubic catheter, and decubitus ulcers and multiple hospitalizations for [facility]. Patient is nonverbal and unable to provide any history of present illness. longterm also expresses concern of for dislodged suprapubic catheter. ED Review of Systems ROS: Stated complaint: FEVER Other details as noted in HPI Comment: Unobtainable due to pts medical conditions ED Past Medical Hx - Past Medical History Previous Medical History?: Yes Hx Hypertension: Yes Hx CVA: Yes Hx Heart Attack/AMI: No Hx Congestive Heart Failure: No Hx Diabetes: Yes Hx Deep Vein Thrombosis: (?) Hx Pulmonary Embolism: No Hx Liver Disease: No Hx Renal Disease: Yes Hx Sickle Cell Disease: No Hx Arthritis: No Hx Seizures: Yes Hx Kidney Stones: No Hx Asthma: No Hx COPD: Yes Hx Tuberculosis: No Hx Dementia: Yes Additional medical history: Resp failure, dysphagia, uti, scrotal cellulitis, quadriplegic - Surgical History Past Surgical History?: Yes Hx Coronary Stent: No Hx Open Heart Surgery: No Hx Pacemaker: No Hx Internal Defibrillator: No Hx Cholecystectomy: No Hx Appendectomy: No Hx Breast Surgery: No Additional Surgical History: G-tube, suprapubic catheter - Social History Smoking Status: Unknown if ever smoked Substance Use Type: None - Medications Home Medications: Home Medications Medication Instructions Recorded Confirmed Last Taken Type Aspirin [Aspirin BABY CHEW TAB] 81 mg PO QDAY #30 tab.chew 12/10/16 04/26/17 Unknown Rx AtorvaSTATin [Lipitor] 10 mg PO QHS #30 tablet 12/10/16 04/26/17 Unknown Rx Potassium Chloride 10 meq PO DAILY #7 capsule.er 02/27/17 04/26/17 Unknown Rx Ascorbic Acid [Vitamin C] 500 mg PO DAILY #30 04/15/17 04/26/17 Unknown Rx Famotidine [Pepcid] 20 mg FEEDTUBE BID #60 04/15/17 04/26/17 Unknown Rx Glycopyrrolate [Robinul] 1 mg FEEDTUBE TID PRN #30 04/15/17 04/26/17 Unknown Rx Ipratropium/Albuterol Sulfate 1 ampul IH Q6HR #30 04/15/17 04/26/17 Unknown Rx [Duoneb 0.5 mg-3 mg/3 ml Soln] Multivit with Min #53/FA/K/Q10 1 each PO DAILY #30 04/15/17 04/26/17 Unknown Rx [Dekas Plus Softgel] Protein Supplement [Promod] 30 ml FEEDTUBE TID #30 04/15/17 04/26/17 Unknown Rx Scopolamine [Transderm-Scop] 1.5 mg TD Q3D #30 04/15/17 04/26/17 Unknown Rx amLODIPine [Norvasc] 5 mg FEEDTUBE QDAY #30 tablet 04/15/17 04/26/17 08/17/16 Rx Clindamycin [Clindamycin CAP] 300 mg FEEDTUBE Q8H 3 Days 04/30/17 Unknown Rx Fluconazole [Diflucan TAB] 100 mg FEEDTUBE QDAY #3 tablet 04/30/17 Unknown Rx ED Physical Exam - General Limitations: Other - Other Other exam information: General: No limitations, patient is alert in no acute distress Head exam: Atraumatic, normocephalic Eyes exam: Normal appearance ENT: Moist mucous membrane Neck exam: Tracheostomy Respiratory exam: Bilateral rhonchi with tachypnea Cardiovascular: Normal rate and rhythm, normal heart sounds Abdomen: Soft, nondistended, positive headache, superior catheter with urine leaking around the catheter. Minimal urine output in the Guevara bag. Extremity: Quadriplegia, contractions Back: Normal Inspection Neurologic: Awake, open eyes to voice, does not speak or follow commands. Quadriplegia with contractions Skin: Multiple decubitus ulceration ED Course Vital Signs 05/31/17 05/31/17 05/31/17 14:48 14:51 15:00 Temperature Pulse Rate 112 H 114 H 107 H Respiratory 36 H 36 H 33 H Rate Blood Pressure 121/80 118/73 Blood Pressure [Left] O2 Sat by Pulse 99 100 100 Oximetry O2 Sat by Pulse Oximetry [ Assessment] 05/31/17 05/31/17 05/31/17 15:10 15:21 15:30 Temperature Pulse Rate 104 H 102 H 100 H Respiratory 33 H 34 H 38 H Rate Blood Pressure 118/55 114/73 114/76 Blood Pressure [Left] O2 Sat by Pulse 100 100 100 Oximetry O2 Sat by Pulse Oximetry [ Assessment] 05/31/17 05/31/17 05/31/17 15:48 17:30 17:42 Temperature 102.3 F H Pulse Rate 115 H Respiratory 36 H Rate Blood Pressure Blood Pressure 121/81 [Left] O2 Sat by Pulse 100 100 Oximetry O2 Sat by Pulse 100 Oximetry [ Assessment] 05/31/17 05/31/17 17:58 18:00 Temperature 100.2 F H Pulse Rate 84 89 Respiratory 30 H Rate Blood Pressure Blood Pressure 111/63 [Left] O2 Sat by Pulse 100 Oximetry O2 Sat by Pulse Oximetry [ Assessment] - Reevaluation(s) Reevaluation #1: 05/31/17 16:42 Patient given Tylenol via PEG tube. Zosyn and clindamycin given. Urine leaking around the suprapubic catheter and patient presented with a wet diaper. Nurse will attempt to aspirate urine from the suprapubic catheter. 05/31/17 16:55 RN was unable to aspirate from cath. No size indicated on the cath tubing ED Medical Decision Making - Lab Data Result diagrams: 05/31/17 15:20 05/31/17 15:20 Lab Results 05/31/17 05/31/17 05/31/17 Range/Units 15:20 15:20 15:20 WBC 10.2 (4.5-11.0) K/mm3 RBC 3.00 L (3.65-5.03) M/mm3 Hgb 7.8 L (11.8-15.2) gm/dl Hct 26.1 L (35.5-45.6) % MCV 87 (84-94) fl MCH 26 L (28-32) pg MCHC 30 L (32-34) % RDW 21.1 H (13.2-15.2) % Plt Count 337 (140-440) K/mm3 Lymph % (Auto) 22.5 (13.4-35.0) % [place] % (Auto) 12.2 H (0.0-7.3) % Eos % (Auto) 0.9 (0.0-4.3) % Baso % (Auto) 0.2 (0.0-1.8) % Lymph # 2.3 (1.2-5.4) K/mm3 [place] # 1.2 H (0.0-0.8) K/mm3 Eos # 0.1 (0.0-0.4) K/mm3 Baso # 0.0 (0.0-0.1) K/mm3 Seg Neutrophils % 64.2 (40.0-70.0) % Seg Neutrophils # 6.5 (1.8-7.7) K/mm3 PT (12.2-14.9) Sec. INR (0.87-1.13) APTT (24.2-36.6) Sec. VBG pH (7.320-7.420) Sodium 147 H (137-145) mmol/L Potassium 4.2 (3.6-5.0) mmol/L Chloride 109.4 H (98-107) mmol/L Carbon Dioxide 28 (22-30) mmol/L Anion Gap 14 mmol/L BUN 24 H (9-20) mg/dL Creatinine 0.5 L (0.8-1.5) mg/dL Estimated GFR > 60 ml/min BUN/Creatinine Ratio 48.00 % Glucose 97 (75-100) mg/dL Lactic Acid 1.10 (0.7-2.0) mmol/L Calcium 7.8 L (8.4-10.2) mg/dL Blood Type Antibody Screen FLORA Antibody Screen 05/31/17 05/31/17 05/31/17 Range/Units 15:20 16:05 16:08 WBC (4.5-11.0) K/mm3 RBC (3.65-5.03) M/mm3 Hgb (11.8-15.2) gm/dl Hct (35.5-45.6) % MCV (84-94) fl MCH (28-32) pg MCHC (32-34) % RDW (13.2-15.2) % Plt Count (140-440) K/mm3 Lymph % (Auto) (13.4-35.0) % [place] % (Auto) (0.0-7.3) % Eos % (Auto) (0.0-4.3) % Baso % (Auto) (0.0-1.8) % Lymph # (1.2-5.4) K/mm3 [place] # (0.0-0.8) K/mm3 Eos # (0.0-0.4) K/mm3 Baso # (0.0-0.1) K/mm3 Seg Neutrophils % (40.0-70.0) % Seg Neutrophils # (1.8-7.7) K/mm3 PT 16.2 H (12.2-14.9) Sec. INR 1.24 H (0.87-1.13) APTT 37.7 H (24.2-36.6) Sec. VBG pH 7.395 (7.320-7.420) Sodium (137-145) mmol/L Potassium (3.6-5.0) mmol/L Chloride (98-107) mmol/L Carbon Dioxide (22-30) mmol/L Anion Gap mmol/L BUN (9-20) mg/dL Creatinine (0.8-1.5) mg/dL Estimated GFR ml/min BUN/Creatinine Ratio % Glucose (75-100) mg/dL Lactic Acid (0.7-2.0) mmol/L Calcium (8.4-10.2) mg/dL Blood Type O POSITIVE Antibody Screen TNR FLORA Antibody Screen Negative - Radiology Data Radiology results: image reviewed (chest x-ray: No acute finding) - Medical Decision Making Intermittent the patient for sepsis treatment. Source not identified this time. Broad spectrum antibiotics clindamycin and Zosyn initiated. Cultures pending. - Differential Diagnosis UTI, sepsis, pneumonia, infected decubitus Critical Care Time: No Critical care attestation.: If time is entered above; I have spent that time in minutes in the direct care of this critically ill patient, excluding procedure time. ED Disposition Clinical Impression: Debility, Dehydration, Tracheostomy dependent, Anoxic brain injury, Quadriplegia, Suprapubic catheter dysfunction, Anemia Type 2 diabetes mellitus Qualifiers: Diabetes mellitus complication status: without complication Sepsis Qualifiers: Sepsis type: sepsis due to unspecified organism Qualified Code(s): A41.9 - Sepsis, unspecified organism Decubitus ulcers Qualifiers: Pressure ulcer stage: stage 3 Disposition: OP ADMIT IP TO THIS HOSP Is pt being admited?: Yes Condition: Stable Time of Disposition: 16:31 (Dr Mohan/hosp)
--- NOTE | 2017-05-31 16:26 | History and Physical Report ---
History of Present Illness Chief complaint: Fever, History of present illness: 46 YO Male SNF resident with HTN, CVA wit Quadraparesis, Seizure disorder, Severe Malnutrition, DM, Seizure DO, Dementia, Respiratory Failure, Dysphagia, JEREMY presents to ED for evaluation. Pt found to have fever by SNF staff. Pt transported to ED. Pt seen and evaluated in ED. Pt unable to provide history. Pt history taken from ED staff, and medical records. SNF staff reports concerns regarding leaking around suprapubic catheter. Past History Past Medical History: COPD, diabetes, hypertension, renal failure, seizures, stroke Past Surgical History: Other (G tube, Suprapubic Catheter) Social history: single. denies: smoking, alcohol abuse, prescription drug abuse , IV drug use Family history: hypertension Medications and Allergies Allergies Allergy/AdvReac Type Severity Reaction Status Date / Time vancomycin Allergy Unknown Verified 02/21/17 09:16 Home Medications Medication Instructions Recorded Confirmed Last Taken Type Aspirin [Aspirin BABY CHEW TAB] 81 mg PO QDAY #30 tab.chew 12/10/16 04/26/17 Unknown Rx AtorvaSTATin [Lipitor] 10 mg PO QHS #30 tablet 12/10/16 04/26/17 Unknown Rx Potassium Chloride 10 meq PO DAILY #7 capsule.er 02/27/17 04/26/17 Unknown Rx Ascorbic Acid [Vitamin C] 500 mg PO DAILY #30 04/15/17 04/26/17 Unknown Rx Famotidine [Pepcid] 20 mg FEEDTUBE BID #60 04/15/17 04/26/17 Unknown Rx Glycopyrrolate [Robinul] 1 mg FEEDTUBE TID PRN #30 04/15/17 04/26/17 Unknown Rx Ipratropium/Albuterol Sulfate 1 ampul IH Q6HR #30 04/15/17 04/26/17 Unknown Rx [Duoneb 0.5 mg-3 mg/3 ml Soln] Multivit with Min #53/FA/K/Q10 1 each PO DAILY #30 04/15/17 04/26/17 Unknown Rx [Dekas Plus Softgel] Protein Supplement [Promod] 30 ml FEEDTUBE TID #30 04/15/17 04/26/17 Unknown Rx Scopolamine [Transderm-Scop] 1.5 mg TD Q3D #30 04/15/17 04/26/17 Unknown Rx amLODIPine [Norvasc] 5 mg FEEDTUBE QDAY #30 tablet 04/15/17 04/26/17 08/17/16 Rx Clindamycin [Clindamycin CAP] 300 mg FEEDTUBE Q8H 3 Days 04/30/17 Unknown Rx Fluconazole [Diflucan TAB] 100 mg FEEDTUBE QDAY #3 tablet 04/30/17 Unknown Rx Active Meds: Active Medications Sodium Chloride (Nacl 0.9% 1000 Ml) 1,000 mls @ 250 mls/hr IV BOLUS ONE Stop: 05/31/17 20:02 Last Admin: 05/31/17 16:23 Dose: 250 mls/hr Review of Systems ROS unobtainable: due to mental status Exam - Constitutional Vitals: Temp Pulse Resp BP Pulse Ox 102.3 F H 115 H 36 H 121/81 100 05/31/17 15:48 05/31/17 15:48 05/31/17 15:48 05/31/17 15:48 05/31/17 15:48 General appearance: Present: mild distress - EENT ENT: no hearing intact - Neck Neck: Present: supple, normal ROM - Respiratory Respiratory effort: labored Respiratory: bilateral: diminished - Extremities Extremity abnormal: deformity, other (BUE/BLE contracture) Peripheral Pulses: abnormal (capillary refill: 3.5 seconds) - Abdominal General gastrointestinal: Present: soft, non-tender, non-distended, normal bowel sounds Male genitourinary: Present: normal - Integumentary Integumentary: Present: clear, dry, decreased turgor - Musculoskeletal Musculoskeletal: generalized weakness - Psychiatric Psychiatric: no appropriate mood/affect, no intact judgment & insight, no memory intact - Neurologic Neurologic: no CNII-XII intact, focal deficits, no moves all extremities, no gait normal Results - Labs CBC & Chem 7: 05/31/17 15:20 05/31/17 15:20 Labs: Abnormal lab results 05/31/17 05/31/17 Range/Units 15:20 15:20 RBC 3.00 L (3.65-5.03) M/mm3 Hgb 7.8 L (11.8-15.2) gm/dl Hct 26.1 L (35.5-45.6) % MCH 26 L (28-32) pg MCHC 30 L (32-34) % RDW 21.1 H (13.2-15.2) % King % (Auto) 12.2 H (0.0-7.3) % [place] # 1.2 H (0.0-0.8) K/mm3 Sodium 147 H (137-145) mmol/L Chloride 109.4 H (98-107) mmol/L BUN 24 H (9-20) mg/dL Creatinine 0.5 L (0.8-1.5) mg/dL Calcium 7.8 L (8.4-10.2) mg/dL Assessment and Plan - Patient Problems (1) Sepsis Current Visit: Yes Status: Acute Qualifiers: Sepsis type: sepsis due to unspecified organism Qualified Code(s): A41.9 - Sepsis, unspecified organism Plan to address problem: IV abx, IVF, supportive care, blood culture, serial lactate level, supportive care, monitor uop q shift, (2) Quadriplegia Current Visit: Yes Status: Acute Plan to address problem: supportive care, complication of CVA. (3) Suprapubic catheter dysfunction Current Visit: Yes Status: Acute Qualifiers: Encounter type: E Plan to address problem: Urology consult on Thursday when back on service, Adult diaper in place, supportive care (4) Anoxic brain injury Current Visit: Yes Status: Chronic Plan to address problem: supportive care, (5) Acute UTI (urinary tract infection) Current Visit: No Status: Acute Plan to address problem: IV abx, IVF supportive care, (6) DVT prophylaxis Current Visit: Yes Status: Acute
[2017-05-31 16:49] LABS: INR 1.24 (0.87-1.13)
[2017-05-31 16:50] LABS: Partial Thromboplastin Time 37.7 Sec. (24.2-36.6)
[2017-05-31] MEDS ORDERED: TYLENOL PO PRN (17:19)
[2017-05-31] MEDS ORDERED: DUONEB *Not for PRN Use IH (17:19)
[2017-05-31] MEDS ORDERED: NACL 0.9% 1000 ML IV ONE (17:19)
[2017-05-31] MEDS ORDERED: ROBINUL FEEDTUBE PRN (17:24)
[2017-05-31] MEDS ORDERED: PROVENTIL IH PRN (17:49)
[2017-05-31] MEDS ORDERED: NACL 0.45% 500 ML IV SCH (18:00)
[2017-05-31] MEDS: ROCEPHIN/NS 2 GM/100 ML 2 GM/100 ML BAG IV SCH (18:16)
[2017-05-31] MEDS ORDERED: NON-FORMULARY (Protein Supplement [Promod] 30 ML) FEEDTUBE SCH (20:00)
[2017-05-31] MEDS: PEPCID FEEDTUBE SCH (22:59)
--- NOTE | 2017-06-01 01:45 | Admit Criteria Form ---
Admission Criteria Documentation: WOUND COMPLICATIONS Clinical Indications for Inpatient Care (Place 'X' for any and all applicable criteria): Ongoing inpatient care may be indicated for wound complications with ANY ONE of the following (1) (15): [ ]I. Infection with ANY ONE of the following(32)(33): [ ]a) Temperature greater than 38.5 C (101.3 F) [ ]b) Evidence of tissue necrosis [ ]c) Erythema diameter expanding around wound despite treatment [ ]d) Mental status changes [ ]e) Dehydration [ ]f) Bacteremia [ ]g) Hemodynamic instability [ ]h) Suspected necrotizing fasciitis [ ]i) Rapidly spreading lesions [ ]j) High-risk location (eg, perineum, sternum, orbit) [ X]k) High-risk coexisting clinical condition as indicated by ANY ONE of the following: [X ]i) Poorly controlled diabetes [ ]ii) Cirrhosis [ ]iii) Renal failure [ ]iv) Neutropenia [ ] v) Asplenia [ ]vi) Immunosuppression (eg, AIDS, chronic corticosteroid use) [ ]viii) Other high-risk medical comorbidities [ ] II. Dehiscence requiring frequent monitoring or immediate treatment [ ] III. Hematoma with ANY ONE of the following: [ ]a) Hemodynamic instability or acute anemia due to rapid development of hematoma [ ]b) Neck hematoma causing airway compression [ ]c) Retroperitoneal hematoma [ ]d) Uncontrolled coagulopathy [ ]IV. Seroma with evidence of secondary infection and requirement for IV antibiotics [D](31) [ ]V. Pain that cannot be managed at lower level of care Extended stay beyond goal length of stay for primary condition may be needed until ALL of the following are present(1)(33)(34): [ ]a) Afebrile or fever resolving [ ]b) Hemodynamic stability [ ]c) Pain resolving [ ]d) Wound closed, continuity adequately restored, or wound manageable at lower level of care [ ]e) No drain needed or drain care manageable at lower level of care [ ]f) Wound hematoma or seroma resolving [ ]g) Antibiotics not needed or regimen manageable at lower level of care(38) [ ]h) Dressing care manageable at lower level of care [ ]i) Coagulopathy absent, resolved, or treatable at lower level of care [ ]j) Medical comorbidities resolved or treatable at lower level of care The original [facility] content created by [employer] has been revised. The portions of the content which have been revised are identified through the use of italic text or in bold, and Marie Berumen has neither reviewed nor approved the modified material. All other unmodified content is copyright [email or web address]. Please see references footnoted in the original [facility] edition 2016 Admission Criteria Met: Yes
[2017-06-01] MEDS ORDERED: [UNRECOGNIZED DRUG - OTHER] PO SCH (10:00)
--- NOTE | 2017-06-01 10:11 | Progress Note ---
Hospitalist Physical - Constitutional Vitals: Temp Pulse Resp BP Pulse Ox 100.1 F H 101 H 22 116/77 100 06/01/17 08:00 06/01/17 08:00 06/01/17 08:00 06/01/17 08:00 06/01/17 08:12 General appearance: Present: mild distress Results - Labs CBC & Chem 7: 05/31/17 15:20 05/31/17 15:20 Labs: Laboratory Last Values WBC 10.2 K/mm3 (4.5-11.0) 05/31/17 15:20 RBC 3.00 M/mm3 (3.65-5.03) L 05/31/17 15:20 Hgb 7.8 gm/dl (11.8-15.2) L 05/31/17 15:20 Hct 26.1 % (35.5-45.6) L 05/31/17 15:20 MCV 87 fl (84-94) 05/31/17 15:20 MCH 26 pg (28-32) L 05/31/17 15:20 MCHC 30 % (32-34) L 05/31/17 15:20 RDW 21.1 % (13.2-15.2) H 05/31/17 15:20 Plt Count 337 K/mm3 (140-440) 05/31/17 15:20 Lymph % (Auto) 22.5 % (13.4-35.0) 05/31/17 15:20 [place] % (Auto) 12.2 % (0.0-7.3) H 05/31/17 15:20 Eos % (Auto) 0.9 % (0.0-4.3) 05/31/17 15:20 Baso % (Auto) 0.2 % (0.0-1.8) 05/31/17 15:20 Lymph # 2.3 K/mm3 (1.2-5.4) 05/31/17 15:20 [place] # 1.2 K/mm3 (0.0-0.8) H 05/31/17 15:20 Eos # 0.1 K/mm3 (0.0-0.4) 05/31/17 15:20 Baso # 0.0 K/mm3 (0.0-0.1) 05/31/17 15:20 Seg Neutrophils % 64.2 % (40.0-70.0) 05/31/17 15:20 Seg Neutrophils # 6.5 K/mm3 (1.8-7.7) 05/31/17 15:20 PT 16.2 Sec. (12.2-14.9) H 05/31/17 16:08 INR 1.24 (0.87-1.13) H 05/31/17 16:08 APTT 37.7 Sec. (24.2-36.6) H 05/31/17 16:08 VBG pH 7.395 (7.320-7.420) 05/31/17 15:20 Sodium 147 mmol/L (137-145) H 05/31/17 15:20 Potassium 4.2 mmol/L (3.6-5.0) 05/31/17 15:20 Chloride 109.4 mmol/L (98-107) H 05/31/17 15:20 Carbon Dioxide 28 mmol/L (22-30) 05/31/17 15:20 Anion Gap 14 mmol/L 05/31/17 15:20 BUN 24 mg/dL (9-20) H 05/31/17 15:20 Creatinine 0.5 mg/dL (0.8-1.5) L 05/31/17 15:20 Estimated GFR > 60 ml/min 05/31/17 15:20 BUN/Creatinine Ratio 48.00 % 05/31/17 15:20 Glucose 97 mg/dL (75-100) 05/31/17 15:20 Lactic Acid 1.10 mmol/L (0.7-2.0) 05/31/17 15:20 Calcium 7.8 mg/dL (8.4-10.2) L 05/31/17 15:20 Blood Type O POSITIVE 05/31/17 16:05 Antibody Screen TNR 05/31/17 16:05 FLORA Antibody Screen Negative 05/31/17 16:05
[2017-06-01 11:35] LABS: Hematocrit 23.3 % (35.5-45.6); Hemoglobin 7.4 gm/dl (11.8-15.2); Mean Corpuscular HGB Conc 32 % (32-34); Mean Corpuscular Hemoglobin 27 pg (28-32); Mean Corpuscular Volume 85 fl (84-94); Platelet Count 293 K/mm3 (140-440); Red Blood Count 2.74 M/mm3 (3.65-5.03); White Blood Count 8.8 K/mm3 (4.5-11.0)
[2017-06-01 11:38] LABS: Red Cell Distribution Width 20.5 % (13.2-15.2)
[2017-06-01] MEDS: DIFLUCAN FEEDTUBE SCH (11:42)
[2017-06-01] MEDS: K-DUR PO SCH (11:42)
[2017-06-01] MEDS: THERAGRAN-M Tab PO SCH (11:43)
[2017-06-01] MEDS: VITAMIN C PO SCH (11:43)
[2017-06-01] MEDS: PEPCID FEEDTUBE SCH ×2 (11:44→23:48)
[2017-06-01] MEDS: BABY ASPIRIN PO SCH (11:44)
[2017-06-01 11:49] LABS: Anion Gap 16 mmol/L; Blood Urea Nitrogen 15 mg/dL (9-20); Calcium 8.1 mg/dL (8.4-10.2); Carbon Dioxide 23 mmol/L (22-30); Chloride 107.1 mmol/L (98-107); Glucose 84 mg/dL (75-100); Potassium 3.5 mmol/L (3.6-5.0); Sodium 143 mmol/L (137-145)
[2017-06-01] MEDS: NORVASC FEEDTUBE SCH (11:52)
[2017-06-01 12:23] LABS: Bacteria,Urine 2+ /HPF (Negative); Bilirubin,Urine NEG (Negative); Blood,Urine MOD (Negative); Ketones,Urine NEG (Negative); Leukocyte Esterase,Urine MOD (Negative); Mucus,Urine 1+ /HPF; Nitrite,Urine NEG (Negative)
[2017-06-01 12:31] LABS: RBC,Urine > 182.0 /HPF (0.0-6.0); WBC,Urine > 182.0 /HPF (0.0-6.0)
--- NOTE | 2017-06-01 18:12 | Progress Note ---
Assessment and Plan Assessment and plan: 46 YO Male SNF resident with HTN, CVA wit Quadraparesis, Seizure disorder, Severe Malnutrition, DM, Seizure DO, Dementia, Respiratory Failure, Dysphagia, JEREMY presents sp trache and peg brought from [place] for fever and leaking around suprapubic catheter. Sepsis Plan to address problem: IV abx, IVF, supportive care, blood culture, serial lactate level, supportive care, monitor uop q shift, Acute UTI (urinary tract infection) IV abx, IVF supportive care Quadriplegia supportive care, complication of CVA. Metabolic encephalopathy rx UTI, has baseline encephalopathy Suprapubic catheter dysfunction Urology consult placed, Adult diaper in place, supportive care Anoxic brain injury supportive care Stage 2 Decub all over the body local wound care Severe malnutrition -Nutrition consult for PEG feeding DVT prophylaxis lovenox Hospice care was offered, but family refused History Interval history: patient is contracted, still having fevers low grade, non verbal, RN reports leaking urine around SPT Hospitalist Physical - Physical exam Narrative exam: General: Appears chronically ill, cachectic HEENT: MMM, EOMI cardiac: S1-S2 heard lungs: clear to auscultation, abdomen: soft, nontender, nondistended bowel sounds positive extremities: Contractures in all extremities Skin: Stage II decubitus ulcers on the Neuro: Nonverbal, opens eyes, no purposeful movements, contracted - Constitutional Vitals: Temp Pulse Resp BP Pulse Ox 100.1 F H 103 H 22 114/77 100 06/01/17 08:00 06/01/17 11:52 06/01/17 08:00 06/01/17 11:52 06/01/17 13:27 General appearance: Present: mild distress Results - Labs CBC & Chem 7: 06/01/17 10:55 06/01/17 10:55 Labs: Laboratory Last Values WBC 8.8 K/mm3 (4.5-11.0) 06/01/17 10:55 RBC 2.74 M/mm3 (3.65-5.03) L 06/01/17 10:55 Hgb 7.4 gm/dl (11.8-15.2) L 06/01/17 10:55 Hct 23.3 % (35.5-45.6) L 06/01/17 10:55 MCV 85 fl (84-94) 06/01/17 10:55 MCH 27 pg (28-32) L 06/01/17 10:55 MCHC 32 % (32-34) 06/01/17 10:55 RDW 20.5 % (13.2-15.2) H 06/01/17 10:55 Plt Count 293 K/mm3 (140-440) 06/01/17 10:55 Lymph % (Auto) 22.5 % (13.4-35.0) 05/31/17 15:20 [place] % (Auto) 12.2 % (0.0-7.3) H 05/31/17 15:20 Eos % (Auto) 0.9 % (0.0-4.3) 05/31/17 15:20 Baso % (Auto) 0.2 % (0.0-1.8) 05/31/17 15:20 Lymph # 2.3 K/mm3 (1.2-5.4) 05/31/17 15:20 [place] # 1.2 K/mm3 (0.0-0.8) H 05/31/17 15:20 Eos # 0.1 K/mm3 (0.0-0.4) 05/31/17 15:20 Baso # 0.0 K/mm3 (0.0-0.1) 05/31/17 15:20 Seg Neutrophils % 64.2 % (40.0-70.0) 05/31/17 15:20 Seg Neutrophils # 6.5 K/mm3 (1.8-7.7) 05/31/17 15:20 PT 16.2 Sec. (12.2-14.9) H 05/31/17 16:08 INR 1.24 (0.87-1.13) H 05/31/17 16:08 APTT 37.7 Sec. (24.2-36.6) H 05/31/17 16:08 VBG pH 7.395 (7.320-7.420) 05/31/17 15:20 Sodium 143 mmol/L (137-145) 06/01/17 10:55 Potassium 3.5 mmol/L (3.6-5.0) L 06/01/17 10:55 Chloride 107.1 mmol/L (98-107) H 06/01/17 10:55 Carbon Dioxide 23 mmol/L (22-30) 06/01/17 10:55 Anion Gap 16 mmol/L 06/01/17 10:55 BUN 15 mg/dL (9-20) 06/01/17 10:55 Creatinine 0.4 mg/dL (0.8-1.5) L 06/01/17 10:55 Estimated GFR > 60 ml/min 06/01/17 10:55 BUN/Creatinine Ratio 37.50 % 06/01/17 10:55 Glucose 84 mg/dL (75-100) 06/01/17 10:55 Lactic Acid 1.10 mmol/L (0.7-2.0) 05/31/17 15:20 Calcium 8.1 mg/dL (8.4-10.2) L 06/01/17 10:55 Urine Color Yellow (Yellow) 06/01/17 10:17 Urine Turbidity Turbid (Clear) 06/01/17 10:17 Urine pH 8.0 (5.0-7.0) H 06/01/17 10:17 Ur Specific [place] 1.018 (1.003-1.030) 06/01/17 10:17 Urine Protein 100 mg/dl mg/dL (Negative) 06/01/17 10:17 Urine Glucose (UA) Neg mg/dL (Negative) 06/01/17 10:17 Urine Ketones Neg mg/dL (Negative) 06/01/17 10:17 Urine Blood Mod (Negative) 06/01/17 10:17 Urine Nitrite Neg (Negative) 06/01/17 10:17 Urine Bilirubin Neg (Negative) 06/01/17 10:17 Urine Urobilinogen 2.0 mg/dL (<2.0) 06/01/17 10:17 Ur Leukocyte Esterase Mod (Negative) 06/01/17 10:17 Urine WBC (Auto) > 182.0 /HPF (0.0-6.0) H 06/01/17 10:17 Urine RBC (Auto) > 182.0 /HPF (0.0-6.0) 06/01/17 10:17 Urine Bacteria (Auto) 2+ /HPF (Negative) 06/01/17 10:17 Urine Mucus 1+ /HPF 06/01/17 10:17 Blood Type O POSITIVE 05/31/17 16:05 Antibody Screen TNR 05/31/17 16:05 FLORA Antibody Screen Negative 05/31/17 16:05
[2017-06-01] MEDS: ROCEPHIN/NS 2 GM/100 ML 2 GM/100 ML BAG IV SCH (19:36)
[2017-06-02 07:26] LABS: Basophils % (Auto) 0.1 % (0.0-1.8); Eosinophils % (Auto) 1.7 % (0.0-4.3); Hematocrit 24.2 % (35.5-45.6); Hemoglobin 7.4 gm/dl (11.8-15.2); Mean Corpuscular HGB Conc 31 % (32-34); Mean Corpuscular Hemoglobin 27 pg (28-32); Mean Corpuscular Volume 86 fl (84-94); Platelet Count 295 K/mm3 (140-440); White Blood Count 7.2 K/mm3 (4.5-11.0)
[2017-06-02 07:39] LABS: Red Cell Distribution Width 20.6 % (13.2-15.2)
[2017-06-02 07:40] LABS: Anion Gap 17 mmol/L; Blood Urea Nitrogen 15 mg/dL (9-20); Calcium 8.1 mg/dL (8.4-10.2); Carbon Dioxide 22 mmol/L (22-30); Chloride 103.9 mmol/L (98-107); Glucose 65 mg/dL (75-100); Potassium 3.1 mmol/L (3.6-5.0); Sodium 140 mmol/L (137-145)
[2017-06-02] MEDS: BABY ASPIRIN PO SCH (12:03)
[2017-06-02] MEDS: PEPCID FEEDTUBE SCH ×2 (12:03→21:10)
[2017-06-02] MEDS: VITAMIN C PO SCH (12:04)
[2017-06-02] MEDS: K-DUR PO SCH (12:04)
[2017-06-02] MEDS: DIFLUCAN FEEDTUBE SCH (12:04)
[2017-06-02] MEDS: THERAGRAN-M Tab PO SCH (12:04)
[2017-06-02] MEDS: NORVASC FEEDTUBE SCH (12:12)
[2017-06-02] MEDS ORDERED: SODIUM BICARBONATE FEEDTUBE PRN (12:19)
[2017-06-02] MEDS ORDERED: SIMPLE SYRUP FEEDTUBE PRN ×2 (12:19)
[2017-06-02] MEDS ORDERED: PANCREAZE DR 10,500 UNIT FEEDTUBE PRN (12:19)
--- NOTE | 2017-06-02 12:27 | Consultation ---
History of Present Illness - Reason for Consult Consult date: 06/02/17 - History of Present Illness 46 YO Male SNF resident with HTN, CVA wit Quadraparesis, Seizure disorder, Severe Malnutrition, DM, Seizure DO, Dementia, Respiratory Failure, Dysphagia, presents to ED for evaluation. Pt found to have fever by SNF staff. Pt transported to ED. Pt seen and evaluated in ED. Pt unable to provide history. Pt history taken from ED staff, and medical records. SNF staff reports concerns regarding leaking around suprapubic catheter. known to our service. normal WBC no fever pt with neurologic disease replaced spt (16F [place] tip catheter) 06-02-17 A/P stable normal to have leakage intermittently (new catheter flushes well) will sign off Past History Past Medical History: COPD, diabetes, hypertension, renal failure, seizures, stroke Past Surgical History: Other (G tube, Suprapubic Catheter) Social history: single. denies: smoking, alcohol abuse, prescription drug abuse , IV drug use Family history: hypertension Medications and Allergies Allergies Allergy/AdvReac Type Severity Reaction Status Date / Time vancomycin Allergy Unknown Verified 02/21/17 09:16 Home Medications Medication Instructions Recorded Confirmed Last Taken Type Aspirin [Aspirin BABY CHEW TAB] 81 mg PO QDAY #30 tab.chew 12/10/16 04/26/17 Unknown Rx AtorvaSTATin [Lipitor] 10 mg PO QHS #30 tablet 12/10/16 04/26/17 Unknown Rx Potassium Chloride 10 meq PO DAILY #7 capsule.er 02/27/17 04/26/17 Unknown Rx Ascorbic Acid [Vitamin C] 500 mg PO DAILY #30 04/15/17 04/26/17 Unknown Rx Famotidine [Pepcid] 20 mg FEEDTUBE BID #60 04/15/17 04/26/17 Unknown Rx Glycopyrrolate [Robinul] 1 mg FEEDTUBE TID PRN #30 04/15/17 04/26/17 Unknown Rx Ipratropium/Albuterol Sulfate 1 ampul IH Q6HR #30 04/15/17 04/26/17 Unknown Rx [Duoneb 0.5 mg-3 mg/3 ml Soln] Multivit with Min #53/FA/K/Q10 1 each PO DAILY #30 04/15/17 04/26/17 Unknown Rx [Dekas Plus Softgel] Protein Supplement [Promod] 30 ml FEEDTUBE TID #30 04/15/17 04/26/17 Unknown Rx Scopolamine [Transderm-Scop] 1.5 mg TD Q3D #30 04/15/17 04/26/17 Unknown Rx amLODIPine [Norvasc] 5 mg FEEDTUBE QDAY #30 tablet 04/15/17 04/26/17 08/17/16 Rx Clindamycin [Clindamycin CAP] 300 mg FEEDTUBE Q8H 3 Days 04/30/17 Unknown Rx Fluconazole [Diflucan TAB] 100 mg FEEDTUBE QDAY #3 tablet 04/30/17 Unknown Rx Active Meds: Active Medications Acetaminophen (Tylenol) 650 mg PO Q4H PRN PRN Reason: Pain MILD(1-3)/Fever >100.5/YUAN Last Admin: 06/01/17 23:49 Dose: 650 mg Albuterol (Proventil) 2.5 mg IH Q4H PRN PRN Reason: Shortness Of Breath Amlodipine Besylate (Norvasc) 5 mg FEEDTUBE QDAY [facility] Last Admin: 06/02/17 12:12 Dose: Not Given Lipase/Protease/Amylase (Pancreazcecy Dr 10,500 Unit) 1 each FEEDTUBE PRN PRN PRN Reason: For Clogged Feeding Tube Ascorbic Acid (Vitamin C) 500 mg PO QDAY [facility] Last Admin: 06/02/17 12:04 Dose: 500 mg Aspirin (Baby Aspirin) 81 mg PO QDAY [facility] Last Admin: 06/02/17 12:03 Dose: 81 mg Atorvastatin Calcium (Lipitor) 10 mg PO QHS [facility] Last Admin: 06/01/17 23:46 Dose: 10 mg Famotidine (Pepcid) 20 mg FEEDTUBE BID [facility] Last Admin: 06/02/17 12:03 Dose: 20 mg Fluconazole (Diflucan) 100 mg FEEDTUBE QDAY [facility] Last Admin: 06/02/17 12:04 Dose: 100 mg Glycopyrrolate (Robinul) 1 mg FEEDTUBE TID PRN PRN Reason: excess secretions Ceftriaxone Sodium (Rocephin/Ns 2 Gm/100 Ml) 2 gm in 100 mls @ 200 mls/hr IV Q24H PAM PRN Reason: Protocol Last Admin: 06/01/17 19:36 Dose: 200 mls/hr Sodium Chloride (Nacl 0.45%) 500 mls @ 50 mls/hr IV DIRECT PAM Multivitamins/Minerals (Theragran-M Tab) 1 each PO QDAY P[facility] Last Admin: 06/02/17 12:04 Dose: 1 each Potassium Chloride (K-Dur) 10 meq PO QDAY P[facility] Last Admin: 06/02/17 12:04 Dose: 10 meq Scopolamine (Transderm-Scop) 1 each TD Q3D PAM Simple Syrup (Simple Syrup) 15 ml FEEDTUBE PRN PRN PRN Reason: Hypoglycemia Simple Syrup (Simple Syrup) 30 ml FEEDTUBE PRN PRN PRN Reason: Hypoglycemia Sodium Bicarbonate (Sodium Bicarbonate) 325 mg FEEDTUBE PRN PRN PRN Reason: For Clogged Feeding Tube Exam - Constitutional Vitals: Temp Pulse Resp BP Pulse Ox 98.6 F 78 22 114/78 99 06/02/17 08:00 06/02/17 12:12 06/02/17 08:00 06/02/17 12:12 06/02/17 09:47 Results - Labs CBC & Chem 7: 06/02/17 07:07 06/02/17 07:07 Labs: Abnormal lab results 06/01/17 06/02/17 06/02/17 Range/Units 10: 07:07 07:07 RBC 2.80 L (3.65-5.03) M/mm3 Hgb 7.4 L (11.8-15.2) gm/dl Hct 24.2 L (35.5-45.6) % MCH 27 L (28-32) pg MCHC 31 L (32-34) % RDW 20.6 H (13.2-15.2) % [place] % (Auto) 9.8 H (0.0-7.3) % Potassium 3.1 L (3.6-5.0) mmol/L Creatinine 0.4 L (0.8-1.5) mg/dL Glucose 65 L (75-100) mg/dL Calcium 8.1 L (8.4-10.2) mg/dL Urine pH 8.0 H (5.0-7.0) Urine WBC (Auto) > 182.0 H (0.0-6.0) /HPF
--- NOTE | 2017-06-02 14:14 | Progress Note ---
Assessment and Plan Assessment and plan: 46 YO Male SNF resident with HTN, CVA wit Quadraparesis, Seizure disorder, Severe Malnutrition, DM, Seizure DO, Dementia, Respiratory Failure, Dysphagia, JEREMY presents sp [facility] and leaking around suprapubic catheter. Since unfortunately is unable to provide information as he is nonverbal Patient has had multiple recurrent admissions in the hospital marcescens septicemia, current dysuria, severe anemia requiring recurrent transfusion. Hospice care was offered, but family refused. Sepsis Plan to address problem: IV abx, IVF, supportive care, blood culture, serial lactate level, supportive care, monitor uop q shift, Acute UTI (urinary tract infection) IV abx, IVF supportive care, follow cultures. Anemia Chronic in nature. We'll monitor closely. We'll transfuse if less than 7. Hypokalemia Replace Quadriplegia supportive care, complication of CVA. Metabolic encephalopathy rx UTI, has baseline encephalopathy Suprapubic catheter dysfunction Urology input noted. catherter replaced 18f. 06/02/17. Throat is normal to have intermittent leakage. Adult diaper in place, supportive care Anoxic brain injury supportive care Stage 2 Decub all over the body local wound care Request for pressure support mattress. Severe malnutrition with cachexia -Nutrition consult for PEG feeding DVT prophylaxis lovenox Family present at bedside during my exam today. History Interval history: Patient seen and examined, main is very contracted. Urology input noted. Gue[place]a changed out. No new fever documented today. No other adverse event reported to me Hospitalist Physical - Physical exam Narrative exam: VITAL SIGNS: Reviewed. GENERAL: The patient appeared critically ill, emaciated, contracted Vital signs as documented. HEAD: No signs of head trauma. EYES: Pupils are equal. Extraocular motions intact. EARS: Hearing grossly intact. MOUTH: Oropharynx is dry NECK: No adenopathy, no JVD. CHEST: Chest with clear breath sounds bilaterally. No wheezes, rales, or rhonchi. CARDIAC: Regular rate and rhythm. S1 and S2, without murmurs, gallops, or rubs. VASCULAR: No Edema. Peripheral pulses normal and equal in all extremities. ABDOMEN: Soft, PEG tube in place, around 2 placement ,without detectable tenderness. No sign of distention. No rebound or guarding, and no masses palpated. Bowel Sounds normal. MUSCULOSKELETAL: Contracted. Dependent edema is noted. NEUROLOGIC EXAM: Awake. The contracted unable to thoroughly examine. Patient is nonverbal PSYCHIATRIC: Mood normal. SKIN: To decubitus ulcers. Multiple ulcers lower extremities. Diaphoretic - Constitutional Vitals: Temp Pulse Resp BP Pulse Ox 97.8 F 78 22 114/78 98 06/02/17 12:00 06/02/17 12:12 06/02/17 12:00 06/02/17 12:12 06/02/17 12:00 General appearance: Present: mild distress Results - Labs CBC & Chem 7: 06/02/17 07:07 06/02/17 07:07 Labs: Laboratory Last Values WBC 7.2 K/mm3 (4.5-11.0) 06/02/17 07:07 RBC 2.80 M/mm3 (3.65-5.03) L 06/02/17 07:07 Hgb 7.4 gm/dl (11.8-15.2) L 06/02/17 07:07 Hct 24.2 % (35.5-45.6) L 06/02/17 07:07 MCV 86 fl (84-94) 06/02/17 07:07 MCH 27 pg (28-32) L 06/02/17 07:07 MCHC 31 % (32-34) L 06/02/17 07:07 RDW 20.6 % (13.2-15.2) H 06/02/17 07:07 Plt Count 295 K/mm3 (140-440) 06/02/17 07:07 Lymph % (Auto) 19.6 % (13.4-35.0) 06/02/17 07:07 [place] % (Auto) 9.8 % (0.0-7.3) H 06/02/17 07:07 Eos % (Auto) 1.7 % (0.0-4.3) 06/02/17 07:07 Baso % (Auto) 0.1 % (0.0-1.8) 06/02/17 07:07 Lymph # 1.4 K/mm3 (1.2-5.4) 06/02/17 07:07 [place] # 0.7 K/mm3 (0.0-0.8) 06/02/17 07:07 Eos # 0.1 K/mm3 (0.0-0.4) 06/02/17 07:07 Baso # 0.0 K/mm3 (0.0-0.1) 06/02/17 07:07 Seg Neutrophils % 68.8 % (40.0-70.0) 06/02/17 07:07 Seg Neutrophils # 4.9 K/mm3 (1.8-7.7) 06/02/17 07:07 PT 16.2 Sec. (12.2-14.9) H 05/31/17 16:08 INR 1.24 (0.87-1.13) H 05/31/17 16:08 APTT 37.7 Sec. (24.2-36.6) H 05/31/17 16:08 VBG pH 7.395 (7.320-7.420) 05/31/17 15:20 Sodium 140 mmol/L (137-145) 06/02/17 07:07 Potassium 3.1 mmol/L (3.6-5.0) L 06/02/17 07:07 Chloride 103.9 mmol/L (98-107) 06/02/17 07:07 Carbon Dioxide 22 mmol/L (22-30) 06/02/17 07:07 Anion Gap 17 mmol/L 06/02/17 07:07 BUN 15 mg/dL (9-20) 06/02/17 07:07 Creatinine 0.4 mg/dL (0.8-1.5) L 06/02/17 07:07 Estimated GFR > 60 ml/min 06/02/17 07:07 BUN/Creatinine Ratio 37.50 % 06/02/17 07:07 Glucose 65 mg/dL (75-100) L 06/02/17 07:07 Lactic Acid 1.10 mmol/L (0.7-2.0) 05/31/17 15:20 Calcium 8.1 mg/dL (8.4-10.2) L 06/02/17 07:07 Urine Color Yellow (Yellow) 06/01/17 10:17 Urine Turbidity Turbid (Clear) 06/01/17 10:17 Urine pH 8.0 (5.0-7.0) H 06/01/17 10:17 Ur Specific [place] 1.018 (1.003-1.030) 06/01/17 10:17 Urine Protein 100 mg/dl mg/dL (Negative) 06/01/17 10:17 Urine Glucose (UA) Neg mg/dL (Negative) 06/01/17 10:17 Urine Ketones Neg mg/dL (Negative) 06/01/17 10:17 Urine Blood Mod (Negative) 06/01/17 10:17 Urine Nitrite Neg (Negative) 06/01/17 10:17 Urine Bilirubin Neg (Negative) 06/01/17 10:17 Urine Urobilinogen 2.0 mg/dL (<2.0) 06/01/17 10:17 Ur Leukocyte Esterase Mod (Negative) 06/01/17 10:17 Urine WBC (Auto) > 182.0 /HPF (0.0-6.0) H 06/01/17 10:17 Urine RBC (Auto) > 182.0 /HPF (0.0-6.0) 06/01/17 10:17 Urine Bacteria (Auto) 2+ /HPF (Negative) 06/01/17 10:17 Urine Mucus 1+ /HPF 06/01/17 10:17 Blood Type O POSITIVE 05/31/17 16:05 Antibody Screen TNR 05/31/17 16:05 FLORA Antibody Screen Negative 05/31/17 16:05 - Imaging and Cardiology Chest x-ray: image reviewed (Intersitital pulmonary disease)
[2017-06-02] MEDS ORDERED: POTASSIUM CHLORIDE FEEDTUBE ONE (15:30)
[2017-06-02] MEDS: ROCEPHIN/NS 2 GM/100 ML 2 GM/100 ML BAG IV SCH (18:28)
[2017-06-03 09:34] LABS: Hematocrit 25.9 % (35.5-45.6); Mean Corpuscular HGB Conc 31 % (32-34); Mean Corpuscular Hemoglobin 26 pg (28-32); Mean Corpuscular Volume 84 fl (84-94); Platelet Count 316 K/mm3 (140-440); Red Blood Count 3.08 M/mm3 (3.65-5.03); White Blood Count 7.7 K/mm3 (4.5-11.0)
[2017-06-03 09:36] LABS: Red Cell Distribution Width 20.5 % (13.2-15.2)
[2017-06-03 09:45] LABS: Anion Gap 16 mmol/L; Blood Urea Nitrogen 13 mg/dL (9-20); Calcium 7.8 mg/dL (8.4-10.2); Carbon Dioxide 22 mmol/L (22-30); Chloride 103.7 mmol/L (98-107); Glucose 100 mg/dL (75-100); Potassium 3.5 mmol/L (3.6-5.0); Sodium 138 mmol/L (137-145)
[2017-06-03] MEDS ORDERED: POTASSIUM CHLORIDE FEEDTUBE ONE (13:00)
--- NOTE | 2017-06-03 13:05 | Progress Note ---
Assessment and Plan Assessment and plan: 46 YO Male SNF resident with HTN, CVA wit Quadraparesis, Seizure disorder, Severe Malnutrition, DM, Seizure DO, Dementia, Respiratory Failure, Dysphagia, JEREMY presents sp trache and peg brought from [place] for fever and leaking around suprapubic catheter. Since unfortunately is unable to provide information as he is nonverbal Patient has had multiple recurrent admissions in the hospital marcescens septicemia, current dysuria, severe anemia requiring recurrent transfusion. Hospice care was offered, but family refused. Sepsis Plan to address problem: IV abx, IVF, supportive care, blood culture, serial lactate level, supportive care, monitor uop q shift, Cultures remain negative. Acute UTI (urinary tract infection) IV abx, IVF supportive care, follow cultures with no growth Anemia Chronic in nature. We'll monitor closely. We'll transfuse if less than 7. Hypokalemia Replace Quadriplegia supportive care, complication of CVA. Metabolic encephalopathy rx UTI, has baseline encephalopathy Suprapubic catheter dysfunction Urology input noted. catherter replaced 18f. 06/02/17. Throat is normal to have intermittent leakage. Adult diaper in place, supportive care Anoxic brain injury supportive care Stage 2-3 Decub all over the body local wound care Request for pressure support mattress. Wound care following. dressing applied recommend continuation at the facility on discharge Per wound care team "STAGE 3 PRESSURE ULCER TO LEFT 2ND TOE, SMALL SEROSANGUINEOUS DRAINAGE, RED TISSUE NOTED WITH SKIN SLOUGHING, MEASURES 1.1X0.7 , ALGINATE DRESSING APPLIED, SECURED WITH GAUZE, JUAN CARLOS, TAP" Severe malnutrition with cachexia -Nutrition consult for PEG feeding DVT prophylaxis lovenox No family present at this time. Disposition. Anticipate discharge in AM IF No further fever History Interval history: Patient seen and examined, main is very contracted. No new fever documented today. No other adverse event reported to me Hospitalist Physical - Physical exam Narrative exam: VITAL SIGNS: Reviewed. GENERAL: The patient appeared critically ill, emaciated, contracted. Vital signs as documented. HEAD: No signs of head trauma. EYES: Pupils are equal. Extraocular motions intact. EARS: Hearing grossly intact. MOUTH: Oropharynx is dry NECK: No adenopathy, no JVD. CHEST: Chest with clear breath sounds bilaterally. No wheezes, rales, or rhonchi. CARDIAC: Regular rate and rhythm. S1 and S2, without murmurs, gallops, or rubs. VASCULAR: No Edema. Peripheral pulses normal and equal in all extremities. ABDOMEN: Soft, PEG tube in place, around 2 placement ,without detectable tenderness. No sign of distention. No rebound or guarding, and no masses palpated. Bowel Sounds normal. MUSCULOSKELETAL: Contracted. Dependent edema is noted. NEUROLOGIC EXAM: Awake. The contracted unable to thoroughly examine. Patient is nonverbal PSYCHIATRIC: Mood normal. SKIN: SACRAL decubitus ulcers STAGE 3. Multiple ulcers lower extremities. - Constitutional Vitals: Temp Pulse Resp BP Pulse Ox 98.4 F 101 H 18 115/78 100 06/03/17 07:00 06/03/17 07:00 06/03/17 07:00 06/03/17 07:00 06/03/17 10:00 General appearance: Present: mild distress Results - Labs CBC & Chem 7: 06/03/17 09:11 06/03/17 09:11 Labs: Laboratory Last Values WBC 7.7 K/mm3 (4.5-11.0) 06/03/17 09:11 RBC 3.08 M/mm3 (3.65-5.03) L 06/03/17 09:11 Hgb 8.0 gm/dl (11.8-15.2) L 06/03/17 09:11 Hct 25.9 % (35.5-45.6) L 06/03/17 09:11 MCV 84 fl (84-94) 06/03/17 09:11 MCH 26 pg (28-32) L 06/03/17 09:11 MCHC 31 % (32-34) L 06/03/17 09:11 RDW 20.5 % (13.2-15.2) H 06/03/17 09:11 Plt Count 316 K/mm3 (140-440) 06/03/17 09:11 Lymph % (Auto) 19.6 % (13.4-35.0) 06/02/17 07:07 [place] % (Auto) 9.8 % (0.0-7.3) H 06/02/17 07:07 Eos % (Auto) 1.7 % (0.0-4.3) 06/02/17 07:07 Baso % (Auto) 0.1 % (0.0-1.8) 06/02/17 07:07 Lymph # 1.4 K/mm3 (1.2-5.4) 06/02/17 07:07 [place] # 0.7 K/mm3 (0.0-0.8) 06/02/17 07:07 Eos # 0.1 K/mm3 (0.0-0.4) 06/02/17 07:07 Baso # 0.0 K/mm3 (0.0-0.1) 06/02/17 07:07 Seg Neutrophils % 68.8 % (40.0-70.0) 06/02/17 07:07 Seg Neutrophils # 4.9 K/mm3 (1.8-7.7) 06/02/17 07:07 PT 16.2 Sec. (12.2-14.9) H 05/31/17 16:08 INR 1.24 (0.87-1.13) H 05/31/17 16:08 APTT 37.7 Sec. (24.2-36.6) H 05/31/17 16:08 VBG pH 7.395 (7.320-7.420) 05/31/17 15:20 Sodium 138 mmol/L (137-145) 06/03/17 09:11 Potassium 3.5 mmol/L (3.6-5.0) L 06/03/17 09:11 Chloride 103.7 mmol/L (98-107) 06/03/17 09:11 Carbon Dioxide 22 mmol/L (22-30) 06/03/17 09:11 Anion Gap 16 mmol/L 06/03/17 09:11 BUN 13 mg/dL (9-20) 06/03/17 09:11 Creatinine 0.4 mg/dL (0.8-1.5) L 06/03/17 09:11 Estimated GFR > 60 ml/min 06/03/17 09:11 BUN/Creatinine Ratio 32.50 % 06/03/17 09:11 Glucose 100 mg/dL (75-100) 06/03/17 09:11 Lactic Acid 1.10 mmol/L (0.7-2.0) 05/31/17 15:20 Calcium 7.8 mg/dL (8.4-10.2) L 06/03/17 09:11 Urine Color Yellow (Yellow) 06/01/17 10:17 Urine Turbidity Turbid (Clear) 06/01/17 10:17 Urine pH 8.0 (5.0-7.0) H 06/01/17 10:17 Ur Specific [place] 1.018 (1.003-1.030) 06/01/17 10:17 Urine Protein 100 mg/dl mg/dL (Negative) 06/01/17 10:17 Urine Glucose (UA) Neg mg/dL (Negative) 06/01/17 10: Urine Ketones Neg mg/dL (Negative) 06/01/17 10:17 Urine Blood Mod (Negative) 06/01/17 10: Urine Nitrite Neg (Negative) 06/01/17 10: Urine Bilirubin Neg (Negative) 06/01/17 10: Urine Urobilinogen 2.0 mg/dL (<2.0) 06/01/17 10:17 Ur Leukocyte Esterase Mod (Negative) 06/01/17 10:17 Urine WBC (Auto) > 182.0 /HPF (0.0-6.0) H 06/01/17 10:17 Urine RBC (Auto) > 182.0 /HPF (0.0-6.0) 06/01/17 10:17 Urine Bacteria (Auto) 2+ /HPF (Negative) 06/01/17 10:17 Urine Mucus 1+ /HPF 06/01/17 10:17 Blood Type O POSITIVE 05/31/17 16:05 Antibody Screen TNR 05/31/17 16:05 FLORA Antibody Screen Negative 05/31/17 16:05
[2017-06-03] MEDS: BABY ASPIRIN PO SCH (13:10)
[2017-06-03] MEDS: VITAMIN C PO SCH (13:10)
[2017-06-03] MEDS: K-DUR PO SCH (13:11)
[2017-06-03] MEDS: NORVASC FEEDTUBE SCH (13:11)
[2017-06-03] MEDS: PEPCID FEEDTUBE SCH ×2 (13:12→21:46)
[2017-06-03] MEDS: DIFLUCAN FEEDTUBE SCH (13:12)
[2017-06-03] MEDS: THERAGRAN-M Tab PO SCH (13:12)
[2017-06-03] MEDS: ROCEPHIN/NS 2 GM/100 ML 2 GM/100 ML BAG IV SCH (18:27)
[2017-06-03] MEDS: TRANSDERM-SCOP TD SCH ×2 (18:28→18:29)
--- NOTE | 2017-06-04 07:41 | Discharge Summary ---
Providers - Providers Date of Admission: 05/31/17 17:19 Date of discharge: 06/04/17 Attending physician: JW NAPOLES MD 06/01/17 07:37 Consult to Wound/ET Nurse [CONS] Routine Reason For Exam: wound eval 06/01/17 16:36 Consult to Dietitian/Nutrition [CONS] Routine Physician Instructions: Reason For Exam: FOR G TUBE FEEDING Reason for Consult: G-TUBE 06/01/17 17:59 Consult to Physician [CONS] Routine Consulting Provider: JANET BRUSH Reason For Exam: Suprapubic tube dysfunction Place consult to:: dr. brush Notified:: - If yes, spoke with:: Yuridia Time called:: 18:01 Comment:: dr. armijo spoke with dr. john trinh Primary care physician: VENEER STAPLER Hospitalization Reason for admission: fever. Condition: Stable Hospital course: 46 YO Male SNF resident with HTN, CVA wit Quadraparesis, Seizure disorder, Severe Malnutrition, DM, Seizure DO, Dementia, Respiratory Failure, Dysphagia, JEREMY presents sp trach and peg brought from [place] for fever and leaking around suprapubic catheter. Since unfortunately is unable to provide information as he is nonverbal Patient has had multiple recurrent admissions in the hospital marcescens septicemia, current dysuria, severe anemia requiring recurrent transfusion. Hospice care was offered, but family refused. Sepsis Patient was treated with IV abx, IVF, supportive care, blood culture, serial lactate level, supportive care, monitor uop q shift, Cultures remained negative. Acute UTI (urinary tract infection) As noted above. cultures with no growth Anemia Chronic in nature. No indication for transfusion at this time Hypokalemia ReplaceD Quadriplegia supportive care, complication of CVA. Metabolic encephalopathy Remained at baseline Suprapubic catheter dysfunction Urology input noted. catherter replaced 18f. 06/02/17. Expected that it is normal to have intermittent leakage. Adult diaper in place, supportive care Anoxic brain injury supportive care was provided Stage 2-3 Decub all over the body Wound care evaluated and manged the patient. dressing applied recommend continuation at the facility on discharge Per wound care team "STAGE 3 PRESSURE ULCER TO LEFT 2ND TOE, SMALL SEROSANGUINEOUS DRAINAGE, RED TISSUE NOTED WITH SKIN SLOUGHING, MEASURES 1.1X0.7 , ALGINATE DRESSING APPLIED, SECURED WITH GAUZE, JUAN CARLOS, TAP" Severe malnutrition with cachexia -Nutrition was started and constantly evaluated by tie worker. Sinus Tachycardia- This persisted. Low dose coreg was added. I did adivse an outpatient cardiac evaluation Disposition: [id number]/[facility] Time spent for discharge: 35 mins Core Measure Documentation - Palliative Care Palliative Care/ Comfort Measures: Not Applicable - Core Measures Any of the following diagnoses?: none - VTE Discharge Requirements Deep Vein Thrombosis/Pulmonary Embolism Present on Admission: No Exam - Physical Exam Narrative exam: VITAL SIGNS: Reviewed. GENERAL: The patient appeared critically ill, emaciated, contracted. Vital signs as documented. HEAD: No signs of head trauma. EYES: Pupils are equal. Extraocular motions intact. EARS: Hearing grossly intact. MOUTH: Oropharynx is dry NECK: No adenopathy, no JVD. CHEST: Chest with clear breath sounds bilaterally. No wheezes, rales, or rhonchi. CARDIAC: Regular rate and rhythm. S1 and S2, without murmurs, gallops, or rubs. VASCULAR: No Edema. Peripheral pulses normal and equal in all extremities. ABDOMEN: Soft, PEG tube in place, around 2 placement ,without detectable tenderness. No sign of distention. No rebound or guarding, and no masses palpated. Bowel Sounds normal. MUSCULOSKELETAL: Contracted. Dependent edema is noted. NEUROLOGIC EXAM: Awake. The contracted unable to thoroughly examine. Patient is nonverbal PSYCHIATRIC: Mood normal. SKIN: SACRAL decubitus ulcers Stage 3. Multiple ulcers lower extremities. - Constitutional Vitals: Temp Pulse Resp BP Pulse Ox 98.7 F 110 H 20 135/90 99 06/04/17 04:00 06/04/17 04:00 06/04/17 04:00 06/04/17 04:00 06/04/17 05:00 Plan Activity: advance as tolerated, fall precautions Diet: per dietitian instruction Special Instructions: record daily weights, record daily BP diary, other (Needs adequate and consistent wound management. Needs specilty mattrass) Durable Medical Equipment Needed Upon Discharge: other (specialty bed/mattrass) Additional Instructions: Continue follow up with regular physicians. Needs continues and agressive pulmonary Toilet. Follow up with: PRIMARY CARE, [Primary Care Provider] - 3-5 Days Prescriptions: Carvedilol [Coreg] 3.125 mg PO BID #60 tablet
[2017-06-04] MEDS: THERAGRAN-M Tab PO SCH (09:44)
[2017-06-04] MEDS: PEPCID FEEDTUBE SCH (09:44)
[2017-06-04] MEDS: DIFLUCAN FEEDTUBE SCH (09:44)
[2017-06-04] MEDS: BABY ASPIRIN PO SCH (09:44)
[2017-06-04] MEDS: VITAMIN C PO SCH (09:44)
[2017-06-04] MEDS: K-DUR PO SCH (09:44)
[2017-06-04] MEDS: NORVASC FEEDTUBE SCH (10:00)
[2017-06-04] MEDS ORDERED: XYLOCAINE 2% UROJET ONE (10:47)
[2017-06-04 12:27] VITALS: BP 132/78
== END 2017-06-04 13:00 | DRG 871 ==
LOC: ED 14:25 → 3A 17:19
PROVIDERS: ADMIT Internal Medicine; ATTEND Internal Medicine
PROC: 4A033R1 Measurement of Arterial Saturation, Peripheral, Percutaneous Approach (ICD-10-PCS; principal; 2017-05-31)
DX: A41.9 Sepsis, unspecified organism (principal); G82.50 Quadriplegia, unspecified; G93.41 Metabolic encephalopathy; E43 Unspecified severe protein-calorie malnutrition; L89.93 Pressure ulcer of unspecified site, stage 3; T83.9XXA Unspecified complication of genitourinary prosthetic device, implant and graft, initial encounter; N39.0 Urinary tract infection, site not specified; G93.1 Anoxic brain damage, not elsewhere classified; E11.9 Type 2 diabetes mellitus without complications; J44.9 Chronic obstructive pulmonary disease, unspecified; E86.0 Dehydration; D64.9 Anemia, unspecified; E87.6 Hypokalemia; G40.909 Epilepsy, unspecified, not intractable, without status epilepticus; Z68.1 Body mass index [BMI] 19.9 or less, adult; Z88.8 Allergy status to other drugs, medicaments and biological substances; Z86.73 Personal history of transient ischemic attack (TIA), and cerebral infarction without residual deficits; Z82.49 Family history of ischemic heart disease and other diseases of the circulatory system; Z93.0 Tracheostomy status; Z93.1 Gastrostomy status
CPT/HCPCS: 36415; 71010; 80048; 81001; 82140; 82805; 85025; 85027; 85610; 85730; 86850; 86900; 86901; 87040; 87086; 94760; 96365; 96366; 96368; A9270-GY; J0696; J2543; J7030

== ENCOUNTER 2017-06-25 19:30 | Emergency (ER) | payer MEDICAID ==
--- NOTE | 2017-06-25 20:56 | Emergency Department Report ---
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 Who presents with clogged G-tube. History is limited due to patient's medical condition. Per EMS patient has had a clogged G-tube for the last couple of hours it has not been flushing. Patient nods no when asked if he has any chest pain, abdominal pain, headache, fevers, fatigue, vision changes. - Related Data Previous Rx's Medication Instructions Recorded Last Taken Type Aspirin [Aspirin BABY CHEW TAB] 81 mg PO QDAY #30 tab.chew 12/10/16 Unknown Rx AtorvaSTATin [Lipitor] 10 mg PO QHS #30 tablet 12/10/16 Unknown Rx Potassium Chloride 10 meq PO DAILY #7 capsule.er 02/27/17 Unknown Rx Ascorbic Acid [Vitamin C] 500 mg PO DAILY #30 04/15/17 Unknown Rx Famotidine [Pepcid] 20 mg FEEDTUBE BID #60 04/15/17 Unknown Rx Glycopyrrolate [Robinul] 1 mg FEEDTUBE TID PRN #30 04/15/17 Unknown Rx Ipratropium/Albuterol Sulfate 1 ampul IH Q6HR #30 04/15/17 Unknown Rx [DUONEB *Not for PRN Use*] Multivit with Min #53/FA/K/Q10 1 each PO DAILY #30 04/15/17 Unknown Rx [Dekas Plus Softgel] Protein Supplement [Promod] 30 ml FEEDTUBE TID #30 04/15/17 Unknown Rx Scopolamine [Transderm-Scop] 1.5 mg TD Q3D #30 04/15/17 Unknown Rx amLODIPine [Norvasc] 5 mg FEEDTUBE QDAY #30 tablet 04/15/17 08/17/16 Rx Clindamycin [Clindamycin CAP] 300 mg FEEDTUBE Q8H 3 Days 04/30/17 Unknown Rx Fluconazole [Diflucan TAB] 100 mg FEEDTUBE QDAY #3 tablet 04/30/17 Unknown Rx Carvedilol [Coreg] 3.125 mg PO BID #60 tablet 06/04/17 Unknown Rx Allergies Allergy/AdvReac Type Severity Reaction Status Date / Time vancomycin Allergy Unknown Verified 02/21/17 09:16 ED Review of Systems ROS: Stated complaint: G TUBE CLOGGED Other details as noted in HPI Comment: Unobtainable due to pts medical conditions (quadriplegia trach dependent) ED Past Medical Hx - Past Medical History Previous Medical History?: Yes Hx Hypertension: Yes Hx CVA: Yes Hx Heart Attack/AMI: No Hx Congestive Heart Failure: No Hx Diabetes: Yes Hx Deep Vein Thrombosis: (?) Hx Pulmonary Embolism: No Hx Liver Disease: No Hx Renal Disease: Yes Hx Sickle Cell Disease: No Hx Arthritis: No Hx Seizures: Yes Hx Kidney Stones: No Hx Asthma: No Hx COPD: Yes Hx Tuberculosis: No Hx Dementia: Yes Additional medical history: Resp failure, dysphagia, uti, scrotal cellulitis, quadriplegic - Surgical History Past Surgical History?: Yes Hx Coronary Stent: No Hx Open Heart Surgery: No Hx Pacemaker: No Hx Internal Defibrillator: No Hx Cholecystectomy: No Hx Appendectomy: No Hx Breast Surgery: No Additional Surgical History: G-tube, suprapubic catheter - Social History Smoking Status: Unknown if ever smoked Substance Use Type: Prescribed - Medications Home Medications: Home Medications Medication Instructions Recorded Confirmed Last Taken Type Aspirin [Aspirin BABY CHEW TAB] 81 mg PO QDAY #30 tab.chew 12/10/16 04/26/17 Unknown Rx AtorvaSTATin [Lipitor] 10 mg PO QHS #30 tablet 12/10/16 04/26/17 Unknown Rx Potassium Chloride 10 meq PO DAILY #7 capsule.er 02/27/17 04/26/17 Unknown Rx Ascorbic Acid [Vitamin C] 500 mg PO DAILY #30 04/15/17 04/26/17 Unknown Rx Famotidine [Pepcid] 20 mg FEEDTUBE BID #60 04/15/17 04/26/17 Unknown Rx Glycopyrrolate [Robinul] 1 mg FEEDTUBE TID PRN #30 04/15/17 04/26/17 Unknown Rx Ipratropium/Albuterol Sulfate 1 ampul IH Q6HR #30 04/15/17 04/26/17 Unknown Rx [DUONEB *Not for PRN Use*] Multivit with Min #53/FA/K/Q10 1 each PO DAILY #30 04/15/17 04/26/17 Unknown Rx [Dekas Plus Softgel] Protein Supplement [Promod] 30 ml FEEDTUBE TID #30 04/15/17 04/26/17 Unknown Rx Scopolamine [Transderm-Scop] 1.5 mg TD Q3D #30 04/15/17 04/26/17 Unknown Rx amLODIPine [Norvasc] 5 mg FEEDTUBE QDAY #30 tablet 04/15/17 04/26/17 08/17/16 Rx Clindamycin [Clindamycin CAP] 300 mg FEEDTUBE Q8H 3 Days 04/30/17 Unknown Rx Fluconazole [Diflucan TAB] 100 mg FEEDTUBE QDAY #3 tablet 04/30/17 Unknown Rx Carvedilol [Coreg] 3.125 mg PO BID #60 tablet 06/04/17 Unknown Rx ED Physical Exam - General Limitations: Physical Limitation, Other General appearance: other - Head Head exam: Present: atraumatic - Eye Eye exam: Present: EOMI - Neck Neck exam: Present: other (trach collar) - Respiratory Respiratory exam: Present: normal lung sounds bilaterally - Cardiovascular Cardiovascular Exam: Present: normal rhythm - GI/Abdominal GI/Abdominal exam: Present: soft, other (G-tube in position). Absent: distended , tenderness - Extremities Exam Extremities exam: Present: other (contractures in all 4 extremities) - Neurological Exam Neurological exam: Present: alert ED Course Vital Signs 06/25/17 06/25/17 06/25/17 19:42 19:50 20:00 Temperature Pulse Rate 100 H 103 H 92 H Respiratory 22 21 37 H Rate Blood Pressure 124/76 115/78 O2 Sat by Pulse 100 Oximetry 06/25/17 06/25/17 06/25/17 20:07 20:11 20:21 Temperature 98.1 F Pulse Rate 99 H 96 H 97 H Respiratory 18 8 L 33 H Rate Blood Pressure 124/77 124/76 115/78 O2 Sat by Pulse 100 100 100 Oximetry 06/25/17 06/25/17 20:30 20:41 Temperature Pulse Rate 90 89 Respiratory 37 H 30 H Rate Blood Pressure 116/77 116/77 O2 Sat by Pulse 100 100 Oximetry - Reevaluation(s) Reevaluation #1: 06/25/17 21:04 Patient's G-tube has been flushed with warm normal saline at draws back gastric contents we'll send patient home back to shelter facility. ED Medical Decision Making - Medical Decision Making Chief medical diagnosis clogged G-tube Differential diagnosis: Medication impaction, G-tube dislodgment Well attempted to flush warm saline down G-tube if successful and able to draw by gastric contents we'll send patient back to his care facility. Critical care attestation.: If time is entered above; I have spent that time in minutes in the direct care of this critically ill patient, excluding procedure time. ED Disposition Clinical Impression: Gastrostomy tube obstruction, Quadriplegia, Contracture of joint of multiple sites Dysphagia Qualifiers: Dysphagia type: unspecified Qualified Code(s): R13.10 - Dysphagia, unspecified Disposition: TO HOME OR SELFCARE Is pt being admited?: No Does the pt Need Aspirin: No Condition: Stable Instructions: How to Use and Care for Your PEG Tube (ED) Referrals: PRIMARY CARE, [Primary Care Provider] - 3-5 Days Time of Disposition: 21:10
[2017-06-25 20:59] VITALS: BP 116/77
== END 2017-06-25 22:45 | disposition home or self-care (01) ==
LOC: ED 19:30
DX: T85.598A Other mechanical complication of other gastrointestinal prosthetic devices, implants and grafts, initial encounter (principal); M24.542 Contracture, left hand; M24.541 Contracture, right hand; M24.575 Contracture, left foot; M24.574 Contracture, right foot; I10 Essential (primary) hypertension; E11.9 Type 2 diabetes mellitus without complications; J44.9 Chronic obstructive pulmonary disease, unspecified; F03.90 Unspecified dementia, unspecified severity, without behavioral disturbance, psychotic disturbance, mood disturbance, and anxiety; Z86.73 Personal history of transient ischemic attack (TIA), and cerebral infarction without residual deficits; Z79.82 Long term (current) use of aspirin; Z88.1 Allergy status to other antibiotic agents
CPT/HCPCS: 99283

== ENCOUNTER 2017-07-14 16:27 | Inpatient (IN) | payer MEDICAID ==
[2017-07-14 17:56] LABS: Basophils % (Auto) 0.3 % (0.0-1.8); Eosinophils % (Auto) 0.5 % (0.0-4.3); Hematocrit 30.8 % (35.5-45.6); Hemoglobin 9.6 gm/dl (11.8-15.2); Mean Corpuscular HGB Conc 31 % (32-34); Mean Corpuscular Hemoglobin 27 pg (28-32); Mean Corpuscular Volume 86 fl (84-94); Platelet Count 324 K/mm3 (140-440); Red Blood Count 3.58 M/mm3 (3.65-5.03); Red Cell Distribution Width 18.8 % (13.2-15.2); White Blood Count 13.1 K/mm3 (4.5-11.0)
[2017-07-14] MEDS ORDERED: NACL 0.9% 1000 ML 1,000 ML IV ONE (18:03)
[2017-07-14] MEDS ORDERED: NACL 0.9% 1000 ML 2,000 ML IV ONE (18:03)
[2017-07-14] MEDS ORDERED: MORPHINE IV ONE (18:03)
--- NOTE | 2017-07-14 18:05 | Emergency Department Report ---
ED General Adult HPI - General Chief complaint: Wound/Laceration Stated complaint: INFECTED SCROTUM Time Seen by Provider: 07/14/17 17:38 Source: EMS (ems notes not available at time of chart dictation), RN notes reviewed, old records reviewed Mode of arrival: Stretcher Limitations: Language Barrier, Altered Mental Status, Physical Limitation - History of Present Illness Initial comments: This is a 47-year-old male. He is well-known to myself, and well known to this hospital. Past medical history includes multiple contractures, multiple skin areas of breakdown, tracheostomy dependent, He also has a history of suprapubic Guevara catheter. The patient is nonverbal, and unable to describe any history. He [facility] for evaluation of testicle drainage and purulent drainage. Uncertain how long this has been going on for, patient and a closed documentation unable to describe exacerbating or relieving factors. The patient does not have the ability to respond to close and a questions at this time. -: unknown Location: genitals - Related Data Previous Rx's Medication Instructions Recorded Last Taken Type Aspirin [Aspirin BABY CHEW TAB] 81 mg PO QDAY #30 tab.chew 12/10/16 Unknown Rx AtorvaSTATin [Lipitor] 10 mg PO QHS #30 tablet 12/10/16 Unknown Rx Potassium Chloride 10 meq PO DAILY #7 capsule.er 02/27/17 Unknown Rx Ascorbic Acid [Vitamin C] 500 mg PO DAILY #30 04/15/17 Unknown Rx Famotidine [Pepcid] 20 mg FEEDTUBE BID #60 04/15/17 Unknown Rx Glycopyrrolate [Robinul] 1 mg FEEDTUBE TID PRN #30 04/15/17 Unknown Rx Ipratropium/Albuterol Sulfate 1 ampul IH Q6HR #30 04/15/17 Unknown Rx [DUONEB *Not for PRN Use*] Multivit with Min #53/FA/K/Q10 1 each PO DAILY #30 04/15/17 Unknown Rx [Dekas Plus Softgel] Protein Supplement [Promod] 30 ml FEEDTUBE TID #30 04/15/17 Unknown Rx Scopolamine [Transderm-Scop] 1.5 mg TD Q3D #30 04/15/17 Unknown Rx amLODIPine [Norvasc] 5 mg FEEDTUBE QDAY #30 tablet 04/15/17 08/17/16 Rx Clindamycin [Clindamycin CAP] 300 mg FEEDTUBE Q8H 3 Days 04/30/17 Unknown Rx Fluconazole [Diflucan TAB] 100 mg FEEDTUBE QDAY #3 tablet 04/30/17 Unknown Rx Carvedilol [Coreg] 3.125 mg PO BID #60 tablet 06/04/17 Unknown Rx Allergies Allergy/AdvReac Type Severity Reaction Status Date / Time vancomycin Allergy Unknown Verified 02/21/17 09:16 ED Review of Systems ROS: Stated complaint: INFECTED SCROTUM Other details as noted in HPI Comment: Unobtainable due to pts medical conditions ED Past Medical Hx - Past Medical History Previous Medical History?: Yes Hx Hypertension: Yes Hx CVA: Yes Hx Heart Attack/AMI: No Hx Congestive Heart Failure: No Hx Diabetes: Yes Hx Deep Vein Thrombosis: (?) Hx Pulmonary Embolism: No Hx Liver Disease: No Hx Renal Disease: Yes Hx Sickle Cell Disease: No Hx Arthritis: No Hx Seizures: Yes Hx Kidney Stones: No Hx Asthma: No Hx COPD: Yes Hx Tuberculosis: No Hx Dementia: Yes Additional medical history: Resp failure, dysphagia, uti, scrotal cellulitis, quadriplegic - Surgical History Past Surgical History?: No Hx Coronary Stent: No Hx Open Heart Surgery: No Hx Pacemaker: No Hx Internal Defibrillator: No Hx Cholecystectomy: No Hx Appendectomy: No Hx Breast Surgery: No Additional Surgical History: G-tube, suprapubic catheter, trach - Social History Smoking Status: Unknown if ever smoked - Medications Home Medications: Home Medications Medication Instructions Recorded Confirmed Last Taken Type Aspirin [Aspirin BABY CHEW TAB] 81 mg PO QDAY #30 tab.chew 12/10/16 04/26/17 Unknown Rx AtorvaSTATin [Lipitor] 10 mg PO QHS #30 tablet 12/10/16 04/26/17 Unknown Rx Potassium Chloride 10 meq PO DAILY #7 capsule.er 02/27/17 04/26/17 Unknown Rx Ascorbic Acid [Vitamin C] 500 mg PO DAILY #30 04/15/17 04/26/17 Unknown Rx Famotidine [Pepcid] 20 mg FEEDTUBE BID #60 04/15/17 04/26/17 Unknown Rx Glycopyrrolate [Robinul] 1 mg FEEDTUBE TID PRN #30 04/15/17 04/26/17 Unknown Rx Ipratropium/Albuterol Sulfate 1 ampul IH Q6HR #30 04/15/17 04/26/17 Unknown Rx [DUONEB *Not for PRN Use*] Multivit with Min #53/FA/K/Q10 1 each PO DAILY #30 04/15/17 04/26/17 Unknown Rx [Dekas Plus Softgel] Protein Supplement [Promod] 30 ml FEEDTUBE TID #30 04/15/17 04/26/17 Unknown Rx Scopolamine [Transderm-Scop] 1.5 mg TD Q3D #30 04/15/17 04/26/17 Unknown Rx amLODIPine [Norvasc] 5 mg FEEDTUBE QDAY #30 tablet 04/15/17 04/26/17 08/17/16 Rx Clindamycin [Clindamycin CAP] 300 mg FEEDTUBE Q8H 3 Days 04/30/17 Unknown Rx Fluconazole [Diflucan TAB] 100 mg FEEDTUBE QDAY #3 tablet 04/30/17 Unknown Rx Carvedilol [Coreg] 3.125 mg PO BID #60 tablet 06/04/17 Unknown Rx ED Physical Exam - General Limitations: Language Barrier, Altered Mental Status, Physical Limitation General appearance: in no apparent distress - Eye Eye exam: Present: normal appearance - ENT ENT exam: Present: mucous membranes dry - Neck Neck exam: Present: normal inspection, other (tracheostomy tube is noted, no redness, pus or streaking) - Respiratory Respiratory exam: Present: normal lung sounds bilaterally. Absent: respiratory distress - Cardiovascular Cardiovascular Exam: Present: regular rate, normal heart sounds - GI/Abdominal GI/Abdominal exam: Present: soft. Absent: distended, tenderness, guarding - Rectal Rectal exam: Present: other (numerous areas of skin breakdown are noted) - exam: Present: testicular tenderness (bilateral testicular tenderness.Discharge is noted.), other (suprapubic Guevara catheter is noted.) - Extremities Exam Extremities exam: Present: other (multiple areas of skin breakdown. Multiple areas of maceration) - Back Exam Back exam: Present: other (multiple areas of skin breakdown) - Neurological Exam Neurological exam: Present: other (patient is nonverbal) - Psychiatric Psychiatric exam: Present: other (patient is nonverbal) ED Course Vital Signs 07/14/17 07/14/17 07/14/17 16:40 16:45 16:54 Temperature 99.4 F Pulse Rate 90 90 Respiratory 14 28 H 23 Rate Blood Pressure 116/73 116/73 Blood Pressure [Left] O2 Sat by Pulse 100 100 Oximetry 07/14/17 07/14/17 07/14/17 17:00 17:15 17:31 Temperature Pulse Rate 90 90 Respiratory 29 H 18 Rate Blood Pressure 109/71 109/71 113/71 Blood Pressure [Left] O2 Sat by Pulse 100 100 100 Oximetry 07/14/17 07/14/17 07/14/17 17:45 18:00 18:15 Temperature Pulse Rate 90 Respiratory 17 Rate Blood Pressure 115/86 116/71 123/87 Blood Pressure [Left] O2 Sat by Pulse 100 100 100 Oximetry 07/14/17 07/14/17 07/14/17 18:21 18:43 18:45 Temperature Pulse Rate 87 Respiratory 16 Rate Blood Pressure Blood Pressure [Left] O2 Sat by Pulse 100 100 100 Oximetry 07/14/17 07/14/17 07/14/17 19:00 19:15 19:30 Temperature Pulse Rate 84 82 Respiratory 28 H 29 H Rate Blood Pressure 171/78 171/78 146/77 Blood Pressure [Left] O2 Sat by Pulse Oximetry 07/14/17 07/14/17 07/14/17 19:45 20:00 20:08 Temperature Pulse Rate 80 80 80 Respiratory 24 26 H Rate Blood Pressure 171/78 118/76 Blood Pressure 118/76 [Left] O2 Sat by Pulse Oximetry 07/14/17 07/14/17 07/14/17 20:15 20:31 20:45 Temperature Pulse Rate 84 86 89 Respiratory 29 H 28 H 31 H Rate Blood Pressure 118/76 132/79 144/79 Blood Pressure [Left] O2 Sat by Pulse 100 100 100 Oximetry 07/14/17 20:59 Temperature Pulse Rate Respiratory Rate Blood Pressure Blood Pressure [Left] O2 Sat by Pulse 100 Oximetry - Reevaluation(s) Reevaluation #1: 07/14/17 19:25 Differential diagnosis: Testicular abscess, fourniers gangrene, multiple contractures, sepsis, electrolyte derangement Assessment and plan: 47-year-old male with clinical testicular abscess and active drainage. Physical exam is limited and difficult because the patient is very contracted. His legs are so contracted and rigid, that this provider is unable to open up the hips to get a thorough examination. A noncontrast CT scan of the pelvis was performed. Patient is treated empirically with antibiotic therapy. Laboratory studies reviewed. X-ray of the chest negative for pneumonia, however the patient's anatomy and skull position limits evaluation of the right upper lobe. Patient will require evaluation and consultation with urologic services. Reevaluation #2: 07/14/17 20:33 CT scan suggests osteomyelitis, and testicular abscess with gas formation. Case discussed with urology, Dr. Shi, he is coming in to perform surgical intervention. Hospital physician has been paged. Reevaluation #3: 07/14/17 21:27 patient meets sepsis criteria ct findings reviewed with the hospital physician, Dr. Amezquita, who accepts the patient to his service. Patient is given appropriate antibiotics, blood cultures, urine cultures, lactic acid, and has received and aggressive fluid resuscitation. - Procedure Description Procedures done: Patient had IV site which and blew. Patient is a very difficult IV stick. The patient has verbal and written consents administered by his sister. The patient is prepped and draped in the typical sterile fashion. Using ultrasound guidance, a 3.5 inch 18-gauge Angiocath is inserted into the left internal jugular system using ultrasound guidance with one attempt. There is successful cannulation of the internal jugular system, with immediate blood return. The patient tolerated this procedure well, and there were no complications. This IV is acceptable for use at this time. ED Medical Decision Making - Lab Data Result diagrams: 07/14/17 17:42 07/14/17 17:42 Vital Signs 07/14/17 07/14/17 16:54 18:21 Temperature 99.4 F Pulse Rate 90 Respiratory 23 Rate Blood Pressure 116/73 O2 Sat by Pulse 100 100 Oximetry Lab Results 07/14/17 07/14/17 07/14/17 Range/Units 17:42 17:42 18:50 WBC 13.1 H (4.5-11.0) K/mm3 RBC 3.58 L (3.65-5.03) M/mm3 Hgb 9.6 L (11.8-15.2) gm/dl Hct 30.8 L (35.5-45.6) % MCV 86 (84-94) fl MCH 27 L (28-32) pg MCHC 31 L (32-34) % RDW 18.8 H (13.2-15.2) % Plt Count 324 (140-440) K/mm3 Lymph % (Auto) 14.5 (13.4-35.0) % [place] % (Auto) 10.3 H (0.0-7.3) % Eos % (Auto) 0.5 (0.0-4.3) % Baso % (Auto) 0.3 (0.0-1.8) % Lymph # 1.9 (1.2-5.4) K/mm3 [place] # 1.3 H (0.0-0.8) K/mm3 Eos # 0.1 (0.0-0.4) K/mm3 Baso # 0.0 (0.0-0.1) K/mm3 Seg Neutrophils % 74.4 H (40.0-70.0) % Seg Neutrophils # 9.7 H (1.8-7.7) K/mm3 Sodium 139 (137-145) mmol/L Potassium 4.5 (3.6-5.0) mmol/L Chloride 101.0 (98-107) mmol/L Carbon Dioxide 25 (22-30) mmol/L Anion Gap 18 mmol/L BUN 20 (9-20) mg/dL Creatinine 0.3 L (0.8-1.5) mg/dL Estimated GFR > 60 ml/min BUN/Creatinine Ratio 66.66 % Glucose 86 (75-100) mg/dL Lactic Acid 1.10 (0.7-2.0) mmol/L Calcium 8.7 (8.4-10.2) mg/dL - Radiology Data Radiology results: report reviewed, image reviewed interpreted by me: X-ray the chest is grossly negative for acute disease. The left hemithorax is negative. Tracheostomy tube is noted. The right lower lung is clear. The right upper lung is obscured by the skull. Critical care attestation.: If time is entered above; I have spent that time in minutes in the direct care of this critically ill patient, excluding procedure time. ED Disposition Clinical Impression: Sepsis syndrome, Scrotal abscess Decubitus ulcers Qualifiers: Pressure ulcer stage: stage 3 Disposition: OP ADMIT IP TO THIS HOSP Is pt being admited?: Yes Condition: Fair Referrals: PRIMARY CARE, [Primary Care Provider] - 3-5 Days
[2017-07-14 18:16] LABS: Anion Gap 18 mmol/L; BUN/Creatinine Ratio 66.66; Blood Urea Nitrogen 20 mg/dL (9-20); Calcium 8.7 mg/dL (8.4-10.2); Carbon Dioxide 25 mmol/L (22-30); Glucose 86 mg/dL (75-100); Potassium 4.5 mmol/L (3.6-5.0); Sodium 139 mmol/L (137-145)
[2017-07-14] MEDS ORDERED: ZOSYN/NS 3.375GM/50ML 3.375 GM/50 ML BAG IV SCH (18:30)
--- NOTE | 2017-07-14 19:46 | Cat Scan Report ---
FINAL REPORT PROCEDURE: CT PELVIS WO CON TECHNIQUE: Computerized axial tomography of the pelvis was performed without contrast material. HISTORY: scrotal abscess, sacral ulcers COMPARISON: 04/11/2017 TECHNICAL QUALITY: Satisfactory. FINDINGS: Right paracentral suprapubic catheter. Fecal impaction in the sigmoid colon. Rectal fluid suspected. Can't exclude thickening of the rectum or rectal mass. Examination limited by lack of IV and oral contrast. Examination limited by motion artifact and streak artifacts related to wires catheters. There is a possible complex cystic area in the right christoph scrotal area which may reflect abscess with subcutaneous emphysema and thickening. Examination is markedly limited due to lack of IV contrast and oral contrast as well as artifacts. Recommend scrotal ultrasound correlation or follow-up CT scan with IV contrast. Extensive chronic bony derangement and deformity of the hips bilaterally with extensive eburnation with chronic ossifications around each hip. Right posterior decubitus ulceration posterior right ischial area with deep tissue wound and posterior bony irregularity and osteolytic changes suspicious for osteomyelitis with para osseous calcifications. Motion artifact obscures the evaluation with periosteal elevation or reaction not excludable. Severe osteoporosis with scattered areas of lytic or cystic change nonspecific. Scattered nonspecific sclerotic foci. Scattered areas of sclerotic change. Defer to nuclear medicine bone scan or MRI regarding bony integrity. Defer to nuclear medicine tagged white blood cell Ceretec study to exclude osteomyelitis. Motion artifact precludes ability to exclude gross fracturing or subtle fractures including proximal left femoral neck area Scattered lytic areas in the bones preclude ability to exclude metastatic disease IMPRESSION: Suspect probable right scrotal abscess. Defer to contrast-enhanced CT study or ultrasound to further evaluate Findings suspicious for possible right posterior ischial osteomyelitis deep to the decubitus ulceration. Defer to nuclear medicine tagged white blood cell Ceretec scan. Examination limited by lack of IV contrast and limited by motion and streak artifact. Followup is advised in that regard
[2017-07-14] MEDS ORDERED: SUBLIMAZE ONE (20:44)
[2017-07-14] MEDS ORDERED: ZOFRAN ONE (20:44)
[2017-07-14] MEDS ORDERED: DIPRIVAN 10 MG/ML IV ONE (20:44)
[2017-07-14] MEDS ORDERED: XYLOCAINE MPF 2% ONE (20:44)
[2017-07-14] MEDS ORDERED: FLAGYL 500 MG/100 ML 500 MG/100 ML BAG IV SCH (21:00)
[2017-07-14] MEDS ORDERED: NACL 0.9% 1000 ML 1,000 ML ONE (21:15)
--- NOTE | 2017-07-14 21:16 | Consultation ---
History of Present Illness - Reason for Consult Consult date: 07/14/17 - History of Present Illness This is a 47-year-old male. He is well-known to myself, and well known to this hospital. Past medical history includes multiple contractures, multiple skin areas of breakdown, tracheostomy dependent, He also has a history of suprapubic Guevara catheter. The patient is nonverbal, and unable to describe any history. He is sent [facility] the ER from [facility] local [facility] for evaluation of testicle drainage and purulent drainage. Uncertain how long this has been going on for, patient and a closed documentation unable to describe exacerbating or relieving factors. The patient does not have the ability to respond to close and a questions at this time. trach spt draining cloudy urine CTAP scrotal abscess A/P consent obtained from sister I& D scrotal abscess & spt change ---16F Medications and Allergies Allergies Allergy/AdvReac Type Severity Reaction Status Date / Time vancomycin Allergy Unknown Verified 02/21/17 09:16 Home Medications Medication Instructions Recorded Confirmed Last Taken Type Aspirin [Aspirin BABY CHEW TAB] 81 mg PO QDAY #30 tab.chew 12/10/16 04/26/17 Unknown Rx AtorvaSTATin [Lipitor] 10 mg PO QHS #30 tablet 12/10/16 04/26/17 Unknown Rx Potassium Chloride 10 meq PO DAILY #7 capsule.er 02/27/17 04/26/17 Unknown Rx Ascorbic Acid [Vitamin C] 500 mg PO DAILY #30 04/15/17 04/26/17 Unknown Rx Famotidine [Pepcid] 20 mg FEEDTUBE BID #60 04/15/17 04/26/17 Unknown Rx Glycopyrrolate [Robinul] 1 mg FEEDTUBE TID PRN #30 04/15/17 04/26/17 Unknown Rx Ipratropium/Albuterol Sulfate 1 ampul IH Q6HR #30 04/15/17 04/26/17 Unknown Rx [DUONEB *Not for PRN Use*] Multivit with Min #53/FA/K/Q10 1 each PO DAILY #30 04/15/17 04/26/17 Unknown Rx [Dekas Plus Softgel] Protein Supplement [Promod] 30 ml FEEDTUBE TID #30 04/15/17 04/26/17 Unknown Rx Scopolamine [Transderm-Scop] 1.5 mg TD Q3D #30 04/15/17 04/26/17 Unknown Rx amLODIPine [Norvasc] 5 mg FEEDTUBE QDAY #30 tablet 04/15/17 04/26/17 08/17/16 Rx Clindamycin [Clindamycin CAP] 300 mg FEEDTUBE Q8H 3 Days 04/30/17 Unknown Rx Fluconazole [Diflucan TAB] 100 mg FEEDTUBE QDAY #3 tablet 04/30/17 Unknown Rx Carvedilol [Coreg] 3.125 mg PO BID #60 tablet 06/04/17 Unknown Rx Active Meds: Active Medications Piperacillin Sod/Tazobactam Sod (Zosyn/Ns 3.375gm/50ml) 3.375 gm in 50 mls @ 100 mls/hr IV Q6H PAM Last Admin: 07/14/17 20:30 Dose: 100 mls/hr Metronidazole (Flagyl 500 Mg/100 Ml) 500 mg in 100 mls @ 200 mls/hr IV ONCE PAM Stop: 07/14/17 21:29 Exam - Constitutional Vitals: Temp Pulse Resp BP Pulse Ox 99.4 F 89 31 H 144/79 100 07/14/17 16:54 07/14/17 20:45 07/14/17 20:45 07/14/17 20:45 07/14/17 20:59 Results - Labs CBC & Chem 7: 07/14/17 17:42 07/14/17 17:42 Labs: Abnormal lab results 07/14/17 07/14/17 Range/Units 17:42 17:42 WBC 13.1 H (4.5-11.0) K/mm3 RBC 3.58 L (3.65-5.03) M/mm3 Hgb 9.6 L (11.8-15.2) gm/dl Hct 30.8 L (35.5-45.6) % MCH 27 L (28-32) pg MCHC 31 L (32-34) % RDW 18.8 H (13.2-15.2) % [place] % (Auto) 10.3 H (0.0-7.3) % [place] # 1.3 H (0.0-0.8) K/mm3 Seg Neutrophils % 74.4 H (40.0-70.0) % Seg Neutrophils # 9.7 H (1.8-7.7) K/mm3 Creatinine 0.3 L (0.8-1.5) mg/dL
--- NOTE | 2017-07-14 22:22 | Post Operative Note ---
Pre-op diagnosis: scrotal abscess Post-op diagnosis: same Procedure: I & D scrotal abscess Anesthesia: GETA Surgeon: JANET BRUSH Estimated blood loss: minimal Pathology: list (cultures) Condition: stable Disposition: PACU (hospitalist to admit for medical management - spoke with Dr. Claudio, ext. [phone])
[2017-07-14] MEDS ORDERED: MORPHINE IV PRN (22:25)
[2017-07-14] MEDS ORDERED: ZOFRAN IV PRN (22:25)
[2017-07-14] MEDS ORDERED: DULCOLAX PR PRN (22:25)
[2017-07-14] MEDS ORDERED: NARCAN 0.4 MG/1 ML IV PRN (22:25)
[2017-07-14] MEDS ORDERED: TYLENOL PO PRN (22:25)
[2017-07-14] MEDS ORDERED: MILK OF MAGNESIA PO PRN (22:25)
[2017-07-14] MEDS ORDERED: ROBINUL FEEDTUBE PRN (22:28)
[2017-07-14] MEDS ORDERED: NACL 0.45% 1000 ML 1,000 ML IV SCH (23:00)
--- NOTE | 2017-07-15 00:11 | Operative Report ---
PREOPERATIVE DIAGNOSIS: Scrotal abscess. POSTOPERATIVE DIAGNOSIS: Scrotal abscess. PROCEDURE: Incision and drainage of scrotal abscess and exchange of suprapubic catheter 16-Trinid[place] Guevara. SURGEON: Adam Shi MD ANESTHESIA: General anesthesia. ANESTHESIOLOGIST: Dr. Eric Manzano. ESTIMATED BLOOD LOSS: Minimal. FLUIDS: Crystalloid. COMPLICATIONS: No complications. INDICATIONS: This patient is a 47-year-old gentleman who presented to the Emergency Room with drainage from his scrotum. CT of abdomen and pelvis revealed possible small abscess. He has multiple contractures. He has a suprapubic catheter. He presents now for surgical intervention and consent was given by his sister. DESCRIPTION OF PROCEDURE: The patient was taken to the operative suite, placed in a supine position. After adequate general anesthesia, placed in a supine position, prepped and draped in the sterile fashion. Purulent drainage could be seen at the base of the scrotum. A median rhaphe incision was made. I was able to express attila pus. This was cultured and sent for routine pathologic event. This was cultured for anaerobic and aerobic culture. The drainage was evacuated. Copious irrigation was performed. Adequate hemostasis achieved. A half inch [place] drain was placed in the wound. Adequate hemostasis was obtained as well as we put some Surgicel into the wound. A new suprapubic catheter was placed as well, 16 Trin[place]. The patient tolerated the procedure well and was extubated and taken to recovery room. Discussed with Dr. Claudio for management postop. JOB# [id number] JORDY/PATRICIA
[2017-07-15] MEDS: NACL 0.9% 1000 ML 1,000 ML IV SCH ×2 (01:20→17:39)
[2017-07-15] MEDS ORDERED: ZOSYN/NS 3.375GM/50ML 3.375 GM/50 ML BAG IV SCH (06:00)
[2017-07-15] MEDS ORDERED: D50W (25GM) Syringe IV PRN (06:29)
[2017-07-15 07:37] LABS: Anion Gap 18 mmol/L; Blood Urea Nitrogen 13 mg/dL (9-20); Carbon Dioxide 21 mmol/L (22-30); Chloride 104.3 mmol/L (98-107); Glucose 69 mg/dL (75-100); Potassium 3.9 mmol/L (3.6-5.0); Sodium 139 mmol/L (137-145)
[2017-07-15] MEDS ORDERED: NON-FORMULARY (Protein Supplement [Promod] 30 ML) FEEDTUBE SCH (08:00)
[2017-07-15 08:01] LABS: Basophils % (Auto) 0.4 % (0.0-1.8); Eosinophils % (Auto) 1.5 % (0.0-4.3); Hematocrit 28.4 % (35.5-45.6); Hemoglobin 8.6 gm/dl (11.8-15.2); Mean Corpuscular HGB Conc 30 % (32-34); Mean Corpuscular Volume 86 fl (84-94); Red Blood Count 3.32 M/mm3 (3.65-5.03); Red Cell Distribution Width 18.9 % (13.2-15.2); White Blood Count 11.5 K/mm3 (4.5-11.0)
[2017-07-15] MEDS: DUONEB *Not for PRN Use IH SCH ×4 (08:01→20:13)
[2017-07-15 08:05] LABS: Mean Corpuscular Hemoglobin 26 pg (28-32); Platelet Count 311 K/mm3 (140-440)
--- NOTE | 2017-07-15 08:18 | XRay Report ---
AP CHEST: HISTORY: Sepsis Limited exam with the patient's chin overlying the right upper lobe. A tracheostomy is in place. The lungs are grossly clear on this limited image. Heart size is stable at the upper limits of normal. No significant change is demonstrated since 05/31/17. IMPRESSION: Limited exam. No acute cardiopulmonary process appreciated.
--- NOTE | 2017-07-15 09:03 | Progress Note ---
Subjective Date of service: 07/15/17 Interval history: s/p I & D scrotal abscess with penrse drain, changed spt stable today management per Hospitalist (Dr. Claudio) Objective - Constitutional Vitals: Vital Signs - 12hr 07/14/17 07/14/17 07/14/17 22:15 22:20 22:25 Temperature 97.7 F Pulse Rate 84 86 83 Pulse Rate [ Posterior Bilateral Upper Lobe] Respiratory 16 16 16 Rate Respiratory Rate [Posterior Bilateral Upper Lobe] Blood Pressure 92/80 100/68 106/68 O2 Sat by Pulse 100 100 100 Oximetry 07/14/17 07/14/17 07/14/17 22:35 22:44 22:54 Temperature 97.6 F Pulse Rate 79 79 91 H Pulse Rate [ Posterior Bilateral Upper Lobe] Respiratory 16 16 18 Rate Respiratory Rate [Posterior Bilateral Upper Lobe] Blood Pressure 115/76 115/74 131/87 O2 Sat by Pulse 100 100 99 Oximetry 07/14/17 07/15/17 07/15/17 23:00 01:45 01:55 Temperature Pulse Rate 82 Pulse Rate [ 57 L 63 Posterior Bilateral Upper Lobe] Respiratory 16 Rate Respiratory 20 20 Rate [Posterior Bilateral Upper Lobe] Blood Pressure 113/75 O2 Sat by Pulse 100 Oximetry 07/15/17 07/15/17 03:45 07:00 Temperature 98.1 F 98.9 F Pulse Rate 79 89 Pulse Rate [ Posterior Bilateral Upper Lobe] Respiratory 20 18 Rate Respiratory Rate [Posterior Bilateral Upper Lobe] Blood Pressure 122/77 128/85 O2 Sat by Pulse 99 100 Oximetry - Labs CBC & Chem 7: 07/15/17 06:55 07/15/17 06:55 Labs: Abnormal lab results 07/15/17 07/15/17 Range/Units 06:55 06:55 WBC 11.5 H (4.5-11.0) K/mm3 RBC 3.32 L (3.65-5.03) M/mm3 Hgb 8.6 L (11.8-15.2) gm/dl Hct 28.4 L (35.5-45.6) % MCH 26 L (28-32) pg MCHC 30 L (32-34) % RDW 18.9 H (13.2-15.2) % [place] % (Auto) 10.8 H (0.0-7.3) % [place] # 1.2 H (0.0-0.8) K/mm3 Seg Neutrophils % 72.3 H (40.0-70.0) % Seg Neutrophils # 8.3 H (1.8-7.7) K/mm3 Carbon Dioxide 21 L (22-30) mmol/L Creatinine 0.4 L (0.8-1.5) mg/dL Glucose 69 L (75-100) mg/dL Calcium 8.0 L (8.4-10.2) mg/dL
[2017-07-15] MEDS ORDERED: NON-FORMULARY (Potassium Chloride [Potassium Chloride] 10 MEQ) PO SCH (10:00)
[2017-07-15] MEDS ORDERED: NON-FORMULARY (Ascorbic Acid [Vitamin C] 500 MG) PO SCH (10:00)
[2017-07-15] MEDS ORDERED: [UNRECOGNIZED DRUG - OTHER] PO SCH (10:00)
--- NOTE | 2017-07-15 12:11 | Admit Criteria Form ---
Admission Criteria Documentation: AMBULATORY SURGERY EXCEPTION CRITERIA Ambulatory Surgery Exception Criteria ( Place 'X' for any and all applicable criteria): Surgery or procedure performed on ambulatory basis may require inpatient stay for[A] ANY ONE of the following(1)(2)(3)(4)(5)(6)(7)(8)(9): [X] I. A preoperative situation, condition, or finding that warrants inpatient stay as indicated by ANY ONE of the following: [X] a) Inpatient care needed because of severity of a disease or condition rather than the surgery (eg, severe cardiac or respiratory disease, severe infection) (15) (16 ) (17) (18) [] b) Emergent procedure (eg, angioplasty for acute ischemia)(19) [] c) Complex surgical approach or situation as indicated by ANY ONE of the following(3): [] i) Open approach needed instead of usual endoscopic, transcatheter, or other less invasive procedure [] ii) Difficult approach because of previous operation [] iii) Airway monitoring required after open neck procedures(20)(21) [] iv) Large mass requiring unusually extensive dissection [] v) Additional complicating feature requiring inpatient care (eg, drain management)(22(23): [] d) Major surgery in a pt with high anesthetic risk as indicated by ANY ONE of the following (2)(3)(5)(7)(8): [] i) ASA risk class III or higher (severe systemic disease impairing function) [D] [] ii) Advanced age (eg, older than 85 years)(14)(24) [] iii) Symptomatic heart failure(25) [] iv) Symptomatic asthma or COPD(8)(21) [] v) Morbid obesity with hemodynamic or respiratory problems(20)( 21)(26)(27) [] vi) Obstructive sleep apnea(20)(21) [] vii) Former premature infants who are younger than 60 weeks [] viii) High risk for severe postoperative abnormalities (eg, severe postoperative hypocalcemia after parathyroidectomy for severe hyperparathyroidism)(27)( 28) [] ix) Unstable angina(25) [] e) Drug-related risk requiring inpatient stay as indicated by ANY ONE of the following(5)(10)(14)(32)(33) [] i) Procedure requires discontinuing drugs or other therapy (eg , antiarrhythmic medication, antiseizure medication), which necessitates inpatient observation or treatment.(18)(31) [] ii) Major surgery and high risk drug use as indicated by ANY ONE of the following: [] 1) Active abuse of cocaine or similar drug [] 2) Monoamine oxidase inhibitor use [] 3) Other drug identified as posing risk [] f) Inadequate outpatient care situation as indicated by ANY ONE of the following(5)(10)(14)(32)(33) [] i) Patient lives remote from medical facility and procedure has urgent complication potential, and temporary nearby residence cannot be arranged [] ii) Patient will have postprocedure incapacitation and inadequate assistance at home, or alternative level of care cannot be arranged. [] iii) Patient will have long general anesthesia or procedure side effect resolution time, and competent person to stay with patient on first postoperative night at home or alternative level of care cannot be arranged. []iv) Other inadequate outpatient situation that cannot be handled by other means [] II. A perioperative event, condition, or finding that warrants inpatient stay as indicated by ANY ONE of the following (1)(2)(3): [] a) Inadequate physiologic recovery: cardiovascular, respiratory, or hemodynamic status not normal or near preoperative baseline(18) [] b) Hemodynamic instability [] c) Patient not alert with near normal or baseline mental status [] d) Temperature not normal or as expected and not appropriate for outpatient treatment of condition [] e) Ambulatory or appropriate activity level status not yet achieved post procedure [E](34)(35)(36) [] f) Operative site not appropriate (eg, unexpected or excessive drainage or bleeding) [] g) Postoperative effects not resolved or adequately managed (eg, significant pain or vomiting not appropriate for outpatient or next level of care)(10)(12) [] h) Complicating features requiring inpatient care as indicated by ANY ONE of the following(37): [] i) Severe complications of procedure (eg, bowel injury, airway compromise, vascular injury,severe hemorrhage) [] ii) Extensive (eg, dissection far beyond usual scope of procedure ) or prolonged (eg, 120 minutes beyond usual) surgery needed requiring inpatient postoperative care [] iii) Conversion to an open or complex procedure that requires inpatient care (eg, open vs laparoscopic cholecystectomy, abdominal vs vaginal hysterectomy)(38) [] iv) Comorbid condition or test result identified during or post procedure that requires inpatient care (7) [] v) Malignant hyperthermia(30) [] vi) Other complicating feature requiring inpatient care(22)(23) Inpatient stay may be needed until ALL of the following are present (1)(2)(3)(4) (5)(6)(10)(14)(33)(40): []a) Physiologic recovery: cardiovascular, respiratory, and hemodynamic status normal or near preoperative baseline []b) Hemodynamic stability []c) Patient alert, with near normal or baseline mental status []d) Temperature appropriate: patient afebrile or temperature appropriate for outpt treatment of condition []e) Activity level appropriate: ambulatory or appropriate activity level post procedure []f) Operative site appropriate as indicated by ALL of the following: []i) Site dry or with expected drainage []ii) Any blood noted is as expected for procedure. []g) Postoperative effects resolved or managed as indicated by ALL of the following: []i) Pain management appropriate for outpatient (or next level of) care(10) []ii) Minimal nausea and vomiting: if present, successfully treated with oral medication(12) []iii) Headache, dizziness, or drowsiness (if present) are mild. []h) Voiding status acceptable as indicated by ANY ONE of the following: []i) Voiding spontaneously []ii) No voiding but instructions given for follow-up in 6 to 8 hours []iii) Urinary catheter in place, and instructions given for follow-up []i) Complicating features requiring inpatient care manageable at a lower level of care(37) []j) Comorbid conditions manageable at a lower level of care(37) The original [employer] content created by [employer] has been revised. The portions of the content which have been revised are identified through the use of italic text or in bold, and [employer] has neither reviewed nor approved the modified material. All other unmodified content is copyright [employer]. Please see references footnoted in the original [employer] edition 2016 Admission Criteria Met: Yes
[2017-07-15] MEDS ORDERED: SIMPLE SYRUP FEEDTUBE PRN ×2 (14:55)
[2017-07-15] MEDS ORDERED: SODIUM BICARBONATE FEEDTUBE PRN (14:55)
[2017-07-15] MEDS ORDERED: PANCREAZE DR 10,500 UNIT FEEDTUBE PRN (14:55)
--- NOTE | 2017-07-15 15:38 | Progress Note ---
Assessment and Plan Assessment and plan: 46 YO Male SNF resident with HTN, CVA wit Quadraparesis, Seizure disorder, Non verbal, Severe Malnutrition, DM, Seizure DO, Dementia, Respiratory Failure, Dysphagia, JEREMY with multiple contractures, multiple skin areas of breakdown, tracheostomy dependent, presents for evaluation of testicle drainage and purulent drainage. He was seen by Urology and proceeded for I& D scrotal abscess & spt change to 16F Scrotal abscess * S/P I/D with change of SPT. monitor cultures. Continue abx. 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 We'll monitor closely. We'll transfuse if less than 7. Quadriplegia * supportive care, complication of CVA. Metabolic encephalopathy * baseline encephalopathy Anoxic brain injury * supportive care Stage 2-3 Decub all over the body and stage 4 scaral pressure- POA local wound care Request for pressure support mattress. Wound care consulted Severe malnutrition with cachexia -Nutrition consult for PEG feeding DVT prophylaxis lovenox No family present at this time. Disposition. When ok with urology History Interval history: Patient seen and examined in no acute distress. patient is non verbal. No adverse event reported by nursing staff. Hospitalist Physical - Physical exam Narrative exam: VITAL SIGNS: Reviewed. GENERAL: The patient appeared critically ill, emaciated, contracted. Vital signs as documented. HEAD: No signs of head trauma. EYES: Pupils are equal. Extraocular motions intact. EARS: Hearing grossly intact. MOUTH: Oropharynx is dry NECK: No adenopathy, no JVD. CHEST: Chest with clear breath sounds bilaterally. No wheezes, rales, or rhonchi. CARDIAC: Regular rate and rhythm. S1 and S2, without murmurs, gallops, or rubs. VASCULAR: No Edema. Peripheral pulses normal and equal in all extremities. ABDOMEN: Soft, PEG tube in place, around 2 placement ,without detectable tenderness. No sign of distention. No rebound or guarding, and no masses palpated. Bowel Sounds normal. MUSCULOSKELETAL: Contracted. Dependent edema is noted. : Dressing in place NEUROLOGIC EXAM: Awake. The contracted. Patient is nonverbal PSYCHIATRIC: Mood normal. SKIN: SACRAL decubitus ulcers STAGE 4. Multiple ulcers lower extremities. - Constitutional Vitals: Temp Pulse Resp BP Pulse Ox 98.9 F 93 H 18 128/85 100 07/15/17 07:00 07/15/17 14:40 07/15/17 14:40 07/15/17 07:00 07/15/17 10:00 Results - Labs CBC & Chem 7: 07/15/17 06:55 07/15/17 06:55 Labs: Laboratory Last Values WBC 11.5 K/mm3 (4.5-11.0) H 07/15/17 06:55 RBC 3.32 M/mm3 (3.65-5.03) L 07/15/17 06:55 Hgb 8.6 gm/dl (11.8-15.2) L 07/15/17 06:55 Hct 28.4 % (35.5-45.6) L 07/15/17 06:55 MCV 86 fl (84-94) 07/15/17 06:55 MCH 26 pg (28-32) L 07/15/17 06:55 MCHC 30 % (32-34) L 07/15/17 06:55 RDW 18.9 % (13.2-15.2) H 07/15/17 06:55 Plt Count 311 K/mm3 (140-440) 07/15/17 06:55 Lymph % (Auto) 15.0 % (13.4-35.0) 07/15/17 06:55 Mora % (Auto) 10.8 % (0.0-7.3) H 07/15/17 06:55 Eos % (Auto) 1.5 % (0.0-4.3) 07/15/17 06:55 Baso % (Auto) 0.4 % (0.0-1.8) 07/15/17 06:55 Lymph # 1.7 K/mm3 (1.2-5.4) 07/15/17 06:55 Mora # 1.2 K/mm3 (0.0-0.8) H 07/15/17 06:55 Eos # 0.2 K/mm3 (0.0-0.4) 07/15/17 06:55 Baso # 0.0 K/mm3 (0.0-0.1) 07/15/17 06:55 Seg Neutrophils % 72.3 % (40.0-70.0) H 07/15/17 06:55 Seg Neutrophils # 8.3 K/mm3 (1.8-7.7) H 07/15/17 06:55 Sodium 139 mmol/L (137-145) 07/15/17 06:55 Potassium 3.9 mmol/L (3.6-5.0) 07/15/17 06:55 Chloride 104.3 mmol/L (98-107) 07/15/17 06:55 Carbon Dioxide 21 mmol/L (22-30) L 07/15/17 06:55 Anion Gap 18 mmol/L 07/15/17 06:55 BUN 13 mg/dL (9-20) 07/15/17 06:55 Creatinine 0.4 mg/dL (0.8-1.5) L 07/15/17 06:55 Estimated GFR > 60 ml/min 07/15/17 06:55 BUN/Creatinine Ratio 32.50 % 07/15/17 06:55 Glucose 69 mg/dL (75-100) L 07/15/17 06:55 Lactic Acid 0.80 mmol/L (0.7-2.0) 07/15/17 06:55 Calcium 8.0 mg/dL (8.4-10.2) L 07/15/17 06:55 Total Creatine Kinase 66 units/L (55-170) 07/14/17 17:42 - Imaging and Cardiology CT scan - pelvis: image reviewed (osteomylitis, ischail osteomylitis)
[2017-07-15] MEDS: ZOSYN/NS 4.5GM/100ML 4.5 GM/100 ML VIAL IV SCH (15:43)
[2017-07-15] MEDS: VITAMIN C PO SCH (15:44)
[2017-07-15] MEDS: K-DUR PO SCH (15:44)
[2017-07-15] MEDS: Centrum Liq PO SCH (15:46)
[2017-07-15] MEDS: NORVASC FEEDTUBE SCH (15:46)
--- NOTE | 2017-07-15 17:57 | Consultation ---
DOCTOR REQUESTING CONSULTATION: Adam Shi M.D. REASON FOR CONSULTATION: Medical management of a 47-year-old male with a history of quadriplegia, bedsore, who had debridement of scrotal abscess. HISTORY OF PRESENT ILLNESS: The patient is a 47-year-old male who was brought to the Emergency Room because of scrotal abscess. The patient is nonverbal, unable to describe what is going on with him and there is uncertainty as to how long the patient's condition has been. There was no history of fever or chills. No history of shortness of breath or chest pain.Patient has multiple medical problems. PAST MEDICAL HISTORY: Pertinent for hypertension, CVA, diabetes mellitus, renal failure, dysphagia, urinary tract infection, quadriplegia. PAST SURGICAL HISTORY: Pertinent for G-tube placement, suprapubic catheter, tracheostomy. FAMILY HISTORY: Noncontributory. SOCIAL HISTORY: The patient does not smoke, does not drink alcohol and does not use illicit drugs. MEDICATIONS: The patient is on aspirin 81 mg daily, atorvastatin 10 mg daily, potassium chloride 10 mEq p.o. daily, ascorbic acid 500 mg daily, famotidine 20 mg per tube b.i.d. The patient is on DuoNeb q.6 hours and on multivitamin 1 by mouth daily as well as protein supplement 30 mL per feeding tube 3 times daily. The patient is on scopolamine (Transderm Scop) 1.5 mg transdermally every 3 days and amlodipine 5 mg per tube daily as well as fluconazole (Diflucan) 100 mg per tube daily. The patient is also on carvedilol 3.125 mg by mouth twice daily and on clindamycin 300 mg per tube every 8 hours. ALLERGIES: THE PATIENT IS ALLERGIC TO VANCOMYCIN. REVIEW OF SYSTEMS: CONSTITUTIONAL: There is no fever, no chills, no diaphoresis. HEENT: There is no headache or sore throat. CARDIOVASCULAR SYSTEM: There is no chest pain, orthopnea. RESPIRATORY SYSTEM: There is no shortness of breath or cough. GASTROINTESTINAL SYSTEM: There is no nausea, no vomiting; no abdominal pain, diarrhea or constipation. NEUROLOGICAL SYSTEM: There is no numbness, no dizziness. There is a change in mental status, which is chronic. MUSCULOSKELETAL SYSTEM: There is no joint pain or swelling. DERMATOLOGICAL SYSTEM: There are chronic skin ulcers. GENITOURINARY SYSTEM: There is no dysuria at this time, hematuria or flank pain. Rest of system review is normal. PHYSICAL EXAMINATION: GENERAL: At the time of exam, the patient was postop, sedated and not in acute distress. VITAL SIGNS: Show temperature of 97.6 degrees Fahrenheit, pulse of 79, respirations 16, blood pressure 115/74, O2 sat of 100% on room air. HEENT: Shows normocephalic, atraumatic head with pupils round, reactive to light. NECK: Supple. CARDIOVASCULAR SYSTEM: Showed normal first and second heart sounds with no gallops or murmur. RESPIRATORY SYSTEM: Showed good air entry on both sides of the lung with no abnormal breath sounds. GASTROINTESTINAL SYSTEM: Showed PEG tube in place with abdomen full, soft, nontender with no organomegaly or rigidity. NEUROLOGIC: The patient was still sedated. There was no new focal deficit. DIAGNOSES: 1. Postoperative scrotal debridement. 2. Diabetes mellitus. 3. Hypertension. All stable. PLAN: The patient will be placed on IV normal saline at 125 mL an hour. Also, the patient will be on IV Zosyn 3.375 grams q.8 hours. The patient will have Accu-Chek q.6 hours, followed by low-dose sliding scale using regular insulin coverage. Further management of the patient's medical problems will be followed by the hospitalist on consult. JOB# [id number] OCN/NTS TYRA
[2017-07-15] MEDS: COREG PO SCH (22:00)
[2017-07-15] MEDS: PEPCID FEEDTUBE SCH (23:00)
[2017-07-16] MEDS: ZOSYN/NS 4.5GM/100ML 4.5 GM/100 ML VIAL IV SCH ×4 (00:36→22:52)
[2017-07-16] MEDS: DUONEB *Not for PRN Use IH SCH ×4 (01:49→19:30)
[2017-07-16 05:31] LABS: Hematocrit 26.8 % (35.5-45.6); Hemoglobin 8.4 gm/dl (11.8-15.2); Mean Corpuscular HGB Conc 31 % (32-34); Mean Corpuscular Hemoglobin 27 pg (28-32); Mean Corpuscular Volume 86 fl (84-94); Platelet Count 296 K/mm3 (140-440); Red Blood Count 3.11 M/mm3 (3.65-5.03); Red Cell Distribution Width 18.8 % (13.2-15.2); White Blood Count 6.3 K/mm3 (4.5-11.0)
[2017-07-16 05:46] LABS: Anion Gap 15 mmol/L; Blood Urea Nitrogen 9 mg/dL (9-20); Calcium 7.9 mg/dL (8.4-10.2); Carbon Dioxide 21 mmol/L (22-30); Chloride 106.4 mmol/L (98-107); Glucose 76 mg/dL (75-100); Potassium 3.6 mmol/L (3.6-5.0); Sodium 139 mmol/L (137-145)
[2017-07-16] MEDS: NACL 0.9% 1000 ML 1,000 ML IV SCH ×2 (05:49→14:55)
[2017-07-16] MEDS: K-DUR PO SCH (11:00)
[2017-07-16] MEDS: COREG PO SCH ×2 (11:01→22:54)
[2017-07-16] MEDS: PEPCID FEEDTUBE SCH ×2 (11:01→22:54)
[2017-07-16] MEDS: NORVASC FEEDTUBE SCH (11:02)
--- NOTE | 2017-07-16 12:36 | Progress Note ---
Subjective Date of service: 07/16/17 Interval history: s/p I & D scrotal abscess with penrse drain, changed spt stable today management per Hospitalist (Dr. Claudio) look good wbc normal ok to dc home when stable from medical standpoint appt 2-3 weeks in office Objective - Constitutional Vitals: Vital Signs - 12hr 07/16/17 07/16/17 07/16/17 01:50 01:57 07:18 Temperature Pulse Rate Pulse Rate [ 69 71 98 H Posterior Bilateral Upper Lobe] Respiratory Rate Respiratory 18 18 18 Rate [Posterior Bilateral Upper Lobe] Blood Pressure O2 Sat by Pulse Oximetry O2 Sat by Pulse Oximetry [ Assessment] 07/16/17 07/16/17 07/16/17 07:25 07:37 07:38 Temperature 98.0 F Pulse Rate 72 Pulse Rate [ 75 Posterior Bilateral Upper Lobe] Respiratory 20 Rate Respiratory 18 Rate [Posterior Bilateral Upper Lobe] Blood Pressure 132/82 O2 Sat by Pulse 98 Oximetry O2 Sat by Pulse 100 Oximetry [ Assessment] 07/16/17 07/16/17 11:01 11:02 Temperature Pulse Rate 72 72 Pulse Rate [ Posterior Bilateral Upper Lobe] Respiratory Rate Respiratory Rate [Posterior Bilateral Upper Lobe] Blood Pressure 132/82 132/82 O2 Sat by Pulse Oximetry O2 Sat by Pulse Oximetry [ Assessment] - Labs CBC & Chem 7: 07/16/17 05:03 07/16/17 05:03 Labs: Abnormal lab results 07/15/17 07/15/17 07/16/17 Range/Units 11:05 17:20 05:03 RBC 3.11 L (3.65-5.03) M/mm3 Hgb 8.4 L (11.8-15.2) gm/dl Hct 26.8 L (35.5-45.6) % MCH 27 L (28-32) pg MCHC 31 L (32-34) % RDW 18.8 H (13.2-15.2) % Carbon Dioxide (22-30) mmol/L Creatinine (0.8-1.5) mg/dL POC Glucose 66 L 59 L (70-105) Calcium (8.4-10.2) mg/dL 07/16/17 Range/Units 05:03 RBC (3.65-5.03) M/mm3 Hgb (11.8-15.2) gm/dl Hct (35.5-45.6) % MCH (28-32) pg MCHC (32-34) % RDW (13.2-15.2) % Carbon Dioxide 21 L (22-30) mmol/L Creatinine 0.4 L (0.8-1.5) mg/dL POC Glucose (70-105) Calcium 7.9 L (8.4-10.2) mg/dL
--- NOTE | 2017-07-16 13:14 | Progress Note ---
Assessment and Plan Assessment and plan: 46 YO Male SNF resident with HTN, CVA wit Quadraparesis, Seizure disorder, Non verbal, Severe Malnutrition, DM, Seizure DO, Dementia, Respiratory Failure, Dysphagia, JEREMY with multiple contractures, multiple skin areas of breakdown, tracheostomy dependent, presents for evaluation of testicle drainage and purulent drainage. He was seen by Urology and proceeded for I& D scrotal abscess & spt change to 16F Scrotal abscess * S/P I/D with change of SPT. monitor cultures. Continue abx. 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 stable We'll monitor closely. We'll transfuse if less than 7. Quadriplegia * supportive care, complication of CVA. Metabolic encephalopathy * baseline encephalopathy Anoxic brain injury * supportive care Stage 2-3 Decub all over the body and stage 4 scaral pressure- POA local wound care Request for pressure support mattress. Wound care consulted Severe malnutrition with cachexia -Nutrition consult for PEG feeding DVT prophylaxis lovenox No family present at this time. Disposition. In am History Interval history: Patient seen and examined in no acute distress. patient is non verbal but acknowledges understanding of plan. No adverse event reported by nursing staff. Hospitalist Physical - Physical exam Narrative exam: VITAL SIGNS: Reviewed. GENERAL: The patient appeared critically ill, emaciated, contracted. Vital signs as documented. HEAD: No signs of head trauma. EYES: Pupils are equal. Extraocular motions intact. EARS: Hearing grossly intact. MOUTH: Oropharynx is dry NECK: No adenopathy, no JVD. CHEST: Chest with clear breath sounds bilaterally. No wheezes, rales, or rhonchi. CARDIAC: Regular rate and rhythm. S1 and S2, without murmurs, gallops, or rubs. VASCULAR: No Edema. Peripheral pulses normal and equal in all extremities. ABDOMEN: Soft, PEG tube in place, around 2 placement ,without detectable tenderness. No sign of distention. No rebound or guarding, and no masses palpated. Bowel Sounds normal. MUSCULOSKELETAL: Contracted. Dependent edema is noted. : Dressing in place NEUROLOGIC EXAM: Awake. The contracted. Patient is nonverbal PSYCHIATRIC: Mood normal. SKIN: SaCRAL decubitus ulcers STAGE 4. Multiple ulcers lower extremities. - Constitutional Vitals: Temp Pulse Resp BP Pulse Ox 98.0 F 72 18 132/82 100 07/16/17 07:25 07/16/17 11:02 07/16/17 07:37 07/16/17 11:02 07/16/17 07:38 Results - Labs CBC & Chem 7: 07/16/17 05:03 07/16/17 05:03 Labs: Laboratory Last Values WBC 6.3 K/mm3 (4.5-11.0) 07/16/17 05:03 RBC 3.11 M/mm3 (3.65-5.03) L 07/16/17 05:03 Hgb 8.4 gm/dl (11.8-15.2) L 07/16/17 05:03 Hct 26.8 % (35.5-45.6) L 07/16/17 05:03 MCV 86 fl (84-94) 07/16/17 05:03 MCH 27 pg (28-32) L 07/16/17 05:03 MCHC 31 % (32-34) L 07/16/17 05:03 RDW 18.8 % (13.2-15.2) H 07/16/17 05:03 Plt Count 296 K/mm3 (140-440) 07/16/17 05:03 Lymph % (Auto) 15.0 % (13.4-35.0) 07/15/17 06:55 Dent % (Auto) 10.8 % (0.0-7.3) H 07/15/17 06:55 Eos % (Auto) 1.5 % (0.0-4.3) 07/15/17 06:55 Baso % (Auto) 0.4 % (0.0-1.8) 07/15/17 06:55 Lymph # 1.7 K/mm3 (1.2-5.4) 07/15/17 06:55 Dent # 1.2 K/mm3 (0.0-0.8) H 07/15/17 06:55 Eos # 0.2 K/mm3 (0.0-0.4) 07/15/17 06:55 Baso # 0.0 K/mm3 (0.0-0.1) 07/15/17 06:55 Seg Neutrophils % 72.3 % (40.0-70.0) H 07/15/17 06:55 Seg Neutrophils # 8.3 K/mm3 (1.8-7.7) H 07/15/17 06:55 Sodium 139 mmol/L (137-145) 07/16/17 05:03 Potassium 3.6 mmol/L (3.6-5.0) 07/16/17 05:03 Chloride 106.4 mmol/L (98-107) 07/16/17 05:03 Carbon Dioxide 21 mmol/L (22-30) L 07/16/17 05:03 Anion Gap 15 mmol/L 07/16/17 05:03 BUN 9 mg/dL (9-20) 07/16/17 05:03 Creatinine 0.4 mg/dL (0.8-1.5) L 07/16/17 05:03 Estimated GFR > 60 ml/min 07/16/17 05:03 BUN/Creatinine Ratio 22.50 % 07/16/17 05:03 Glucose 76 mg/dL (75-100) 07/16/17 05:03 POC Glucose 88 (70-105) 07/15/17 23:29 Lactic Acid 0.80 mmol/L (0.7-2.0) 07/15/17 06:55 Calcium 7.9 mg/dL (8.4-10.2) L 07/16/17 05:03 Total Creatine Kinase 66 units/L (55-170) 07/14/17 17:42
--- NOTE | 2017-07-16 14:57 | Consultation ---
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 In the ED, temp 99.9, HR 90, WBC 13K, lactate 1.1,. CT revealed a right scrotal abscess and right posterior ischial osteomyelitis. CXR negative. Patient went to the OR on 07/14 underwent scrotal abscess I+D cultures growing GNRs. Microbiology: Blood cultures: 07/14 neg 7/9 neg 4/ MRSA 3/6 MRSA Urine cultures: Respiratory cultures: 04/26 tracheal asp MDR Pseudomonas / Proteus / E coli 3/ Proteus / MRSA 2/6 Pseudomonas / Proteus Wound cultures: 07/14 GNR 07/14 OR pending Stool cultures: Other: Current Antimicrobials: Zosyn 07/15 Previous Antimicrobials: Past History Past Medical History: diabetes, hypertension, seizures, stroke, other (CVA, malnutrition, MRSA/Pseudomonas MDR pneumonia, recurrent UTI, MRSA septicemia) Past Surgical History: Other (SP cath, PEG) Medications and Allergies Allergies Allergy/AdvReac Type Severity Reaction Status Date / Time vancomycin Allergy Unknown Verified 02/21/17 09:16 Home Medications Medication Instructions Recorded Confirmed Last Taken Type Aspirin [Aspirin BABY CHEW TAB] 81 mg PO QDAY #30 tab.chew 12/10/16 04/26/17 Unknown Rx AtorvaSTATin [Lipitor] 10 mg PO QHS #30 tablet 12/10/16 04/26/17 Unknown Rx Potassium Chloride 10 meq PO DAILY #7 capsule.er 02/27/17 04/26/17 Unknown Rx Ascorbic Acid [Vitamin C] 500 mg PO DAILY #30 04/15/17 04/26/17 Unknown Rx Famotidine [Pepcid] 20 mg FEEDTUBE BID #60 04/15/17 04/26/17 Unknown Rx Glycopyrrolate [Robinul] 1 mg FEEDTUBE TID PRN #30 04/15/17 04/26/17 Unknown Rx Ipratropium/Albuterol Sulfate 1 ampul IH Q6HR #30 04/15/17 04/26/17 Unknown Rx [DUONEB *Not for PRN Use*] Multivit with Min #53/FA/K/Q10 1 each PO DAILY #30 04/15/17 04/26/17 Unknown Rx [Dekas Plus Softgel] Protein Supplement [Promod] 30 ml FEEDTUBE TID #30 04/15/17 04/26/17 Unknown Rx Scopolamine [Transderm-Scop] 1.5 mg TD Q3D #30 04/15/17 04/26/17 Unknown Rx amLODIPine [Norvasc] 5 mg FEEDTUBE QDAY #30 tablet 04/15/17 04/26/17 08/17/16 Rx Clindamycin [Clindamycin CAP] 300 mg FEEDTUBE Q8H 3 Days 04/30/17 Unknown Rx Fluconazole [Diflucan TAB] 100 mg FEEDTUBE QDAY #3 tablet 04/30/17 Unknown Rx Carvedilol [Coreg] 3.125 mg PO BID #60 tablet 06/04/17 Unknown Rx Active Meds: Active Medications Acetaminophen (Tylenol) 650 mg PO Q4H PRN PRN Reason: Pain MILD(1-3)/Fever >100.5/YUAN Albuterol/Ipratropium (Duoneb *Not For Prn Use*) 1 ampul IH Q6HRT [facility] Last Admin: 07/16/17 13:55 Dose: 1 ampul Amlodipine Besylate (Norvasc) 5 mg FEEDTUBE QDAY [facility] Last Admin: 07/16/17 11:02 Dose: 5 mg Lipase/Protease/Amylase (Pancreaze Dr 10,500 Unit) 1 each FEEDTUBE PRN PRN PRN Reason: For Clogged Feeding Tube Ascorbic Acid (Vitamin C) 500 mg PO QDAY [facility] Last Admin: 07/15/17 15:44 Dose: 500 mg Atorvastatin Calcium (Lipitor) 10 mg PO QHS [facility] Last Admin: 07/15/17 23:00 Dose: 10 mg Bisacodyl (Dulcolax) 10 mg [place] QDAY PRN PRN Reason: Constipation unrelieved by MOM Carvedilol (Coreg) 3.125 mg PO BID [facility] Last Admin: 07/16/17 11:01 Dose: 3.125 mg Dextrose (D50w (25gm)) 50 ml IV PRN PRN PRN Reason: Hypoglycemia Last Admin: 07/15/17 17:39 Dose: 50 ml Famotidine (Pepcid) 20 mg FEEDTUBE BID [facility] Last Admin: 07/16/17 11:01 Dose: 20 mg Glycopyrrolate (Robinul) 1 mg FEEDTUBE TID PRN PRN Reason: excess secretions Sodium Chloride (Nacl 0.9% 1000 Ml) 1,000 mls @ 125 mls/hr IV DIRECT [facility] Last Admin: 07/16/17 05:49 Dose: 125 mls/hr Piperacillin Sod/Tazobactam Sod (Zosyn/Ns 4.5gm/100ml) 4.5 gm in 100 mls @ 200 mls/hr IV Q8HR [facility] Last Admin: 07/16/17 05:50 Dose: 200 mls/hr Insulin Human Regular (Novolin R) 0 units SUB-Q ACHS [facility] PRN Reason: Protocol Last Admin: 07/16/17 12:58 Dose: Not Given Magnesium Hydroxide (Milk Of Magnesia) 30 ml PO Q4H PRN PRN Reason: Constipation Morphine Sulfate (Morphine) 2 mg IV Q4H PRN PRN Reason: Pain, Moderate (4-6) Multivitamins (Centrum Liq) 5 ml PO QDAY [facility] Last Admin: 07/15/17 15:46 Dose: 5 ml Naloxone HCl (Narcan 0.4 Mg/1 Ml) 0.1 mg IV Q2MIN PRN PRN Reason: Res Rate </= 8 or 02 SAT < 92% Ondansetron HCl (Zofran) 4 mg IV Q8H PRN PRN Reason: N/V unrelieved by Reglan Potassium Chloride (K-Dur) 10 meq PO QDAY [facility] Last Admin: 07/16/17 11:00 Dose: 10 meq Scopolamine (Transderm-Scop) 1 each TD Q3D [facility] Simple Syrup (Simple Syrup) 15 ml FEEDTUBE PRN PRN PRN Reason: Hypoglycemia Simple Syrup (Simple Syrup) 30 ml FEEDTUBE PRN PRN PRN Reason: Hypoglycemia Sodium Bicarbonate (Sodium Bicarbonate) 325 mg FEEDTUBE PRN PRN PRN Reason: For Clogged Feeding Tube Physical Examination - Physical Exam Narrative exam: General appearance: Alert in NAD non verbal Eyes: anicteric sclerae, moist conjunctivae; PERRLA HENT: Atraumatic; oropharynx limited Neck: +trach with scant yellowish drainage Lungs: CTA CV: RRR, no murmurs Abdomen: Soft, +PEG +SP cath Extremities: +marked contractures of upper and lower ext. Skin: +multiple pressure sore, + right scrotal wound with a drain with purulence Psych: non verbal . Neuro: non verbal quadriplegic Lines: No CVL / PICC - Constitutional Vitals: Vital Signs Temp Pulse Resp BP Pulse Ox 98.0 F 72 18 132/82 100 07/16/17 07:25 07/16/17 14:23 07/16/17 14:23 07/16/17 11:02 07/16/17 07:38 Temperature -Last 24 Hours Temperature 98.0 F Temperature 98.9 F Temperature 98.2 F Results - Labs CBC & Chem 7: 07/16/17 05:03 07/16/17 05:03 Labs: Abnormal lab results 07/15/17 07/15/17 07/16/17 Range/Units 11:05 17:20 05:03 RBC 3.11 L (3.65-5.03) M/mm3 Hgb 8.4 L (11.8-15.2) gm/dl Hct 26.8 L (35.5-45.6) % MCH 27 L (28-32) pg MCHC 31 L (32-34) % RDW 18.8 H (13.2-15.2) % Carbon Dioxide (22-30) mmol/L Creatinine (0.8-1.5) mg/dL POC Glucose 66 L 59 L (70-105) Calcium (8.4-10.2) mg/dL 07/16/17 Range/Units 05:03 RBC (3.65-5.03) M/mm3 Hgb (11.8-15.2) gm/dl Hct (35.5-45.6) % MCH (28-32) pg MCHC (32-34) % RDW (13.2-15.2) % Carbon Dioxide 21 L (22-30) mmol/L Creatinine 0.4 L (0.8-1.5) mg/dL POC Glucose (70-105) Calcium 7.9 L (8.4-10.2) mg/dL - Imaging and Cardiology Chest x-ray: report reviewed CT scan - abdomen: report reviewed Assessment and Plan Assessment: 1) Sepsis: Present on admission, manifested by low grade fever, leukocytosis. 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 4) Multiple skin pressure sores 5) Quadraparesis s/p PEG and SP cath 6) Seizure disorder 7) Severe Malnutrition 8) DM 9) History of Respiratory Failure 10) History of MRSA septicemia in January 2017 and then February 2017 (treated with po zyvox / clindamycin) 11) Recurrent pneumonia / lung colonization with MDR Pseudomonas, Proteus and MRSA in January 2017 12) History or recurrent CA-UTI Plan: -wound care -contact isolotion due to history of MDR Pseudmonas lung colonization and MRSA septicemia -follow-up blood cultures and scrotal wound cultures -obtain procalcitonin, C-reactive protein (CRP) -Continue zosyn IV for now -in view of ischeal osteomyelitis will need IV antibiotics for 6 weeks -place PICC line for IV antibiotics. -Overall prognosis guarded. Consider hospice care in view of extensive colonization with multi-drug resistant bacteria and recurrent sepsis, poor performance status. I doubt that IV antibiotics will cure his osteomyelitis. Thank you Dr Parham for your consultation, will follow up with you. Pastora Chacko MD Infectious Diseases Specialist [facility] M [phone] O [phone]
[2017-07-16] MEDS: Centrum Liq PO SCH (18:41)
[2017-07-16] MEDS: VITAMIN C PO SCH (18:42)
[2017-07-17] MEDS: NACL 0.9% 1000 ML 1,000 ML IV SCH (00:59)
[2017-07-17] MEDS: ZOSYN/NS 4.5GM/100ML 4.5 GM/100 ML VIAL IV SCH ×4 (01:00→23:25)
[2017-07-17] MEDS: DUONEB *Not for PRN Use IH SCH ×4 (01:08→20:15)
--- NOTE | 2017-07-17 07:38 | Progress Note ---
Assessment and Plan Assessment and plan: 46 YO Male SNF resident with HTN, CVA wit Quadraparesis, Seizure disorder, Non verbal, Severe Malnutrition, DM, Seizure DO, Dementia, Respiratory Failure, Dysphagia, JEREMY with multiple contractures, multiple skin areas of breakdown, tracheostomy dependent, presents for evaluation of testicle drainage and purulent drainage. He was seen by Urology and proceeded for I& D scrotal abscess & spt change to 16F Scrotal abscess with sepsis -POA * S/P I/D with change of SPT. monitor cultures. Continue abx. * await ID and sensitvity for wound organism- currently growing GNR Ischial Osteomylitis * Will consult ID for further evaluation * PICC line placement, 6 weeks IV antibiotics Anemia * Chronic in nature. stable We'll monitor closely. We'll transfuse if less than 7. Quadriplegia * supportive care, complication of CVA. Metabolic encephalopathy * baseline encephalopathy Diabetes Mellitus * Accuchecks, good blood glucose control with insulin. adjust as needed Seizure disorder * Stable. Anoxic brain injury * supportive care Stage 2-3 Decub all over the body and stage 4 scaral pressure- POA local wound care Request for pressure support mattress. Wound care consulted Severe malnutrition with cachexia -Nutrition consult for PEG feeding Hx of recurrent Pneumonia with MDR organisims. -Aspiration precaution Hx of Recurrent CA-UTI -SBT changed. DVT prophylaxis lovenox No family present at this time. Disposition. In am. PREVIOUS DISCUSSION ABOUT HOSPICE WITH FAMILY REJECTED History Interval history: Patient seen and examined in no acute distress. patient is non verbal but acknowledges understanding of plan. No adverse event reported by nursing staff. Hospitalist Physical - Physical exam Narrative exam: VITAL SIGNS: Reviewed. GENERAL: The patient appeared critically ill, emaciated, contracted. Vital signs as documented. HEAD: No signs of head trauma. EYES: Pupils are equal. Extraocular motions intact. EARS: Hearing grossly intact. MOUTH: Oropharynx is dry NECK: No adenopathy, no JVD. CHEST: Chest with clear breath sounds bilaterally. No wheezes, rales, or rhonchi. CARDIAC: Regular rate and rhythm. S1 and S2, without murmurs, gallops, or rubs. VASCULAR: No Edema. Peripheral pulses normal and equal in all extremities. ABDOMEN: Soft, PEG tube in place, around 2 placement ,without detectable tenderness. No sign of distention. No rebound or guarding, and no masses palpated. Bowel Sounds normal. MUSCULOSKELETAL: Contracted. Dependent edema is noted. : Dressing in place NEUROLOGIC EXAM: Awake. The contracted. Patient is nonverbal PSYCHIATRIC: Mood normal. SKIN: SACRAL decubitus ulcers STAGE 4. Multiple ulcers lower extremities. - Constitutional Vitals: Temp Pulse Resp BP Pulse Ox 98.3 F 72 17 130/85 98 07/17/17 06:19 07/17/17 06:19 07/17/17 06:19 07/17/17 06:19 07/17/17 06:19 Results - Labs CBC & Chem 7: 07/16/17 05:03 07/16/17 05:03 Labs: Laboratory Last Values WBC 6.3 K/mm3 (4.5-11.0) 07/16/17 05:03 RBC 3.11 M/mm3 (3.65-5.03) L 07/16/17 05:03 Hgb 8.4 gm/dl (11.8-15.2) L 07/16/17 05:03 Hct 26.8 % (35.5-45.6) L 07/16/17 05:03 MCV 86 fl (84-94) 07/16/17 05:03 MCH 27 pg (28-32) L 07/16/17 05:03 MCHC 31 % (32-34) L 07/16/17 05:03 RDW 18.8 % (13.2-15.2) H 07/16/17 05:03 Plt Count 296 K/mm3 (140-440) 07/16/17 05:03 Lymph % (Auto) 15.0 % (13.4-35.0) 07/15/17 06:55 [place] % (Auto) 10.8 % (0.0-7.3) H 07/15/17 06:55 Eos % (Auto) 1.5 % (0.0-4.3) 07/15/17 06:55 Baso % (Auto) 0.4 % (0.0-1.8) 07/15/17 06:55 Lymph # 1.7 K/mm3 (1.2-5.4) 07/15/17 06:55 [place] # 1.2 K/mm3 (0.0-0.8) H 07/15/17 06:55 Eos # 0.2 K/mm3 (0.0-0.4) 07/15/17 06:55 Baso # 0.0 K/mm3 (0.0-0.1) 07/15/17 06:55 Seg Neutrophils % 72.3 % (40.0-70.0) H 07/15/17 06:55 Seg Neutrophils # 8.3 K/mm3 (1.8-7.7) H 07/15/17 06:55 Sodium 139 mmol/L (137-145) 07/16/17 05:03 Potassium 3.6 mmol/L (3.6-5.0) 07/16/17 05:03 Chloride 106.4 mmol/L (98-107) 07/16/17 05:03 Carbon Dioxide 21 mmol/L (22-30) L 07/16/17 05:03 Anion Gap 15 mmol/L 07/16/17 05:03 BUN 9 mg/dL (9-20) 07/16/17 05:03 Creatinine 0.4 mg/dL (0.8-1.5) L 07/16/17 05:03 Estimated GFR > 60 ml/min 07/16/17 05:03 BUN/Creatinine Ratio 22.50 % 07/16/17 05:03 Glucose 76 mg/dL (75-100) 07/16/17 05:03 POC Glucose 106 (70-105) H 07/17/17 06:46 Lactic Acid 0.80 mmol/L (0.7-2.0) 07/15/17 06:55 Calcium 7.9 mg/dL (8.4-10.2) L 07/16/17 05:03 Total Creatine Kinase 66 units/L (55-170) 07/14/17 17:42 C-Reactive Protein 9.80 mg/dL (0.00-1.30) H 07/16/17 15:36
[2017-07-17] MEDS: COREG PO SCH ×3 (10:34→23:24)
[2017-07-17] MEDS: PEPCID FEEDTUBE SCH ×3 (10:35→23:24)
[2017-07-17] MEDS: Centrum Liq PO SCH (10:45)
[2017-07-17] MEDS: NORVASC FEEDTUBE SCH (10:47)
[2017-07-17] MEDS: VITAMIN C PO SCH (10:48)
--- NOTE | 2017-07-17 13:42 | Progress Note ---
Assessment and Plan Assessment: 1) Sepsis: Present on admission, manifested by low grade fever, leukocytosis. 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 \ -CRP 9.8 4) Multiple skin pressure sores 5) Quadraparesis s/p PEG and SP cath 6) Seizure disorder 7) Severe Malnutrition 8) DM 9) History of Respiratory Failure 10) History of MRSA septicemia in January 2017 and then February 2017 (treated with po zyvox / clindamycin) 11) Recurrent pneumonia / lung colonization with MDR Pseudomonas, Proteus and MRSA in January 2017 12) History or recurrent CA-UTI Plan: -follow-up blood cultures and scrotal wound cultures -obtain procalcitonin -Continue zosyn IV for now -add vancomycin -upon discharge will do vancomycin 1 g IV q 12h and levaquin 750 mg po qday (or an alternative if GNR are resistant to levaquin) total 6 weeks to treat osteomyelitis -Overall prognosis guarded. Consider hospice care in view of extensive colonization with multi-drug resistant bacteria and recurrent sepsis, poor performance status. I doubt that IV antibiotics will cure his osteomyelitis. -continue contact isolotion due to history of MDR Pseudmonas lung colonization and MRSA septicemia Thank you Dr Parham for your consultation, will follow up with you. Pastora Chacko MD Infectious Diseases Specialist [facility] M [phone] O [phone] Subjective Date of service: 07/17/17 Interval history: Remains afebrile, no fever overnight Microbiology: Blood cultures: 07/14 neg 7/9 neg 4/ MRSA 3/6 MRSA Urine cultures: Respiratory cultures: 04/26 tracheal asp MDR Pseudomonas / Proteus / E coli 3/6 Proteus / MRSA 2/6 Pseudomonas / Proteus Wound cultures: 07/14 GNR 07/14 GNR, Enterococcus Stool cultures: Other: Current Antimicrobials: Zosyn 07/15 Previous Antimicrobials: Objective - Exam Narrative Exam: General appearance: Alert in NAD non verbal Eyes: anicteric sclerae, moist conjunctivae; PERRLA HENT: Atraumatic; oropharynx limited Neck: +trach with scant yellowish drainage Lungs: CTA CV: RRR, no murmurs Abdomen: Soft, +PEG +SP cath Extremities: +marked contractures of upper and lower ext. Skin: +multiple pressure sore, + right scrotal wound with a drain with purulence Psych: non verbal . Neuro: non verbal quadriplegic Lines: No CVL / PICC - Constitutional Vitals: Vital Signs Temp Pulse Resp BP Pulse Ox 98 F 73 20 146/90 99 07/17/17 08:00 07/17/17 08:00 07/17/17 08:00 07/17/17 08:00 07/17/17 08:00 Temperature -Last 24 Hours Temperature 98 F Temperature 98.3 F Temperature 97.5 F Temperature 98.7 F Temperature 98.7 F Temperature 98.3 F Temperature 98.3 F - Labs CBC & Chem 7: 07/16/17 05:03 07/16/17 05:03 Labs: Abnormal lab results 07/16/17 07/17/17 Range/Units 15:36 06:46 POC Glucose 106 H (70-105) C-Reactive Protein 9.80 H (0.00-1.30) mg/dL
--- NOTE | 2017-07-17 13:56 | Discharge Summary ---
Providers - Providers Date of Admission: 07/14/17 21:51 Attending physician: JANET BRUSH 07/14/17 21:56 Consult to Physician [CONS] Routine Consulting Provider: BETTINA ARAIZA Reason For Exam: medical management Place consult to:: phone Notified:: yes 07/15/17 12:18 Consult to Dietitian/Nutrition [CONS] Routine Physician Instructions: pt has g-tube Reason For Exam: Reason for Consult: Write/Manage Tube Feeding 07/15/17 15:43 Consult to Physician [CONS] Routine Consulting Provider: KRZYSZTOF DINH Reason For Exam: osteomylitis-right posterior hip Place consult to:: DR. DINH Notified:: ANSWERING SERVICE Phone number called:: [phone] Was contact made?: Yes Time called:: 16:28 Comment:: CONSULT COMPLETED - STEVEN 07/17/17 07:33 Consult to PICC Line RN [CONS] Routine Reason For Exam: 6 weeks IV vancomycin Type Line:: PICC 07/17/17 13:53 Consult to Case Management [CONS] Routine Services Needed at Discharge: Other Additional Physician Instructions: Vancomycin 1G IV Q12HR X 6 WEEKS Primary care physician: MAUREEN JOHN MD Hospitalization Condition: Fair Disposition: DC-30 STILL A PATIENT Exam - Constitutional Vitals: Temp Pulse Resp BP Pulse Ox 98 F 73 20 146/90 99 07/17/17 08:00 07/17/17 08:00 07/17/17 08:00 07/17/17 08:00 07/17/17 08:00 Plan Follow up with: PRIMARY MD DORA [Primary Care Provider] - 3-5 Days Prescriptions: Vancomycin/Ns 1 gm/250 ml 1 gm IV Q12HR 42 Days
[2017-07-17] MEDS: K-DUR PO SCH (14:41)
[2017-07-17] MEDS: TRANSDERM-SCOP TD SCH ×2 (23:05→23:26)
[2017-07-18] MEDS: DUONEB *Not for PRN Use IH SCH ×4 (01:20→19:40)
[2017-07-18] MEDS: ZOSYN/NS 4.5GM/100ML 4.5 GM/100 ML VIAL IV SCH ×2 (06:07→13:24)
--- NOTE | 2017-07-18 07:23 | Progress Note ---
Assessment and Plan Assessment and plan: 46 YO Male SNF resident with HTN, CVA wit Quadraparesis, Seizure disorder, Non verbal, Severe Malnutrition, DM, Seizure DO, Dementia, Respiratory Failure, Dysphagia, JEREMY with multiple contractures, multiple skin areas of breakdown, tracheostomy dependent, presents for evaluation of testicle drainage and purulent drainage. He was seen by Urology and proceeded for I& D scrotal abscess & spt change to 16F Scrotal abscess with sepsis -POA * S/P I/D with change of SPT. monitor cultures. Continue abx. * await ID and sensitvity for wound organism- currently growing GNR also in surgical culture. await ID and sensitivity Ischial Osteomylitis * PICC line placement, 6 weeks IV antibiotics Anemia * Chronic in nature. stable We'll monitor closely. We'll transfuse if less than 7. Quadriplegia * supportive care, complication of CVA. Metabolic encephalopathy * baseline encephalopathy Diabetes Mellitus * Accuchecks, good blood glucose control with insulin. adjust as needed Seizure disorder * Stable. Anoxic brain injury * supportive care * Trach in place continues on Tpiece * Chronic hypoxemia on o2 chronically Stage 2-3 Decub all over the body and stage 4 scaral pressure- POA local wound care Request for pressure support mattress. Wound care consulted Severe malnutrition with cachexia -Nutrition consult for PEG feeding Hx of recurrent Pneumonia with MDR organisims. -Aspiration precaution Hx of Recurrent CA-UTI -SBT changed. DVT prophylaxis lovenox No family present at this time. Disposition. when cleared by ID and per Urology (Primary team). PREVIOUS DISCUSSION ABOUT HOSPICE WITH FAMILY REJECTED History Interval history: Patient seen and examined in no acute distress. No adverse event reported by nursing staff. Hospitalist Physical - Physical exam Narrative exam: VITAL SIGNS: Reviewed. GENERAL: The patient appeared critically ill, emaciated, contracted. Vital signs as documented. HEAD: No signs of head trauma. EYES: Pupils are equal. Extraocular motions intact. EARS: Hearing grossly intact. MOUTH: Oropharynx is dry NECK: Trach in place CHEST: Chest with clear breath sounds bilaterally. No wheezes, rales, or rhonchi. CARDIAC: Regular rate and rhythm. S1 and S2, without murmurs, gallops, or rubs. VASCULAR: No Edema. Peripheral pulses normal and equal in all extremities. ABDOMEN: Soft, PEG tube in place, around 2 placement ,without detectable tenderness. No sign of distention. No rebound or guarding, and no masses palpated. Bowel Sounds normal. MUSCULOSKELETAL: Contracted. Dependent edema is noted. : Dressing in place NEUROLOGIC EXAM: Awake. The contracted. Patient is nonverbal PSYCHIATRIC: Mood normal. SKIN: SACRAL decubitus ulcers STAGE 4. Multiple ulcers lower extremities. - Constitutional Vitals: Temp Pulse Resp BP Pulse Ox 97.9 F 70 18 121/79 99 07/18/17 05:57 07/18/17 05:57 07/18/17 05:57 07/18/17 05:57 07/18/17 05:57 Results - Labs CBC & Chem 7: 07/16/17 05:03 07/16/17 05:03 Labs: Laboratory Last Values WBC 6.3 K/mm3 (4.5-11.0) 07/16/17 05:03 RBC 3.11 M/mm3 (3.65-5.03) L 07/16/17 05:03 Hgb 8.4 gm/dl (11.8-15.2) L 07/16/17 05:03 Hct 26.8 % (35.5-45.6) L 07/16/17 05:03 MCV 86 fl (84-94) 07/16/17 05:03 MCH 27 pg (28-32) L 07/16/17 05:03 MCHC 31 % (32-34) L 07/16/17 05:03 RDW 18.8 % (13.2-15.2) H 07/16/17 05:03 Plt Count 296 K/mm3 (140-440) 07/16/17 05:03 Lymph % (Auto) 15.0 % (13.4-35.0) 07/15/17 06:55 [place] % (Auto) 10.8 % (0.0-7.3) H 07/15/17 06:55 Eos % (Auto) 1.5 % (0.0-4.3) 07/15/17 06:55 Baso % (Auto) 0.4 % (0.0-1.8) 07/15/17 06:55 Lymph # 1.7 K/mm3 (1.2-5.4) 07/15/17 06:55 Jack # 1.2 K/mm3 (0.0-0.8) H 07/15/17 06:55 Eos # 0.2 K/mm3 (0.0-0.4) 07/15/17 06:55 Baso # 0.0 K/mm3 (0.0-0.1) 07/15/17 06:55 Seg Neutrophils % 72.3 % (40.0-70.0) H 07/15/17 06:55 Seg Neutrophils # 8.3 K/mm3 (1.8-7.7) H 07/15/17 06:55 Sodium 139 mmol/L (137-145) 07/16/17 05:03 Potassium 3.6 mmol/L (3.6-5.0) 07/16/17 05:03 Chloride 106.4 mmol/L (98-107) 07/16/17 05:03 Carbon Dioxide 21 mmol/L (22-30) L 07/16/17 05:03 Anion Gap 15 mmol/L 07/16/17 05:03 BUN 9 mg/dL (9-20) 07/16/17 05:03 Creatinine 0.4 mg/dL (0.8-1.5) L 07/16/17 05:03 Estimated GFR > 60 ml/min 07/16/17 05:03 BUN/Creatinine Ratio 22.50 % 07/16/17 05:03 Glucose 76 mg/dL (75-100) 07/16/17 05:03 POC Glucose 85 (70-105) 07/17/17 23:05 Lactic Acid 0.80 mmol/L (0.7-2.0) 07/15/17 06:55 Calcium 7.9 mg/dL (8.4-10.2) L 07/16/17 05:03 Total Creatine Kinase 66 units/L (55-170) 07/14/17 17:42 C-Reactive Protein 9.80 mg/dL (0.00-1.30) H 07/16/17 15:36
[2017-07-18] MEDS: NACL 0.9% 1000 ML 1,000 ML IV SCH (08:10)
[2017-07-18] MEDS: K-DUR PO SCH (10:44)
[2017-07-18] MEDS: Centrum Liq PO SCH (10:44)
[2017-07-18] MEDS: PEPCID FEEDTUBE SCH (10:44)
[2017-07-18] MEDS: NORVASC FEEDTUBE SCH (10:44)
[2017-07-18] MEDS: VITAMIN C PO SCH (10:44)
--- NOTE | 2017-07-18 11:29 | Progress Note ---
Assessment and Plan Assessment: 1) Sepsis: Present on admission, manifested by low grade fever, leukocytosis. 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 -CRP 9.8 4) Multiple skin pressure sores 5) Quadraparesis s/p PEG and SP cath 6) Seizure disorder 7) Severe Malnutrition 8) DM 9) History of Respiratory Failure 10) History of MRSA septicemia in January 2017 and then February 2017 (treated with po zyvox / clindamycin) 11) Recurrent pneumonia / lung colonization with MDR Pseudomonas, Proteus and MRSA in January 2017 12) History or recurrent CA-UTI Plan: -follow-up blood cultures and scrotal wound cultures -obtain procalcitonin -Continue zosyn IV for now -add daptomycin -pt is allergic to vancomycin -upon discharge will do daptomycin 6 mg/kg IV qday and levaquin 750 mg po qday ( or an alternative if GNR are resistant to levaquin) total 6 weeks to treat osteomyelitis. Dapto addition in view of h/o recurrent MRSA septicemia which may be part of osteomyelitis -continue contact isolotion due to history of MDR Pseudmonas lung colonization and MRSA septicemia Thank you Dr Parham for your consultation, will follow up with you. Pastora Chacko MD Infectious Diseases Specialist [facility] ([facility] M [phone] O [phone] Subjective Date of service: 07/18/17 Interval history: Remains afebrile, no fever overnight Microbiology: Blood cultures: 07/14 neg 7/9 neg 4/1 MRSA 3/6 MRSA Urine cultures: Respiratory cultures: / tracheal asp MDR Pseudomonas / Proteus / E coli 3/6 Proteus / MRSA 2/6 Pseudomonas / Proteus Wound cultures: 07/14 GNR 07/14 GNR, Enterococcus Stool cultures: Other: Current Antimicrobials: Zosyn 07/15 Previous Antimicrobials: Objective - Exam Narrative Exam: General appearance: Alert in NAD non verbal Eyes: anicteric sclerae, moist conjunctivae; PERRLA HENT: Atraumatic; oropharynx limited Neck: +trach with scant yellowish drainage Lungs: CTA CV: RRR, no murmurs Abdomen: Soft, +PEG +SP cath Extremities: +marked contractures of upper and lower ext. Skin: +multiple pressure sore, + right scrotal wound with a drain with purulence foul smelling Psych: non verbal . Neuro: non verbal quadriplegic Lines: No CVL / PICC - Constitutional Vitals: Vital Signs Temp Pulse Resp BP Pulse Ox 98.4 F 57 L 22 120/69 100 07/18/17 07:56 07/18/17 07:56 07/18/17 07:56 07/18/17 07:56 07/18/17 07:56 Temperature -Last 24 Hours Temperature 98.4 F Temperature 97.9 F Temperature 98.2 F Temperature 97.3 F Temperature 98.1 F - Labs CBC & Chem 7: 07/16/17 05:03 07/16/17 05:03 Labs: Abnormal lab results 07/17/17 Range/Units 11:46 POC Glucose 114 H (70-105)
[2017-07-19] MEDS: PEPCID FEEDTUBE SCH ×3 (01:13→22:14)
[2017-07-19] MEDS: ZOSYN/NS 4.5GM/100ML 4.5 GM/100 ML VIAL IV SCH ×2 (01:13→05:59)
[2017-07-19] MEDS: COREG PO SCH ×3 (01:14→22:13)
[2017-07-19] MEDS: DUONEB *Not for PRN Use IH SCH ×4 (02:05→20:23)
--- NOTE | 2017-07-19 09:29 | Progress Note ---
Assessment and Plan Assessment and plan: 46 YO Male SNF resident with HTN, CVA wit Quadraparesis, Seizure disorder, Non verbal, Severe Malnutrition, DM, Seizure DO, Dementia, Respiratory Failure, Dysphagia, JEREMY with multiple contractures, multiple skin areas of breakdown, tracheostomy dependent, presents for evaluation of testicle drainage and purulent drainage. He was seen by Urology and proceeded for I& D scrotal abscess & spt change to 16F Scrotal abscess with sepsis -POA * S/P I/D with change of SPT. monitor cultures. Continue abx. * await ID and sensitvity for wound organism- currently growing mixture of 3 organisms namely Pseudomonas, Escherichia coli, Morganella will await sensitivity also in surgical culture. * We'll reattempt placement of PICC line, this has been difficult due to patient 's contractures. Ischial Osteomylitis * PICC line placement, 6 weeks IV antibiotics * Cubcin iv for 6 weeks on discharge. Anemia * Chronic in nature. stable We'll monitor closely. We'll transfuse if less than 7. Quadriplegia * supportive care, complication of CVA. Metabolic encephalopathy * baseline encephalopathy Diabetes Mellitus * Accuchecks, good blood glucose control with insulin. adjust as needed Seizure disorder * Stable. Anoxic brain injury * supportive care * Trach in place continues on Tpiece * Chronic hypoxemia on o2 chronically Stage 2-3 Decub all over the body and stage 4 scaral pressure- POA local wound care Request for pressure support mattress. Wound care consulted Severe malnutrition with cachexia -Nutrition consult for PEG feeding Hx of recurrent Pneumonia with MDR organisims. -Aspiration precaution Hx of Recurrent CA-UTI -SBT changed. DVT prophylaxis lovenox No family present at this time. Disposition. when cleared by ID and per Urology (Primary team). PREVIOUS DISCUSSION ABOUT HOSPICE WITH FAMILY REJECTED History Interval history: Patient seen and examined in no acute distress. No adverse event reported by nursing staff. Discussed with nursing staff. no evidence patient was breathing at 30bpm. This was erronous. PATIENTS RATE Remains at 20 Hospitalist Physical - Physical exam Narrative exam: VITAL SIGNS: Reviewed. GENERAL: The patient appeared critically ill, emaciated, contracted. Vital signs as documented. HEAD: No signs of head trauma. EYES: Pupils are equal. Extraocular motions intact. EARS: Hearing grossly intact. MOUTH: Oropharynx is dry NECK: Trach in place CHEST: Chest with clear breath sounds bilaterally. No wheezes, rales, or rhonchi. CARDIAC: Regular rate and rhythm. S1 and S2, without murmurs, gallops, or rubs. VASCULAR: No Edema. Peripheral pulses normal and equal in all extremities. ABDOMEN: Soft, PEG tube in place, around 2 placement ,without detectable tenderness. No sign of distention. No rebound or guarding, and no masses palpated. Bowel Sounds normal. MUSCULOSKELETAL: Contracted. Dependent edema is noted. : Dressing in place NEUROLOGIC EXAM: Awake. The contracted. Patient is nonverbal PSYCHIATRIC: Mood normal. SKIN: SACRAL decubitus ulcers STAGE 4. Multiple ulcers lower extremities. - Constitutional Vitals: Temp Pulse Resp BP Pulse Ox 97.9 F 74 30 H 144/85 98 07/19/17 07:00 07/19/17 07:00 07/19/17 07:00 07/19/17 07:00 07/19/17 07:00 Results - Labs CBC & Chem 7: 07/16/17 05:03 07/16/17 05:03 Labs: Laboratory Last Values WBC 6.3 K/mm3 (4.5-11.0) 07/16/17 05:03 RBC 3.11 M/mm3 (3.65-5.03) L 07/16/17 05:03 Hgb 8.4 gm/dl (11.8-15.2) L 07/16/17 05:03 Hct 26.8 % (35.5-45.6) L 07/16/17 05:03 MCV 86 fl (84-94) 07/16/17 05:03 MCH 27 pg (28-32) L 07/16/17 05:03 MCHC 31 % (32-34) L 07/16/17 05:03 RDW 18.8 % (13.2-15.2) H 07/16/17 05:03 Plt Count 296 K/mm3 (140-440) 07/16/17 05:03 Lymph % (Auto) 15.0 % (13.4-35.0) 07/15/17 06:55 [place] % (Auto) 10.8 % (0.0-7.3) H 07/15/17 06:55 Eos % (Auto) 1.5 % (0.0-4.3) 07/15/17 06:55 Baso % (Auto) 0.4 % (0.0-1.8) 07/15/17 06:55 Lymph # 1.7 K/mm3 (1.2-5.4) 07/15/17 06:55 [place] # 1.2 K/mm3 (0.0-0.8) H 07/15/17 06:55 Eos # 0.2 K/mm3 (0.0-0.4) 07/15/17 06:55 Baso # 0.0 K/mm3 (0.0-0.1) 07/15/17 06:55 Seg Neutrophils % 72.3 % (40.0-70.0) H 07/15/17 06:55 Seg Neutrophils # 8.3 K/mm3 (1.8-7.7) H 07/15/17 06:55 Sodium 139 mmol/L (137-145) 07/16/17 05:03 Potassium 3.6 mmol/L (3.6-5.0) 07/16/17 05:03 Chloride 106.4 mmol/L (98-107) 07/16/17 05:03 Carbon Dioxide 21 mmol/L (22-30) L 07/16/17 05:03 Anion Gap 15 mmol/L 07/16/17 05:03 BUN 9 mg/dL (9-20) 07/16/17 05:03 Creatinine 0.4 mg/dL (0.8-1.5) L 07/16/17 05:03 Estimated GFR > 60 ml/min 07/16/17 05:03 BUN/Creatinine Ratio 22.50 % 07/16/17 05:03 Glucose 76 mg/dL (75-100) 07/16/17 05:03 POC Glucose 87 (70-105) 07/19/17 05:16 Lactic Acid 0.80 mmol/L (0.7-2.0) 07/15/17 06:55 Calcium 7.9 mg/dL (8.4-10.2) L 07/16/17 05:03 Total Creatine Kinase 453 units/L (55-170) H 07/18/17 14:36 C-Reactive Protein 9.80 mg/dL (0.00-1.30) H 07/16/17 15:36
[2017-07-19] MEDS: Centrum Liq PO SCH (11:00)
[2017-07-19] MEDS: NORVASC FEEDTUBE SCH (11:00)
[2017-07-19] MEDS: VITAMIN C PO SCH (11:00)
[2017-07-19] MEDS: K-DUR PO SCH (11:01)
[2017-07-19] MEDS: NACL 0.9% 1000 ML 1,000 ML IV SCH (12:57)
[2017-07-19] MEDS: NACL 0.9% IV SCH (12:58)
[2017-07-19] MEDS: CUBICIN IV SCH (12:58)
--- NOTE | 2017-07-19 14:14 | Progress Note ---
Assessment and Plan Assessment: 1) Sepsis: resolved. 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 Only option will be zerbaxa (ceftolozane+tazobactam) IV which is new antipseudomonal antibiotic very expensive. Will request and ask case loader operator for pricing. -stop zosyn -start cefepime at 2 g IV q12h (to cover morganella but it wont cure Pseudomonas ) -Continue daptomycin -pt is allergic to vancomycin -upon discharge will do daptomycin 6 mg/kg IV qday and zerbaxa 1.5 g IV q 8 hours total 6 weeks to treat osteomyelitis. Dapto addition in view of h/o recurrent MRSA septicemia which may be part of osteomyelitis -continue contact isolotion due to history of MDR Pseudmonas lung colonization and MRSA septicemia Thank you Dr Parham for your consultation, will follow up with you. Pastora Chacko MD Infectious Diseases Specialist [facility] M [phone] O [phone] Subjective Date of service: 07/19/17 Interval history: Remains afebrile, no fever overnight Microbiology: Blood cultures: 07/14 neg 7/9 neg 4/ MRSA 3/6 MRSA Urine cultures: Respiratory cultures: 04/26 tracheal asp MDR Pseudomonas / Proteus / E coli 3/ Proteus / MRSA 2/6 Pseudomonas / Proteus Wound cultures: 07/14 Pseudomonas, Morganella 07/14 Gleason-resistant Pseudomonas, Morganella, Enterococcus Stool cultures: Other: Current Antimicrobials: Zosyn 07/15 Previous Antimicrobials: Objective - Exam Narrative Exam: General appearance: Alert in NAD non verbal Eyes: anicteric sclerae, moist conjunctivae; PERRLA HENT: Atraumatic; oropharynx limited Neck: +trach with scant yellowish drainage Lungs: CTA CV: RRR, no murmurs Abdomen: Soft, +PEG +SP cath Extremities: +marked contractures of upper and lower ext. Skin: +multiple pressure sore, + right scrotal wound with a drain with purulence foul smelling Psych: non verbal . Neuro: non verbal quadriplegic Lines: No CVL / PICC - Constitutional Vitals: Vital Signs Temp Pulse Resp BP Pulse Ox 97.9 F 82 20 144/85 99 07/19/17 07:00 07/19/17 14:03 07/19/17 14:03 07/19/17 07:00 07/19/17 10:00 Temperature -Last 24 Hours Temperature 97.9 F Temperature 98.6 F Temperature 99 F - Labs CBC & Chem 7: 07/16/17 05:03 07/16/17 05:03 Labs: Abnormal lab results 07/18/17 Range/Units 14:36 Total Creatine Kinase 453 H (55-170) units/L
[2017-07-20] MEDS: MAXIPIME/NS 2 GM/100 ML 2 GM/100 ML BAG IV SCH ×3 (01:51→14:30)
[2017-07-20] MEDS: DUONEB *Not for PRN Use IH SCH ×4 (02:15→20:00)
[2017-07-20] MEDS: ZOSYN/NS 4.5GM/100ML 4.5 GM/100 ML VIAL IV SCH (04:21)
[2017-07-20] MEDS: K-DUR PO SCH (10:08)
[2017-07-20] MEDS: PEPCID FEEDTUBE SCH ×2 (10:08→23:00)
[2017-07-20] MEDS: COREG PO SCH ×3 (10:08→23:37)
[2017-07-20] MEDS: NORVASC FEEDTUBE SCH (10:08)
[2017-07-20] MEDS: Centrum Liq PO SCH (10:09)
[2017-07-20] MEDS: VITAMIN C PO SCH (10:10)
--- NOTE | 2017-07-20 14:08 | Progress Note ---
Assessment and Plan Assessment and plan: 46 YO Male SNF resident with HTN, CVA wit Quadraparesis, Seizure disorder, Non verbal, Severe Malnutrition, DM, Seizure DO, Dementia, Respiratory Failure, Dysphagia, JEREMY with multiple contracture, multiple skin areas of breakdown, tracheotomy dependent, presents for evaluation of testicle drainage and purulent drainage. He was seen by Urology and proceeded for I& D scrotal abscess & spt change to 16F Scrotal abscess with sepsis -POA * S/P I/D with change of SPT. monitor cultures. Continue abx. * await ID and sensitivity for wound organism- currently growing mixture of 3 organisms namely Pseudomonas, Escherichia coli, Morganella will await sensitivity also in surgical culture. * Vascular consult for PICC line. * Patient can be discharged post line placement Ischial Osteomylitis * PICC line placement, 6 weeks IV antibiotics * Cubcin iv for 6 weeks on discharge. Anemia * Chronic in nature. stable We'll monitor closely. We'll transfuse if less than 7. Quadriplegia * supportive care, complication of CVA. Metabolic encephalopathy * baseline encephalopathy Diabetes Mellitus * Accuchecks, good blood glucose control with insulin. adjust as needed Seizure disorder * Stable. 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 Wound care consulted Severe malnutrition with Cachexia -Nutrition consult for PEG feeding Hx of recurrent Pneumonia with MDR organisms. -Aspiration precaution Hx of Recurrent CA-UTI -SBT changed. DVT prophylaxis Lovenox No family present at this time. Disposition. Can be discharged today after line placement. Discussed with Nursing to contact Primary team for discharge. History Interval history: Patient seen and examined in no acute distress. NO new adverse events from nursing staff Hospitalist Physical - Physical exam Narrative exam: VITAL SIGNS: Reviewed. GENERAL: The patient appeared critically ill, emaciated, contracted. Vital signs as documented. HEAD: No signs of head trauma. EYES: Pupils are equal. Extraocular motions intact. EARS: Hearing grossly intact. MOUTH: Oropharynx is dry NECK: Trach in place CHEST: Chest with clear breath sounds bilaterally. No wheezes, rales, or rhonchi. CARDIAC: Regular rate and rhythm. S1 and S2, without murmurs, gallops, or rubs. VASCULAR: No Edema. Peripheral pulses normal and equal in all extremities. ABDOMEN: Soft, PEG tube in place, around 2 placement ,without detectable tenderness. No sign of distention. No rebound or guarding, and no masses palpated. Bowel Sounds normal. MUSCULOSKELETAL: Contracted. Dependent edema is noted. : Dressing in place NEUROLOGIC EXAM: Awake. The contracted. Patient is nonverbal PSYCHIATRIC: Mood normal. SKIN: SACRAL decubitus ulcers STAGE 4. Multiple ulcers lower extremities. - Constitutional Vitals: Temp Pulse Resp BP Pulse Ox 98.0 F 82 22 130/87 99 07/20/17 07:05 07/20/17 09:45 07/20/17 09:45 07/20/17 07:05 07/20/17 09:50 Results - Labs CBC & Chem 7: 07/16/17 05:03 07/16/17 05:03 Labs: Laboratory Last Values WBC 6.3 K/mm3 (4.5-11.0) 07/16/17 05:03 RBC 3.11 M/mm3 (3.65-5.03) L 07/16/17 05:03 Hgb 8.4 gm/dl (11.8-15.2) L 07/16/17 05:03 Hct 26.8 % (35.5-45.6) L 07/16/17 05:03 MCV 86 fl (84-94) 07/16/17 05:03 MCH 27 pg (28-32) L 07/16/17 05:03 MCHC 31 % (32-34) L 07/16/17 05:03 RDW 18.8 % (13.2-15.2) H 07/16/17 05:03 Plt Count 296 K/mm3 (140-440) 07/16/17 05:03 Lymph % (Auto) 15.0 % (13.4-35.0) 07/15/17 06:55 [place] % (Auto) 10.8 % (0.0-7.3) H 07/15/17 06:55 Eos % (Auto) 1.5 % (0.0-4.3) 07/15/17 06:55 Baso % (Auto) 0.4 % (0.0-1.8) 07/15/17 06:55 Lymph # 1.7 K/mm3 (1.2-5.4) 07/15/17 06:55 [place] # 1.2 K/mm3 (0.0-0.8) H 07/15/17 06:55 Eos # 0.2 K/mm3 (0.0-0.4) 07/15/17 06:55 Baso # 0.0 K/mm3 (0.0-0.1) 07/15/17 06:55 Seg Neutrophils % 72.3 % (40.0-70.0) H 07/15/17 06:55 Seg Neutrophils # 8.3 K/mm3 (1.8-7.7) H 07/15/17 06:55 Sodium 139 mmol/L (137-145) 07/16/17 05:03 Potassium 3.6 mmol/L (3.6-5.0) 07/16/17 05:03 Chloride 106.4 mmol/L (98-107) 07/16/17 05:03 Carbon Dioxide 21 mmol/L (22-30) L 07/16/17 05:03 Anion Gap 15 mmol/L 07/16/17 05:03 BUN 9 mg/dL (9-20) 07/16/17 05:03 Creatinine 0.4 mg/dL (0.8-1.5) L 07/16/17 05:03 Estimated GFR > 60 ml/min 07/16/17 05:03 BUN/Creatinine Ratio 22.50 % 07/16/17 05:03 Glucose 76 mg/dL (75-100) 07/16/17 05:03 POC Glucose 94 (70-105) 07/19/17 17:24 Lactic Acid 0.80 mmol/L (0.7-2.0) 07/15/17 06:55 Calcium 7.9 mg/dL (8.4-10.2) L 07/16/17 05:03 Total Creatine Kinase 453 units/L (55-170) H 07/18/17 14:36 C-Reactive Protein 9.80 mg/dL (0.00-1.30) H 07/16/17 15:36 Miscellaneous Test Flexitest 1 H 07/16/17 15:36
[2017-07-20] MEDS ORDERED: XYLOCAINE 2% INFILTRATI ONE (14:36)
[2017-07-20] MEDS ORDERED: HEPARIN/NS 5000 UNIT/500ML(CATH LAB) 500 ML IR ONE (14:36)
[2017-07-20] MEDS ORDERED: VERSED ONE (15:11)
[2017-07-20] MEDS: SUBLIMAZE ONE ×2 (15:15→15:55)
--- NOTE | 2017-07-20 16:08 | Operative Report ---
Operative Report Operative Report: EXAM: ULTRASOUND AND FLUOROSCOPIC GUIDED PLACEMENT OF TUNNELED CENTRAL VENOUS CATHETER CLINICAL INDICATION: PATIENT WITH BACTEREMIA REQUIRING LONG-TERM CENTRAL IV ACCESS DATE: 07/20/2017 PROCEDURE: Following an explanation of the risks, benefits and alternatives; written informed consent was obtained from the patient's next of kin. The patient was brought to the angiographic suite and placed in supine position on the examination table. Given his severe contractures, a traditional PICC line was not a consideration. Ultrasound evaluation of the patient's veins across his chest wall and neck was performed and the internal jugular vein appeared to be patent on the left. Patient's left neck and chest wall were prepped and draped in the usual sterile fashion. 1% lidocaine was liberally used for anesthesia. Under ultrasound guidance, a 7 cm 18-gauge needle was advanced into the left internal jugular vein. A 0.018 guidewire was advanced centrally. The needle was removed and a micro-sheath placed area contrast was injected through the micro-sheath which demonstrated prompt drainage into the right atrium and opacification of the pulmonary vasculature. A 0.018 guidewire was then advanced through the micropuncture sheath into the right hepatic vein. The micro-sheath was removed and a 5.5 [place] peel-away sheath placed over the guidewire and advance centrally. This excess was temporarily capped. An appropriate exit site was chosen lateral to the venotomy site. 1% lidocaine was used for anesthesia at the catheter exit site and along the tunnel tract. A Bard dual-lumen PICC was then tunneled antegrade from the catheter exit site to the venotomy site. Following standard guidewire measurements, the PICC was cut to length and inserted through the peel-away sheath. The guidewire had to be utilized to navigate the patient's tortuosity to position the tip of the PICC in the proximal right atrium. Contrast was again injected through the PICC line to document appropriate intravenous positioning. The PICC line aspirated and flushed easily and movements locked with sterile saline. The catheter was securely fastened of the chest wall using StatLock device. A sterile dressing was then applied. The patient tolerated the procedure well. There were no immediate post procedure complications. Fentanyl was utilized for pain control under the guidance of radiologic nursing. Continuous cardiopulmonary monitoring was utilized. IMPRESSION: 1) Ultrasound and fluoroscopic guided placement of tunneled central venous PICC line
[2017-07-20] MEDS: CUBICIN IV SCH (17:32)
[2017-07-20] MEDS: NACL 0.9% IV SCH (17:32)
[2017-07-21] MEDS: NACL 0.9% 1000 ML 1,000 ML IV SCH ×2 (01:27→09:27)
[2017-07-21] MEDS: DUONEB *Not for PRN Use IH SCH ×5 (02:05→15:22)
[2017-07-21] MEDS: MAXIPIME/NS 2 GM/100 ML 2 GM/100 ML BAG IV SCH ×2 (03:44→16:19)
[2017-07-21] MEDS: TRANSDERM-SCOP TD SCH (06:31)
--- NOTE | 2017-07-21 08:37 | Progress Note ---
Assessment and Plan Assessment and plan: 46 YO Male SNF resident with HTN, CVA wit Quadraparesis, Seizure disorder, Non verbal, Severe Malnutrition, DM, Seizure DO, Dementia, Respiratory Failure, Dysphagia, JEREMY with multiple contracture, multiple skin areas of breakdown, tracheotomy dependent, presents for evaluation of testicle drainage and purulent drainage. He was seen by Urology and proceeded for I& D scrotal abscess & spt change to 16F Scrotal abscess with sepsis -POA * S/P I/D with change of SPT. monitor cultures. Continue abx. * await ID and sensitivity for wound organism- currently growing mixture of 3 organisms namely Pseudomonas, Escherichia coli, Morganella will await sensitivity also in surgical culture. * Vascular consult for PICC line.Placed. PT WILL NEED TO FOLLOW WITH VASCULAR FOR REMOVAL AT END OF ANTIBIOTICS * Patient can be discharged post line placement Ischial Osteomylitis * PICC line placement, 6 weeks IV antibiotics * Cubcin IV for 6 weeks on discharge. Anemia * Chronic in nature. Stable We'll monitor closely. We'll transfuse if less than 7. Quadriplegia * supportive care, complication of CVA. Metabolic encephalopathy * baseline encephalopathy Diabetes Mellitus * Accuchecks, good blood glucose control with insulin. adjust as needed Seizure disorder * Stable. 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 Wound care consulted Severe malnutrition with Cachexia -Nutrition consult for PEG feeding Hx of recurrent Pneumonia with MDR organisms. -Aspiration precaution Hx of Recurrent CA-UTI -SBT changed. DVT prophylaxis Lovenox No family present at this time. Disposition. Can be discharged today. Discussed with Nursing to contact Primary team for discharge. History Interval history: Patient seen and examined in no acute distress. No new adverse events from nursing staff Hospitalist Physical - Physical exam Narrative exam: VITAL SIGNS: Reviewed. GENERAL: The patient appeared critically ill, emaciated, contracted. Vital signs as documented. HEAD: No signs of head trauma. EYES: Pupils are equal. Extraocular motions intact. EARS: Hearing grossly intact. MOUTH: Oropharynx is dry NECK: Trach in place CHEST: Chest with clear breath sounds bilaterally. No wheezes, rales, or rhonchi. CARDIAC: Regular rate and rhythm. S1 and S2, without murmurs, gallops, or rubs. VASCULAR: No Edema. Peripheral pulses normal and equal in all extremities. ABDOMEN: Soft, PEG tube in place, around 2 placement ,without detectable tenderness. No sign of distention. No rebound or guarding, and no masses palpated. Bowel Sounds normal. MUSCULOSKELETAL: Contracted. Dependent edema is noted. : Dressing in place NEUROLOGIC EXAM: Awake. The contracted. Patient is nonverbal PSYCHIATRIC: Mood normal. SKIN: SACRAL decubitus ulcers STAGE 4. Multiple ulcers lower extremities. - Constitutional Vitals: Temp Pulse Resp BP Pulse Ox 98.9 F 88 24 122/77 99 07/21/17 08:00 07/21/17 08:32 07/21/17 08:32 07/21/17 08:00 07/21/17 08:33 Results - Labs CBC & Chem 7: 07/16/17 05:03 07/16/17 05:03 Labs: Laboratory Last Values WBC 6.3 K/mm3 (4.5-11.0) 07/16/17 05:03 RBC 3.11 M/mm3 (3.65-5.03) L 07/16/17 05:03 Hgb 8.4 gm/dl (11.8-15.2) L 07/16/17 05:03 Hct 26.8 % (35.5-45.6) L 07/16/17 05:03 MCV 86 fl (84-94) 07/16/17 05:03 MCH 27 pg (28-32) L 07/16/17 05:03 MCHC 31 % (32-34) L 07/16/17 05:03 RDW 18.8 % (13.2-15.2) H 07/16/17 05:03 Plt Count 296 K/mm3 (140-440) 07/16/17 05:03 Lymph % (Auto) 15.0 % (13.4-35.0) 07/15/17 06:55 [place] % (Auto) 10.8 % (0.0-7.3) H 07/15/17 06:55 Eos % (Auto) 1.5 % (0.0-4.3) 07/15/17 06:55 Baso % (Auto) 0.4 % (0.0-1.8) 07/15/17 06:55 Lymph # 1.7 K/mm3 (1.2-5.4) 07/15/17 06:55 [place] # 1.2 K/mm3 (0.0-0.8) H 07/15/17 06:55 Eos # 0.2 K/mm3 (0.0-0.4) 07/15/17 06:55 Baso # 0.0 K/mm3 (0.0-0.1) 07/15/17 06:55 Seg Neutrophils % 72.3 % (40.0-70.0) H 07/15/17 06:55 Seg Neutrophils # 8.3 K/mm3 (1.8-7.7) H 07/15/17 06:55 Sodium 139 mmol/L (137-145) 07/16/17 05:03 Potassium 3.6 mmol/L (3.6-5.0) 07/16/17 05:03 Chloride 106.4 mmol/L (98-107) 07/16/17 05:03 Carbon Dioxide 21 mmol/L (22-30) L 07/16/17 05:03 Anion Gap 15 mmol/L 07/16/17 05:03 BUN 9 mg/dL (9-20) 07/16/17 05:03 Creatinine 0.4 mg/dL (0.8-1.5) L 07/16/17 05:03 Estimated GFR > 60 ml/min 07/16/17 05:03 BUN/Creatinine Ratio 22.50 % 07/16/17 05:03 Glucose 76 mg/dL (75-100) 07/16/17 05:03 POC Glucose 107 (70-105) H 07/21/17 06:16 Lactic Acid 0.80 mmol/L (0.7-2.0) 07/15/17 06:55 Calcium 7.9 mg/dL (8.4-10.2) L 07/16/17 05:03 Total Creatine Kinase 65 units/L (55-170) 07/21/17 03:02 C-Reactive Protein 9.80 mg/dL (0.00-1.30) H 07/16/17 15:36 Miscellaneous Test Flexitest 1 H 07/16/17 15:36
--- NOTE | 2017-07-21 11:44 | Progress Note ---
Assessment and Plan Assessment: 1) Sepsis: resolved. 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 -CRP 9.8 4) Multiple skin pressure sores 5) Quadraparesis s/p PEG and SP cath 6) Seizure disorder 7) Severe Malnutrition 8) DM 9) History of Respiratory Failure 10) History of MRSA septicemia in January 2017 and then February 2017 (treated with po zyvox / clindamycin) 11) Recurrent pneumonia / lung colonization with MDR Pseudomonas, Proteus and MRSA in January 2017 12) History or recurrent CA-UTI Plan: -consult surgery for diverting colostomy in view of wound contaminated with feces -start zerbaxa (ceftolozane+tazobactam) 1.5 g IV q8h when available-discussed with pharmacy -continue cefepime at 2 g IV q12h (to cover morganella but it wont cure Pseudomonas) until zervaxa available -Continue daptomycin -pt is allergic to vancomycin -upon discharge will do daptomycin 6 mg/kg IV qday and zerbaxa 1.5 g IV q 8 hours total 6 weeks from 07/15 until 08/26 to treat osteomyelitis. -pt to be on contact isolotion due to history of MDR Pseudmonas lung colonization and MRSA septicemia Thank you Dr Parham for your consultation, will follow up with you. Pastora Chacko MD Infectious Diseases Specialist [facility] M [phone] O [phone] Subjective Date of service: 07/21/17 Principal diagnosis: scrotal abscess / ischial osteomyelitis Interval history: Remains afebrile, no fever overnight Microbiology: Blood cultures: 07/14 neg 7/9 neg 4/ MRSA 3/6 MRSA Urine cultures: Respiratory cultures: 04/26 tracheal asp MDR Pseudomonas / Proteus / E coli / Proteus / MRSA 2/ Pseudomonas / Proteus Wound cultures: 07/14 Pseudomonas, Morganella 07/14 Lopez-resistant Pseudomonas, Morganella, Enterococcus Stool cultures: Other: Current Antimicrobials: Zosyn 07/15 Previous Antimicrobials: Objective - Exam Narrative Exam: General appearance: Alert in NAD non verbal Eyes: anicteric sclerae, moist conjunctivae; PERRLA HENT: Atraumatic; oropharynx limited Neck: +trach with scant yellowish drainage Lungs: CTA CV: RRR, no murmurs Abdomen: Soft, +PEG +SP cath Extremities: +marked contractures of upper and lower ext. Skin: +multiple pressure sore, + right scrotal wound with a drain with purulence foul smelling + right ischial decubiti with stools Psych: non verbal . Neuro: non verbal quadriplegic Lines: No CVL / PICC - Constitutional Vitals: Vital Signs Temp Pulse Resp BP Pulse Ox 98.9 F 88 24 122/77 99 07/21/17 08:00 07/21/17 08:32 07/21/17 08:32 07/21/17 08:00 07/21/17 08:40 Temperature -Last 24 Hours Temperature 98.9 F Temperature 98.2 F Temperature 97.9 F - Labs CBC & Chem 7: 07/16/17 05:03 07/16/17 05:03 Labs: Abnormal lab results 07/20/17 07/21/17 07/21/17 Range/Units 21:47 00:14 06:16 POC Glucose 61 L 115 H 107 H (70-105)
--- NOTE | 2017-07-21 12:39 | Progress Note ---
Assessment and Plan drain removed no purulent drainge poorly compliant not seen x 20 months local care ok to d/c Subjective Date of service: 07/21/17 Principal diagnosis: scrotal abscess / ischial osteomyelitis Objective - Constitutional Vitals: Vital Signs - 12hr 07/21/17 07/21/17 07/21/17 02:00 02:20 08:00 Temperature 98.9 F Pulse Rate 83 Pulse Rate [ 89 95 H Anterior Bilateral Throughout] Pulse Rate [ Bilateral] Respiratory 24 Rate Respiratory 25 H 23 Rate [Anterior Bilateral Throughout] Respiratory Rate [Bilateral ] Blood Pressure 122/77 O2 Sat by Pulse 100 Oximetry O2 Sat by Pulse Oximetry [ Assessment] 07/21/17 07/21/17 07/21/17 08:32 08:33 08:40 Temperature Pulse Rate Pulse Rate [ 88 Anterior Bilateral Throughout] Pulse Rate [ 88 Bilateral] Respiratory Rate Respiratory 24 Rate [Anterior Bilateral Throughout] Respiratory 20 Rate [Bilateral ] Blood Pressure O2 Sat by Pulse 99 Oximetry O2 Sat by Pulse 99 Oximetry [ Assessment] General appearance: Present: mild distress - Respiratory Respiratory effort: labored Extremity abnormal: other (contracted ) - Genitourinary Male genitourinary: scrotal edema (no sig drainage ) - Labs CBC & Chem 7: 07/16/17 05:03 07/16/17 05:03 Labs: Abnormal lab results 07/20/17 07/21/17 07/21/17 Range/Units 21:47 00:14 06:16 POC Glucose 61 L 115 H 107 H (70-105)
--- NOTE | 2017-07-21 12:43 | Discharge Summary ---
Providers - Providers Date of Admission: 07/14/17 21:51 Date of discharge: 07/21/17 Attending physician: JW NAPOLES MD 07/14/17 21:56 Consult to Physician [CONS] Routine Consulting Provider: BETTINA ARAIZA Reason For Exam: medical management Place consult to:: phone Notified:: yes 07/15/17 12:18 Consult to Dietitian/Nutrition [CONS] Routine Physician Instructions: pt has g-tube Reason For Exam: Reason for Consult: Write/Manage Tube Feeding 07/15/17 15:43 Consult to Physician [CONS] Routine Consulting Provider: PASTORA DINH Reason For Exam: osteomylitis-right posterior hip Place consult to:: DR. 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 Additional Physician Instructions: [facility] Pastora Leslie MD M [phone] O [phone] OUTPATIENT PARENTERAL ANTIBIOTIC THERAPY ORDERS Diagnoses: right ischeal osteomyeltis / scrotal abscess Antimicrobial administration:daptomycin 6 mg/kg IV qday and zerbaxa 1.5 g IV q 8 hours total 6 weeks from 07/15 until 08/26 Lines: Lab monitoring: CBC, CMP, CRP, CK and vancomycin trough once a week preferly on Thursday morning Pastora Leslie Date: 07/21/17 07/20/17 08:50 Consult to Interventional Radiology [CONS] Routine Consulting Provider: SHASHA BURROUGHS Reason For Exam: Tunneled Picc LINE FOR snf abx IV access. 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 Was contact made?: Yes If yes, spoke with:: Tone Garcia Time called:: 09:00 07/21/17 10:11 Consult to Physician [CONS] Routine Consulting Provider: MICHELLE OVIEDO Reason For Exam: stage IV ulcer-a eval for colostomy Place consult to:: Office Notified:: yes Phone number called:: [phone] Was contact made?: Yes If yes, spoke with:: Primary care physician: CANCER GENETIC COUNSELOR Hospitalization Condition: Fair Pertinent studies: see chart post i and d and vasc acess Procedures: see above Hospital course: tx iv abs abd i and d scrotal abcess Disposition: [id number]/[id number] [facility]PT [facility] F[facility]ILITY Core Measure Documentation - Palliative Care Palliative Care/ Comfort Measures: Palliative Care/Comfort Measures - Core Measures Any of the following diagnoses?: none - VTE Discharge Requirements Has pt received <5 days of overlap therapy or INR<2.0: No Contraindication No Overlap Therapy order at DC: Not Indicated Exam - Constitutional Vitals: Temp Pulse Resp BP Pulse Ox 98.9 F 88 24 122/77 99 07/21/17 08:00 07/21/17 08:32 07/21/17 08:32 07/21/17 08:00 07/21/17 08:40 General appearance: Present: mild distress Plan Special Instructions: other (resp care) Follow up with: PRIMARY CAREMD [Primary Care Provider] - 3-5 Days Prescriptions: Ceftolozane/Tazobactam [Zerbaxa 1-0.5 Gram Vial] 1.5 gm IV Q8HR 42 Days DAPTOmycin [Cubicin] 424.2 mg IV Q24HR 42 Days
[2017-07-21] MEDS: Centrum Liq PO SCH (13:29)
[2017-07-21] MEDS: COREG PO SCH (13:29)
[2017-07-21] MEDS: K-DUR PO SCH (13:29)
[2017-07-21] MEDS: NORVASC FEEDTUBE SCH (13:31)
[2017-07-21] MEDS: PEPCID FEEDTUBE SCH (13:31)
[2017-07-21] MEDS: VITAMIN C PO SCH (13:32)
[2017-07-21] MEDS: NACL 0.9% IV SCH (13:34)
[2017-07-21] MEDS: CUBICIN IV SCH (13:34)
[2017-07-21 15:52] VITALS: BP 124/78
== END 2017-07-21 18:45 | DRG 871 ==
LOC: ED 16:27 → 2B-SURG 21:51
PROVIDERS: ADMIT Urology; ATTEND Internal Medicine
PROC: 0V9530Z Drainage of Scrotum with Drainage Device, Percutaneous Approach (ICD-10-PCS; principal; 2017-07-14)
PROC: 0T2BX0Z Change Drainage Device in Bladder, External Approach (ICD-10-PCS; 2017-07-14)
PROC: 02H633Z Insertion of Infusion Device into Right Atrium, Percutaneous Approach (ICD-10-PCS; 2017-07-20)
PROC: B2141ZZ Fluoroscopy of Right Heart using Low Osmolar Contrast (ICD-10-PCS; 2017-07-20)
DX: A41.9 Sepsis, unspecified organism (principal); G82.50 Quadriplegia, unspecified; G93.41 Metabolic encephalopathy; L89.154 Pressure ulcer of sacral region, stage 4; E43 Unspecified severe protein-calorie malnutrition; N49.2 Inflammatory disorders of scrotum; Z88.8 Allergy status to other drugs, medicaments and biological substances; I10 Essential (primary) hypertension; J44.9 Chronic obstructive pulmonary disease, unspecified; F03.90 Unspecified dementia, unspecified severity, without behavioral disturbance, psychotic disturbance, mood disturbance, and anxiety; Z79.82 Long term (current) use of aspirin; I69.365 Other paralytic syndrome following cerebral infarction, bilateral; G93.1 Anoxic brain damage, not elsewhere classified; G40.909 Epilepsy, unspecified, not intractable, without status epilepticus; Z93.0 Tracheostomy status; M86.9 Osteomyelitis, unspecified; E11.69 Type 2 diabetes mellitus with other specified complication; Z68.1 Body mass index [BMI] 19.9 or less, adult; D64.9 Anemia, unspecified
CPT/HCPCS: 31720; 36415; 36558; 51702; 71010; 72192; 77001; 80048; 82140; 82550; 82962; 85025; 85027; 86140; 87040; 87075; 87076; 87116; 87186; 94640; 94760; 96374; 96375; A9270-GY; C1751; J0692; J0878; J1644; J2250; J2270; J2405; J2543; J2704; J3010; J7030; Q9967

== ENCOUNTER 2017-11-25 22:03 | Emergency (ER) | payer MEDICAID ==
[2017-11-25] MEDS ORDERED: NACL 0.9% 1000 ML 1,000 ML IV ONE (22:18)
[2017-11-25 23:04] LABS: Hematocrit 39.6 % (35.5-45.6); Hemoglobin 12.8 gm/dl (11.8-15.2); Mean Corpuscular HGB Conc 32 % (32-34); Mean Corpuscular Hemoglobin 29 pg (28-32); Mean Corpuscular Volume 88 fl (84-94); Platelet Count 108 K/mm3 (140-440); Red Blood Count 4.48 M/mm3 (3.65-5.03)
[2017-11-25 23:05] LABS: Red Cell Distribution Width 20.3 % (13.2-15.2)
[2017-11-25 23:19] LABS: Alanine Aminotransferase 38 units/L (7-56); Albumin 3.1 g/dL (3.9-5); BUN/Creatinine Ratio 46; Blood Urea Nitrogen 23 mg/dL (9-20); Calcium 8.8 mg/dL (8.4-10.2); Hemolysis Index 68; Lipase 20 units/L (13-60)
[2017-11-26 00:02] LABS: Anisocytosis Few; Band Neutrophils # (Manual) 0.5 K/mm3; Basophils % (Manual) 0 % (0.0-1.8); Eosinophils % (Manual) 0 % (0.0-4.3); Hypochromasia 1+; Total Cells Counted 100
[2017-11-26 00:03] LABS: Platelet Estimate Cons
[2017-11-26 00:17] LABS: INR 1.12 (0.87-1.13)
[2017-11-26 00:18] LABS: Partial Thromboplastin Time 33.8 Sec. (24.2-36.6)
--- NOTE | 2017-11-26 00:53 | Emergency Department Report ---
ED N/V/D HPI - General Chief complaint: Nausea/Vomiting/Diarrhea Stated complaint: POSSIBLE GI BLEED Time Seen by Provider: 11/25/17 22:34 Source: EMS Mode of arrival: Stretcher Limitations: Language Barrier, Physical Limitation - History of Present Illness Initial comments: Patient reportedly had episode of hematemesis at [place] today. complaint: vomiting -: Sudden, This afternoon Description of Vomiting: bloody Description of Diarrhea: other (none) Associated Abdominal Pain: No Radiation: none Severity: Unable to Determine Pain Scale: 0 Improves with: none Worsens with: none - Related Data Previous Rx's Medication Instructions Recorded Last Taken Type Aspirin [Aspirin BABY CHEW TAB] 81 mg PO QDAY #30 tab.chew 12/10/16 Unknown Rx AtorvaSTATin [Lipitor] 10 mg PO QHS #30 tablet 12/10/16 Unknown Rx Potassium Chloride 10 meq PO DAILY #7 capsule.er 02/27/17 Unknown Rx Ascorbic Acid [Vitamin C] 500 mg PO DAILY #30 04/15/17 Unknown Rx Famotidine [Pepcid] 20 mg FEEDTUBE BID #60 04/15/17 Unknown Rx Glycopyrrolate [Robinul] 1 mg FEEDTUBE TID PRN #30 04/15/17 Unknown Rx Ipratropium/Albuterol Sulfate 1 ampul IH Q6HR #30 04/15/17 Unknown Rx [DUONEB *Not for PRN Use*] Multivit-Mins 53/Folic/K/Coq10 1 each PO DAILY #30 04/15/17 Unknown Rx [Dekas Plus Softgel] Protein Supplement [Promod] 30 ml FEEDTUBE TID #30 04/15/17 Unknown Rx Scopolamine [Transderm-Scop] 1.5 mg TD Q3D #30 04/15/17 Unknown Rx amLODIPine [Norvasc] 5 mg FEEDTUBE QDAY #30 tablet 04/15/17 08/17/16 Rx Carvedilol [Coreg] 3.125 mg PO BID #60 tablet 06/04/17 Unknown Rx DAPTOmycin [Cubicin] 424.2 mg IV Q24HR 42 Days vial 07/19/17 Unknown Rx Ceftolozane/Tazobactam [Zerbaxa 1.5 gm IV Q8HR 42 Days vial 07/20/17 Unknown Rx 1-0.5 Gram Vial] Omeprazole 40 mg PO DAILY #14 capsule.dr 11/26/17 Unknown Rx Allergies Allergy/AdvReac Type Severity Reaction Status Date / Time vancomycin Allergy Unknown Verified 02/21/17 09:16 ED Review of Systems ROS: Stated complaint: POSSIBLE GI BLEED Other details as noted in HPI Comment: Unobtainable due to pts medical conditions Constitutional: denies: chills, fever Eyes: denies: eye pain, eye discharge, vision change ENT: denies: ear pain, throat pain Respiratory: denies: cough, shortness of breath, wheezing Cardiovascular: denies: chest pain, palpitations Endocrine: no symptoms reported Gastrointestinal: vomiting. denies: abdominal pain, nausea, diarrhea Genitourinary: denies: urgency, dysuria Musculoskeletal: denies: back pain, joint swelling, arthralgia Skin: denies: rash, lesions Neurological: denies: headache, weakness, paresthesias Psychiatric: denies: anxiety, depression Hematological/Lymphatic: denies: easy bleeding, easy bruising ED Past Medical Hx - Past Medical History Hx Hypertension: Yes Hx CVA: Yes Hx Heart Attack/AMI: No Hx Congestive Heart Failure: No Hx Diabetes: Yes Hx Deep Vein Thrombosis: No Hx Pulmonary Embolism: No Hx Liver Disease: No Hx Renal Disease: Yes Hx Sickle Cell Disease: No Hx Arthritis: No Hx Seizures: Yes Hx Kidney Stones: No Hx Asthma: No Hx COPD: Yes Hx Tuberculosis: No Hx Dementia: Yes Additional medical history: Resp failure, dysphagia, uti, scrotal cellulitis, quadriplegic - Surgical History Past Surgical History?: Yes Hx Coronary Stent: No Hx Open Heart Surgery: No Hx Pacemaker: No Hx Internal Defibrillator: No Hx Cholecystectomy: No Hx Appendectomy: No Hx Breast Surgery: No Additional Surgical History: G-tube, suprapubic catheter, trach - Social History Smoking Status: Never Smoker Substance Use Type: None - Medications Home Medications: Home Medications Medication Instructions Recorded Confirmed Last Taken Type Aspirin [Aspirin BABY CHEW TAB] 81 mg PO QDAY #30 tab.chew 12/10/16 04/26/17 Unknown Rx AtorvaSTATin [Lipitor] 10 mg PO QHS #30 tablet 12/10/16 04/26/17 Unknown Rx Potassium Chloride 10 meq PO DAILY #7 capsule.er 02/27/17 04/26/17 Unknown Rx Ascorbic Acid [Vitamin C] 500 mg PO DAILY #30 04/15/17 04/26/17 Unknown Rx Famotidine [Pepcid] 20 mg FEEDTUBE BID #60 04/15/17 04/26/17 Unknown Rx Glycopyrrolate [Robinul] 1 mg FEEDTUBE TID PRN #30 04/15/17 04/26/17 Unknown Rx Ipratropium/Albuterol Sulfate 1 ampul IH Q6HR #30 04/15/17 04/26/17 Unknown Rx [DUONEB *Not for PRN Use*] Multivit-Mins 53/Folic/K/Coq10 1 each PO DAILY #30 04/15/17 04/26/17 Unknown Rx [Dekas Plus Softgel] Protein Supplement [Promod] 30 ml FEEDTUBE TID #30 04/15/17 04/26/17 Unknown Rx Scopolamine [Transderm-Scop] 1.5 mg TD Q3D #30 04/15/17 04/26/17 Unknown Rx amLODIPine [Norvasc] 5 mg FEEDTUBE QDAY #30 tablet 04/15/17 04/26/17 08/17/16 Rx Carvedilol [Coreg] 3.125 mg PO BID #60 tablet 06/04/17 Unknown Rx DAPTOmycin [Cubicin] 424.2 mg IV Q24HR 42 Days vial 07/19/17 Unknown Rx Ceftolozane/Tazobactam [Zerbaxa 1.5 gm IV Q8HR 42 Days vial 07/20/17 Unknown Rx 1-0.5 Gram Vial] Omeprazole 40 mg PO DAILY #14 capsule. 11/26/17 Unknown Rx ED Physical Exam - General Limitations: Language Barrier, Physical Limitation General appearance: alert, in no apparent distress, other (No signs of emesis or hematemesis on clothing.) - Head Head exam: Present: atraumatic, normocephalic - Eye Eye exam: Present: normal appearance - ENT ENT exam: Present: normal exam, normal orophraynx, mucous membranes dry, other ( No blood red or dark in oropharynx.) - Neck Neck exam: Present: normal inspection - Respiratory Respiratory exam: Present: normal lung sounds bilaterally, other (Trach in place and no blood in aspirate from respiratory. ). Absent: respiratory distress - Cardiovascular Cardiovascular Exam: Present: regular rate, normal rhythm. Absent: systolic murmur, diastolic murmur, rubs, gallop - GI/Abdominal GI/Abdominal exam: Present: soft, normal bowel sounds - Rectal Rectal exam: Present: deferred - Extremities Exam Extremities exam: Present: normal inspection - Back Exam Back exam: Present: normal inspection - Neurological Exam Neurological exam: Present: alert, altered - Psychiatric Psychiatric exam: Present: other (At baseline per respiratory and nursing staff. ) - Skin Skin exam: Present: warm, dry, intact, normal color. Absent: rash ED Course Vital Signs 11/25/17 11/25/17 22:11 23:31 Temperature 96.3 F L O2 Sat by Pulse 100 Oximetry ED Medical Decision Making - Lab Data Result diagrams: 11/25/17 22:43 11/25/17 22:43 Mildly elevated white count and patient appears dry from labs. - Radiology Data Radiology results: image reviewed No acute findings on CXR. - Medical Decision Making No clear signs of hematemesis. Patient vitals are all normal. He has been here for 3 hours with no evidence of GI bleed with all labs and vitals being normal. [facility] can be sent back to [facility]. Critical care attestation.: If time is entered above; I have spent that time in minutes in the direct care of this critically ill patient, excluding procedure time. ED Disposition Clinical Impression: Vomiting Qualifiers: Vomiting type: hematemesis Nausea presence: unspecified Qualified Code(s): K92.0 - Hematemesis Disposition: TO HOME OR SELFCARE Is pt being admited?: No Does the pt Need Aspirin: No Condition: Stable Instructions: Acute Nausea and Vomiting (ED) Prescriptions: Omeprazole 40 mg PO DAILY #14 capsule. Referrals: [facility] [Outside] - 3-5 Days Time of Disposition:
[2017-11-26 01:43] VITALS: BP 204/155
--- NOTE | 2017-11-26 01:55 | XRay Report ---
FINAL REPORT PROCEDURE: XR CHEST 1V AP TECHNIQUE: Chest radiograph anteroposterior view. CPT 10302 HISTORY: leukocytosis COMPARISON: No prior studies are available for comparison. FINDINGS: Heart: Normal. Mediastinum/Vessels: Normal. Lungs/Pleural space: Examination is limited. Right hemithorax is obscured by patient's head and right hand. Left lung is clear and expanded.. Bony thorax: No acute osseous abnormality. There is kyphosis of the thoracic spine. Life support devices: Tracheostomy tube is in proper position.. IMPRESSION: The heart size is normal. Examination is limited. Right hemithorax is obscured by patient's head and right hand. Left lung is clear and expanded.. Tracheostomy tube is in proper position..
== END 2017-11-26 03:47 | disposition home or self-care (01) ==
LOC: ED 22:03
DX: K92.0 Hematemesis (principal); Z79.82 Long term (current) use of aspirin; Z79.899 Other long term (current) drug therapy; I12.9 Hypertensive chronic kidney disease with stage 1 through stage 4 chronic kidney disease, or unspecified chronic kidney disease; N18.9 Chronic kidney disease, unspecified; E11.21 Type 2 diabetes mellitus with diabetic nephropathy; J44.9 Chronic obstructive pulmonary disease, unspecified
CPT/HCPCS: 36415; 71045; 80053; 83690; 85007; 85025; 85610; 85730; 94760; 99284